=== PATIENT | male | born 1940 | race Caucasian/White ===

== ENCOUNTER → 2023-03-21 10:57 | Outpatient (POV) | payer MEDICARE, OTHER, SELFPAY ==
--- NOTE | 2023-03-21 11:11 | A.OFFVIS_ITS ---
HPI Data of Consult Patient: new to practice Consult date: 03/21/23 Requesting Physician: Sarah Connell APRN Primary Care Provider: Jaron Serrano MD Consult Narrative History of present illness: Mr. Trujillo is a 82 year old male who presents today as a new patient. He is a referral from Dr. Serrano's office. Today he rates his pain a 10 out of 10. Patient states he has pain in multiple locations all over his body and states a lot of it has to do with arthritis. Patient states he has chronic back, shoulder and knee pain. Patient does have a history of 5 previous back surgeries including fusion at [facility]. Patient does describe his pain as a constant aching, throbbing sensation. He does state that he has a history of falls and typically has to rely on someone else to help him whenever he gets up due to this. Patient does use a rolling walker however would like to be able to use a motorized power chair if possible. He states that he did previously have a scooter that he would use prior to his last fall however it is too big to go into the correction. Patient states that he has a significant history of h eart issues and was having trouble which caused additional falls and ended up having to have a valve replaced. Patient states that he also has continued weakness in his legs and his arm and has poor outdoor fitness trainer which does not help with preventing his falls. He states that the last fall he ended up with black eyes and was hospitalized. Patient is currently at [facility] for rehab however he states that he is not planning on leaving this facility. He states he has to be there for 100 days and then will be made a residents following. Patient states he is just unable to stay at home on his own anymore. [facility] [place] Patient does have significant comorbidities including diabetes, COPD, CAD. Patient is currently prescribed gabapentin 300 mg 3 times a day and [place] 5 mg 3 times a day from an outside provider. Patient states this medication does not cause any side effects but it really does not make significant improvement. Patient states he has tried multiple oral medication, heat and ice and topicals with no additional relief. He has had physical therapy in the past and is still currently having the therapy at the correction however is not noticing any additional improvement. Patient does state that he has had injections in his hip, knees and shoulders in the past however these did not do any additional improvement as well. His Herman has been reviewed and is appropriate. CC: Sarah Connell APRN [facility] Disclaimer: The information contained in this section may have been updated after the patient was seen, as this information can be updated by other users. Medical History CAD (coronary artery disease) Carotid artery disease COPD (chronic obstructive pulmonary disease) HHD (hypertensive heart disease) HLD (hyperlipidemia) Shortness of Breath Family History (Updated 03/21/23 @ 11:40 by Karina Edward RN) Other Unknown family medical history Social History (Updated 03/21/23 @ 11:40 by Karina Edward RN) Smoking Status: Former smoker second hand exposure: No alcohol intake: never substance use type: denies use current occupational status: retired Travel in the last 8 weeks: None housing: correction Review of Systems Review of Systems Review of systems:: pertinent systems reviewed and negative unless documented below Review of systems (narrative): Review of Systems: General: No recent weight changes, no fever, no sleep disturbances Respiratory: No cough, no shortness of air, no recurring pulmonary infections Cardiovascular/peripheral vascular: No chest pain, no palpitations, no edema, no shortness of breath Gastrointestinal: No new onset incontinence, normal bowel movements reported Genitourinary: No new onset incontinence Musculoskeletal: Low back pain, knee pain, shoulder pain Psychiatric: [Normal mood/affect] Neurological: [Denies weakness in extremities], [denies balance issues] Meds Home Medications and Allergies Home Medications Medication Instructions Recorded Confirmed Type aspirin 81 mg tablet,delayed 81 mg PO DAILY 05/12/17 03/21/23 History release (Aspir-Low) atorvastatin 20 mg tablet 20 mg PO DAILY 05/12/17 03/21/23 History azilsartan medoxomil 40 1 tab PO Q24H 05/12/17 03/21/23 History mg-chlorthalidone 25 mg tablet (Edarbyclor) bupropion HCl 150 mg 24 hr tablet, 150 mg PO QAM 05/12/17 03/21/23 History extended release (Wellbutrin XL) clopidogrel 75 mg tablet 75 mg PO DAILY 05/12/17 03/21/23 History doxazosin 4 mg tablet 4 mg PO QHS 05/12/17 03/21/23 History ergocalciferol (vitamin D2) 1,250 50,000 unit PO Q2W 05/12/17 03/21/23 History mcg (50,000 unit) capsule fluoxetine 40 mg capsule 40 mg PO DAILY 05/12/17 03/21/23 History furosemide 40 mg tablet (Lasix) 40 mg PO DAILY #30 tabs 05/12/17 03/21/23 Rx lisinopril 20 mg tablet 20 mg PO DAILY 05/12/17 03/21/23 History omeprazole magnesium 20 mg 20 mg PO BID 05/12/17 03/21/23 History tablet,delayed release (Prilosec OTC) gabapentin 300 mg capsule 300 mg PO TID #360 caps 02/27/23 03/21/23 Rx hydrocodone 5 mg-acetaminophen 325 1 tab PO Q8H #15 tabs 02/27/23 03/21/23 Rx mg tablet amlodipine 5 mg tablet 5 mg PO DAILY #30 tabs 03/13/23 03/21/23 Rx carvedilol 3.125 mg tablet (Coreg) 3.125 mg PO BID #60 tabs 03/13/23 03/21/23 Rx erythromycin 5 mg/gram (0.5 %) eye 0.5 inch ophthalmic (eye) TID 30 03/13/23 03/21/23 Rx ointment days #3.5 grams ferrous fumarate 325 mg (106 mg 325 mg PO DAILY #30 tabs 03/13/23 03/21/23 Rx iron) tablet insulin degludec 200 unit/mL (3 12 unit (0.06 mL) SQ DAILY 30 days 03/13/23 03/21/23 Rx mL) subcutaneous pen (Tresiba #1.8 mL FlexTouch U-200 insulin) insulin lispro 100 unit/mL 1 sliding scale dose SQ 03/13/23 03/21/23 Rx subcutaneous solution USEASDIRECTD 30 days #10 mL lidocaine 3.5 % topical patch 1 patch topical QHS #10 ea 03/13/23 03/21/23 Rx loratadine 10 mg tablet 10 mg PO DAILY #30 tabs 03/13/23 03/21/23 Rx losartan 100 mg tablet 100 mg PO DAILY #30 tabs 03/13/23 03/21/23 Rx methocarbamol 500 mg tablet 500 mg PO TID #90 tabs 03/13/23 03/21/23 Rx mirtazapine 15 mg tablet 15 mg PO HS #30 tabs 03/13/23 03/21/23 Rx omega-3 fatty acids 1,000 mg 1,000 mg PO DAILY #30 caps 03/13/23 03/21/23 Rx capsule polyethylene glycol 3350 17 17 g PO DAILY 30 days #510 grams 03/13/23 03/21/23 Rx gram/dose oral powder sennosides 8.6 mg capsule (senna) 8.6 mg PO BID #60 caps 03/13/23 03/21/23 Rx New Prescriptions to Start Prescriptions: Allergies Allergy/AdvReac Type Severity Reaction Status Date / Time influenza virus vaccine, Allergy Verified 02/28/23 15:36 specific shellfish derived Allergy Verified 02/28/23 15:36 Objective Narrative: Physical Exam: General: Alert and oriented x3, no acute distress, pleasant and cooperative Lungs: Respirations even and unlabored, symmetrical chest expansion Eyes: PERRL Musculoskeletal: Flexion and extension of lumbar [spine] somewhat guarded secondary to pain, [antalgic gait noted] Neurological: Speech clear, no gross sensory deficit Assessment and Plan *Assessment and plan (1) Chronic pain syndrome: Status: Acute Category: Medical Code(s): G89.4 - Chronic pain syndrome (2) Low back pain: Status: Acute Qualifiers: Chronicity: chronic Back pain laterality: bilateral Sciatica presence: unspecified whether sciatica present Qualified Code(s): M54.50 - Low back pain, unspecified; G89.29 - Other chronic pain Category: Medical Code(s): M54.50 - Low back pain, unspecified (3) History of lumbar fusion: Status: Acute Category: Surgical Code(s): Z98.1 - Arthrodesis status (4) Bilateral knee pain: Status: Acute Qualifiers: Chronicity: chronic Qualified Code(s): M25.561 - Pain in right knee; M25.562 - Pain in left knee; G89.29 - Other chronic pain Category: Medical Code(s): M25.561 - Pain in right knee; M25.562 - Pain in left knee (5) Bilateral shoulder pain: Status: Acute Qualifiers: Chronicity: chronic Qualified Code(s): M25.511 - Pain in right shoulder; M25.512 - Pain in left shoulder; G89.29 - Other chronic pain Category: Medical Code(s): M25.511 - Pain in right shoulder; M25.512 - Pain in left shoulder Plan Patient continues to experience significant pain throughout multiple joints and areas. Patient did have limited range of motion of his lumbar spine during today's visit. Patient states he was unsure why he was sent to our office however he would be very interested if we can help him get a power chair. I have discussed with the patient that I will fill out any additional paperwork he requires in order to help get this approved for his use at the [facility]. I have also counseled the patient due to his heart history and extensive history of falls I do not recommend is adding any additional pain medication onto his current medication regimen due to increased risk of additional falls. Patient will return to clinic in 1 month for reevaluation of symptoms and plan of care. We will reach out to the [facility] for possible paperwork for the motorized wheelchair. Patient has been instructed to contact the clinic with any concerns before the next appointment. Dr. Fu has reviewed this note and agrees with this plan of care. This note was dictated using voice recognition software and make contain errors or omissions.
[2023-03-21 11:39] VITALS: BP 118/49; PULSE 78; RESP 18; O2SAT 96; BMI 30.8
== END ==
PROVIDERS: PCP Family Medicine; Visit Provider Nurse Practitioner Family
DX: G89.4 Chronic pain syndrome (principal); M54.50 Low back pain, unspecified; Z98.1 Arthrodesis status; M25.561 Pain in right knee; M25.562 Pain in left knee; M25.511 Pain in right shoulder; M25.512 Pain in left shoulder; M43.26 Fusion of spine, lumbar region
CPT/HCPCS: 99202; G0463

== ENCOUNTER 2023-04-10 14:29 | Outpatient (CLI) | payer MEDICARE, OTHER, SELFPAY ==
--- NOTE | 2023-04-10 14:39 | XR_ITS ---
FINAL REPORT CLINICAL HISTORY: right knee pain FINDINGS: Right knee Three views were obtained. There is no acute fracture or dislocation. There are mild and moderate degenerative changes. There is moderate lateral compartment narrowing. Vascular calcification is identified. IMPRESSION: Degenerative changes as detailed above. Reviewed, Interpreted and Dictated by Marcellus Turner III, MD Transcribed by Anisa Guevara Authenticated and [facility]
--- NOTE | 2023-04-10 14:39 | XR_ITS ---
FINAL REPORT CLINICAL HISTORY: left knee pain FINDINGS: Left knee Three views were obtained. There is no acute fracture or dislocation. There are moderate degenerative changes. There is moderate to severe lateral compartment narrowing. Vascular calcification is identified. IMPRESSION: Degenerative changes as detailed above. Reviewed, Interpreted and Dictated by Marcellus Turner III, MD Transcribed by Anisa Guevara Authenticated and [facility]
--- NOTE | 2023-04-10 14:39 | XR_ITS ---
FINAL REPORT CLINICAL HISTORY: shoulder pain FINDINGS: Right shoulder Three views were obtained. There is no acute fracture or dislocation. There are mild degenerative changes of the AC and glenohumeral joints. No soft tissue abnormality is identified. IMPRESSION: Mild degenerative changes. Reviewed, Interpreted and Dictated by Marcellus Turner III, MD Transcribed by Anisa Guevara Authenticated and [facility]
--- NOTE | 2023-04-10 15:30 | XR_ITS ---
FINAL REPORT CLINICAL HISTORY: Left shoulder pain FINDINGS: Left shoulder Three views were obtained. There is no acute fracture or dislocation. There are mild degenerative changes of the AC and glenohumeral joints. No soft tissue abnormality is identified. IMPRESSION: Mild degenerative changes. Reviewed, Interpreted and Dictated by Marcellus Turner III, MD Transcribed by Anisa Guevara Authenticated and [facility]
== END 2023-04-10 23:59 ==
LOC: RAD 14:35
PROVIDERS: PCP Family Medicine; Visit Provider Orthopaedic Surgery
DX: M25.561 Pain in right knee; M25.562 Pain in left knee; M25.512 Pain in left shoulder; M25.511 Pain in right shoulder
CPT/HCPCS: 73030; 73562

== ENCOUNTER 2023-04-21 13:40 | Outpatient (POV) | payer MEDICARE, OTHER, SELFPAY ==
--- NOTE | 2023-04-21 14:04 | A.OFFVIS_ITS ---
[facility] Pain Management SOAP Note Subjective:: Patient is a pleasant 82-year-old male who presents today for follow-up. We are currently treating the patient for chronic pain syndrome, low back pain, history of lumbar fusion, bilateral knee pain. Today he rates his pain a 5 out of 10. Patient denies any new trauma or injury. He does state from our last visit he did end up getting a gel injection in his left knee by Dr. Yan Connell here at [facility]. He states that that has helped and is still currently working. Patient is still currently at the [facility] and states he continues to have his chronic pain throughout his body. At our last visit we did try and submit additional documentation in order to get him a motorized wheelchair however he states he has not heard any updates regarding this. Patient is currently managed with gabapentin 300 mg 3 times a day and [place] 5 mg 3 times a day from an outside provider. His Herman has been reviewed and is appropriate. Review of Systems: General: No recent weight changes, no fever, no sleep disturbances Respiratory: No cough, no shortness of air, no recurring pulmonary infections Cardiovascular/peripheral vascular: No chest pain, no palpitations, no edema, no shortness of breath Gastrointestinal: No new onset incontinence, normal bowel movements reported Genitourinary: No new onset incontinence Musculoskeletal: Knee pain, low back pain, hip pain Psychiatric: [Normal mood/affect] Neurological: [Denies weakness in extremities], [denies balance issues] Objective:: Physical Exam: General: Alert and oriented x3, no acute distress, pleasant and cooperative Lungs: Respirations even and unlabored, symmetrical chest expansion Eyes: PERRL Musculoskeletal: Flexion and extension of lumbar [spine] somewhat guarded secondary to pain, [antalgic gait noted] Neurological: Speech clear, no gross sensory deficit Assessment:: Chronic pain syndrome, low back pain, history of lumbar fusion, bilateral knee pain Plan:: Patient continues to experience significant pain in multiple areas however he has had multiple injections throughout the years and states that they were only temporary. Patient is not interested in any injection therapy at this time. I have counseled the patient that he can contact our office for his next follow- up. We will reach back out to [facility] and see if we had any updates regarding the motorized wheelchair. Patient has been instructed to contact the clinic with any concerns before the next appointment. Dr. Fu has reviewed this note and agrees with this plan of care. This note was dictated using voice recognition software and make contain errors or omissions. [facility] Disclaimer: The information contained in this section may have been updated after the patient was seen, as this information can be updated by other users. Medical History CAD (coronary artery disease) Carotid artery disease COPD (chronic obstructive pulmonary disease) HHD (hypertensive heart disease) HLD (hyperlipidemia) Shortness of Breath Family History Other Unknown family medical history Social History Smoking Status: Former smoker second hand exposure: No alcohol intake: never substance use type: denies use current occupational status: retired Travel in the last 8 weeks: None housing: [facility]
[2023-04-21 14:22] VITALS: BP 183/66; PULSE 60; RESP 18; O2SAT 96; BMI 30.4
== END 2023-04-21 23:59 ==
PROVIDERS: PCP Family Medicine; Visit Provider Nurse Practitioner Family
DX: G89.4 Chronic pain syndrome (principal); M54.50 Low back pain, unspecified; M43.26 Fusion of spine, lumbar region; M25.561 Pain in right knee; M25.562 Pain in left knee
CPT/HCPCS: 99212; G0463

== ENCOUNTER 2023-06-27 08:54 | Outpatient (CLI) | payer OTHER, SELFPAY ==
--- NOTE | 2023-06-27 09:10 | XR_ITS ---
FINAL REPORT CLINICAL HISTORY: ARTHRITIS FINDINGS: LEFT SHOULDER 3 views of the left shoulder were obtained. There is no acute fracture or dislocation. There are moderate degenerative changes of the acromioclavicular and glenohumeral joints. Visualized joint spaces are normally aligned. Soft tissues are unremarkable. IMPRESSION: Moderate degenerative change without acute bony abnormality. Reviewed, Interpreted and Dictated by Gilda Bauer MD Transcribed by Merry Jennings Authenticated and [facility]
--- NOTE | 2023-06-27 09:10 | XR_ITS ---
FINAL REPORT CLINICAL HISTORY: ARTHRITIS FINDINGS: RIGHT KNEE 3 views of the right knee were obtained. There is no acute fracture or dislocation. There are moderate degenerative changes. Visualized joint spaces are normally aligned. Soft tissues are unremarkable. IMPRESSION: No acute bony abnormality. Reviewed, Interpreted and Dictated by Gilda Bauer MD Transcribed by Merry Jennings Authenticated and [facility]
--- NOTE | 2023-06-27 09:10 | XR_ITS ---
FINAL REPORT CLINICAL HISTORY: ARTHRITIS FINDINGS: 2 views of the right elbow were obtained. There is no acute fracture or dislocation. There are mild degenerative changes. The joint spaces are intact. There is not soft tissue abnormality. IMPRESSION: No acute fracture Reviewed, Interpreted and Dictated by Gilda Bauer MD Transcribed by Merry Jennings Authenticated and [facility]
--- NOTE | 2023-06-27 09:10 | XR_ITS ---
FINAL REPORT CLINICAL HISTORY: . FINDINGS: LEFT KNEE 3 views of the left knee were obtained. There are moderate tricompartmental degenerative changes. There is no acute fracture or dislocation. Visualized joint spaces are normally aligned. Soft tissues are unremarkable. IMPRESSION: No acute bony abnormality. Reviewed, Interpreted and Dictated by Gilda Bauer MD Transcribed by Merry Jennings Authenticated and [facility]
--- NOTE | 2023-06-27 09:10 | XR_ITS ---
FINAL REPORT CLINICAL HISTORY: ARTHRITIS FINDINGS: RIGHT HAND 3 views were obtained. There is no acute fracture or dislocation. There is mild diffuse arthritic change. Deformity is seen of the second DIP joint which may be posttraumatic or related to advanced degenerative change. Visualized joint spaces are normally aligned. Soft tissues are unremarkable. IMPRESSION: No acute bony abnormality. Reviewed, Interpreted and Dictated by Gilda Bauer MD Transcribed by Merry Jennings Authenticated and [facility]
--- NOTE | 2023-06-27 09:10 | XR_ITS ---
FINAL REPORT CLINICAL HISTORY: ARTHRITIS FINDINGS: RIGHT SHOULDER Three views demonstrate no acute fracture or dislocation. There are moderate degenerative changes of the glenohumeral and acromioclavicular joints. The visualized joint spaces are normally aligned. The soft tissues are unremarkable. IMPRESSION: No acute process. Reviewed, Interpreted and Dictated by Gilda Bauer MD Transcribed by Merry Jennings Authenticated and [facility]
--- NOTE | 2023-06-27 09:10 | XR_ITS ---
FINAL REPORT CLINICAL HISTORY: ARTHRITIS FINDINGS: 2 views of the left elbow were obtained. There are minimal degenerative changes. There is no acute fracture or dislocation. The joint spaces are intact. There is not soft tissue abnormality. IMPRESSION: No acute fracture Reviewed, Interpreted and Dictated by Gilda Bauer MD Transcribed by Merry Jennings Authenticated and [facility]
--- NOTE | 2023-06-27 09:10 | XR_ITS ---
FINAL REPORT CLINICAL HISTORY: ARTHRITIS FINDINGS: LEFT HAND 3 views were obtained. There is no acute fracture or dislocation. There are moderate, diffuse degenerative changes. Visualized joint spaces are normally aligned. Soft tissues are unremarkable. IMPRESSION: No acute bony abnormality. Reviewed, Interpreted and Dictated by Gilda Bauer MD Transcribed by Merry Jennings Authenticated and [facility]
== END 2023-06-27 23:59 | disposition home or self-care (01) ==
LOC: RAD 09:03
PROVIDERS: PCP Family Medicine; Visit Provider Chiropractor
DX: M13.80 Other specified arthritis, unspecified site (principal)
CPT/HCPCS: 73030; 73070; 73120; 73562

== ENCOUNTER 2023-11-29 23:58 | Emergency (ER) | payer MEDICARE, OTHER, MEDICAID, SELFPAY ==
[2023-11-29 23:59] VITALS: BP 147/59; PULSE 74; RESP 17; TEMP 36.8; O2SAT 97; BMI 30.7
--- NOTE | 2023-11-30 00:01 | CT_ITS ---
PROCEDURE INFORMATION: Exam: CT Cervical Spine Without Contrast Exam date and time: 11/30/2023 12:13 AM Age: 83 years old Clinical indication: Injury or trauma; Fall; Blunt trauma; Additional info: Fall with head injury, lethargy TECHNIQUE: Imaging protocol: Computed tomography of the cervical spine without contrast. Radiation optimization: All CT scans at this facility use at least one of these dose optimization techniques: automated exposure control; mA and/or kV adjustment per patient size (includes targeted exams where dose is matched to clinical indication); or iterative reconstruction. COMPARISON: CT HEAD/BRAIN WO CON 11/30/2023 12:13 AM FINDINGS: Bones: No evident fracture. Degenerative changes of the C-spine most pronounced at C5-C6 and C6-C7. Otherwise unremarkable CT of the C-spine with no fracture evident. Alignment and vertebral body heights are intact. Lungs: Lung apices are normal. Soft tissues: Unremarkable. IMPRESSION: Degenerative changes. No acute abnormality.
--- NOTE | 2023-11-30 00:01 | CT_ITS ---
PROCEDURE INFORMATION: Exam: CT Head Without Contrast Exam date and time: 11/30/2023 12:13 AM Age: 83 years old Clinical indication: Injury or trauma; Fall; Blunt trauma (contusions or hematomas); Other: Lethargy; Additional info: Fall with head injury, lethargy TECHNIQUE: Imaging protocol: Computed tomography of the head without contrast. Radiation optimization: All CT scans at this facility use at least one of these dose optimization techniques: automated exposure control; mA and/or kV adjustment per patient size (includes targeted exams where dose is matched to clinical indication); or iterative reconstruction. COMPARISON: CT CERVICAL SPINE WO CON 11/30/2023 12:13 AM FINDINGS: Brain: No intracranial hemorrhage. Generalized atrophic changes of the ventricles and subarachnoid spaces. Chronic small-vessel ischemic changes noted. No mass, mass effect or midline shift. Intracranial atherosclerotic changes are noted. 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 Cerebral ventricles: See Brain finding. Paranasal sinuses: Visualized sinuses are unremarkable. No fluid levels. Mastoid air cells: Visualized mastoid air cells are well aerated. Bones: See Soft tissues finding. Soft tissues: Mild scalp soft tissue swelling anterior to the right frontal bone with no underlying skull fracture. IMPRESSION: 1. Mild scalp soft tissue swelling anterior to the right frontal bone with no underlying skull fracture. 2. No acute intracranial abnormality. Chronic changes as above.
--- NOTE | 2023-11-30 00:32 | ED_ITS ---
Discharge Plan Disposition Patient Disposition: Xfer SNF Condition: Good Prescriptions Prescriptions: No Action azelastine 137 mcg (0.1 %) spray,non-aerosol intranasal citalopram 20 mg tablet 20 mg PO HS losartan 25 mg tablet 25 mg PO DAILY omeprazole 40 mg capsule,delayed release(DR/EC) 40 mg PO DAILY levocetirizine 5 mg tablet 5 mg PO DAILY famotidine 40 mg tablet 40 mg PO HS Qty: 30 3RF aspirin [Aspir-Low] 81 mg tablet,delayed release (DR/EC) 81 mg PO DAILY atorvastatin 20 mg tablet 20 mg PO DAILY clopidogrel 75 mg tablet 75 mg PO DAILY bupropion HCl [Wellbutrin XL] 150 mg tablet extended release 24 hr 150 mg PO QAM furosemide [Lasix] 40 mg tablet 40 mg PO DAILY Qty: 30 5RF ferrous fumarate 325 mg (106 mg iron) tablet 325 mg PO DAILY Qty: 30 0RF methocarbamol 500 mg tablet 500 mg PO TID Qty: 90 0RF polyethylene glycol 3350 17 gram/dose powder 17 g PO DAILY 30 Days Qty: 510 0RF senna 8.6 mg capsule 8.6 mg PO BID Qty: 60 0RF doxazosin 8 mg tablet PO DAILY insulin degludec [Tresiba FlexTouch U-200] 200 unit/mL (3 mL) insulin pen 14 unit SQ DAILY insulin lispro 100 unit/mL solution 4 unit SQ USEASDIRECTD icosapent ethyl [Vascepa] 1 gram capsule PO (DME) BD AutoShield Duo Pen Needle 30 gauge x 3/16 needle See Rx Instructions .ROUTE .MEDSUPPLY Qty: 100 Rx Instructions: As directed lidocaine [Lidocaine Pain Relief] 4 % adhesive patch,medicated topical Deep Sea Nasal 0.65 % aerosol,spray intranasal ipratropium-albuterol 0.5 mg-3 mg(2.5 mg base)/3 mL solution for nebulization inhalation metformin 500 mg tablet 500 mg PO BID tramadol 50 mg tablet 50 mg PO TID gabapentin 400 mg capsule 400 mg PO TID 30 Days Qty: 90 2RF acetaminophen [Tylenol Arthritis Pain] 650 mg tablet extended release 650 mg PO Q12H PRN (Reason: pain) 30 Days Qty: 60 0RF Referrals Follow up/Referrals: Provider,Referral, MD [Primary Care Provider] - See instructions Activity Restrictions/Add. Instructions Additional Instructions/Restrictions: Donte was evaluated in the ER and is appropriate for discharge at this time. Keep the wound clean and dry, Steri-Strips can be removed in 7 days, they should fall off on their own. Drink plenty of water. Make an appointment with primary care physician for reevaluation in 2 to 3 days. Return to the ER for new, worsening, or otherwise concerning symptoms. Clinical Impressions Clinical Impression: Fall, Laceration of scalp Print Language Print Language: Cambodian Discharge ED Provider: Byron Rico General Adult HPI General Chief complaint: Fall Stated complaint: fall with lac to head Time Seen by Provider: 11/30/23 00:15 History of Present Illness HPI narrative: 83-year-old male presents from nursing facility for concerns of fall that happened approximately 7 hours prior to arrival. Patient reports he bent over to pick something up earlier this evening, lost his balance, falling and striking the back of his head. Denies loss of consciousness. Patient takes aspirin, clopidogrel. Initially the nursing facility applied Steri-Strips but were concerned that he seemed to be slightly more sleepy from his baseline so they called EMS and patient was transported here. He complains of his normal arthritis pain but has no other concerns at this time and states he feels otherwise well. He tells me that they fixed his wound on his scalp before he came to the ER. He has no complaints of chest pain, dizziness, numbness, tingling, weakness, nausea, vomiting, abdominal pain, difficulty breathing, or any other associated symptoms. Related Data Home Medications ?Medication ?Instructions ?Recorded ?Confirmed aspirin 81 mg tablet,delayed 81 mg PO DAILY 05/12/17 11/17/23 release (Aspir-Low) atorvastatin 20 mg tablet 20 mg PO DAILY 05/12/17 11/17/23 bupropion HCl 150 mg 24 hr tablet, 150 mg PO QAM 05/12/17 11/17/23 extended release (Wellbutrin XL) clopidogrel 75 mg tablet 75 mg PO DAILY 05/12/17 11/17/23 doxazosin 8 mg tablet mg PO DAILY 09/15/23 11/17/23 icosapent ethyl 1 gram capsule g PO 09/15/23 11/17/23 (Vascepa) insulin degludec 200 unit/mL (3 14 unit SQ DAILY 09/15/23 11/17/23 mL) subcutaneous pen (Tresiba FlexTouch U-200 insulin) insulin lispro 100 unit/mL 4 unit SQ USEASDIRECTD 09/15/23 11/17/23 subcutaneous solution ipratropium 0.5 mg-albuterol 3 mg ml inhalation 09/15/23 11/17/23 (2.5 mg base)/3 mL nebulization soln lidocaine 4 % topical patch patch topical 09/15/23 11/17/23 (Lidocaine Pain Relief) pen needle,diabetic dual safty 30 #100 ea 09/15/23 11/17/23 gauge x 3/16 (BD AutoShield Duo Pen Needle) sodium chloride 0.65 % nasal spray spray intranasal 09/15/23 11/17/23 aerosol (Deep Sea Nasal) tramadol 50 mg tablet 50 mg PO TID 10/20/23 11/17/23 azelastine 137 mcg (0.1 %) nasal intranasal 11/17/23 11/17/23 spray citalopram 20 mg tablet 20 mg PO HS 11/17/23 11/17/23 levocetirizine 5 mg tablet 5 mg PO DAILY 11/17/23 11/17/23 losartan 25 mg tablet 25 mg PO DAILY 11/17/23 11/17/23 metformin 500 mg tablet 500 mg PO BID 11/17/23 11/17/23 omeprazole 40 mg capsule,delayed 40 mg PO DAILY 11/17/23 11/17/23 release Previous Rx's ?Medication ?Instructions ?Recorded furosemide 40 mg tablet (Lasix) 40 mg PO DAILY #30 tabs 05/12/17 ferrous fumarate 325 mg (106 mg 325 mg PO DAILY #30 tabs 03/13/23 iron) tablet methocarbamol 500 mg tablet 500 mg PO TID #90 tabs 03/13/23 polyethylene glycol 3350 17 17 g PO DAILY 30 days #510 grams 03/13/23 gram/dose oral powder sennosides 8.6 mg capsule (senna) 8.6 mg PO BID #60 caps 03/13/23 acetaminophen 650 mg 650 mg PO Q12H PRN pain 30 days 10/20/23 tablet,extended release (Tylenol #60 tabs Arthritis Pain) gabapentin 400 mg capsule 400 mg PO TID 30 days #90 caps 10/20/23 famotidine 40 mg tablet 40 mg PO HS #30 tabs 11/17/23 Allergies Allergy/AdvReac Type Severity Reaction Status Date / Time iodine AdvReac Verified 11/17/23 14:15 [facility] Disclaimer: The information contained in this section may have been updated after the patient was seen, as this information can be updated by other users. Medical History (Updated 11/30/23 @ 02:35 by Byron Rico MD) GERD (gastroesophageal reflux disease) Allergic rhinitis Ear congestion CAD (coronary artery disease) HLD (hyperlipidemia) COPD (chronic obstructive pulmonary disease) HHD (hypertensive heart disease) Carotid artery disease Shortness of Breath Surgical History (Updated 11/17/23 @ 14:25 by MENDY Clark) History of open heart surgery Family History Other Unknown family medical history Social History Smoking Status: Never smoker second hand exposure: No alcohol intake: never substance use type: denies use current occupational status: retired Travel in the last 8 weeks: None housing: group home Other Medical History Have you received the Flu Vaccine for this season: No Have you received the Pneumonia Vaccine: Yes ROS Obtained: Yes All systems reviewed & no additional complaints except as documented Positive ROS per HPI Physical Exam General General appearance: alert and in no apparent distress Head Head exam: normocephalic and other (1.5 cm scalp laceration on the crown of the scalp, well-approximated, hemostatic at this time.) Eye Eye exam: Present PERRL (2 mm, briskly reactive) and EOMI ENT ENT exam: Present mucous membranes moist Neck Neck exam: Present normal inspection and full ROM Chest Chest inspection: Present symmetric chest wall rise Respiratory Respiratory exam: Absent respiratory distress or stridor Cardiovascular Cardiovascular exam: Present regular rate and normal rhythm Abdominal Exam Abdominal exam: Present soft; Absent distention or tenderness Extremities Exam Extremities exam: Present full ROM; Absent joint swelling or calf tenderness Neurological Exam Neurological exam: Present alert; Absent oriented X3 (Oriented to self and birthday, disoriented to time, oriented to location, oriented to events that caused him to come to the ER) or motor sensory deficit (5 out of 5 strength, normal sensation in all extremities. No cerebellar symptoms. No facial droop) Psychiatric Psychiatric exam: Present normal affect and normal mood Skin Skin exam: Present warm and dry Medical Decision Making Medical Records Medical records reviewed: Yes I reviewed the patient's medical records. Screening: Per USPSTF and CDC recommendations, given the prevalence of disease in our region, it is our hospital?s policy to screen for HIV and viral Hepatitis for all patients aged 18 and over and those with ongoing risk factors. 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 He also takes multiple sedating medications including gabapentin, tramadol. Herman Inquiry Pt receiving controlled substance: No Vital Signs: 11/29/23 23:59 11/30/23 01:30 Temperature 98.3 F Temperature Source Oral Pulse Rate 76 Pulse Rate [Right] 74 Respiratory Rate 17 Blood Pressure 113/56 L Blood Pressure [Right Arm] 147/59 H Blood Pressure Mean [Right Arm] 88 Blood Pressure Source [Right Arm] Automatic Cuff Blood Pressure Position [Right Arm] Supine 02 Sat by Pulse Oximetry 97 95 Oxygen Delivery Method Room Air Orders (Tests/Meds): ORDERS Category Date Time Status CT cervical spine wo con Stat Cat Scan 11/30/23 00:[address] head/brain wo con Stat Cat Scan 11/30/23 00:01 Completed Medical Decision Narrative: In summary, this 83-year-old male presents to the emergency department today with concerns of fall from group home. On initial evaluation patient is hemodynamically stable, afebrile, he was initially not oriented to time but had no focal neurologic deficits, behaving appropriately, knew what had happened to him, exam notable for small laceration on the crown of the scalp that is hemostatic and well-approximated, no other findings of injury on exam. Differential diagnosis includes but is not limited to fall, skull fracture, intracranial bleed, intracranial mass, midline shift, cervical spine injury. I considered the possibility of stroke however have extreme low suspicion for this since patient has no lateralizing deficits, no cerebellar symptoms, and after he was told that the month is November he has been able to readily reproduce this answer and is otherwise oriented. NIH 1 on arrival in the setting of known cognitive delay and previous CVA. Extremely low concern for stroke given the gradual onset of symptoms and only abnormality on neuro exam being very slight disorientation which is consistent with his known cognitive decline according to my discussion with his bedside nurse. Based on these concerns, I ordered CT imaging of head, C-spine. CT imaging personally interpreted does not demonstrate acute traumatic injury, see radiology read for final interpretation. Significant degenerative changes are present in the C-spine as well as old changes of the brain matter. I had an interactive discussion with patient's bedside RN who states they were concerned patient seemed more sleepy as the evening went on. She states his speech seemed slurred however patient has no findings of this on exam and is speaking clearly both at the time of arrival and on reassessment. She states he did receive his tramadol and gabapentin among other medications tonight prior to being sent to the ER. She reports patient is usually oriented but does wax and wane slightly. On reassessment patient is fully oriented, NIH 0, GCS 15, resting comfortably. Scalp laceration was repaired. See procedure note for details. Patient tolerated oral intake and ambulated well in the ER with assistance like he described using as group home. Patient is appropriate for discharge at this time. They do not believe further workup is indicated. Patient was given instructions on symptomatic management, follow up instructions, and return precautions for the emergency department. Patient indicated understanding and was discharged in stable condition. Procedures Laceration Laceration 1: Site: scalp Size (cm): 2 Description: linear Depth: simple, single layer Pre-repair: irrigated extensively (Irrigated with 30 mL sterile saline prior to closure) Skin layer closed with: Dermabond and other (Steri-Strips) Critical Care Critical Care Time Critical Care Time: No
[2023-11-30 01:30] VITALS: BP 113/56; PULSE 76; O2SAT 95
[2023-11-30 02:01] VITALS: BP 140/54; PULSE 76; O2SAT 92
--- NOTE | 2023-11-30 02:12 | PC.NURSE ---
Report called to Mansi DEL REAL at [facility]
--- NOTE | 2023-11-30 02:13 | PC.NURSE ---
EMS notified for transport
[2023-11-30 02:30] VITALS: BP 142/63; PULSE 75; O2SAT 95
--- NOTE | 2023-11-30 02:31 | PC.NURSE ---
Patient was ambulated to and from the restroom.
[2023-11-30 03:00] VITALS: BP 123/57; PULSE 74; O2SAT 95
--- NOTE | 2023-11-30 03:08 | PC.NURSE ---
spoke with [facility]. Patient discharge/transfer is going to take longer due to vehicle issue.
--- NOTE | 2023-11-30 04:22 | PC.NURSE ---
EMS notified ER at this time that they are en route for transfer back home
--- NOTE | 2023-11-30 04:28 | PC.NURSE ---
EMS here for transport
[2023-11-30 04:30] VITALS: BP 123/57; PULSE 73; RESP 18; TEMP 36.6; O2SAT 96
== END 2023-11-30 04:32 ==
PROVIDERS: Emergency Provider Emergency Medicine
DX: S01.01XA Laceration without foreign body of scalp, initial encounter (principal); W01.10XA Fall on same level from slipping, tripping and stumbling with subsequent striking against unspecified object, initial encounter; Y93.9 Activity, unspecified; Y92.129 Unspecified place in nursing home as the place of occurrence of the external cause
CPT/HCPCS: 70450; 72125; 99284

== ENCOUNTER 2023-12-02 21:08 | Emergency (ER) | payer MEDICARE, OTHER, MEDICAID, SELFPAY ==
[2023-12-02 21:08] VITALS: BP 177/74; PULSE 79; RESP 18; TEMP 36.7; O2SAT 95; BMI 30.4
[2023-12-02 21:21] VITALS: O2SAT 98
--- NOTE | 2023-12-02 21:27 | ED_ITS ---
Discharge Plan Disposition Patient Disposition: Xfer SNF Condition: Good Prescriptions Prescriptions: No Action azelastine 137 mcg (0.1 %) spray,non-aerosol intranasal citalopram 20 mg tablet 20 mg PO HS losartan 25 mg tablet 25 mg PO DAILY omeprazole 40 mg capsule,delayed release(DR/EC) 40 mg PO DAILY levocetirizine 5 mg tablet 5 mg PO DAILY famotidine 40 mg tablet 40 mg PO HS Qty: 30 3RF aspirin [Aspir-Low] 81 mg tablet,delayed release (DR/EC) 81 mg PO DAILY atorvastatin 20 mg tablet 20 mg PO DAILY clopidogrel 75 mg tablet 75 mg PO DAILY bupropion HCl [Wellbutrin XL] 150 mg tablet extended release 24 hr 150 mg PO QAM furosemide [Lasix] 40 mg tablet 40 mg PO DAILY Qty: 30 5RF ferrous fumarate 325 mg (106 mg iron) tablet 325 mg PO DAILY Qty: 30 0RF methocarbamol 500 mg tablet 500 mg PO TID Qty: 90 0RF polyethylene glycol 3350 17 gram/dose powder 17 g PO DAILY 30 Days Qty: 510 0RF senna 8.6 mg capsule 8.6 mg PO BID Qty: 60 0RF doxazosin 8 mg tablet PO DAILY insulin degludec [Tresiba FlexTouch U-200] 200 unit/mL (3 mL) insulin pen 14 unit SQ DAILY insulin lispro 100 unit/mL solution 4 unit SQ USEASDIRECTD icosapent ethyl [Vascepa] 1 gram capsule PO (DME) BD AutoShield Duo Pen Needle 30 gauge x 3/16 needle See Rx Instructions .ROUTE .MEDSUPPLY Qty: 100 Rx Instructions: As directed lidocaine [Lidocaine Pain Relief] 4 % adhesive patch,medicated topical Deep Sea Nasal 0.65 % aerosol,spray intranasal ipratropium-albuterol 0.5 mg-3 mg(2.5 mg base)/3 mL solution for nebulization inhalation metformin 500 mg tablet 500 mg PO BID tramadol 50 mg tablet 50 mg PO TID gabapentin 400 mg capsule 400 mg PO TID 30 Days Qty: 90 2RF acetaminophen [Tylenol Arthritis Pain] 650 mg tablet extended release 650 mg PO Q12H PRN (Reason: pain) 30 Days Qty: 60 0RF Referrals Follow up/Referrals: Jaron Serrano MD [Primary Care Provider] - See instructions Activity Restrictions/Add. Instructions Additional Instructions/Restrictions: You were evaluated in the emergency department today. At this time, urinalysis is not overtly concerning for urinary tract infection, however culture was sent and is pending. We will follow this up. Please continue monitoring as an outpatient. Return to the emergency department for new or worsening symptoms Clinical Impressions Clinical Impression: Encounter for medical assessment Print Language Print Language: Yoruba Discharge ED Provider: Sarah Garner General Adult HPI General Chief complaint: Recheck/Abnormal Lab/Rx Stated complaint: AMS, recent fall and hit head (11/28) Time Seen by Provider: 12/02/23 21:16 Mode of Arrival: EMS Source of Information: Patient and EMS Limitations: No Limitations Description of Symptoms (Recalled from ER Triage Doc. by RN): Pt presnts to the ED via EMS after the [facility] staff said he was confused this morning. The pt is A&O*4 at this time and is not showing signs of confusion. Pt has no complaints and does not have any pain. MD informed. History of Present Illness HPI narrative: This patient is an 83-year-old male with a history of hypertension, hyperlipidemia, CAD, GERD, hypertensive heart disease, carotid artery disease presenting to the emergency department for evaluation with concern for possible confusion. According to nursing facility, patient was confused today and thought that he needed to go to work, which is unusual for him. They noted that they initially had urinalysis requested as an outpatient order from Dr. Wahl for possible confusion, however he instructed to have the patient brought to the ED. patient is alert and oriented x 4 with GCS of 15 on my assessment. 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 He states that in the dream, the person did not pay him the money that he was owed so he said I guess I will have to go back to work then. . He states when he woke up from the deep sleep, he was still briefly talking about needing to go to work, but he states that once he was fully awake he knew that this was all just a dream. He notes he ate breakfast as usual and has had no concerns or complaints today. He recalls having 2 pieces of sausage and 2 pieces of toast for breakfast. He denies any concerns or complaints otherwise and states has been in his usual state of health. He states he is not sure why they sent him. Because he does not feel like he is been confused. EMS reports that the patient told them the same story, and the patient reported the same story to nursing staff upon arrival. Related Data Home Medications ?Medication ?Instructions ?Recorded ?Confirmed aspirin 81 mg tablet,delayed 81 mg PO DAILY 05/12/17 11/17/23 release (Aspir-Low) atorvastatin 20 mg tablet 20 mg PO DAILY 05/12/17 11/17/23 bupropion HCl 150 mg 24 hr tablet, 150 mg PO QAM 05/12/17 11/17/23 extended release (Wellbutrin XL) clopidogrel 75 mg tablet 75 mg PO DAILY 05/12/17 11/17/23 doxazosin 8 mg tablet mg PO DAILY 09/15/23 11/17/23 icosapent ethyl 1 gram capsule g PO 09/15/23 11/17/23 (Vascepa) insulin degludec 200 unit/mL (3 14 unit SQ DAILY 09/15/23 11/17/23 mL) subcutaneous pen (Tresiba FlexTouch U-200 insulin) insulin lispro 100 unit/mL 4 unit SQ USEASDIRECTD 09/15/23 11/17/23 subcutaneous solution ipratropium 0.5 mg-albuterol 3 mg ml inhalation 09/15/23 11/17/23 (2.5 mg base)/3 mL nebulization soln lidocaine 4 % topical patch patch topical 09/15/23 11/17/23 (Lidocaine Pain Relief) pen needle,diabetic dual safty 30 #100 ea 09/15/23 11/17/23 gauge x 3/16 (BD AutoShield Duo Pen Needle) sodium chloride 0.65 % nasal spray spray intranasal 09/15/23 11/17/23 aerosol (Deep Sea Nasal) tramadol 50 mg tablet 50 mg PO TID 10/20/23 11/17/23 azelastine 137 mcg (0.1 %) nasal intranasal 11/17/23 11/17/23 spray citalopram 20 mg tablet 20 mg PO HS 11/17/23 11/17/23 levocetirizine 5 mg tablet 5 mg PO DAILY 11/17/23 11/17/23 losartan 25 mg tablet 25 mg PO DAILY 11/17/23 11/17/23 metformin 500 mg tablet 500 mg PO BID 11/17/23 11/17/23 omeprazole 40 mg capsule,delayed 40 mg PO DAILY 11/17/23 11/17/23 release Previous Rx's ?Medication ?Instructions ?Recorded furosemide 40 mg tablet (Lasix) 40 mg PO DAILY #30 tabs 05/12/17 ferrous fumarate 325 mg (106 mg 325 mg PO DAILY #30 tabs 03/13/23 iron) tablet methocarbamol 500 mg tablet 500 mg PO TID #90 tabs 03/13/23 polyethylene glycol 3350 17 17 g PO DAILY 30 days #510 grams 03/13/23 gram/dose oral powder sennosides 8.6 mg capsule (senna) 8.6 mg PO BID #60 caps 03/13/23 acetaminophen 650 mg 650 mg PO Q12H PRN pain 30 days 10/20/23 tablet,extended release (Tylenol #60 tabs Arthritis Pain) gabapentin 400 mg capsule 400 mg PO TID 30 days #90 caps 10/20/23 famotidine 40 mg tablet 40 mg PO HS #30 tabs 11/17/23 Allergies Allergy/AdvReac Type Severity Reaction Status Date / Time iodine AdvReac Verified 11/17/23 14:15 [facility] Disclaimer: The information contained in this section may have been updated after the patient was seen, as this information can be updated by other users. Medical History GERD (gastroesophageal reflux disease) Allergic rhinitis Ear congestion CAD (coronary artery disease) HLD (hyperlipidemia) COPD (chronic obstructive pulmonary disease) HHD (hypertensive heart disease) Carotid artery disease Shortness of Breath Surgical History History of open heart surgery Family History Other Unknown family medical history Social History Smoking Status: Former smoker second hand exposure: No alcohol intake: never substance use type: denies use current occupational status: retired Travel in the last 8 weeks: None housing: [facility] Other Medical History Have you received the Flu Vaccine for this season: No Have you received the Pneumonia Vaccine: Yes ROS Obtained: Yes All systems reviewed & no additional complaints except as documented Physical Exam General General appearance: alert and in no apparent distress Head Head exam: atraumatic and normocephalic Eye Eye exam: Present normal appearance, PERRL and EOMI ENT ENT exam: Present normal exam, normal oropharynx, mucous membranes moist and normal external ear exam Neck Neck exam: Present normal inspection, full ROM and trachea midline; Absent tenderness Chest Chest inspection: Present normal inspection and symmetric chest wall rise; Absent tenderness Respiratory Respiratory exam: Present normal lung sounds bilaterally; Absent respiratory distress, wheezes, stridor or accessory muscle use Cardiovascular Cardiovascular exam: Present regular rate and normal rhythm Abdominal Exam Abdominal exam: Present soft; Absent distention, tenderness or guarding Extremities Exam Extremities exam: Present normal inspection, full ROM and normal capillary refill; Absent tenderness or edema Back Exam Back exam: Present normal inspection and full ROM; Absent tenderness Neurological Exam Neurological exam: Present alert, oriented X3, CN II-XII intact and normal gait; Absent motor sensory deficit Psychiatric Psychiatric exam: Present normal affect and normal mood Skin Skin exam: Present warm and dry Medical Decision Making Medical Records Medical records reviewed: Yes I reviewed the patient's medical records. Screening: Per USPSTF and CDC recommendations, given the prevalence of disease in our region, it is our hospital?s policy to screen for HIV and viral Hepatitis for all patients aged 18 and over and those with ongoing risk factors. Herman Inquiry Pt receiving controlled substance: No Vital Signs: 12/02/23 21:08 12/02/23 21:21 12/02/23 21:30 Temperature 98.0 F Temperature Source Oral Pulse Rate 78 Pulse Rate [Left] 79 Respiratory Rate 18 Blood Pressure 181/70 H Blood Pressure [Right Arm] 177/74 H Blood Pressure Mean [Right Arm] 108 02 Sat by Pulse Oximetry 95 98 96 Oxygen Delivery Method Room Air Room Air 12/02/23 22:01 Temperature Temperature Source Pulse Rate 75 Pulse Rate [Left] Respiratory Rate Blood Pressure 182/64 H Blood Pressure [Right Arm] Blood Pressure Mean [Right Arm] 02 Sat by Pulse Oximetry 97 Oxygen Delivery Method Lab Data Lab results reviewed: Yes I reviewed the patient's lab results. Lab Results 12/02/23 21:40: Urine Color Yellow, Urine Appearance Clear, Urine pH 5.5, Ur Specific [place] >= 1.030, Urine Protein 2+ A, Urine Glucose (UA) Negative, Urine Ketones Negative, Urine Blood Negative, Urine Nitrate Negative, Urine Bilirubin Negative, Urine Urobilinogen 0.2, Ur Leukocyte Esterase Trace, Urine RBC Occasional, Urine WBC Occasional, Ur Squamous Epith Cells Occasional, Urine Bacteria Trace Orders (Tests/Meds): ORDERS Category Date Time Status UA [Urinalysis and Microscopic] Stat Lab 12/02/23 21:40 Completed Urine Culture Stat Micro 12/02/23 22:22 Ordered Medical Decision Narrative: In summary, this patient is a 83-year-old male presenting to the Emergency Department for evaluation of possible confusion at the nursing facility. Differential diagnoses considered include but are not limited to UTI, head injury, electrolyte derangements. Ruling out the most morbid conditions drove assessment. It should be noted patient's history includes CAD, hypertension, hyperlipidemia, COPD which or may not be at goal therapy. This complicates all aspects of care by increasing patient's risk for morbidity. I reviewed patient's past medical records and noted previous evaluation here 11/29/2023 after a ground-level fall in which she did hit his head. Workup was reassuring at that time and patient was neurologically intact, so he was discharged home. On exam, the patient is lying in bed in no acute distress with reassuring vital signs on cardiac telemetry. He is alert and oriented x 4, tells consistent story to myself, EMS, and nurses, and he is GCS of 15 with no focal neurologic deficits. Will obtain urinalysis since nursing facility was hoping to rule out UTI. Ultimately given his reassuring workup and exam and lack of any sort of symptoms or complaints, I do not feel that other labs or imaging are indicated. Urinalysis was obtained which had some squamous cells in it and had trace leukocyte esterase, trace white blood cells, trace red blood cells, trace bacteria. Overall, not a slam dunk for urinary tract infection given mild contamination. Urine culture was sent and is pending at time of discharge back to detention facility. Deferring treatment at this time given that it is not immediately concerning for UTI. Strict return precautions were given and patient was transported back to nursing facility in stable condition. Critical Care Critical Care Time Critical Care Time: No
[2023-12-02 21:30] VITALS: BP 181/70; PULSE 78; O2SAT 96
[2023-12-02 21:47] LABS: Microscopic, Urine URINE MICROSCOPIC (MICROSCOPIC)
[2023-12-02 21:53] LABS: Appearance,Urine CLEAR (Clear); Bilirubin,Urine Negative (Negative); Blood, Urine Negative (Negative); Color,Urine YELLOW (Yellow); Glucose,Urine (UA) Negative (Negative); Ketones,Urine Negative (Negative); Leukocyte Esterase,Urine TRACE (Negative); Nitrate,Urine Negative (Negative); PH,Urine 5.5 (5.0-8.5); Protein,Urine 2+ (Negative); Specific Gravity, Urine >= 1.030 (1.005-1.030); Urobilinogen,Urine 0.2 EU/dl (0.2)
[2023-12-02 22:01] VITALS: BP 182/64; PULSE 75; O2SAT 97
[2023-12-02 22:14] LABS: Bacteria,Urine Trace /lpf; RBC,Urine Occasional #/hpf (0-3); Squamous Epithelial Cell,Urine Occasional #/hpf (0-5); WBC,Urine Occasional #/hpf (0-3)
--- NOTE | 2023-12-02 23:07 | PC.NURSE ---
Pt reports to be upset that no one is telling me what I'm waiting for . I educated pt that we collected a urine sample and submitted to the lab to check for infection as [facility] felt he was Altered. He states well I know that but I don't know why they made me come here to just sit in a bed . I apologized to pt for the wait time for the lab test. He is Alert & oriented x3 and again stated I just want to know why they made me come here . I let pt know that the ER did not make this decision but [facility] felt he needed to be seen by a provider mary for evaluation, which Dr. Garner has spoken to him about on several occasions. Pt states well that is an awful thing to say to someone . I asked, what he felt was awful that was said, and pt said you don't want me here . I let him know that is not what I said at all but as he was asking why they made him come here and I let him know that it was [facility] that made the decision to send him for evaluation not the ER. I educated him further that EMS has been called to transport him back to [facility] and should be here within 10 min and I called report to Shaneka at [facility].
[2023-12-02 23:28] VITALS: BP 172/70; PULSE 73; RESP 18; TEMP 36.6; O2SAT 95
== END 2023-12-02 23:25 ==
PROVIDERS: Emergency Provider Emergency Medicine; PCP Family Medicine
DX: Z00.8 Encounter for other general examination (principal); R41.82 Altered mental status, unspecified
CPT/HCPCS: 81001; 87086; 99282

== ENCOUNTER 2023-12-19 05:32 | Emergency (ER) | payer MEDICARE, OTHER, MEDICAID, SELFPAY ==
[2023-12-19 05:32] VITALS: BP 132/70; PULSE 74; RESP 16; TEMP 36.6; O2SAT 94; BMI 32.5
--- NOTE | 2023-12-19 05:35 | CT_ITS ---
PROCEDURE INFORMATION: Exam: CT Cervical Spine Without Contrast Exam date and time: 12/19/2023 6:16 AM Age: 83 years old Clinical indication: Injury or trauma; Fall TECHNIQUE: Imaging protocol: Computed tomography of the cervical spine without contrast. Radiation optimization: All CT scans at this facility use at least one of these dose optimization techniques: automated exposure control; mA and/or kV adjustment per patient size (includes targeted exams where dose is matched to clinical indication); or iterative reconstruction. COMPARISON: CT CERVICAL SPINE WO CON 11/30/2023 12:13 AM FINDINGS: Bones: Median sternotomy wires are present. Multilevel discogenic endplate changes with disc ridging, no severe spinal canal narrowing. Multilevel uncovertebral hypertrophy and facet hypertrophic changes bilaterally with associated foraminal narrowing. Degenerative changes of the atlanto dens articulation. No acute fracture. No malalignment. Lungs: Lung apices are normal. Vasculature: Atherosclerotic changes of the aorta and branch vessels. Soft tissues: Benign nuchal calcifications are present. IMPRESSION: No cervical spine fracture. Multilevel spondylosis.
--- NOTE | 2023-12-19 05:35 | CT_ITS ---
PROCEDURE INFORMATION: Exam: CT Head Without Contrast Exam date and time: 12/19/2023 6:13 AM Age: 83 years old Clinical indication: Injury or trauma; Fall; Additional info: Fall thinners scalp lac TECHNIQUE: Imaging protocol: Computed tomography of the head without contrast. Radiation optimization: All CT scans at this facility use at least one of these dose optimization techniques: automated exposure control; mA and/or kV adjustment per patient size (includes targeted exams where dose is matched to clinical indication); or iterative reconstruction. COMPARISON: CT HEAD/BRAIN WO CON 11/30/2023 12:13 AM FINDINGS: Brain: Similar small-vessel ischemic changes and generalized intracranial volume loss. Intracranial vascular calcifications are present. Chronic left cerebellar infarct. Encephalomalacia left parietal lobe. There is no evidence of acute intracranial hemorrhage. No mass effect or midline shift. Cerebral ventricles: Ex-vacuo changes of the ventricles. Paranasal sinuses: Mild mucoperiosteal thickening right maxillary antrum, left anterior ethmoid air cells are opacified and there is mucoperiosteal thickening within bilateral frontal sinuses. Mastoid air cells: Visualized mastoid air cells are well aerated. Orbital cavities: Bilateral lens replacements noted. Bones: Unremarkable. No acute fracture. Soft tissues: Soft tissue hematoma and soft tissue gas left anterior scalp and forehead. IMPRESSION: 1. Chronic intracranial findings as detailed above, no acute intracranial process evident. 2. Soft tissue hematoma and soft tissue gas left anterior scalp and forehead.
[2023-12-19] MEDS: LIDOCAINE 1% W/EPI 1:100,000 20ML VIAL 20 ML IJ (05:43)
--- NOTE | 2023-12-19 05:48 | PC.NURSE ---
Dr. Rico at bedside for laceration repair
--- NOTE | 2023-12-19 06:08 | ED_ITS ---
Discharge Plan Disposition Patient Disposition: Xfer SNF Condition: Good Prescriptions Prescriptions: No Action azelastine 137 mcg (0.1 %) spray,non-aerosol intranasal citalopram 20 mg tablet 20 mg PO HS losartan 25 mg tablet 25 mg PO DAILY omeprazole 40 mg capsule,delayed release(DR/EC) 40 mg PO DAILY levocetirizine 5 mg tablet 5 mg PO DAILY famotidine 40 mg tablet 40 mg PO HS Qty: 30 3RF aspirin [Aspir-Low] 81 mg tablet,delayed release (DR/EC) 81 mg PO DAILY atorvastatin 20 mg tablet 20 mg PO DAILY clopidogrel 75 mg tablet 75 mg PO DAILY bupropion HCl [Wellbutrin XL] 150 mg tablet extended release 24 hr 150 mg PO QAM furosemide [Lasix] 40 mg tablet 40 mg PO DAILY Qty: 30 5RF ferrous fumarate 325 mg (106 mg iron) tablet 325 mg PO DAILY Qty: 30 0RF methocarbamol 500 mg tablet 500 mg PO TID Qty: 90 0RF polyethylene glycol 3350 17 gram/dose powder 17 g PO DAILY 30 Days Qty: 510 0RF senna 8.6 mg capsule 8.6 mg PO BID Qty: 60 0RF doxazosin 8 mg tablet PO DAILY insulin degludec [Tresiba FlexTouch U-200] 200 unit/mL (3 mL) insulin pen 14 unit SQ DAILY insulin lispro 100 unit/mL solution 4 unit SQ USEASDIRECTD icosapent ethyl [Vascepa] 1 gram capsule PO (DME) BD AutoShield Duo Pen Needle 30 gauge x 3/16 needle See Rx Instructions .ROUTE .MEDSUPPLY Qty: 100 Rx Instructions: As directed lidocaine [Lidocaine Pain Relief] 4 % adhesive patch,medicated topical Deep Sea Nasal 0.65 % aerosol,spray intranasal ipratropium-albuterol 0.5 mg-3 mg(2.5 mg base)/3 mL solution for nebulization inhalation metformin 500 mg tablet 500 mg PO BID tramadol 50 mg tablet 50 mg PO TID gabapentin 400 mg capsule 400 mg PO TID 30 Days Qty: 90 2RF acetaminophen [Tylenol Arthritis Pain] 650 mg tablet extended release 650 mg PO Q12H PRN (Reason: pain) 30 Days Qty: 60 0RF Referrals Follow up/Referrals: Jaron Serrano MD [Primary Care Provider] - See instructions Activity Restrictions/Add. Instructions Additional Instructions/Restrictions: You were evaluated in the ER and are appropriate for discharge at this time. Keep the wound clean and dry. The stitches will fall out on their own, they do not have to be removed. You can shower/bathe like normal. Take Tylenol if needed for pain. Do not exceed the recommended dose on the [facility]. Drink plenty of water. Follow-up with primary care doctor in 2 to 3 days for reevaluation. Return to the ER with new, worsening, or otherwise concerning symptoms. Clinical Impressions Clinical Impression: Fall, Complex laceration of scalp Print Language Print Language: Romanian Discharge ED Provider: Byron Rico General Adult HPI General Chief complaint: Fall Stated complaint: Fall, head Laceration Time Seen by Provider: 12/19/23 05:34 Mode of Arrival: EMS Source of Information: EMS Limitations: No Limitations Description of Symptoms (Recalled from ER Triage Doc. by RN): pt to ED with c/o unwitnessed fall out of bed at [facility]. pt has a 3-4 inch laceration over his left eye. Pt is on plavix, unknown LOC. Abdomen tender upon palpation History of Present Illness HPI narrative: 83-year-old male presents to the ER from [facility] for concerns of fall with laceration on the head. Patient has a history of hypertension, COPD, hyperlipidemia, CAD, he is on aspirin, clopidogrel. Patient does not believe he lost consciousness. He denies neck pain. Facility and EMS report that patient had significant bleeding from the wound initially. He has saturated the dressing that they applied. Patient is alert and oriented. He is not complaining of pain elsewhere. He denies abdominal pain, nausea, vomiting, diarrhea, dizziness, fevers, chills, cough, sore throat, shortness of breath, chest pain, or any complaints of injury other than the scalp wound. Patient reports it was only a minute from the time of his fall to when staff responded to him calling out for help. Patient does not recall last Tdap. Related Data Home Medications ?Medication ?Instructions ?Recorded ?Confirmed aspirin 81 mg tablet,delayed 81 mg PO DAILY 05/12/17 12/08/23 release (Aspir-Low) atorvastatin 20 mg tablet 20 mg PO DAILY 05/12/17 12/08/23 bupropion HCl 150 mg 24 hr tablet, 150 mg PO QAM 05/12/17 12/08/23 extended release (Wellbutrin XL) clopidogrel 75 mg tablet 75 mg PO DAILY 05/12/17 12/08/23 doxazosin 8 mg tablet mg PO DAILY 09/15/23 12/08/23 icosapent ethyl 1 gram capsule g PO 09/15/23 12/08/23 (Vascepa) insulin degludec 200 unit/mL (3 14 unit SQ DAILY 09/15/23 12/08/23 mL) subcutaneous pen (Tresiba FlexTouch U-200 insulin) insulin lispro 100 unit/mL 4 unit SQ USEASDIRECTD 09/15/23 12/08/23 subcutaneous solution ipratropium 0.5 mg-albuterol 3 mg ml inhalation 09/15/23 12/08/23 (2.5 mg base)/3 mL nebulization soln lidocaine 4 % topical patch patch topical 09/15/23 12/08/23 (Lidocaine Pain Relief) pen needle,diabetic dual safty 30 #100 ea 09/15/23 12/08/23 gauge x 3/16 (BD AutoShield Duo Pen Needle) sodium chloride 0.65 % nasal spray spray intranasal 09/15/23 12/08/23 aerosol (Deep Sea Nasal) tramadol 50 mg tablet 50 mg PO TID 10/20/23 12/08/23 azelastine 137 mcg (0.1 %) nasal intranasal 11/17/23 12/08/23 spray citalopram 20 mg tablet 20 mg PO HS 11/17/23 12/08/23 levocetirizine 5 mg tablet 5 mg PO DAILY 11/17/23 12/08/23 losartan 25 mg tablet 25 mg PO DAILY 11/17/23 12/08/23 metformin 500 mg tablet 500 mg PO BID 11/17/23 12/08/23 omeprazole 40 mg capsule,delayed 40 mg PO DAILY 11/17/23 12/08/23 release Previous Rx's ?Medication ?Instructions ?Recorded furosemide 40 mg tablet (Lasix) 40 mg PO DAILY #30 tabs 05/12/17 ferrous fumarate 325 mg (106 mg 325 mg PO DAILY #30 tabs 03/13/23 iron) tablet methocarbamol 500 mg tablet 500 mg PO TID #90 tabs 01/18/24 polyethylene glycol 3350 17 17 g PO DAILY 30 days #510 grams 03/13/23 gram/dose oral powder sennosides 8.6 mg capsule (senna) 8.6 mg PO BID #60 caps 03/13/23 acetaminophen 650 mg 650 mg PO Q12H PRN pain 30 days 10/20/23 tablet,extended release (Tylenol #60 tabs Arthritis Pain) gabapentin 400 mg capsule 400 mg PO TID 30 days #90 caps 10/20/23 famotidine 40 mg tablet 40 mg PO HS #30 tabs 11/17/23 Allergies Allergy/AdvReac Type Severity Reaction Status Date / Time iodine AdvReac Verified 12/08/23 18:01 [facility] Disclaimer: The information contained in this section may have been updated after the patient was seen, as this information can be updated by other users. Medical History GERD (gastroesophageal reflux disease) Allergic rhinitis Ear congestion CAD (coronary artery disease) HLD (hyperlipidemia) COPD (chronic obstructive pulmonary disease) HHD (hypertensive heart disease) Carotid artery disease Shortness of Breath Surgical History History of open heart surgery Family History Other Unknown family medical history Social History Smoking Status: Unknown if ever smoked second hand exposure: No alcohol intake: never substance use type: denies use current occupational status: retired Travel in the last 8 weeks: None housing: prison Other Medical History Have you received the Flu Vaccine for this season: No Have you received the Pneumonia Vaccine: Yes ROS Obtained: Yes All systems reviewed & no additional complaints except as documented Positive ROS per HPI Physical Exam General General appearance: alert and in no apparent distress Head Head exam: other (Patient has jagged anterior superior scalp wound, it starts on the top of his head and travels linearly, inferiorly towards the forehead. Subcutaneous muscle exposed. Dressing is saturated, when dressing is removed, there is pulsatile bleeding from the superiormost aspect of the wound.) Eye Eye exam: Present PERRL and EOMI ENT ENT exam: Present mucous membranes moist Neck Neck exam: Present normal inspection and full ROM Chest Chest inspection: Present symmetric chest wall rise Respiratory Respiratory exam: Present normal lung sounds bilaterally; Absent respiratory distress, wheezes or stridor Cardiovascular Cardiovascular exam: Present regular rate and normal rhythm Abdominal Exam Abdominal exam: Present soft; Absent distention or tenderness Extremities Exam Extremities exam: Present full ROM Neurological Exam Neurological exam: Present alert, oriented X3 and CN II-XII intact; Absent motor sensory deficit Psychiatric Psychiatric exam: Present normal affect and normal mood Skin Skin exam: Present warm and dry Medical Decision Making Medical Records Medical records reviewed: Yes I reviewed the patient's medical records. Screening: Per USPSTF and CDC recommendations, given the prevalence of disease in our region, it is our hospital?s policy to screen for HIV and viral Hepatitis for all patients aged 18 and over and those with ongoing risk factors. MR Comment: Patient has history of CAD on dual antiplatelet therapy. Patient's monthly prison health visit was completed on 12/07. Reports patient is progressing well. Herman Inquiry Pt receiving controlled substance: No Vital Signs: 12/19/23 05:32 12/19/23 06:31 12/19/23 07:01 Temperature 97.9 F Temperature Source Oral Pulse Rate 73 81 Pulse Rate [Left Radial] 74 Respiratory Rate 16 Blood Pressure 134/54 L 123/58 L Blood Pressure [Right Arm] 132/70 Blood Pressure Mean [Right Arm] 90 Blood Pressure Source [Right Arm] Automatic Cuff Blood Pressure Position [Right Arm] Sitting 02 Sat by Pulse Oximetry 94 L 94 L 93 L Oxygen Delivery Method Room Air Orders (Tests/Meds): ED MEDICATIONS Discontinued Medications Generic Name Dose Route Start Last Admin Trade Name Freq PRN Reason Stop Dose Admin Lidocaine/Epinephrine 20 ml 12/19/23 05:41 12/19/23 05:43 Lidocaine 1% W/Epi 1:100,000 20ml Vial IJ 12/19/23 05:42 20 ml ONCE ONE Administration Tetanus/Reduced Diphtheria/Acell Pertussis 0.5 ml 12/19/23 06:43 Tet/Diphth/Pert-Adult 0.5ml Syringe IM 12/19/23 06:44 .ONCE ONE ORDERS Category Date Time Status CT cervical spine wo con Stat Cat Scan 12/19/23 05:[address] head/brain wo con Stat Cat Scan 12/19/23 05:35 Completed Medical Decision Narrative: In summary, this 83-year-old male presents to the emergency department today with scalp laceration after a fall. On initial evaluation patient is hemodynamically stable, afebrile, bleeding scalp wound present, GCS 15, neurologically intact throughout. Patient had reported abdominal tenderness to nursing, however on my exam exhibits none, there are no findings of injury. No swelling or MSK abnormalities. Differential diagnosis includes but is not limited to laceration, skull fracture, intracranial bleed, cervical spine injury, I considered the possibility of other traumatic injuries however I do not appreciate any evidence of these on exam. Because of the pulsatile bleeding from the superior aspect of the scalp wound, laceration was immediately repaired. See procedure note for details. Based on these concerns, I ordered CT imaging. Lidocaine with epinephrine was infiltrated around the wound for anesthesia and hemostasis. Wound was repaired. CT head personally interpreted demonstrate hematoma and gas where the laceration was repaired, no skull fracture, no intracranial bleed. I do not appreciate acute traumatic injury of the C-spine. See radiology reads for final interpretations. C-collar personally cleared by me. Patient received Tdap booster. Patient is appropriate for discharge at this time. Patient was given instructions on symptomatic management, wound care, follow up instructions, and return precautions for the emergency department. Instructions were also given to the nursing facility. Patient and facility indicated understanding and patient was discharged in stable condition. Procedures Risk/Benefits of Procedure(s) Were Explained: Yes Laceration Laceration 1: Site: scalp (vertically oriented jagged scalp wound on the anterior superior scalp with pulsatile bleeding at the superiormost aspect) Side (If applicable): left Size (cm): 4 Description: irregular Depth: involves subcutaneous layer Local Anesthetic: lidocaine 1% and with epi Amount of anesthesia used (mL): 6 Pre-repair: wound explored, irrigated extensively and deep structures in tact (Muscle exposed but does not appear damaged.) Skin layer closed with: other (Chromic Gut) Size (cm): 4-0 Number of sutures: 2 Technique: running and other ([id number] at the superiormost aspect over small pulsatile bleeding vessel. Hemostasis achieved.) Critical Care Critical Care Time Critical Care Time: No
[2023-12-19 06:31] VITALS: BP 134/54; PULSE 73; O2SAT 94
--- NOTE | 2023-12-19 06:48 | PC.NURSE ---
Report called to Antoinette @ [facility]
[2023-12-19 07:01] VITALS: BP 123/58; PULSE 81; O2SAT 93
[2023-12-19] MEDS: TET/DIPHTH/PERT-ADULT 0.5ML SYRINGE 0.5 ML IM (07:16)
--- NOTE | 2023-12-19 07:30 | PC.NURSE ---
pt assisted with using urinal; no other needs at this time
--- NOTE | 2023-12-19 07:41 | PC.NURSE ---
pt given ice water, okay'd by GERDA PEREZ
--- NOTE | 2023-12-19 08:15 | PC.NURSE ---
Called EMS to remind them about this pt going back to [facility]. They advised they would be her shortly
[2023-12-19 09:21] VITALS: BP 123/58; PULSE 81; RESP 16; TEMP 36.7; O2SAT 93
== END 2023-12-19 09:36 ==
PROVIDERS: Emergency Provider Emergency Medicine; PCP Family Medicine
DX: S01.01XA Laceration without foreign body of scalp, initial encounter (principal); R51.9 Headache, unspecified; Z23 Encounter for immunization; W06.XXXA Fall from bed, initial encounter; Y93.89 Activity, other specified; Y92.122 Bedroom in nursing home as the place of occurrence of the external cause
CPT/HCPCS: 70450; 72125; 90471; 90715; 99284

== ENCOUNTER 2023-12-22 19:36 | Emergency (ER) | payer MEDICARE, OTHER, MEDICAID, SELFPAY ==
[2023-12-22 19:36] VITALS: BP 163/73; PULSE 81; RESP 18; TEMP 36.8; O2SAT 95; BMI 28.8
[2023-12-22 20:01] VITALS: BP 171/75; PULSE 87; O2SAT 97
--- NOTE | 2023-12-22 20:02 | CT_ITS ---
PROCEDURE INFORMATION: Exam: CT Head Without Contrast Exam date and time: 12/22/2023 8:26 PM Age: 83 years old Clinical indication: Altered mental status/memory loss; Additional info: Altered mental status, recent fall TECHNIQUE: Imaging protocol: Computed tomography of the head without contrast. Radiation optimization: All CT scans at this facility use at least one of these dose optimization techniques: automated exposure control; mA and/or kV adjustment per patient size (includes targeted exams where dose is matched to clinical indication); or iterative reconstruction. COMPARISON: CT HEAD/BRAIN WO CON 12/19/2023 6:13 AM FINDINGS: Brain: Moderate generalized cerebral/cerebellar atrophy. Mild-moderate bilateral white matter hypodensities which are nonspecific but most commonly associated with chronic microvascular ischemia in this age group. The IACs are grossly normal. No extra-axial fluid collections. No evidence of acute intracranial hemorrhage. 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 Small chronic infarct in the left cerebellar hemisphere again noted. Subcentimeter chronic lacunar infarct versus prominent perivascular space in the left putamen unchanged with. No intracranial mass lesions. No midline shift or herniation. Cerebral ventricles: Mild compensatory ventriculomegaly secondary to central atrophy. Pituitary gland and sella: The sella is grossly normal. Paranasal sinuses: Mucosal thickening in the right maxillary and bilateral fronto-ethmoid distributions suggesting mild chronic sinusitis. No fluid levels. Mastoid air cells: Visualized mastoid air cells are clear. Orbital cavities: No acute intraorbital findings. Prior bilateral ocular cataract surgery. Bones: No acute osseous findings. Soft tissues: Left frontal scalp swelling slightly decreased from 12/19/2023. Vasculature: Moderate calcific atherosclerosis. No asymmetric vascular hyperdensities suggestive of thrombosis are identified. IMPRESSION: 1. No acute intracranial process. No intracranial hemorrhage or mass effect. No significant intracranial change from 12/19/2023. 2. Left frontal scalp swelling is mildly decreased from 12/19/2023. 3. Atrophy and microvascular changes consistent with age. 4. Moderate calcific atherosclerosis.
--- NOTE | 2023-12-22 20:09 | ED_ITS ---
<Statement entered by Isidro Faust MD - 12/22/23 22:40> I was consulted by the PRIYA, and we discussed the complexity of the problems being addressed. I approved the treatment and management plan for this patient's care in the emergency department, thus performing a substantive portion of the medical decision making. Isidro Faust MD, FREDA, FACEP Discharge Plan Disposition Patient Disposition: Home, Self-Care Condition: Fair Chief Complaint: PAIN Prescriptions Prescriptions: No Action azelastine 137 mcg (0.1 %) spray,non-aerosol intranasal citalopram 20 mg tablet 20 mg PO HS losartan 25 mg tablet 25 mg PO DAILY omeprazole 40 mg capsule,delayed release(DR/EC) 40 mg PO DAILY levocetirizine 5 mg tablet 5 mg PO DAILY famotidine 40 mg tablet 40 mg PO HS Qty: 30 3RF aspirin [Aspir-Low] 81 mg tablet,delayed release (DR/EC) 81 mg PO DAILY atorvastatin 20 mg tablet 20 mg PO DAILY clopidogrel 75 mg tablet 75 mg PO DAILY bupropion HCl [Wellbutrin XL] 150 mg tablet extended release 24 hr 150 mg PO QAM furosemide [Lasix] 40 mg tablet 40 mg PO DAILY Qty: 30 5RF ferrous fumarate 325 mg (106 mg iron) tablet 325 mg PO DAILY Qty: 30 0RF methocarbamol 500 mg tablet 500 mg PO TID Qty: 90 0RF polyethylene glycol 3350 17 gram/dose powder 17 g PO DAILY 30 Days Qty: 510 0RF senna 8.6 mg capsule 8.6 mg PO BID Qty: 60 0RF doxazosin 8 mg tablet PO DAILY insulin degludec [Tresiba FlexTouch U-200] 200 unit/mL (3 mL) insulin pen 14 unit SQ DAILY insulin lispro 100 unit/mL solution 4 unit SQ USEASDIRECTD icosapent ethyl [Vascepa] 1 gram capsule PO (DME) BD AutoShield Duo Pen Needle 30 gauge x 3/16 needle See Rx Instructions .ROUTE .MEDSUPPLY Qty: 100 Rx Instructions: As directed lidocaine [Lidocaine Pain Relief] 4 % adhesive patch,medicated topical Deep Sea Nasal 0.65 % aerosol,spray intranasal ipratropium-albuterol 0.5 mg-3 mg(2.5 mg base)/3 mL solution for nebulization inhalation metformin 500 mg tablet 500 mg PO BID tramadol 50 mg tablet 50 mg PO TID gabapentin 400 mg capsule 400 mg PO TID 30 Days Qty: 90 2RF acetaminophen [Tylenol Arthritis Pain] 650 mg tablet extended release 650 mg PO Q12H PRN (Reason: pain) 30 Days Qty: 60 0RF Referrals Follow up/Referrals: Provider,Referral, [Primary Care Provider] - See instructions Activity Restrictions/Add. Instructions Additional Instructions/Restrictions: Follow-up with your primary care provider/retirement provider as directed, return to the emergency department for any worsening signs or symptoms. Please continue take all medications as prescribed. Clinical Impressions Clinical Impression: Encounter for medical assessment, Acute kidney injury superimposed on chronic kidney disease Print Language Print Language: Frisian Discharge ED Provider: Isidro Faust General Adult HPI General Chief complaint: PAIN Stated complaint: Altered Time Seen by Provider: 12/22/23 19:49 Mode of Arrival: EMS Source of Information: Patient and EMS Limitations: No Limitations Description of Symptoms (Recalled from ER Triage Doc. by RN): pt to ED with c/o right sided neck pain and right shoulder pain. Pt had a fall on Friday, and was seen here in the ED. History of Present Illness HPI narrative: This is a 83-year-old male who presents to the emergency department via EMS from [facility], for an initial stated chief complaint of slurred speech, confusion/altered mental status, however, patient denies any these acute symptomatology, he complains of some pain in his neck, as well as right shoulder, and right lower extremity, he does state that these are chronic, he states that I have arthritis . She was recently seen in the emergency department on 12/19/2019 for for a fall, had negative CT head and negative CT cervical spine at this time, had a complex laceration over the appearing aspect of the left frontal scalp, wound was repaired with two 4-0 sutures.patient denies any fever chills chest pain shortness of breath, does admit to slight headache, denies any nausea vomiting, denies any diarrhea constipation, does admit to urinary symptomatology which somewhat chronic for him he states, urinary frequency, denies any real dysuria, hematuria. Patient has past medical history consistent with GERD, CAD, hyperlipidemia, COPD, carotid artery disease, history of frequent falls, he is on dual antiplatelet therapy of Plavix and aspirin, type 2 diabetes. Initial triage vitals grossly unremarkable. Of note, contacted retirement facility at 8:15 PM to clarify reason for emergency department visit today, they noticed some slurred speech, altered mental status, decreased family resource coordinator strength, and dropping of the patient's objects today. Patient does admit to dropping things at the bedside. Onset (ago): day(s) Related Data Home Medications ?Medication ?Instructions ?Recorded ?Confirmed aspirin 81 mg tablet,delayed 81 mg PO DAILY 05/12/17 12/08/23 release (Aspir-Low) atorvastatin 20 mg tablet 20 mg PO DAILY 05/12/17 12/08/23 bupropion HCl 150 mg 24 hr tablet, 150 mg PO QAM 05/12/17 12/08/23 extended release (Wellbutrin XL) clopidogrel 75 mg tablet 75 mg PO DAILY 05/12/17 12/08/23 doxazosin 8 mg tablet mg PO DAILY 09/15/23 12/08/23 icosapent ethyl 1 gram capsule g PO 09/15/23 12/08/23 (Vascepa) insulin degludec 200 unit/mL (3 14 unit SQ DAILY 09/15/23 12/08/23 mL) subcutaneous pen (Tresiba FlexTouch U-200 insulin) insulin lispro 100 unit/mL 4 unit SQ USEASDIRECTD 09/15/23 12/08/23 subcutaneous solution ipratropium 0.5 mg-albuterol 3 mg ml inhalation 09/15/23 12/08/23 (2.5 mg base)/3 mL nebulization soln lidocaine 4 % topical patch patch topical 09/15/23 12/08/23 (Lidocaine Pain Relief) pen needle,diabetic dual safty 30 #100 ea 09/15/23 12/08/23 gauge x 3/16 (BD AutoShield Duo Pen Needle) sodium chloride 0.65 % nasal spray spray intranasal 09/15/23 12/08/23 aerosol (Deep Sea Nasal) tramadol 50 mg tablet 50 mg PO TID 10/20/23 12/08/23 azelastine 137 mcg (0.1 %) nasal intranasal 11/17/23 12/08/23 spray citalopram 20 mg tablet 20 mg PO HS 11/17/23 12/08/23 levocetirizine 5 mg tablet 5 mg PO DAILY 11/17/23 12/08/23 losartan 25 mg tablet 25 mg PO DAILY 11/17/23 12/08/23 metformin 500 mg tablet 500 mg PO BID 11/17/23 12/08/23 omeprazole 40 mg capsule,delayed 40 mg PO DAILY 11/17/23 12/08/23 release Previous Rx's ?Medication ?Instructions ?Recorded furosemide 40 mg tablet (Lasix) 40 mg PO DAILY #30 tabs 05/12/17 ferrous fumarate 325 mg (106 mg 325 mg PO DAILY #30 tabs 03/13/23 iron) tablet methocarbamol 500 mg tablet 500 mg PO TID #90 tabs 03/13/23 polyethylene glycol 3350 17 17 g PO DAILY 30 days #510 grams 03/13/23 gram/dose oral powder sennosides 8.6 mg capsule (senna) 8.6 mg PO BID #60 caps 03/13/23 acetaminophen 650 mg 650 mg PO Q12H PRN pain 30 days 10/20/23 tablet,extended release (Tylenol #60 tabs Arthritis Pain) gabapentin 400 mg capsule 400 mg PO TID 30 days #90 caps 10/20/23 famotidine 40 mg tablet 40 mg PO HS #30 tabs 11/17/23 Allergies Allergy/AdvReac Type Severity Reaction Status Date / Time iodine AdvReac Verified 12/08/23 18:01 [facility] Disclaimer: The information contained in this section may have been updated after the patient was seen, as this information can be updated by other users. Medical History GERD (gastroesophageal reflux disease) Allergic rhinitis Ear congestion CAD (coronary artery disease) HLD (hyperlipidemia) COPD (chronic obstructive pulmonary disease) HHD (hypertensive heart disease) Carotid artery disease Shortness of Breath Surgical History History of open heart surgery Family History Other Unknown family medical history Social History Smoking Status: Unknown if ever smoked second hand exposure: No alcohol intake: never substance use type: denies use current occupational status: retired Travel in the last 8 weeks: None housing: retirement Other Medical History Have you received the Flu Vaccine for this season: No Have you received the Pneumonia Vaccine: Yes ROS Obtained: Yes All systems reviewed & no additional complaints except as documented Physical Exam General General appearance: alert and in no apparent distress Comment: Questions appropriately, alert Head Head exam: atraumatic, normocephalic and other (Sutures in place over the left frontal scalp as described in HPI no active bleeding, no evidence of wound dehiscence) Eye Eye exam: Present PERRL, EOMI, periorbital swelling and other (Some periorbital ecchymosis, not consistent with raccoon sign, there is no hemotympanums) ENT ENT exam: Present mucous membranes moist Neck Neck exam: Present normal inspection Chest Chest inspection: Present normal inspection and symmetric chest wall rise Respiratory Respiratory exam: Present normal lung sounds bilaterally; Absent respiratory distress Cardiovascular Cardiovascular exam: Present regular rate and normal rhythm Abdominal Exam Abdominal exam: Present soft; Absent tenderness, guarding, rebound or rigidity Extremities Exam Extremities exam: Present normal inspection Neurological Exam Neurological exam: Present alert and other (Patient has some 4-5 strength in the bilateral upper extremities, most notable with family resource coordinator strength, patient has 5 out of 5 strength in the bilateral lower extremities, moves extremities to command, no lower extremity limb drift, there is some slight pronator drift of the upper extremity on the right,) Expanded Neurological Exam Speech: Present fluid speech; Absent receptive aphasia, expressive aphasia or total aphasia Other motor function: Negative Davian sign bilaterally Coma scale motor response: Obeys commands Psychiatric Psychiatric exam: Present normal affect Skin Skin exam: Present warm and dry Medical Decision Making Medical Records Medical records reviewed: Yes I reviewed the patient's medical records. Screening: Per USPSTF and CDC recommendations, given the prevalence of disease in our region, it is our hospital?s policy to screen for HIV and viral Hepatitis for all patients aged 18 and over and those with ongoing risk factors. Herman Inquiry Pt receiving controlled substance: No Herman was queried for this patient: No Vital Signs: 12/22/23 19:36 12/22/23 20:01 12/22/23 20:43 Temperature 98.2 F Temperature Source Oral Pulse Rate 87 83 Pulse Rate [Left Radial] 81 Respiratory Rate 18 Blood Pressure 171/75 H 183/75 H Blood Pressure [Right Arm] 163/73 H Blood Pressure Mean Blood Pressure Mean [Right Arm] 103 Blood Pressure Source [Right Arm] Automatic Cuff Blood Pressure Position [Right Arm] Sitting 02 Sat by Pulse Oximetry 95 97 96 Oxygen Delivery Method Room Air 12/22/23 21:01 12/22/23 21:31 Temperature Temperature Source Pulse Rate 88 84 Pulse Rate [Left Radial] Respiratory Rate Blood Pressure 153/135 H 172/67 H Blood Pressure [Right Arm] Blood Pressure Mean 139 102 Blood Pressure Mean [Right Arm] Blood Pressure Source [Right Arm] Blood Pressure Position [Right Arm] 02 Sat by Pulse Oximetry 96 95 Oxygen Delivery Method Lab Data Lab Results 12/22/23 20:35: Urine Color Yellow, Urine Appearance Clear, Urine pH 6.0, Ur Specific Fifield 1.020, Urine Protein 2+ A, Urine Glucose (UA) Negative, Urine Ketones Negative, Urine Blood Negative, Urine Nitrate Negative, Urine Bilirubin Negative, Urine Urobilinogen 0.2, Ur Leukocyte Esterase Negative, Urine WBC 3-5, Ur Squamous Epith Cells 3-5, Urine Bacteria 1+ 12/22/23 20:40: WBC 8.6, RBC 2.81 L, Hgb 8.7 L, Hct 25.8 L, MCV 91.9, MCH 30.9, MCHC 33.6, RDW 14.6, Plt Count 223, MPV 7.8, Neut % (Auto) 61.7, Lymph % (Auto) 22.2, Jessamine % (Auto) 10.1 H, Eos % (Auto) 5.1, Baso % (Auto) 0.8, Neut # (Auto) 5.3, Lymph # (Auto) 1.9, Jessamine # (Auto) 0.9, Eos # (Auto) 0.4, Baso # (Auto) 0.1, Sodium 137, Potassium 4.3, Chloride 104, Carbon Dioxide 23, Anion Gap 14.3, BUN 37 H, Creatinine 2.20 H, Estimated Creat Clear 30, Estimated GFR 29 L, Est GFR ( Amer) 35 L, Glucose 123 H, Calcium 8.4, Total Bilirubin 0.4, AST 28, ALT 18, Alkaline Phosphatase 75, Total Protein 6.8, Albumin 3.8, Globulin 3.0, Albumin/Globulin Ratio 1.3 12/22/23 20:40 12/22/23 20:40 Orders (Tests/Meds): ORDERS Category Date Time Status CT head/brain wo con Stat Cat Scan 12/22/23 20:02 Completed XR chest portable Stat Exams 12/22/23 20:09 Completed Complete Blood Count Auto Diff Stat Lab 12/22/23 20:40 Completed Comprehensive Metabolic Panel Stat Lab 12/22/23 20:40 Completed HIV (1&2) Antibody Rapid Stat Lab 12/22/23 20:40 Received Hep C Ab with Reflex to RNA Stat Lab 12/22/23 20:40 Received Urinalysis and Microscopic Stat Lab 12/22/23 20:35 Completed Medical Decision Narrative: 83-year-old male presents to the emergency department via EMS at the request of his retirement facility for altered mental status/weakness, he has a chief complaint of pain, different diagnose include but not limited to, acute SDH, metabolic cephalopathy, uremic encephalopathy, encephalopathy, cervical spondylosis, closed head injury, concussion, skull fracture, electrolyte disturbance, pneumonia. I discussed patient case with attending physician Dr. Faust Will obtain CBC CMP, urinalysis, CXR, CT head without contrast. CBC is notable for decreased hemoglobin hematocrit at 8.7/25.8 unsure if this is chronic anemia Otherwise unremarkable CBC I reviewed the patient's CT head without contrast and with corresponding radiologic report there is no acute intracranial process, no intracranial hemorrhage or mass effect, no significant intracranial change from 12/19/2023, left frontal scalp swelling is mildly decreased from 1025, atrophy and microvascular changes consistent with age, moderate calcific atherosclerosis. Urinalysis notable for 2+ proteinuria, negative leuk esterase, negative nitrites unremarkable UA I reviewed the patient's chest x-ray, mild left basilar airspace disease atelectasis versus pneumonia, low lung volumes. CMP notable for acute kidney injury with creatinine elevation of 2.2, BUN is elevated 37, GFR 29, otherwise unremarkable CMP. I obtained the patient's prior laboratory studies from the retirement facility, patient has history of chronic kidney disease, BUN and creatinine appear to be within his baseline use here today in the emergency room, reassessment of the patient at 10 PM, patient is alert oriented at his neurological baseline, no active complaints, laboratory studies unremarkable, unless stated above, patient be discharged back home to nursing care facility, patient voiced understand agreement current treatment plan/discharge plan strict ED return precautions were discussed with patient at bedside. Patient voiced understanding Critical Care Critical Care Time Critical Care Time: No
--- NOTE | 2023-12-22 20:09 | XR_ITS ---
PROCEDURE INFORMATION: Exam: XR Chest Exam date and time: 12/22/2023 8:22 PM Age: 83 years old Clinical indication: Shortness of breath; Additional info: Shortness of air TECHNIQUE: Imaging protocol: Radiologic exam of the chest. Views: 1 view. COMPARISON: CT CERVICAL SPINE WO CON 12/19/2023 6:16 AM FINDINGS: Lungs: Low lung volumes. Pulmonary vasculature grossly normal. Mild airspace disease in the left lung base, atelectasis versus pneumonia. Pleural spaces: No pleural effusion. No pneumothorax. Heart/Mediastinum: Heart size normal. No tracheal/mediastinal shift. Bones/joints: Prior median sternotomy. No acute osseous abnormalities are identified. Osteopenia. IMPRESSION: 1. Mild left basilar airspace disease, atelectasis versus pneumonia. 2. Low lung volumes.
[2023-12-22 20:43] VITALS: BP 183/75; PULSE 83; O2SAT 96
[2023-12-22 20:45] LABS: Microscopic, Urine URINE MICROSCOPIC (MICROSCOPIC)
[2023-12-22 20:52] LABS: Basophils # 0.1 K/mm3 (0-0.2); Basophils % 0.8 % (0.1-2.0); Eosinophils # 0.4 K/mm3 (0.0-0.4); Eosinophils % 5.1 % (0.1-12.0); Hematocrit 25.8 % (42.0-52.0); Hemoglobin 8.7 g/dL (14.1-18.0); Lymphocytes # 1.9 K/mm3 (0.7-4.5); Lymphocytes % 22.2 % (10-50); Mean Corpuscular HGB Conc 33.6 g/dL (31.8-35.4); Mean Corpuscular Hemoglobin 30.9 pg (27.0-31.2); Mean Corpuscular Volume 91.9 fl (80-94); Mean Platelet Volume 7.8 fl (7.4-10.4); Monocytes # 0.9 K/mm3 (0.1-1.0); Monocytes % 10.1 % (1.7-9.3); Neutrophils # 5.3 K/mm3 (1.8-7.8); Neutrophils % 61.7 % (37.0-80.0); Platelet Count 223 K/mm3 (142-424); Red Blood Count 2.81 M/mm3 (4.60-6.20); Red Cell Distribution Width 14.6 % (11.5-17.5); White Blood Count 8.6 K/mm3 (4.8-10.8)
[2023-12-22 21:01] VITALS: BP 153/135; PULSE 88; O2SAT 96
[2023-12-22 21:08] LABS: Appearance,Urine CLEAR (Clear); Bilirubin,Urine Negative (Negative); Blood, Urine Negative (Negative); Color,Urine YELLOW (Yellow); Glucose,Urine (UA) Negative (Negative); Ketones,Urine Negative (Negative); Leukocyte Esterase,Urine Negative (Negative); Nitrate,Urine Negative (Negative); Protein,Urine 2+ (Negative); Urobilinogen,Urine 0.2 EU/dl (0.2)
[2023-12-22 21:13] LABS: Albumin Level 3.8 g/dl (3.5-5.0); Chloride 104 mmol/L (98-107)
[2023-12-22 21:14] LABS: Potassium 4.3 mmoL/L (3.5-5.1); Sodium 137 mmol/L (136-145)
[2023-12-22 21:16] LABS: Blood Urea Nitrogen 37 mg/dl (9-20); Creatinine Clearance Estimated 30 mL/min (50-200); Estimated Glomerular Filt Rate 29 ml/min (>60); GFR (African American) 35 ML/MIN (>60)
[2023-12-22 21:17] LABS: Alanine Aminotransferase 18 U/L (12-78); Albumin/Globulin Ratio 1.3 (1.1-1.8); Alkaline Phosphatase 75 U/L (38-126); Anion Gap 14.3 mEq/L (5-15); Aspartate Amino Transferase 28 U/L (17-59); Bilirubin,Total 0.4 mg/dl (0.2-1.3); Calcium 8.4 mg/dl (8.4-10.2); Carbon Dioxide 23 mmol/L (22.0-30.0); Glucose 123 mg/dl (74-100); Total Protein,Serum 6.8 g/dl (6.3-8.2)
[2023-12-22 21:30] LABS: Bacteria,Urine 1+ /lpf
[2023-12-22 21:31] VITALS: BP 172/67; PULSE 84; O2SAT 95
--- NOTE | 2023-12-22 22:15 | PC.NURSE ---
Spoke with [facility] who reports pts Creat and Bun are always high. States Creat was 2.3 in september and 2.12 11/26/23 called [facility] for transfer back to [facility].
[2023-12-22 22:23] LABS: HIV (1&2) Antibody Rapid NONREACTIVE (NONREACTIVE)
[2023-12-22 22:31] VITALS: BP 132/82; PULSE 82; RESP 18; TEMP 36.7; O2SAT 98
[2023-12-24 08:25] LABS: HCV Ab Non Reactive (Non Reactive)
== END 2023-12-22 22:33 | disposition home or self-care (01) ==
PROVIDERS: Physician Assistant; Emergency Provider Student in an Organized Health Care Education/Training Program
DX: N17.9 Acute kidney failure, unspecified (principal); R47.81 Slurred speech; R41.82 Altered mental status, unspecified; M54.2 Cervicalgia; M25.511 Pain in right shoulder; M79.661 Pain in right lower leg
CPT/HCPCS: 70450; 71045; 80053; 81001; 85025; 86803; 87389; 99284

== ENCOUNTER 2024-01-18 17:29 | Observation (INO) | payer MEDICARE, OTHER, MEDICAID, SELFPAY ==
[2024-01-18] VITALS (12 sets, daily range): BP systolic 144–174; BP diastolic 64–75; PULSE 87–96; RESP 16–20; TEMP 36.7–36.8; O2SAT 90–98; BMI 28.1; BMI 26.8
--- NOTE | 2024-01-18 18:30 | CT_ITS ---
PROCEDURE INFORMATION: Exam: CT Head Without Contrast Exam date and time: 01/18/2024 6:36 PM Age: 83 years old Clinical indication: Injury or trauma; Fall; Blunt trauma (contusions or hematomas); Altered mental status/memory loss; Additional info: AMS, fell, hit head TECHNIQUE: Imaging protocol: Computed tomography of the head without contrast. Radiation optimization: All CT scans at this facility use at least one of these dose optimization techniques: automated exposure control; mA and/or kV adjustment per patient size (includes targeted exams where dose is matched to clinical indication); or iterative reconstruction. COMPARISON: CT HEAD/BRAIN WO CON 12/22/2023 8:26 PM FINDINGS: Brain: No acute intracranial hemorrhage, midline shift or mass effect. Diffuse brain parenchymal volume loss. Stable regions of left frontoparietotemporal lobe and left cerebellar hemisphere encephalomalacia and gliosis. Similar pattern of hypodensities within the cerebral white matter. Cerebral ventricles: Ex vacuo dilatation of the ventricles. Paranasal sinuses: Right maxillary sinus and air-fluid level suggestive of acute sinusitis. Mastoid air cells: Visualized mastoid air cells are well aerated. Bones: Unremarkable. No acute fracture. Soft tissues: Unremarkable. IMPRESSION: No acute intracranial findings.
--- NOTE | 2024-01-18 18:30 | CT_ITS ---
PROCEDURE INFORMATION: Exam: CT Cervical Spine Without Contrast Exam date and time: 01/18/2024 6:39 PM Age: 83 years old Clinical indication: Injury or trauma; Fall; Blunt trauma; Additional info: AMS, fell, hit head TECHNIQUE: Imaging protocol: Computed tomography of the cervical spine without contrast. Radiation optimization: All CT scans at this facility use at least one of these dose optimization techniques: automated exposure control; mA and/or kV adjustment per patient size (includes targeted exams where dose is matched to clinical indication); or iterative reconstruction. COMPARISON: CT CERVICAL SPINE WO CON 12/19/2023 6:16 AM FINDINGS: Bones: Cervical vertebrae normal in height. No acute fracture. Mild dextroconvex curvature.Maintained craniocervical junction. Multilevel degenerative changes. Varying degrees of neural foraminal narrowing. No severe spinal canal stenosis. Lungs: Lung apices are normal. Vasculature: Bilateral carotid artery calcifications. Soft tissues: Unremarkable. IMPRESSION: No acute osseous findings.
--- NOTE | 2024-01-18 18:42 | ECG_ITS ---
APPROVED REPORT Exam: Resting ECG HR:88 bpm ECG Measurements Heart Rate 88 AXES ID 195 P 76 QRSd 124 QRS 58 QT 387 T 45 QTc 433 Conclusion Sinus rhythm Old septal CO Electronically signed by : ROCÍO HARRIS, 01/20/2024 11:32:26
--- NOTE | 2024-01-18 18:42 | XR_ITS ---
PROCEDURE INFORMATION: Exam: XR Chest Exam date and time: 01/18/2024 6:49 PM Age: 83 years old Clinical indication: Other: AMS TECHNIQUE: Imaging protocol: Radiologic exam of the chest. Views: 1 view. COMPARISON: CR XR CHEST PORTABLE 12/22/2023 8:22 PM FINDINGS: Lungs: Patchy linear opacification of left lower lung zone. Pleural spaces: Unremarkable. No pleural effusion. No pneumothorax. Heart/Mediastinum: Unremarkable. No cardiomegaly. Bones/joints: Unremarkable. IMPRESSION: Left lower lung zone infiltration/subsegmental atelectasis.
[2024-01-18 19:02] LABS: Basophils # 0.1 K/mm3 (0-0.2); Basophils % 1.1 % (0.1-2.0); Eosinophils # 0.2 K/mm3 (0.0-0.4); Eosinophils % 3.1 % (0.1-12.0); Hemoglobin 9.3 g/dL (14.1-18.0); Lymphocytes # 0.9 K/mm3 (0.7-4.5); Lymphocytes % 11.2 % (10-50); Mean Corpuscular HGB Conc 32.1 g/dL (31.8-35.4); Mean Corpuscular Hemoglobin 28.4 pg (27.0-31.2); Mean Corpuscular Volume 88.7 fl (80-94); Mean Platelet Volume 6.8 fl (7.4-10.4); Monocytes # 0.8 K/mm3 (0.1-1.0); Neutrophils # 5.7 K/mm3 (1.8-7.8); Neutrophils % 74.6 % (37.0-80.0); Platelet Count 298 K/mm3 (142-424); Red Blood Count 3.27 M/mm3 (4.60-6.20); White Blood Count 7.6 K/mm3 (4.8-10.8)
[2024-01-18 19:05] LABS: Albumin Level 4.2 g/dl (3.5-5.0); Sodium 138 mmol/L (136-145)
[2024-01-18 19:06] LABS: Chloride 102 mmol/L (98-107); Potassium 4.5 mmoL/L (3.5-5.1)
[2024-01-18 19:08] LABS: Alanine Aminotransferase 17 U/L (12-78); Anion Gap 13.5 mEq/L (5-15); Aspartate Amino Transferase 24 U/L (17-59); Carbon Dioxide 27 mmol/L (22.0-30.0)
--- NOTE | 2024-01-18 19:08 | HMH.EDGENADL ---
Discharge Plan Disposition Patient Disposition: Admitted Clinical Impressions Clinical Impression: Elevated troponin, Fall, GILBERT (acute kidney injury), Acute confusion, CHF exacerbation Discharge ED Provider: Jerry Maddox General Adult HPI General Chief complaint: Fall Stated complaint: fall Time Seen by Provider: 01/18/24 18:40 Mode of Arrival: EMS Source of Information: Patient, EMS and Medical Record Limitations: No Limitations Description of Symptoms (Recalled from ER Triage Doc. by RN): Pt. presents to the ED via EMS from [facility] after an unwitnessed fall at 1510. He states he fell and his head on the door frame, denies LOC. He is alert to self, place, and situation. History of Present Illness HPI narrative: Please note that above description of symptoms, in this electronic medical record under categorization of recalled from ER triage doctor by RN are reflective of an initial nursing assessment, however, is not reflective of my full history and physical exam that was personally taken and clarified. Consequentially, this preceding description of symptoms, which may include the patient's categorized chief complaint in the EMR, do not reflect my personal clinical impression, and the ultimate description of history of present illness and patient stated complaints should be deferred to this section of the note. Unless stated otherwise or congruent with this section of the note, additional signs, symptoms, or incongruence should be interpreted as inaccurate with my clinical impression. Related Data Home Medications ?Medication ?Instructions ?Recorded ?Confirmed aspirin 81 mg tablet,delayed 81 mg PO DAILY 05/12/17 01/01/24 release (Aspir-Low) atorvastatin 20 mg tablet 20 mg PO DAILY 05/12/17 01/01/24 bupropion HCl 150 mg 24 hr tablet, 150 mg PO QAM 05/12/17 01/01/24 extended release (Wellbutrin XL) clopidogrel 75 mg tablet 75 mg PO DAILY 05/12/17 01/01/24 doxazosin 8 mg tablet mg PO DAILY 09/15/23 01/01/24 icosapent ethyl 1 gram capsule g PO 09/15/23 01/01/24 (Vascepa) insulin degludec 200 unit/mL (3 14 unit SQ DAILY 09/15/23 01/01/24 mL) subcutaneous pen (Tresiba FlexTouch U-200 insulin) insulin lispro 100 unit/mL 4 unit SQ USEASDIRECTD 09/15/23 01/01/24 subcutaneous solution ipratropium 0.5 mg-albuterol 3 mg ml inhalation 09/15/23 01/01/24 (2.5 mg base)/3 mL nebulization soln lidocaine 4 % topical patch patch topical 09/15/23 01/01/24 (Lidocaine Pain Relief) pen needle,diabetic dual safty 30 #100 ea 09/15/23 01/01/24 gauge x 3/16 (BD AutoShield Duo Pen Needle) sodium chloride 0.65 % nasal spray spray intranasal 09/15/23 01/01/24 aerosol (Deep Sea Nasal) tramadol 50 mg tablet 50 mg PO TID 10/20/23 01/01/24 azelastine 137 mcg (0.1 %) nasal intranasal 11/17/23 01/01/24 spray citalopram 20 mg tablet 20 mg PO HS 11/17/23 01/01/24 levocetirizine 5 mg tablet 5 mg PO DAILY 11/17/23 01/01/24 losartan 25 mg tablet 25 mg PO DAILY 11/17/23 01/01/24 metformin 500 mg tablet 500 mg PO BID 11/17/23 01/01/24 omeprazole 40 mg capsule,delayed 40 mg PO DAILY 11/17/23 01/01/24 release amlodipine 5 mg tablet 5 mg PO DAILY 01/01/24 01/01/24 ferrous sulfate 325 mg (65 mg 325 mg PO DAILY 01/01/24 01/01/24 iron) tablet (FeroSul) Previous Rx's ?Medication ?Instructions ?Recorded furosemide 40 mg tablet (Lasix) 40 mg PO DAILY #30 tabs 05/12/17 methocarbamol 500 mg tablet 500 mg PO TID #90 tabs 03/13/23 polyethylene glycol 3350 17 17 g PO DAILY 30 days #510 grams 03/13/23 gram/dose oral powder sennosides 8.6 mg capsule (senna) 8.6 mg PO BID #60 caps 03/13/23 acetaminophen 650 mg 650 mg PO Q12H PRN pain 30 days 10/20/23 tablet,extended release (Tylenol #60 tabs Arthritis Pain) gabapentin 400 mg capsule 400 mg PO TID 30 days #90 caps 10/20/23 famotidine 40 mg tablet 40 mg PO HS #30 tabs 11/17/23 Allergies Allergy/AdvReac Type Severity Reaction Status Date / Time iodine AdvReac Verified 01/01/24 12:53 [facility] Disclaimer: The information contained in this section may have been updated after the patient was seen, as this information can be updated by other users. Medical History GERD (gastroesophageal reflux disease) Allergic rhinitis Ear congestion CAD (coronary artery disease) HLD (hyperlipidemia) COPD (chronic obstructive pulmonary disease) HHD (hypertensive heart disease) Carotid artery disease Shortness of Breath Surgical History History of open heart surgery Family History Other Unknown family medical history Social History Smoking Status: Former smoker second hand exposure: No alcohol intake: never substance use type: denies use current occupational status: retired housing: [employer] Other Medical History Have you received the Flu Vaccine for this season: No Have you received the Pneumonia Vaccine: Yes ROS Obtained: Yes All systems reviewed & no additional complaints except as documented Physical Exam General General appearance: alert Head Head exam: normocephalic and other (Hematoma left side of forehead. Dried blood at right nare.) Eye Eye exam: Present normal appearance, PERRL and EOMI Neck Neck exam: Present normal inspection, full ROM and trachea midline Respiratory Respiratory exam: Absent respiratory distress, wheezes, stridor, accessory muscle use or prolonged expiratory phase Cardiovascular Cardiovascular exam: Present other (Pulses equal symmetric in upper and lower extremities) Abdominal Exam Abdominal exam: Present soft; Absent distention, tenderness or pulsatile mass Extremities Exam Extremities exam: Absent edema Neurological Exam Neurological exam: Present alert and CN II-XII intact; Absent oriented X3 (Oriented to person, place, situation, not time) or motor sensory deficit Skin Skin exam: Present warm and dry; Absent diaphoresis or erythema Medical Decision Making Medical Records Medical records reviewed: Yes I reviewed the patient's medical records. Screening: Per USPSTF and CDC recommendations, given the prevalence of disease in our region, it is our hospital?s policy to screen for HIV and viral Hepatitis for all patients aged 18 and over and those with ongoing risk factors. Herman Inquiry Pt receiving controlled substance: No Herman was queried for this patient: No Vital Signs: 01/18/24 18:46 01/18/24 18:48 01/18/24 18:49 Temperature 98.1 F Temperature Source Oral Pulse Rate 92 H 91 H Pulse Rate [Right Brachial] 92 H Respiratory Rate 16 Blood Pressure 157/73 H 170/69 H Blood Pressure [Right Arm] 157/73 H Blood Pressure Mean Blood Pressure Mean [Right Arm] 101 Blood Pressure Source [Right Arm] Automatic Cuff Blood Pressure Position [Right Arm] Sitting 02 Sat by Pulse Oximetry 92 L 90 L 94 L Oxygen Delivery Method Room Air 01/18/24 19:31 01/18/24 19:37 01/18/24 21:12 Temperature Temperature Source Pulse Rate 90 92 H 96 H Pulse Rate [Right Brachial] Respiratory Rate Blood Pressure 174/73 H 158/75 H Blood Pressure [Right Arm] Blood Pressure Mean 106 Blood Pressure Mean [Right Arm] Blood Pressure Source [Right Arm] Blood Pressure Position [Right Arm] 02 Sat by Pulse Oximetry 92 L 93 L 91 L Oxygen Delivery Method 01/18/24 21:30 01/18/24 22:07 01/18/24 22:15 Temperature Temperature Source Pulse Rate 93 H 87 92 H Pulse Rate [Right Brachial] Respiratory Rate Blood Pressure 149/71 H Blood Pressure [Right Arm] Blood Pressure Mean Blood Pressure Mean [Right Arm] Blood Pressure Source [Right Arm] Blood Pressure Position [Right Arm] 02 Sat by Pulse Oximetry 92 L 94 L 98 Oxygen Delivery Method Lab Data Lab Results 01/18/24 18:53: WBC 7.6, RBC 3.27 L, Hgb 9.3 L, Hct 29.0 L, MCV 88.7, MCH 28.4, MCHC 32.1, RDW 15.0, Plt Count 298, MPV 6.8 L, Neut % (Auto) 74.6, Lymph % (Auto) 11.2, [place] % (Auto) 10.0 H, Eos % (Auto) 3.1, Baso % (Auto) 1.1, Neut # (Auto) 5.7, Lymph # (Auto) 0.9, [place] # (Auto) 0.8, Eos # (Auto) 0.2, Baso # (Auto) 0.1, Sodium 138, Potassium 4.5, Chloride 102, Carbon Dioxide 27, Anion Gap 13.5, BUN 32 H, Creatinine 2.30 H, Estimated Creat Clear 30, Estimated GFR 27 L, Est GFR ( Amer) 33 L, Glucose 112 H, Calcium 9.3, Total Bilirubin 0.4, AST 24, ALT 17, Alkaline Phosphatase 78, Troponin I 0.08 H, NT-Pro-B Natriuret Pep 3290 H, Total Protein 7.7, Albumin 4.2, Globulin 3.5 H, Albumin/Globulin Ratio 1.2 01/18/24 21:27: Troponin I 0.09 H 01/18/24 18:53 01/18/24 18:53 Orders (Tests/Meds): ORDERS Category Date Time Status CT bony pelvis Stat Cat Scan 01/18/24 21:[address] cervical spine wo con Stat Cat Scan 01/18/24 18:[address] cervical spine wo con Stat Cat Scan 01/18/24 21:[address] head/brain wo con Stat Cat Scan 01/18/24 18:[address] head/brain wo con Stat Cat Scan 01/18/24 21:28 Completed Femur XR right 2 views [XR femur RT 2V] Stat Exams 01/18/24 21:28 Completed Knee XR right 3 views [XR knee RT 3V] Stat Exams 01/18/24 21:28 Completed Pelvis XR 1-2 views [XR pelvis 1-2V] Stat Exams 01/18/24 21:28 Completed XR chest portable Stat Exams 01/18/24 18:42 Completed Complete Blood Count Auto Diff Stat Lab 01/18/24 18:53 Completed Comprehensive Metabolic Panel Stat Lab 01/18/24 18:53 Completed NT Pro Brain Natriuretic Pep. Stat Lab 01/18/24 18:53 Completed Troponin I Q3H Lab 01/18/24 21:27 Completed Troponin I Q3H Lab 01/19/24 00:45 Ordered Troponin I Stat Lab 01/18/24 18:53 Completed Medical Decision Narrative: 83-year-old male history of hypertension hyperlipidemia, diabetes, CAD status post CABG, on aspirin and Plavix, COPD, presenting with concern for altered mental status. Per [facility] staff, patient fell earlier today, 01/17, has been altered since that time. Also states that he has had difficulty grasping objects with one of his upper extremities, not specified. EMS was called. On arrival, patient without neurologic deficits or complaints. States that his knees have been hurting more than usual and they caused him to fall hitting his head. Denies loss of consciousness. Currently has no complaints. History obtained with patient, EMS, [facility] staff. On physical exam, patient has a hematoma versus previous injury to the left side of his forehead. Has blood in his right nostril, hemostatic. No tenderness about his neck, back. Neurologically intact including cranial nerves, motor, sensory, cerebellar. Tenderness about both knees, but no outward signs of injury or deformity. He states this pain is chronic. Neurovascular intact lower extremities. Patient placed on cardiac monitoring and continuous pulse ox with blood pressure 157/73, pulse 92 bpm, pulse ox 94% on room air. EKG independently interpreted, sinus rhythm no acute ischemic change. IA 195, QRS 124, QTc 433. CT head and C-spine were performed, on independent to rotation, these demonstrate no acute intracranial hemorrhage or cervical spine injury. See radiology read for further interpretation. Delta troponin was deemed necessary given elevation. Patient placed in observation around 6:30 PM in order to rule out delta troponins and need for admission versus home-going. Delta troponin increased by 0.01. Additionally, during observation period, patient jumped out of bed and landed on his right side. Unknown if he struck his head or not. Repeat scans were performed and were negative. Imaging of the right lower extremity also negative. Given concern for GILBERT, elevated delta troponin, elevated BNP and confusion, deemed appropriate for inpatient admission and further management. Interactive discussion had with hospital medicine, to be admitted for further definitive management. 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 Electronic metal milling machine operator of the spoken language may permit errors. Although I have reviewed the note, some errors may still exist. Critical Care Critical Care Time Critical Care Time: No
[2024-01-18 19:09] LABS: Alkaline Phosphatase 78 U/L (38-126); Bilirubin,Total 0.4 mg/dl (0.2-1.3); Calcium 9.3 mg/dl (8.4-10.2); Glucose 112 mg/dl (74-100)
[2024-01-18 19:10] LABS: Albumin/Globulin Ratio 1.2 (1.1-1.8); Blood Urea Nitrogen 32 mg/dl (9-20); Creatinine Clearance Estimated 30 mL/min (50-200); Estimated Glomerular Filt Rate 27 ml/min (>60); GFR (African American) 33 ML/MIN (>60); Globulin 3.5 g/dL (1.3-3.2); Total Protein,Serum 7.7 g/dl (6.3-8.2)
[2024-01-18 19:18] LABS: NT Pro Brain Natriuretic Pep. 3290 pg/mL (0-450)
[2024-01-18 19:21] LABS: Troponin I 0.08 ng/ml (0.00-0.034)
--- NOTE | 2024-01-18 19:42 | ECG_ITS ---
APPROVED REPORT Exam: Resting ECG HR:91 bpm ECG Measurements Heart Rate 91 AXES MN 213 P 82 QRSd 114 QRS 26 QT 383 T 56 QTc 431 Conclusion Sinus rhythm Old septal ND Electronically signed by : ROCÍO HARRIS, 01/20/2024 11:32:36
--- NOTE | 2024-01-18 21:28 | CT_ITS ---
PROCEDURE INFORMATION: Exam: CT Pelvis Without Contrast, Skeleton Exam date and time: 01/18/2024 9:52 PM Age: 83 years old Clinical indication: Injury or trauma; Fall; Blunt trauma (contusions or hematomas); Bilateral; Pelvic region; Additional info: Fall to right in ED TECHNIQUE: Imaging protocol: Computed tomography of the pelvis without contrast. Exam focused on the skeleton. Radiation optimization: All CT scans at this facility use at least one of these dose optimization techniques: automated exposure control; mA and/or kV adjustment per patient size (includes targeted exams where dose is matched to clinical indication); or iterative reconstruction. COMPARISON: CR XR PELVIS 1-2V 01/18/2024 9:50 PM FINDINGS: Bones/joints: Unremarkable. No acute fracture. No dislocation. Degenerative changes of both hips and sacroiliac joints. ORIF of L3 to S1 level. Soft tissues: Unremarkable. IMPRESSION: No acute findings.
--- NOTE | 2024-01-18 21:28 | CT_ITS ---
PROCEDURE INFORMATION: Exam: CT Head Without Contrast Exam date and time: 01/18/2024 9:34 PM Age: 83 years old Clinical indication: Injury or trauma; Fall; Blunt trauma (contusions or hematomas); Additional info: Fell, hit head in ED TECHNIQUE: Imaging protocol: Computed tomography of the head without contrast. Radiation optimization: All CT scans at this facility use at least one of these dose optimization techniques: automated exposure control; mA and/or kV adjustment per patient size (includes targeted exams where dose is matched to clinical indication); or iterative reconstruction. COMPARISON: CT HEAD/BRAIN WO CON 01/18/2024 9:34 PM FINDINGS: Brain: No acute intracranial hemorrhage, midline shift or mass effect. Similar pattern of hypodensities within the cerebral white matter. Redemonstrated areas of encephalomalacia and gliosis within the left cerebrum and cerebellum. 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 Cerebral ventricles: Ex vacuo dilatation of the ventricles. Paranasal sinuses: Right maxillary sinus and air-fluid level suggestive of acute sinusitis. Mastoid air cells: Visualized mastoid air cells are well aerated. Bones: Unremarkable. No acute fracture. Soft tissues: Unremarkable. IMPRESSION: No acute intracranial findings.
--- NOTE | 2024-01-18 21:28 | XR_ITS ---
PROCEDURE INFORMATION: Exam: XR Right Knee Exam date and time: 01/18/2024 9:50 PM Age: 83 years old Clinical indication: Injury or trauma; Fall; Blunt trauma; Knee; Right; Additional info: Fell R knee pain TECHNIQUE: Imaging protocol: Radiologic exam of the right knee. Views: 3 views. COMPARISON: CR XR KNEE RT 3V 01/18/2024 9:50 PM FINDINGS: Bones/joints: No fracture. No dislocation. Moderate degenerative changes of all 3 compartments. No effusion. Soft tissues: Normal. IMPRESSION: No acute findings.
--- NOTE | 2024-01-18 21:28 | XR_ITS ---
PROCEDURE INFORMATION: Exam: XR Right Femur Exam date and time: 01/18/2024 9:50 PM Age: 83 years old Clinical indication: Injury or trauma; Fall; Blunt trauma; Thigh or upper leg; Right; Additional info: Fell, hit R leg TECHNIQUE: Imaging protocol: Radiologic exam of the right femur. Views: 2 views. COMPARISON: CR XR FEMUR RT 2V 01/18/2024 9:50 PM FINDINGS: Bones/joints: Unremarkable. No acute fracture. Moderate degenerative changes of right hip and knee. Soft tissues: Unremarkable. IMPRESSION: No acute findings.
--- NOTE | 2024-01-18 21:28 | XR_ITS ---
PROCEDURE INFORMATION: Exam: XR Pelvis Exam date and time: 01/18/2024 9:50 PM Age: 83 years old Clinical indication: Injury or trauma; Fall; Blunt trauma (contusions or hematomas); Bilateral; Pelvic region; Additional info: Fall, hit right hip TECHNIQUE: Imaging protocol: Radiologic exam of the pelvis. Views: 1 or 2 view. COMPARISON: CR XR PELVIS 1-2V 01/18/2024 9:50 PM FINDINGS: Bones/joints: Unremarkable. No acute fracture. Degenerative changes of both hips and sacroiliac joints. ORIF of lumbosacral spine. Soft tissues: Unremarkable. IMPRESSION: No acute findings.
--- NOTE | 2024-01-18 21:28 | CT_ITS ---
PROCEDURE INFORMATION: Exam: CT Cervical Spine Without Contrast Exam date and time: 01/18/2024 9:49 PM Age: 83 years old Clinical indication: Injury or trauma; Fall; Blunt trauma; Additional info: Fell, hit head in ED TECHNIQUE: Imaging protocol: Computed tomography of the cervical spine without contrast. Radiation optimization: All CT scans at this facility use at least one of these dose optimization techniques: automated exposure control; mA and/or kV adjustment per patient size (includes targeted exams where dose is matched to clinical indication); or iterative reconstruction. COMPARISON: CT CERVICAL SPINE WO CON 01/18/2024 6:39 PM FINDINGS: Bones: Cervical vertebrae normal in height. No acute fracture. Dextroconvex curvature.Maintained craniocervical junction. Multilevel degenerative changes. Multilevel degenerative changes. No severe spinal canal stenosis. Lungs: Lung apices are normal. Soft tissues: Unremarkable. IMPRESSION: No acute osseous findings.
--- NOTE | 2024-01-18 21:42 | PC.NURSE ---
patient to radiology
[2024-01-18 21:59] LABS: Troponin I 0.09 ng/ml (0.00-0.034)
--- NOTE | 2024-01-18 23:07 | PC.NURSE ---
pt arrived to floor via stretcher @23:04
--- NOTE | 2024-01-18 23:18 | EXP.HP ---
History of Present Illness *Admission Date: 01/18/24 *Reason for visit:: Altered mental status *History of present illness: Donte Trujillo is an 83-year-old male past medical history is obtained for HTN, HLD, type 2 diabetes, CAD status post CABG on DAPT, COPD who presents emergency room tonight from the longterm with concerns for altered mental status. Patient apparently had an unwitnessed fall earlier today and nursing staff reported he has been altered since that time. Nursing staff also reported that he was having difficulty picking up objects and seemed to be weaker on one side than the other but were unable to specify which side they thought was weaker. Patient reports that he did fall earlier but states it is from his knee pain/arthritis and they have been hurting him more than usual. Denies any loss of consciousness but does state he did hit his head. Denies any neck or back pain. Denies any dizziness or lightheadedness, no syncopal episodes noted. Denies any fever, cough, chest pain, shortness of breath, abdominal pain. Workup in the ER showed an elevated BUN and creatinine of 32 and 2.3, BNP elevated at 3290. Initial troponin was 0.08, second troponin was 0.09. EKG did not show any ST elevation. Chest x-ray was nonactionable. CT of the head and C-spine were nonactionable. Patient unfortunately climbed out of bed and had another unwitnessed fall while in the emergency department. Repeat imaging was stable. Patient will be admitted to the hospitalist service for elevated troponin. [facility] Disclaimer: The information contained in this section may have been updated after the patient was seen, as this information can be updated by other users. Medical History GERD (gastroesophageal reflux disease) Allergic rhinitis Ear congestion CAD (coronary artery disease) HLD (hyperlipidemia) COPD (chronic obstructive pulmonary disease) HHD (hypertensive heart disease) Carotid artery disease Shortness of Breath Surgical History History of open heart surgery Family History Other Unknown family medical history Social History (Updated 01/18/24 @ 22:55 by Jerry Maddox MD) Smoking Status: Former smoker second hand exposure: No alcohol intake: never substance use type: denies use current occupational status: retired Travel in the last 8 weeks: None housing: longterm Other Medical History Have you received the Flu Vaccine for this season: No Have you received the Pneumonia Vaccine: Yes Review of Systems Review of Systems Review of systems:: pertinent systems reviewed and negative unless documented below Meds Home Medications and Allergies Home Medications ?Medication ?Instructions ?Recorded ?Confirmed ?Type atorvastatin 20 mg tablet 20 mg PO HS 05/12/17 01/19/24 History bupropion HCl 150 mg 24 hr tablet, 150 mg PO QAM 05/12/17 01/19/24 History extended release (Wellbutrin XL) clopidogrel 75 mg tablet 75 mg PO DAILY 05/12/17 01/19/24 History polyethylene glycol 3350 17 17 g PO DAILY 30 days #510 grams 03/13/23 01/18/24 Rx gram/dose oral powder sennosides 8.6 mg capsule (senna) 8.6 mg PO BID #60 caps 03/13/23 01/19/24 Rx doxazosin 8 mg tablet 8 mg PO HS 09/15/23 01/19/24 History icosapent ethyl 1 gram capsule 2 g PO BID 09/15/23 01/19/24 History (Vascepa) insulin degludec 200 unit/mL (3 14 unit SQ DAILY 09/15/23 01/18/24 History mL) subcutaneous pen (Tresiba FlexTouch U-200 insulin) insulin lispro 100 unit/mL 0 unit SQ DIRECTED 09/15/23 01/19/24 History subcutaneous solution gabapentin 400 mg capsule 400 mg PO TID 30 days #90 caps 10/20/23 01/19/24 Rx tramadol 50 mg tablet 50 mg PO TID 10/20/23 01/19/24 History citalopram 20 mg tablet 20 mg PO DAILY 11/17/23 01/19/24 History levocetirizine 5 mg tablet 5 mg PO HS 11/17/23 01/19/24 History losartan 25 mg tablet 25 mg PO DAILY 11/17/23 01/18/24 History ferrous sulfate 325 mg (65 mg 325 mg PO DAILY 01/01/24 01/19/24 History iron) tablet (FeroSul) dapagliflozin propanediol 5 mg 5 mg PO DAILY 01/18/24 01/19/24 History tablet (Farxiga) docusate sodium 100 mg tablet 100 mg PO DAILY 01/18/24 01/19/24 History omeprazole 40 mg capsule,delayed 40 mg PO DAILY 01/18/24 01/18/24 History release acetaminophen 650 mg 650 mg PO BIDP PRN PAIN (SCALE 1-6) 01/19/24 01/19/24 History tablet,extended release (Tylenol 8 Hour) aspirin 81 mg chewable tablet 81 mg PO DAILY 01/19/24 01/19/24 History azelastine 137 mcg (0.1 %) nasal 2 spray intranasal BID 01/19/24 01/19/24 History spray bumetanide 1 mg tablet See Rx Instructions .Route 01/19/24 Rx .COMPLEX #40 tabs diclofenac sodium 1 % topical gel 4 g topical DAILYP PRN Pain (Scale 01/19/24 01/19/24 History Score 1-6) docusate sodium 50 mg/5 mL oral 1 ml Ear-Left HS 01/19/24 01/19/24 History liquid famotidine 40 mg tablet 40 mg PO DAILY 01/19/24 01/19/24 History insulin syringe,safety needle 1 mL 01/19/24 01/19/24 History 31 gauge x 15/64 (BD SafetyGlide Insulin Syringe) menthol 0.44 %-zinc oxide 20.6 % 1 applic topical DAILYP PRN Skin 01/19/24 01/19/24 History topical ointment (Calmoseptine) Irritation methocarbamol 500 mg tablet 500 mg PO Q6HP PRN Muscle Spasm 01/19/24 01/19/24 History pen needle, diabetic, safety 29 01/19/24 01/19/24 History gauge x 5/16 pen needle,diabetic dual safty 30 01/19/24 01/19/24 History gauge x 3/16 (BD AutoShield Duo Pen Needle) New Prescriptions to Start Prescriptions: bumetanide Donte Smiley Allergies Allergy/AdvReac Type Severity Reaction Status Date / Time iodine AdvReac Verified 01/01/24 12:53 Exam Data for Last 24 hours Vital signs and Labs for Last 24 Hours: Temp Pulse Resp BP Pulse Ox O2 Del Method 98.2 F 94 H 20 144/64 H 98 Nasal Cannula 01/18/24 22:51 01/18/24 22:51 01/18/24 22:51 01/18/24 22:51 01/18/24 22:15 01/18/24 22:51 Laboratory Results - last 24 hr 01/18/24 18:53: WBC 7.6, RBC 3.27 L, Hgb 9.3 L, Hct 29.0 L, MCV 88.7, MCH 28.4, MCHC 32.1, RDW 15.0, Plt Count 298, MPV 6.8 L, Neut % (Auto) 74.6, Lymph % (Auto) 11.2, [place] % (Auto) 10.0 H, Eos % (Auto) 3.1, Baso % (Auto) 1.1, Neut # (Auto) 5.7, Lymph # (Auto) 0.9, [place] # (Auto) 0.8, Eos # (Auto) 0.2, Baso # (Auto) 0.1, Sodium 138, Potassium 4.5, Chloride 102, Carbon Dioxide 27, Anion Gap 13.5, BUN 32 H, Creatinine 2.30 H, Estimated Creat Clear 30, Estimated GFR 27 L, Est GFR ( Amer) 33 L, Glucose 112 H, Calcium 9.3, Total Bilirubin 0.4, AST 24, ALT 17, Alkaline Phosphatase 78, Troponin I 0.08 H, NT-Pro-B Natriuret Pep 3290 H, Total Protein 7.7, Albumin 4.2, Globulin 3.5 H, Albumin/Globulin Ratio 1.2 01/18/24 21:27: Troponin I 0.09 H I & O for Last 24 hours: Intake & Output 01/15/24 01/16/24 01/17/24 01/18/24 23:59 23:59 23:59 23:59 Weight 88.904 kg *Routine HEENT Exam Head: Present normocephalic and hematoma (Left forehead) Eye: Present EOMI and PERRL ENT: Present mucous membranes moist *Routine Neck Exam Neck: Present full ROM *Routine Respiratory Exam Respiratory: Present CTA bilaterally *Routine Cardiovascular Exam Cardiovascular: Present RRR, Normal S1 and Normal S2 *Routine Abdominal Exam Abdominal: Present soft and normoactive bowel sounds *Routine Rectal Exam Rectal:: deferred *Routine Genitalia Exam Genitalia:: deferred *Routine Extremities Exam Extremities: Present normal capillary refill Comments: CORNELIUS equally and symmetrically *Routine Skin Exam Skin: Present intact *Routine Neurological Exam Neurological: Present alert Comments: Pleasantly confused, alert to self and place Assessment and Plan *Assessment and plan (1) Fall: Status: Acute Category: Medical Code(s): W19.XXXA - Unspecified fall, initial encounter (2) Elevated troponin: Status: Acute Category: Medical Code(s): R79.89 - Other specified abnormal findings of blood chemistry (3) GILBERT (acute kidney injury): Status: Acute Category: Medical Code(s): N17.9 - Acute kidney failure, unspecified (4) CAD (coronary artery disease): Status: Chronic Qualifiers: Associated angina: with other forms of angina Coronary Disease-Associated Artery/Lesion type: [place] artery [place] vs. transplanted heart: [place] heart Qualified Code(s): I25.118 - Atherosclerotic heart disease of [place] coronary artery with other forms of angina pectoris Category: Medical Code(s): I25.10 - Atherosclerotic heart disease of [place] coronary artery without angina pectoris (5) HLD (hyperlipidemia): Status: Chronic Qualifiers: Hyperlipidemia type: other hyperlipidemia Qualified Code(s): E78.4 - Other hyperlipidemia Category: Medical Code(s): E78.5 - Hyperlipidemia, unspecified (6) Heart failure with preserved ejection fraction: Status: Acute Category: Medical Code(s): I50.30 - Unspecified diastolic (congestive) heart failure Plan Assessment: This is an 83-year-old male being admitted for elevated troponin, GILBERT versus CKD and heart failure. On my exam, patient is lying in bed in no acute distress. No complaints at this time. Discussed case with ER physician, request admission for observation. Medicine agreed to admit. Problems addressed as follows: Plan: Admit to observation-MedSurg Acute encephalopathy? -Resolved, patient is alert to self and place which is apparently his baseline -Avoid medications altered mentation -Frequent reorientation as needed Mechanical fall -Will consult PT -Patient has had multiple falls over the last several months according to the notes in his chart, does have significant pain from arthritic changes in his knees CKD versus GILBERT -Patient's creatinine at 2.3, at the end of November it was 2.2. I would assume this is a chronic issue, however, have no prior renal function labs to compare this to -Renal dose medications as appropriate -Avoid nephrotoxic medications -Monitor serum BUN and creatinine HFpEF CAD Elevated troponin -Patient had an LHC done [place] [address] Stoddard, left main normal, LAD with very prox eccentric 30% stenosis, circ with 10-20% luminal irregularities, RCA with 20%-30% , EF 60%, LVEDP pressure is 20 mmHg. -BNP elevated at 30-80, again have no prior lab values to compare this to -Will order a repeat echo -Elevated troponin likely from demand, patient has no complaints of chest pain or shortness of breath at this time but does have elevated creatinine and elevated BNP -Daily weights -Strict I's and O's -Serial troponins -EKG as needed -Continue Lasix, statin, DAPT HTN -Will hold losartan for now Type 2 diabetes -SSI for glycemic control -Carb consistent diet Depression Continue Celexa, Wellbutrin DVT prophylaxis: DAPT CODE STATUS: Full code Surrogate decision maker: Donte [phone] Skin: Moderate risk Estimate length of stay: Less than 2 midnights Rounded on patient after nurse practitioner. Personally examined and interviewed patient. Agree with exam findings and care plan as documented.
[2024-01-19] VITALS: PULSE 90
[2024-01-19 04:00] VITALS: BP 162/64; PULSE 86; PULSE 87; RESP 17; TEMP 36.8; O2SAT 94; BMI 27.3
--- NOTE | 2024-01-19 05:10 | PC.NURSE ---
Since arriving to the floor the patient has been able to rest. he is become more alert as the shift has gone on. He knows he uses a wheelchair at [facility] to get around and he knows his name. Patient did sleep some this shift. He has voided a couple times via the brief and urinal. patient has been 1on1 this shift to help with confusion and fall risk.
[2024-01-19 05:28] LABS: POC Glucose,Bedside 102 (70-110)
[2024-01-19 06:18] LABS: Basophils % 0.6 % (0.1-2.0); Eosinophils # 0.1 K/mm3 (0.0-0.4); Eosinophils % 1.1 % (0.1-12.0); Hematocrit 24.2 % (42.0-52.0); Lymphocytes % 18.1 % (10-50); Mean Corpuscular HGB Conc 32.9 g/dL (31.8-35.4); Mean Corpuscular Hemoglobin 28.7 pg (27.0-31.2); Mean Corpuscular Volume 87.2 fl (80-94); Mean Platelet Volume 8.7 fl (7.4-10.4); Monocytes # 0.7 K/mm3 (0.1-1.0); Monocytes % 13.2 % (1.7-9.3); Neutrophils # 3.8 K/mm3 (1.8-7.8); Platelet Count 237 K/mm3 (142-424); Red Blood Count 2.77 M/mm3 (4.60-6.20); Red Cell Distribution Width 15.3 % (11.5-17.5); White Blood Count 5.6 K/mm3 (4.8-10.8)
[2024-01-19 06:21] LABS: Chloride 107 mmol/L (98-107)
[2024-01-19 06:22] LABS: Potassium 3.9 mmoL/L (3.5-5.1); Sodium 138 mmol/L (136-145)
[2024-01-19 06:25] LABS: Anion Gap 10.9 mEq/L (5-15); Blood Urea Nitrogen 30 mg/dl (9-20); Calcium 8.8 mg/dl (8.4-10.2); Carbon Dioxide 24 mmol/L (22.0-30.0); Creatinine Clearance Estimated 29 mL/min (50-200); Estimated Glomerular Filt Rate 27 ml/min (>60); GFR (African American) 33 ML/MIN (>60); Glucose 94 mg/dl (74-100)
[2024-01-19 07:44] VITALS: BP 170/68; PULSE 85; RESP 19; TEMP 36.4; O2SAT 97
--- NOTE | 2024-01-19 07:54 | SW/DCPLANNER ---
Addendum entered by Kristan Aaron 01/19/24 11:19: I have updated Karen w/ [facility] that patient will return today. Addendum entered by Kristan Aaron 01/19/24 10:16: Correction: patient is [facility] level of care at [facility] per Karen. Original Note: Patient currently resides at [facility] level of care. Updated patient information has been faxed to Karen w/ [facility]. I will continue to follow up w/ Karen until patient is ready for discharge. Discharge date is unknown at this time.
--- NOTE | 2024-01-19 08:26 | HMH.PHAINT1 ---
Pharmacy Intervention Comments: HOME MEDICATIONS VERIFIED OUTSIDE FACILITY
[2024-01-19] MEDS: FUROSEMIDE 40 MG TABLET PO (08:30)
[2024-01-19] MEDS: FERROUS SULFATE 325MG TABLET 325 MG PO (08:30)
[2024-01-19] MEDS: DAPAGLIFLOZIN PROPANEDIOL 10 MG TABLET 5 MG PO (08:31)
[2024-01-19] MEDS: DOCUSATE SODIUM 100 MG CAPSULE PO (08:31)
[2024-01-19] MEDS: CLOPIDOGREL 75MG TAB 75 MG PO (08:31)
[2024-01-19] MEDS: LORATADINE 10MG TABLET 10 MG PO (08:31)
[2024-01-19] MEDS: GABAPENTIN 400MG CAPSULE 400 MG PO ×2 (08:31→12:38)
[2024-01-19] MEDS: SENNA 8.6MG TABLET 8.6 MG PO (08:31)
[2024-01-19] MEDS: METHOCARBAMOL 500MG TABLET 500 MG PO ×2 (08:31→12:38)
[2024-01-19] MEDS: buPROPion HCl SR 150MG TAB 150 MG PO (08:32)
[2024-01-19] MEDS: POLYETHYLENE GLYCOL 3350 238GM POWDER 17 GM PO (08:32)
[2024-01-19] MEDS: ASPIRIN EC 81MG TABLET 81 MG PO (08:32)
[2024-01-19] MEDS: BUMETANIDE 1MG/4ML VIAL 1 MG IV (08:32)
[2024-01-19] MEDS: INSULIN GLARGINE 100 UNITS/ML 10ML VIAL 14 UNIT SUBCUT (09:06)
[2024-01-19] MEDS: IRBESARTAN 75MG TABLET 75 MG PO (10:38)
--- NOTE | 2024-01-19 11:13 | EXP.DC.SUM ---
General Admission date:: 01/18/24 Discharge date: 01/19/24 HPI HPI HPI: Donte Trujillo is an 83-year-old male past medical history is obtained for HTN, HLD, type 2 diabetes, CAD status post CABG on DAPT, COPD who presents emergency room tonight from the senior care with concerns for altered mental status. Patient apparently had an unwitnessed fall earlier today and nursing staff reported he has been altered since that time. Nursing staff also reported that he was having difficulty picking up objects and seemed to be weaker on one side than the other but were unable to specify which side they thought was weaker. Patient reports that he did fall earlier but states it is from his knee pain/arthritis and they have been hurting him more than usual. Denies any loss of consciousness but does state he did hit his head. Denies any neck or back pain. Denies any dizziness or lightheadedness, no syncopal episodes noted. Denies any fever, cough, chest pain, shortness of breath, abdominal pain. Workup in the ER showed an elevated BUN and creatinine of 32 and 2.3, BNP elevated at 3290. Initial troponin was 0.08, second troponin was 0.09. EKG did not show any ST elevation. Chest x-ray was nonactionable. CT of the head and C-spine were nonactionable. Patient unfortunately climbed out of bed and had another unwitnessed fall while in the emergency department. Repeat imaging was stable. Patient will be admitted to the hospitalist service for elevated troponin. Hospital Course Hospital Course Hospital Course: Mr. Trujillo is an 83-year-old male with history of HFpEF, CKD, arthritis, diabetes, COPD, falls of late. Presented to the ER from his senior care due to falling. Evaluation in the ER with concern for mild exacerbation of CHF and falling. Admitted overnight. Did well during admission, requesting to go back to his nursing facility. Adjustments made to his diuretic regimen. Asymptomatic at this time. Does have slight oxygen requirement of 1 to 2 L as he desats to about 87% on room air. Anticipate improvement with diuresis. Problems addressed as follows: Acute encephalopathy, resolved -Resolved, patient is alert to self and place which is apparently his baseline. Avoid attending altering medic's. Recommend medication review at his nursing facility to see if meds can be de-escalated Mechanical fall -Would benefit from therapy when returning back to his nursing facility. Multiple falls over the past several months. Recommend formal PT OT landonlluvia. Suspect secondary to arthritis in his knees which she complained about during admission. -Continue fall precautions CKD versus GILBERT -Patient's creatinine at 2.3, at the end of November it was 2.2. Creatinine 2.3 with BUN of 30 on morning of discharge. This appears to be a stable baseline. Recommend renal dosing of medications. -Repeat CBC, CMP, magnesium in 1 week HFpEF CAD Elevated troponin -Patient had an LHC [place] [address] Stoddard, left main normal, LAD with very prox eccentric 30% stenosis, circ with 10-20% luminal irregularities, RCA with 20%-30% , EF 60%, LVEDP pressure is 20 mmHg. BNP elevated on admission at 3300. Transitioned to Bumex for improved diuresis compared to his home Lasix. Recommend continuing Bumex twice daily for the next 5 days. Transition to once daily thereafter. Suspect his enzyme disturbances related to mild CHF exacerbation. Continue goal-directed therapy for his heart failure. See med rec for full details. -Slight oxygen requirement likely due to CHF exacerbation. Wean as tolerated. Currently on 2 L due to room air sat of 87%. Anticipate improvement as he achieves euvolemia. HTN -Elevated during admission. Continued his ARB therapy Type 2 diabetes -Continue home regimen with long acting insulin and oral medications Depression Continue Celexa, Wellbutrin Stable to discharge back to nursing facility. Exam Data for Last 24 hours Vital signs and Labs for Last 24 Hours: Temp Pulse Resp BP Pulse Ox O2 Del Method O2 Flow Rate 97.6 F 85 19 170/68 H 97 Nasal Cannula 2 01/19/24 07:44 01/19/24 07:44 01/19/24 07:44 01/19/24 07:44 01/19/24 07:44 01/19/24 09:00 01/19/24 09:00 Laboratory Results - last 24 hr 01/18/24 18:53: WBC 7.6, RBC 3.27 L, Hgb 9.3 L, Hct 29.0 L, MCV 88.7, MCH 28.4, MCHC 32.1, RDW 15.0, Plt Count 298, MPV 6.8 L, Neut % (Auto) 74.6, Lymph % (Auto) 11.2, [place] % (Auto) 10.0 H, Eos % (Auto) 3.1, Baso % (Auto) 1.1, Neut # (Auto) 5.7, Lymph # (Auto) 0.9, [place] # (Auto) 0.8, Eos # (Auto) 0.2, Baso # (Auto) 0.1, Sodium 138, Potassium 4.5, Chloride 102, Carbon Dioxide 27, Anion Gap 13.5, BUN 32 H, Creatinine 2.30 H, Estimated Creat Clear 30, Estimated GFR 27 L, Est GFR ( Amer) 33 L, Glucose 112 H, Calcium 9.3, Total Bilirubin 0.4, AST 24, ALT 17, Alkaline Phosphatase 78, Troponin I 0.08 H, NT-Pro-B Natriuret Pep 3290 H, Total Protein 7.7, Albumin 4.2, Globulin 3.5 H, Albumin/Globulin Ratio 1.2 01/18/24 21:27: Troponin I 0.09 H 01/19/24 00:30: Troponin I 0.10 H 01/19/24 05:21: POC Glucose 102 01/19/24 05:57: WBC 5.6 D, RBC 2.77 L, Hgb 8.0 L D, Hct 24.2 L, MCV 87.2, MCH 28.7, MCHC 32.9, RDW 15.3, Plt Count 237, MPV 8.7, Neut % (Auto) 67.0, Lymph % (Auto) 18.1, [place] % (Auto) 13.2 H, Eos % (Auto) 1.1, Baso % (Auto) 0.6, Neut # (Auto) 3.8, Lymph # (Auto) 1.0, [place] # (Auto) 0.7, Eos # (Auto) 0.1, Baso # (Auto) 0.0, Sodium 138, Potassium 3.9, Chloride 107, Carbon Dioxide 24, Anion Gap 10.9, BUN 30 H, Creatinine 2.30 H, Estimated Creat Clear 29, Estimated GFR 27 L, Est GFR ( Amer) 33 L, Glucose 94, Calcium 8.8 I & O for Last 24 hours: Intake & Output 01/16/24 01/17/24 01/18/24 01/19/24 23:59 23:59 23:59 23:59 Intake Total 270 / 270 Output Total 950 / 950 Balance -680 / -680 Weight 84.912 kg 86.591 kg Constitutional Constitutional: no acute distress, average body habitus, chronically ill appearing and cooperative *Routine HEENT Exam Head: Present normocephalic Eye: Present EOMI and PERRL ENT: Present mucous membranes moist Comments: Scar on right forehead; abrasion on chin *Routine Neck Exam Neck: Present supple; Absent lymphadenopathy *Routine Respiratory Exam Respiratory: Present distant breath sounds; Absent respiratory distress, rhonchi, stridor, wheezes or crackles *Routine Cardiovascular Exam Cardiovascular: Present RRR *Routine Abdominal Exam Abdominal: Present soft and normoactive bowel sounds; Absent tenderness *Routine Rectal Exam Patient deferred: visual exam *Routine Exam Patient deferred: penile exam *Routine Extremities Exam Extremities: Present edema (Trace bilateral lower extremity); Absent cyanosis or clubbing *Routine Skin Exam Skin: Present warm; Absent rash Comments: Abrasion on chin *Routine Neurological Exam Neurological: Present alert and moving all extremities; Absent altered mental status Comments: Oriented to self and place Results Data Completed and Pending Labs on day of discharge: Labs from last 24 hours 01/19/24 01/19/24 01/19/24 05:57 05:21 00:30 WBC 5.6 D RBC 2.77 L Hgb 8.0 L D Hct 24.2 L MCV 87.2 MCH 28.7 MCHC 32.9 RDW 15.3 Plt Count 237 MPV 8.7 Neut % (Auto) 67.0 Lymph % (Auto) 18.1 [place] % (Auto) 13.2 H Eos % (Auto) 1.1 Baso % (Auto) 0.6 Neut # (Auto) 3.8 Lymph # (Auto) 1.0 [place] # (Auto) 0.7 Eos # (Auto) 0.1 Baso # (Auto) 0.0 Sodium 138 Potassium 3.9 Chloride 107 Carbon Dioxide 24 Anion Gap 10.9 BUN 30 H Creatinine 2.30 H Estimated Creat Clear 29 Estimated GFR 27 L Est GFR ( Amer) 33 L Glucose 94 POC Glucose 102 Calcium 8.8 Total Bilirubin AST ALT Alkaline Phosphatase Troponin I 0.10 H NT-Pro-B Natriuret Pep Total Protein Albumin Globulin Albumin/Globulin Ratio 01/18/24 01/18/24 21:27 18:53 WBC 7.6 RBC 3.27 L Hgb 9.3 L Hct 29.0 L MCV 88.7 MCH 28.4 MCHC 32.1 RDW 15.0 Plt Count 298 MPV 6.8 L Neut % (Auto) 74.6 Lymph % (Auto) 11.2 [place] % (Auto) 10.0 H Eos % (Auto) 3.1 Baso % (Auto) 1.1 Neut # (Auto) 5.7 Lymph # (Auto) 0.9 [place] # (Auto) 0.8 Eos # (Auto) 0.2 Baso # (Auto) 0.1 Sodium 138 Potassium 4.5 Chloride 102 Carbon Dioxide 27 Anion Gap 13.5 BUN 32 H Creatinine 2.30 H Estimated Creat Clear 30 Estimated GFR 27 L Est GFR ( Amer) 33 L Glucose 112 H POC Glucose Calcium 9.3 Total Bilirubin 0.4 AST 24 ALT 17 Alkaline Phosphatase 78 Troponin I 0.09 H 0.08 H NT-Pro-B Natriuret Pep 3290 H Total Protein 7.7 Albumin 4.2 Globulin 3.5 H Albumin/Globulin Ratio 1.2 DS: Diagnosis Discharge Diagnosis (1) Fall: Status: Acute Code(s): W19.XXXA - Unspecified fall, initial encounter (2) Elevated troponin: Status: Acute Code(s): R79.89 - Other specified abnormal findings of blood chemistry (3) GILBERT (acute kidney injury): Status: Acute Code(s): N17.9 - Acute kidney failure, unspecified (4) CAD (coronary artery disease): Status: Chronic Code(s): I25.10 - Atherosclerotic heart disease of [place] coronary artery without angina pectoris Qualifiers: Associated angina: with other forms of angina Coronary Disease-Associated Artery/Lesion type: [place] artery [place] vs. transplanted heart: [place] heart Qualified Code(s): I25.118 - Atherosclerotic heart disease of [place] coronary artery with other forms of angina pectoris (5) HLD (hyperlipidemia): Status: Chronic Code(s): E78.5 - Hyperlipidemia, unspecified Qualifiers: Hyperlipidemia type: other hyperlipidemia Qualified Code(s): E78.4 - Other hyperlipidemia (6) Heart failure with preserved ejection fraction: Status: Acute Code(s): I50.30 - Unspecified diastolic (congestive) heart failure Meds Home Medications and Allergies Home Medications ?Medication ?Instructions ?Recorded ?Confirmed ?Type atorvastatin 20 mg tablet 20 mg PO HS 05/12/17 01/19/24 History bupropion HCl 150 mg 24 hr tablet, 150 mg PO QAM 05/12/17 01/19/24 History extended release (Wellbutrin XL) clopidogrel 75 mg tablet 75 mg PO DAILY 05/12/17 01/19/24 History polyethylene glycol 3350 17 17 g PO DAILY 30 days #510 grams 03/13/23 01/18/24 Rx gram/dose oral powder sennosides 8.6 mg capsule (senna) 8.6 mg PO BID #60 caps 03/13/23 01/19/24 Rx doxazosin 8 mg tablet 8 mg PO HS 09/15/23 01/19/24 History icosapent ethyl 1 gram capsule 2 g PO BID 09/15/23 01/19/24 History (Vascepa) insulin degludec 200 unit/mL (3 14 unit SQ DAILY 09/15/23 01/18/24 History mL) subcutaneous pen (Tresiba FlexTouch U-200 insulin) insulin lispro 100 unit/mL 0 unit SQ DIRECTED 09/15/23 01/19/24 History subcutaneous solution gabapentin 400 mg capsule 400 mg PO TID 30 days #90 caps 10/20/23 01/19/24 Rx tramadol 50 mg tablet 50 mg PO TID 10/20/23 01/19/24 History citalopram 20 mg tablet 20 mg PO DAILY 11/17/23 01/19/24 History levocetirizine 5 mg tablet 5 mg PO HS 11/17/23 01/19/24 History losartan 25 mg tablet 25 mg PO DAILY 11/17/23 01/18/24 History ferrous sulfate 325 mg (65 mg 325 mg PO DAILY 01/01/24 01/19/24 History iron) tablet (FeroSul) dapagliflozin propanediol 5 mg 5 mg PO DAILY 01/18/24 01/19/24 History tablet (Farxiga) docusate sodium 100 mg tablet 100 mg PO DAILY 01/18/24 01/19/24 History omeprazole 40 mg capsule,delayed 40 mg PO DAILY 01/18/24 01/18/24 History release acetaminophen 650 mg 650 mg PO BIDP PRN PAIN (SCALE 1-6) 01/19/24 01/19/24 History tablet,extended release (Tylenol 8 Hour) aspirin 81 mg chewable tablet 81 mg PO DAILY 01/19/24 01/19/24 History azelastine 137 mcg (0.1 %) nasal 2 spray intranasal BID 01/19/24 01/19/24 History spray bumetanide 1 mg tablet See Rx Instructions .Route 01/19/24 Rx .COMPLEX #40 tabs diclofenac sodium 1 % topical gel 4 g topical DAILYP PRN Pain (Scale 01/19/24 01/19/24 History Score 1-6) docusate sodium 50 mg/5 mL oral 1 ml Ear-Left HS 01/19/24 01/19/24 History liquid famotidine 40 mg tablet 40 mg PO DAILY 01/19/24 01/19/24 History insulin syringe,safety needle 1 mL 01/19/24 01/19/24 History 31 gauge x 15/64 (BD SafetyGlide Insulin Syringe) menthol 0.44 %-zinc oxide 20.6 % 1 applic topical DAILYP PRN Skin 01/19/24 01/19/24 History topical ointment (Calmoseptine) Irritation methocarbamol 500 mg tablet 500 mg PO Q6HP PRN Muscle Spasm 01/19/24 01/19/24 History pen needle, diabetic, safety 29 01/19/24 01/19/24 History gauge x 5/16 pen needle,diabetic dual safty 30 01/19/24 01/19/24 History gauge x 3/16 (BD AutoShield Duo Pen Needle) New Prescriptions to Start Prescriptions: sarahmetDonte Francisco Allergies Allergy/AdvReac Type Severity Reaction Status Date / Time iodine AdvReac Verified 01/01/24 12:53 Discharge Plan Disposition Patient Disposition: [facility] Discharge Order Discharge Orders: Discharge Order (Routine); Ordered 01/19/24 Ordered By: Donte Smiley Follow up Plan Prescriptions/Medication Reconciliation: New bumetanide 1 mg tablet See Rx Instructions .ROUTE .COMPLEX Qty: 40 0RF Rx Instructions: 1 mg orally twice daily for 5 days, decrease to once daily thereafter. Continued citalopram 20 mg tablet 20 mg PO DAILY losartan 25 mg tablet 25 mg PO DAILY levocetirizine 5 mg tablet 5 mg PO HS ferrous sulfate [FeroSul] 325 mg (65 mg iron) tablet 325 mg PO DAILY atorvastatin 20 mg tablet 20 mg PO HS clopidogrel 75 mg tablet 75 mg PO DAILY bupropion HCl [Wellbutrin XL] 150 mg tablet extended release 24 hr 150 mg PO QAM polyethylene glycol 3350 17 gram/dose powder 17 g PO DAILY 30 Days Qty: 510 0RF senna 8.6 mg capsule 8.6 mg PO BID Qty: 60 0RF doxazosin 8 mg tablet 8 mg PO HS insulin degludec [Tresiba FlexTouch U-200] 200 unit/mL (3 mL) insulin pen 14 unit SQ DAILY insulin lispro 100 unit/mL solution 0 unit SQ DIRECTED Rx Instructions: INJECT PER SLIDING SCALE: IF 151-200= 2 UNITS; 201-250=4 UNITS; 251-300=6 UNITS; 301-350=8 UNITS; 351-400=10 UNITS; IF ABOVE 400, GIVE 12 UNITS AND CALL icosapent ethyl [Vascepa] 1 gram capsule 2 g PO BID tramadol 50 mg tablet 50 mg PO TID gabapentin 400 mg capsule 400 mg PO TID 30 Days Qty: 90 2RF omeprazole 40 mg capsule,delayed release(DR/EC) 40 mg PO DAILY docusate sodium 100 mg Tablet 100 mg PO DAILY dapagliflozin propanediol [Farxiga] 5 mg tablet 5 mg PO DAILY docusate sodium 50 mg/5 mL Liquid 1 ml Ear-Left HS Rx Instructions: INSTILL 1 ML INTO THE LEFT EAR, LEAVE FOR 20 MINUTES AND FLUSH THOROUGHLY WITH WARM WATER FOR FOUR DAYS famotidine 40 mg tablet 40 mg PO DAILY aspirin 81 mg Tablet,Chewable 81 mg PO DAILY diclofenac sodium 1 % Gel 4 g TOPICAL DAILYP PRN (Reason: Pain (Scale Score 1-6)) Rx Instructions: apply to single knee, ankle, foot; for foot includes sole/toes/top of foot methocarbamol 500 mg Tablet 500 mg PO Q6HP PRN (Reason: Muscle Spasm) acetaminophen [Tylenol 8 Hour] 650 mg Tablet Extended Release 650 mg PO BIDP PRN (Reason: PAIN (SCALE 1-6)) azelastine 137 mcg (0.1 %) spray,non-aerosol 2 spray INTRANASAL BID Rx Instructions: 2 SPRAYS IN BOTH NOSTRILS TWICE DAILY (DME) pen needle, diabetic, safety 29 gauge x 5/16 Needle MISCELLANEOUS menthol-zinc oxide [Calmoseptine] 0.44-20.6 % Ointment 1 applic TOPICAL DAILYP PRN (Reason: Skin Irritation) Rx Instructions: APPLY TO BUTTOCKS TOPICALLY NEEDED FOR REDNESS (DME) BD AutoShield Duo Pen Needle 30 gauge x 3/16 needle MISCELLANEOUS (DME) BD SafetyGlide Insulin Syringe 1 mL 31 gauge x 15/64 syringe MISCELLANEOUS Discontinued furosemide [Lasix] 40 mg tablet 40 mg PO DAILY Qty: 30 5RF Problem Reconciliation Problems Reviewed?: Yes Patient Discharge Instructions ACTIVITY: Continue current activity DIET: continue same diet Patient Instructions: DI for Heart Failure, DI for Urinary Tract Infection (UTI) Print Language: Vietnamese Providers Primary Care Provider: Provider,Referral Admit Provider: Donte Smiley Attending Provider: Donte Smiley
[2024-01-19 12:00] VITALS: BP 166/68; PULSE 80; PULSE 81; RESP 17; TEMP 36.6; O2SAT 96
--- NOTE | 2024-01-19 12:11 | PC.NURSE ---
numerous attempts made to contact [facility] nursing facility. will try again momentarily.
--- NOTE | 2024-01-19 12:28 | PC.NURSE ---
another attempt to contact [facility] was made. voicemail left with name,number and extension, and reason of call.
[2024-01-19 12:30] LABS: POC Glucose,Bedside 101 (70-110)
--- NOTE | 2024-01-19 12:35 | PC.NURSE ---
care management notified of trouble getting ahold of [employer].
--- NOTE | 2024-01-19 12:47 | PC.NURSE ---
report gave to katie @ [employer]. and answered all questions.
[2024-01-19 14:25] VITALS: PULSE 80
--- NOTE | 2024-01-19 23:10 | CA_ITS ---
APPROVED REPORT EXAM: Comprehensive 2D, Doppler, and color-flow Echocardiogram Dairy Worker: Isabella Barrera RVT Ht: 5 ft 10 in Wt: 196lbs BSA: 2.07 BP: 144/61 mmHg Indications: CHF,BIOPROSTHETIC AORTIC VALVE,CAD,CABG,COPD,HTN,HLD,ELEVATED TROP TDS-PT IS CONFUSED HAS FELL MULTIPLE TIMES,PT SCANNED FLAT ON BACK 2D Dimensions IVSd 2.32 cm M: 0.6-1.2 LVEF (Visual) 90.10 % PWd 1.68 cm M: 0.6 - 1.2 LVDd 2.50 cm M: 4.2 - 5.9 LVDs 1.02 cm M: 2.5 - 4.0 M-Mode Dimensions LA Diam 4.87 cm (1.9-4.0) LV Diastology E Decel Time 240 (160-240 msec) E/A Ratio 1.2 Aortic Valve GLADYS Index 0.84 cm2/m2 AoV Peak Jose J. 196.0 (50-130 cm/s) AO Peak GR. 15.40 mmHg AO Mean GR. 8.70 (<5 mmHg) AO VTI 39.1 (18-25 cm) GLADYS (VTI) 1.79 (2.5-4.5 cm2) Mitral Valve MV E Max Jose J. 190.0 (40-130 cm/s) MV A Velocity 154.0 (40-130 cm/s) E/A Ratio 1.23 MV Mean Gr. 7.80 (<2mmHg) MV PHT 70.0 ms Pulmonary Valve PV Peak Velocity 112.0 (50-150 cm/s) Tricuspid Valve TR P. Velocity 343.00 cm/s RAP Estimate 10.00 mmHg RVSP 56.90 mmHg Left Ventricle The left ventricle is normal size. The left ventricular systolic function is normal. The left ventricular ejection fraction is within the normal range. There is marked increase in LV wall thickness. IVSD is 1.4 cm. There is normal LV segmental wall motion. Diastolic function is indeterminate. LVEF is 60%. Right Ventricle The right ventricle is mildly dilated. The right ventricular systolic function is normal. Atria Left atrium is severely dilated. Right atrium is mildly dilated. There is no Doppler evidence of interatrial shunt. Aortic Valve s/p bioprosthetic AVR. The prosthesis is well-seated. Peak velocity 1.7 m/s. Mean AV gradient 7 mmHg. Max AV gradient 12 mmHg. Acceleration time 50 ms. Trace central aortic regurgitation. Mitral Valve Severe mitral annular calcification is present. The mitral valve leaflets are mildly thickened. Mild mitral stenosis. Mean MV gradient 7 mmHg (HR 80 bpm). Mild mitral regurgitation. Tricuspid Valve The tricuspid valve leaflets are thin and pliable. Mild tricuspid regurgitation. RVSP is 40-45 mmHg. Pulmonic Valve The pulmonary valve is normal in structure. Trace pulmonic regurgitation. Great Vessels The aortic root is normal in size. The ascending aorta is not well-visualized. IVC is normal in size and collapses >50% with inspiration. Pericardium There is no pericardial effusion. Other Information Study Quality: Technically Difficult Conclusion Technically difficult study due to poor acoustic windows. Normal biventricular systolic function. Marked increase in LV wall thickness (1.4 cm). Mild RV dilation. Biatrial dilation. s/p AVR with acceptable transaortic gradients (peak velocity 1.7 m/s. Mean AV gradient 7 mmHg. Max AV gradient 12 mmHg. Acceleration time 50 ms). Severe MAC. Mild MR. Mild MS (mean MV gradient 7 mmHg). Mild TR. Elevated RVSP 40-45 mmHg. In the setting of markedly increased LV wall thickness, further outpatient evaluation for infiltrative cardiomyopathy is suggested with cardiac MRI (amyloidosis protocol), PYP nuclear scan, and amyloidosis lab testing. Electronically signed by : Becky Juares MD 01/19/2024 11:19:07
== END 2024-01-19 15:25 ==
LOC: ER 22:39 → 2ND 23:03
PROVIDERS: Nurse Practitioner Acute Care; Admitting Provider Internal Medicine Adolescent Medicine; Emergency Provider Emergency Medicine; Visit Provider Internal Medicine Adolescent Medicine
DX: I13.0 Hypertensive heart and chronic kidney disease with heart failure and stage 1 through stage 4 chronic kidney disease, or unspecified chronic kidney disease (principal); I25.118 Atherosclerotic heart disease of native coronary artery with other forms of angina pectoris; I50.30 Unspecified diastolic (congestive) heart failure; R79.89 Other specified abnormal findings of blood chemistry; N17.9 Acute kidney failure, unspecified; R29.6 Repeated falls; E11.22 Type 2 diabetes mellitus with diabetic chronic kidney disease; E78.5 Hyperlipidemia, unspecified; Z95.1 Presence of aortocoronary bypass graft; N18.9 Chronic kidney disease, unspecified; G93.40 Encephalopathy, unspecified; W06.XXXA Fall from bed, initial encounter; Z91.81 History of falling; Y92.122 Bedroom in nursing home as the place of occurrence of the external cause
CPT/HCPCS: 36415; 70450; 71045; 72125; 72170; 72192; 73552; 73562; 80048; 80053; 82962; 83880; 84484; 85025; 93005; 93306; 99285; G0378; J1939

== ENCOUNTER 2024-03-17 15:08 | Inpatient (IN) | payer MEDICARE, OTHER, MEDICAID, SELFPAY ==
--- NOTE | 2024-03-17 14:53 | HMH.EDGENADL ---
Discharge Plan Disposition Patient Disposition: Admitted Condition: Fair Clinical Impressions Clinical Impression: Sepsis without septic shock, Acute hypoxemic respiratory failure, HCAP (healthcare-associated pneumonia) CHF exacerbation Qualifiers: Heart failure type: diastolic Qualified Code(s): I50.33 - Acute on chronic diastolic (congestive) heart failure Discharge ED Provider: Jerry Maddox General Adult HPI <JOAQUIN Oleary - Last Filed: 03/17/24 18:08> General Chief complaint: Fall Stated complaint: Fall Time Seen by Provider: 03/17/24 15:10 History of Present Illness HPI narrative: Patient presents from [facility] for evaluation of reported fall. Patient himself states that he did fall mainly because he tripped over his feet yesterday. He suffered no injury. I am not sure of the delay in sending the patient for evaluation but in any event patient denies any chest pain shortness of breath fever chills hemoptysis hematochezia melena nausea vomiting diarrhea. However patient arrives hypoxic down to 88 and does not wear oxygen at baseline. Related Data Home Medications ?Medication ?Instructions ?Recorded ?Confirmed clopidogrel 75 mg tablet 75 mg PO DAILY 05/12/17 03/17/24 doxazosin 8 mg tablet 8 mg PO HS 09/15/23 03/17/24 insulin degludec 200 unit/mL (3 14 unit SQ DAILY 09/15/23 03/17/24 mL) subcutaneous pen (Tresiba FlexTouch U-200 insulin) insulin lispro 100 unit/mL 0 unit SQ DIRECTED 09/15/23 03/17/24 subcutaneous solution tramadol 50 mg tablet 50 mg PO TID 10/20/23 03/17/24 citalopram 20 mg tablet 20 mg PO DAILY 11/17/23 03/17/24 ferrous sulfate 325 mg (65 mg 325 mg PO DAILY 01/01/24 03/17/24 iron) tablet (FeroSul) dapagliflozin propanediol 5 mg 5 mg PO DAILY 01/18/24 03/17/24 tablet (Farxiga) acetaminophen 650 mg 650 mg PO BIDP PRN PAIN (SCALE 1-6) 01/19/24 03/17/24 tablet,extended release (Tylenol 8 Hour) aspirin 81 mg chewable tablet 81 mg PO DAILY 01/19/24 03/17/24 azelastine 137 mcg (0.1 %) nasal 2 spray intranasal BID 01/19/24 03/17/24 spray diclofenac sodium 1 % topical gel 4 g topical DAILYP PRN Pain (Scale 01/19/24 03/17/24 Score 1-6) famotidine 40 mg tablet 40 mg PO DAILY 01/19/24 03/17/24 insulin syringe,safety needle 1 mL 01/19/24 03/17/24 31 gauge x 15/64 (BD SafetyGlide Insulin Syringe) pen needle, diabetic, safety 29 01/19/24 03/17/24 gauge x 5/16 pen needle,diabetic dual safty 30 01/19/24 03/17/24 gauge x 3/16 (BD AutoShield Duo Pen Needle) ammonium lactate 12 % lotion 1 applic topical HS 03/17/24 03/17/24 cholecalciferol (vitamin D3) 1,250 1.25 unit PO DAILY 03/17/24 03/17/24 mcg (50,000 unit) capsule dextromethorphan-guaifenesin 5 10 ml PO Q4HP PRN Cough 03/17/24 03/17/24 mg-100 mg/5 mL oral liquid (Tussin DM Max) gabapentin 400 mg capsule 200 mg PO TID 03/17/24 03/17/24 loratadine 10 mg tablet 10 mg PO DAILY 03/17/24 03/17/24 losartan 50 mg tablet 50 mg PO DAILY 03/17/24 03/17/24 ondansetron HCl 4 mg tablet 4 mg PO Q6HP PRN nausea 03/17/24 03/17/24 pantoprazole 40 mg tablet,delayed 40 mg PO DAILY 03/17/24 03/17/24 release Previous Rx's ?Medication ?Instructions ?Recorded polyethylene glycol 3350 17 17 g PO DAILY 30 days #510 grams 03/13/23 gram/dose oral powder sennosides 8.6 mg capsule (senna) 8.6 mg PO BID #60 caps 03/13/23 bumetanide 1 mg tablet See Rx Instructions .Route 01/19/24 .COMPLEX #40 tabs Allergies Allergy/AdvReac Type Severity Reaction Status Date / Time iodine AdvReac Verified 03/15/24 10:15 PFS <JOAQUIN Oleary - Last Filed: 03/17/24 18:08> PFS Disclaimer: The information contained in this section may have been updated after the patient was seen, as this information can be updated by other users. Medical History Impacted cerumen of both ears Tinnitus Nasal congestion Acute pain of both ears Fullness in both ears Complex laceration of scalp GERD (gastroesophageal reflux disease) Allergic rhinitis Ear congestion CAD (coronary artery disease) HLD (hyperlipidemia) COPD (chronic obstructive pulmonary disease) HHD (hypertensive heart disease) Carotid artery disease Shortness of Breath Surgical History History of lumbar fusion History of open heart surgery Family History Other Unknown family medical history Social History Smoking Status: Former smoker second hand exposure: No alcohol intake: never substance use type: denies use current occupational status: retired Travel in the last 8 weeks: None housing: jail Have you lived/traveled outside US in past 30 days?: No Contact w/someone who lives/traveled outside US past 30 days?: No Exposure to someone with infectious disease in past 14 days?: No Do you have a fever (greater than 100.4 F or 38 C)?: No Have you tested positive for COVID-19: No Exposed to someone with COVID-19 in past 14 days?: No Do you have a sore throat?: No Do you have a cough?: No Do you have any weakness?: No Do you have any diarrhea?: No Are you experiencing any unusual bleeding?: No Do you have any muscle aches/pain?: No Do you have any abdominal pain?: No Are you experiencing loss of taste or smell?: No Other Medical History Have you received the Flu Vaccine for this season: No Have you received the Pneumonia Vaccine: Yes <JOAQUIN Oleary - Last Filed: 03/17/24 18:08> ROS Obtained: Yes Systems reviewed as appropriate & no additional complaints except as documented Physical Exam <JOAQUIN Oleary - Last Filed: 03/17/24 18:08> General General appearance: alert and in no apparent distress Respiratory Respiratory exam: Absent normal lung sounds bilaterally (Patient has coarse rhonchi in all 4 [place] and audible rhonchi at the bedside), respiratory distress or accessory muscle use Cardiovascular Cardiovascular exam: Present regular rate Neurological Exam Neurological exam: Present alert and oriented X3 Medical Decision Making <JOAQUIN Oleary - Last Filed: 03/17/24 18:08> Medical Records Medical records reviewed: Yes I reviewed the patient's medical records. Screening: Per USPSTF and CDC recommendations, given the prevalence of disease in our region, it is our hospital?s policy to screen for HIV and viral Hepatitis for all patients aged 18 and over and those with ongoing risk factors. Herman Inquiry Pt receiving controlled substance: No Vital Signs: 03/17/24 15:08 03/17/24 15:30 Temperature 99.6 F Temperature Source Oral Pulse Rate [Left Radial] 77 Respiratory Rate 14 18 Blood Pressure 107/50 L Blood Pressure [Right Arm] 108/47 L Blood Pressure Mean [Right Arm] 67 02 Sat by Pulse Oximetry 96 95 Oxygen Delivery Method Nasal Cannula Nasal Cannula Oxygen Flow Rate (LPM) 2 2 Lab Data Lab results reviewed: Yes I reviewed the patient's lab results. Lab Results 03/17/24 15:00: WBC 13.2 H, RBC 3.22 L, Hgb 8.8 L, Hct 28.0 L, MCV 87.0, MCH 27.3, MCHC 31.4 L, RDW 15.8, Plt Count 208, MPV 9.8, Neut % (Auto) 80.0, Lymph % (Auto) 7.0 L, Cameron % (Auto) 11.1 H, Eos % (Auto) 0.8, Baso % (Auto) 0.3, Neut # (Auto) 10.6 H, Lymph # (Auto) 0.9, Cameron # (Auto) 1.5 H, Eos # (Auto) 0.1, Baso # (Auto) 0.0, PT 11.1, INR 1.01, Sodium 135 L, Potassium 4.9, Chloride 100, Carbon Dioxide 22, Anion Gap 17.9 H, BUN 53 H, Creatinine 3.00 H, Estimated Creat Clear 22, Estimated GFR 20 L, Est GFR ( Amer) 24 L, Glucose 115 H, Hemoglobin A1c 6.6 H, Calcium 8.5, Magnesium 1.9, Total Bilirubin 0.4, AST 41, ALT 19, Alkaline Phosphatase 68, Troponin I 0.20 H, NT-Pro-B Natriuret Pep 7360 H, Total Protein 6.8, Albumin 3.9, Globulin 2.9, Albumin/Globulin Ratio 1.3, Procalcitonin 1.46, HCV Ab MAKSIM w/Rflx PCR Qn Negative, HIV Ag/Ab Combo Qual Negative 03/17/24 15:29: VBG pH 7.34, VBG pCO2 40.2, VBG pO2 64.6 H, VBG HCO3 21.3 L, VBG Total CO2 22.6 L, VBG O2 Saturation 89.8 H, VBG Base Excess -4.4 L, VBG Lactic Acid 1.5 03/17/24 15:35: Chlamy pneumoniae PCR Not detected, Adenovirus (PCR) Not detected, B. pertussis DNA (PCR) Not detected, Coronavirus OC43 (PCR) Not detected, Coronavirus HKU1 (PCR) Not detected, Coronavirus 229E (PCR) Not detected, SARS-CoV-2 (PCR) Not detected, Coronavirus NL63 (PCR) Not detected, Human Metapneumovir PCR Detected A, Influenza A (H1) PCR Not detected, Influ A (H1N1/09) PCR Not detected, Influenza A (H3) PCR Not detected, Influenza Type A (PCR) Not detected, Influenza Type B (PCR) Not detected, M. pneumoniae (PCR) Not detected, Parainfluenza 1 (PCR) Not detected, Parainfluenza 2 (PCR) Not detected, Parainfluenza 3 (PCR) Not detected, Parainfluenza 4 (PCR) Not detected, RSV (PCR) Not detected, Entero/Rhino (PCR) Not detected 03/17/24 15:00 03/17/24 15:00 Orders (Tests/Meds): ED MEDICATIONS Generic Name Dose Route Start Last Admin Trade Name Freq PRN Reason Stop Dose Admin Acetaminophen 650 mg 03/17/24 16:27 Acetaminophen 325mg Tab PO 04/16/24 16:26 Q4HP PRN Fever or Mild Pain (1-3) Albuterol/Ipratropium 3 ml 03/17/24 18:47 Ipratropium/Albuterol 3 Ml [facility] 04/16/24 18:46 Q6HP PRN Shortness Of Breath Aspirin 81 mg 03/18/24 09:00 Aspirin 81mg Chewable Tablet PO 04/17/24 08:59 DAILY PENDING SALE TO [facility] Bumetanide 1 mg 03/18/24 09:00 Bumetanide 1 Mg Tablet PO 04/17/24 08:59 BIDL PENDING SALE TO [facility] Citalopram Hydrobromide 20 mg 03/18/24 09:00 Citalopram 20mg Tablet PO 04/17/24 08:59 DAILY PENDING SALE TO [facility] Clopidogrel Bisulfate 75 mg 03/18/24 09:00 Clopidogrel 75mg Tab PO 04/17/24 08:59 DAILY PENDING SALE TO [facility] Gabapentin 200 mg 03/17/24 21:00 Gabapentin 400mg Capsule PO 04/16/24 20:59 TID PENDING SALE TO [facility] Azithromycin 500 mg/ Sodium 250 mls @ 250 mls/hr 03/17/24 16:15 03/17/24 18:01 Chloride IV 03/27/24 16:14 250 mls/hr Q24H NORA Administration Azithromycin 500 mg/ Sodium 250 mls @ 250 mls/hr 03/18/24 14:00 Chloride IV 03/28/24 13:59 Q24H PENDING SALE TO [facility] Ceftriaxone Sodium 1 gm/ 50 mls @ 100 mls/hr 03/18/24 15:00 Sodium Chloride IV 03/28/24 14:59 Q24H PENDING SALE TO [facility] Insulin Glargine 10 unit 03/18/24 09:00 Insulin Glargine 100 Units/Ml 3ml Flexpen SUBCUT 04/17/24 08:59 DAILY PENDING SALE TO [facility] Insulin Human Lispro 0 unit 03/17/24 16:30 03/17/24 17:39 Humalog 100 Units/Ml 10ml Vial (Ssi) SUBCUT 04/16/24 16:29 Not Given ACHS PENDING SALE TO [facility] Protocol Non-Formulary Medication 40 mg 03/18/24 09:00 Famotidine PO 04/17/24 08:59 DAILY PENDING SALE TO [facility] Non-Formulary Medication 8 mg 03/17/24 21:00 Doxazosin PO 04/16/24 20:59 HS PENDING SALE TO [facility] Non-Formulary Medication 5 mg 03/18/24 09:00 Dapagliflozin Propanediol [Farxiga] PO 04/17/24 08:59 DAILY PENDING SALE TO [facility] Discontinued Medications Generic Name Dose Route Start Last Admin Trade Name Freq PRN Reason Stop Dose Admin Acetaminophen 1,000 mg 03/17/24 15:19 03/17/24 15:32 Acetaminophen 500mg Tab PO 03/17/24 15:20 1,000 mg ONCE ONE Administration Furosemide 80 mg 03/17/24 15:57 03/17/24 16:03 Furosemide 40mg/4ml Vial IV 03/17/24 15:58 80 mg ONCE ONE Administration Ceftriaxone Sodium 2 gm/ 100 mls @ 200 mls/hr 03/17/24 16:13 03/17/24 16:29 Sodium Chloride IV 03/17/24 16:42 200 mls/hr ONCE ONE Administration Ketorolac Tromethamine 15 mg 03/17/24 15:19 03/17/24 15:33 Ketorolac 30mg/Ml Vial IV 03/17/24 15:20 15 mg ONCE ONE Administration ORDERS Category Date Time Status Chest XR -- portable [XR chest portable] Stat Exams 03/17/24 15:22 Completed BNP [NT Pro Brain Natriuretic Pep.] Stat Lab 03/17/24 15:00 Completed CBC w/Auto Diff [Complete Blood Count Auto Diff] Stat Lab 03/17/24 15:00 Completed CMP [Comprehensive Metabolic Panel] Stat Lab 03/17/24 15:00 Completed Complete Blood Count Auto Diff AMLAB Lab 03/18/24 06:00 Ordered Comprehensive Metabolic Panel AMLAB Lab 03/18/24 06:00 Ordered Full Resp Panel w/COVID ([facility]) Routine Lab 03/17/24 15:35 Completed HIV Combo Stat Lab 03/17/24 15:00 Completed Hemoglobin A1C Stat Lab 03/17/24 15:00 Completed Hepatitis C Ab Qual. W/ RFX Stat Lab 03/17/24 15:00 Completed INR [Prothrombin Time INR] Stat Lab 03/17/24 15:00 Completed Magnesium AMLAB Lab 03/18/24 06:00 Ordered Magnesium Stat Lab 03/17/24 15:00 Completed Procalcitonin Stat Lab 03/17/24 15:00 Completed UA [Urinalysis and Microscopic] Stat Lab 03/17/24 15:21 Ordered Blood Culture Stat Micro 03/17/24 16:20 Received VBG [Venous Blood Gas] Stat RT 03/17/24 15:29 Completed HEART Score History (anamnesis): Slightly suspicious ECG: Non-specific disturbance Age: >65 years Risk factors: Atherosclerosis history Medical Decision Narrative: In summary patient is a 83-year-old male who presents to the emergency department for evaluation of a fall yesterday. Patient is initially with a blood pressure of 108/47 pulse 77 breathing 14 times a minute satting at 96% on 2 L by nasal cannula upon arrival, with a temperature of 99.6. Physical exam is remarkable for auditory rhonchi at the bedside and auscultated rhonchi in all 4 [place]. Patient has 3+ dependent pitting edema. Patient does not however have any evidence of ecchymosis abrasions contusions deformities. He has no C-spine tenderness she has no nuchal rigidity. Patient is awake alert and oriented person place and circumstance. Glascow coma score 15.. Differential diagnosis includes CHF exacerbation versus healthcare associated pneumonia versus heart failure versus other occult infection. Initial workup will be conducted with hematologic labs plain film chest x-ray VBG twelve-lead EKG. Initial interventions include continuous cardiac monitoring supplemental O2 continuous pulse oximetry and given apparent volume overload on physical exam 80 of Lasix initially. Initial workup reviewed by me shows his white count is 13.2 hemoglobin hematocrit 8.8 and 28.0 respectively with an absolute neutrophil count of 10.6, INR is 1.01, VBG shows preserved pH of 7.34 and pCO2 of 40.2 with a venous blood gas of 1.5, CMP significant for sodium of 135 gap of 17.9 BUN of 53 creatinine of 3 with a GFR of 20 NT proBNP is 7360 and procalcitonin is 1.46 respiratory panel is positive for human metapneumovirus and my informal interpretation of his plain film chest x-ray shows left greater than right infiltrates suggestive of either pulmonary edema or pneumonia. Upon repeat evaluation patient is unable to be weaned from oxygen and still requiring 2 L by nasal cannula to maintain a sat above 90%. Given the possibility of healthcare associated pneumonia patient was started on prophylactic antibiotics for possible superimposed bacterial infection on top of his viral pneumonia. I then had interactive discussion with Dr. Smiley of [facility] medicine about patient VELAZQUEZ findings and patient management and he will be admitted for further evaluation and care. <Jerry Maddox MD - Last Filed: 03/17/24 18:56> Vital Signs: 03/17/24 15:08 03/17/24 15:30 Temperature 99.6 F Temperature Source Oral Pulse Rate [Left Radial] 77 Respiratory Rate 14 18 Blood Pressure 107/50 L Blood Pressure [Right Arm] 108/47 L Blood Pressure Mean [Right Arm] 67 02 Sat by Pulse Oximetry 96 95 Oxygen Delivery Method Nasal Cannula Nasal Cannula Oxygen Flow Rate (LPM) 2 2 Lab Data Lab Results 03/17/24 15:00: WBC 13.2 H, RBC 3.22 L, Hgb 8.8 L, Hct 28.0 L, MCV 87.0, MCH 27.3, MCHC 31.4 L, RDW 15.8, Plt Count 208, MPV 9.8, Neut % (Auto) 80.0, Lymph % (Auto) 7.0 L, Cameron % (Auto) 11.1 H, Eos % (Auto) 0.8, Baso % (Auto) 0.3, Neut # (Auto) 10.6 H, Lymph # (Auto) 0.9, Cameron # (Auto) 1.5 H, Eos # (Auto) 0.1, Baso # (Auto) 0.0, PT 11.1, INR 1.01, Sodium 135 L, Potassium 4.9, Chloride 100, Carbon Dioxide 22, Anion Gap 17.9 H, BUN 53 H, Creatinine 3.00 H, Estimated Creat Clear 22, Estimated GFR 20 L, Est GFR ( Amer) 24 L, Glucose 115 H, Hemoglobin A1c 6.6 H, Calcium 8.5, Magnesium 1.9, Total Bilirubin 0.4, AST 41, ALT 19, Alkaline Phosphatase 68, Troponin I 0.20 H, NT-Pro-B Natriuret Pep 7360 H, Total Protein 6.8, Albumin 3.9, Globulin 2.9, Albumin/Globulin Ratio 1.3, Procalcitonin 1.46, HCV Ab MAKSIM w/Rflx PCR Qn Negative, HIV Ag/Ab Combo Qual Negative 03/17/24 15:29: VBG pH 7.34, VBG pCO2 40.2, VBG pO2 64.6 H, VBG HCO3 21.3 L, VBG Total CO2 22.6 L, VBG O2 Saturation 89.8 H, VBG Base Excess -4.4 L, VBG Lactic Acid 1.5 03/17/24 15:35: Chlamy pneumoniae PCR Not detected, Adenovirus (PCR) Not detected, B. pertussis DNA (PCR) Not detected, Coronavirus OC43 (PCR) Not detected, Coronavirus HKU1 (PCR) Not detected, Coronavirus 229E (PCR) Not detected, SARS-CoV-2 (PCR) Not detected, Coronavirus NL63 (PCR) Not detected, Human Metapneumovir PCR Detected A, Influenza A (H1) PCR Not detected, Influ A (H1N1/09) PCR Not detected, Influenza A (H3) PCR Not detected, Influenza Type A (PCR) Not detected, Influenza Type B (PCR) Not detected, M. pneumoniae (PCR) Not detected, Parainfluenza 1 (PCR) Not detected, Parainfluenza 2 (PCR) Not detected, Parainfluenza 3 (PCR) Not detected, Parainfluenza 4 (PCR) Not detected, RSV (PCR) Not detected, Entero/Rhino (PCR) Not detected Orders (Tests/Meds): ED MEDICATIONS Generic Name Dose Route Start Last Admin Trade Name Freq PRN Reason Stop Dose Admin Acetaminophen 650 mg 03/17/24 16:27 Acetaminophen 325mg Tab PO 04/16/24 16:26 Q4HP PRN Fever or Mild Pain (1-3) Albuterol/Ipratropium 3 ml 03/17/24 18:47 Ipratropium/Albuterol 3 Ml Neb 04/16/24 18:46 Q6HP PRN Shortness Of Breath Aspirin 81 mg 03/18/24 09:00 Aspirin 81mg Chewable Tablet PO 04/17/24 08:59 DAILY NORA Bumetanide 1 mg 03/18/24 09:00 Bumetanide 1 Mg Tablet PO 04/17/24 08:59 BIDL NORA Citalopram Hydrobromide 20 mg 03/18/24 09:00 Citalopram 20mg Tablet PO 04/17/24 08:59 DAILY NORA Clopidogrel Bisulfate 75 mg 03/18/24 09:00 Clopidogrel 75mg Tab PO 04/17/24 08:59 DAILY NORA Gabapentin 200 mg 03/17/24 21:00 Gabapentin 400mg Capsule PO 04/16/24 20:59 TID NORA Azithromycin 500 mg/ Sodium 250 mls @ 250 mls/hr 03/17/24 16:15 03/17/24 18:01 Chloride IV 03/27/24 16:14 250 mls/hr Q24H NORA Administration Azithromycin 500 mg/ Sodium 250 mls @ 250 mls/hr 03/18/24 14:00 Chloride IV 03/28/24 13:59 Q24H PENDING SALE TO [facility] Ceftriaxone Sodium 1 gm/ 50 mls @ 100 mls/hr 03/18/24 15:00 Sodium Chloride IV 03/28/24 14:59 Q24H PENDING SALE TO [facility] Insulin Glargine 10 unit 03/18/24 09:00 Insulin Glargine 100 Units/Ml 3ml Flexpen SUBCUT 04/17/24 08:59 DAILY PENDING SALE TO [facility] Insulin Human Lispro 0 unit 03/17/24 16:30 03/17/24 17:39 Humalog 100 Units/Ml 10ml Vial (Ssi) SUBCUT 04/16/24 16:29 Not Given ACHS PENDING SALE TO [facility] Protocol Non-Formulary Medication 40 mg 03/18/24 09:00 Famotidine PO 04/17/24 08:59 DAILY PENDING SALE TO [facility] Non-Formulary Medication 8 mg 03/17/24 21:00 Doxazosin PO 04/16/24 20:59 HS PENDING SALE TO [facility] Non-Formulary Medication 5 mg 03/18/24 09:00 Dapagliflozin Propanediol [Farxiga] PO 04/17/24 08:59 DAILY PENDING SALE TO [facility] Discontinued Medications Generic Name Dose Route Start Last Admin Trade Name Freq PRN Reason Stop Dose Admin Acetaminophen 1,000 mg 03/17/24 15:19 03/17/24 15:32 Acetaminophen 500mg Tab PO 03/17/24 15:20 1,000 mg ONCE ONE Administration Furosemide 80 mg 03/17/24 15:57 03/17/24 16:03 Furosemide 40mg/4ml Vial IV 03/17/24 15:58 80 mg ONCE ONE Administration Ceftriaxone Sodium 2 gm/ 100 mls @ 200 mls/hr 03/17/24 16:13 03/17/24 16:29 Sodium Chloride IV 03/17/24 16:42 200 mls/hr ONCE ONE Administration Ketorolac Tromethamine 15 mg 03/17/24 15:19 03/17/24 15:33 Ketorolac 30mg/Ml Vial IV 03/17/24 15:20 15 mg ONCE ONE Administration ORDERS Category Date Time Status Chest XR -- portable [XR chest portable] Stat Exams 03/17/24 15:22 Completed BNP [NT Pro Brain Natriuretic Pep.] Stat Lab 03/17/24 15:00 Completed CBC w/Auto Diff [Complete Blood Count Auto Diff] Stat Lab 03/17/24 15:00 Completed CMP [Comprehensive Metabolic Panel] Stat Lab 03/17/24 15:00 Completed Complete Blood Count Auto Diff AMLAB Lab 03/18/24 06:00 Ordered Comprehensive Metabolic Panel AMLAB Lab 03/18/24 06:00 Ordered Full Resp Panel w/COVID ([facility]) Routine Lab 03/17/24 15:35 Completed HIV Combo Stat Lab 03/17/24 15:00 Completed Hemoglobin A1C Stat Lab 03/17/24 15:00 Completed Hepatitis C Ab Qual. W/ RFX Stat Lab 03/17/24 15:00 Completed INR [Prothrombin Time INR] Stat Lab 03/17/24 15:00 Completed Magnesium AMLAB Lab 03/18/24 06:00 Ordered Magnesium Stat Lab 03/17/24 15:00 Completed Procalcitonin Stat Lab 03/17/24 15:00 Completed UA [Urinalysis and Microscopic] Stat Lab 03/17/24 15:21 Ordered Blood Culture Stat Micro 03/17/24 16:20 Received VBG [Venous Blood Gas] Stat RT 03/17/24 15:29 Completed ECG Data Tracing #1: I reviewed this ECG and interpreted as documented below: (Sinus rhythm [address] or T wave changes concerning for acute ischemia, patient does have Q waves in anteroseptal leads consistent with old infarct. No reciprocal changes. CO 197, QRS 101, QTc 449. Normal axis) Medical Decision Narrative: In summary patient is a 83-year-old male who presents to the emergency department for evaluation of a fall yesterday. Patient is initially with a blood pressure of 108/47 pulse 77 breathing 14 times a minute satting at 96% on 2 L by nasal cannula upon arrival, with a temperature of 99.6. Physical exam is remarkable for auditory rhonchi at the bedside and auscultated rhonchi in all 4 [place]. Patient has 3+ dependent pitting edema. Patient does not however have any evidence of ecchymosis abrasions contusions deformities. He has no C-spine tenderness she has no nuchal rigidity. Patient is awake alert and oriented person place and circumstance. Glascow coma score 15.. Differential diagnosis includes CHF exacerbation versus healthcare associated pneumonia versus heart failure versus other occult infection. Initial workup will be conducted with hematologic labs plain film chest x-ray VBG twelve-lead EKG. Initial interventions include continuous cardiac monitoring supplemental O2 continuous pulse oximetry and given apparent volume overload on physical exam 80 of Lasix initially. Initial workup reviewed by me shows his white count is 13.2 hemoglobin hematocrit 8.8 and 28.0 respectively with an absolute neutrophil count of 10.6, INR is 1.01, VBG shows preserved pH of 7.34 and pCO2 of 40.2 with a venous blood gas of 1.5, CMP significant for sodium of 135 gap of 17.9 BUN of 53 creatinine of 3 with a GFR of 20 NT proBNP is 7360 and procalcitonin is 1.46 respiratory panel is positive for human metapneumovirus and my informal interpretation of his plain film chest x-ray shows left greater than right infiltrates suggestive of either pulmonary edema or pneumonia. Upon repeat evaluation patient is unable to be weaned from oxygen and still requiring 2 L by nasal cannula to maintain a sat above 90%. Given the possibility of healthcare associated pneumonia patient was started on prophylactic antibiotics for possible superimposed bacterial infection on top of his viral pneumonia. I then had interactive discussion with Dr. Smiley of [facility] medicine about patient VELAZQUEZ findings and patient management and he will be admitted for further evaluation and care. I independently interviewed and examined patient. Has no acute complaints on my exam. Incredibly clinically well-appearing. I was consulted by the PRIYA, and we discussed the complexity of the problems being addressed. I approved the treatment and management plan for this patient's care in the Emergency Department, thus performing a substantive portion of the medical decision making. Because patient at baseline without signs or symptoms of clinical decompensation, deemed appropriate for discharge. Results were relayed to patient who voiced understanding and were agreeable to outpatient management and follow up. I discussed my clinical impression with patient and answered all questions. At this time, the evidence for any other entities in the differential is insufficient to warrant any further testing or ED observation. This was explained as well. Advisory was given that persistent or worsening symptoms require further evaluation. I confirmed the understanding of this discussion. Jerry Maddox MD Critical Care <JOAQUIN Oleary - Last Filed: 03/17/24 18:08> Critical Care Time Critical Care Time: Yes Attestation: On 03/17/24, the high probability of a clinically significant, sudden or life threatening deterioration of the following system(s) required my full and direct attention, intervention and personal management. The time I documented below is in addition to time spent performing reported procedures but includes the following listed in this critical care notation. Total Time Total Critical Care Time: 35
--- NOTE | 2024-03-17 14:58 | ECG_ITS ---
APPROVED REPORT Exam: Resting ECG HR:78 bpm ECG Measurements Heart Rate 78 AXES UT 197 P 56 QRSd 101 QRS 9 QT 416 T 58 QTc 449 Conclusion Sinus rhythm Old anteroseptal myocardial infarction Electronically signed by : ROCÍO HARRIS, 03/17/2024 23:08:27
[2024-03-17 15:08] VITALS: BP 108/47; PULSE 77; RESP 14; TEMP 37.6; O2SAT 96; BMI 30.8
--- NOTE | 2024-03-17 15:22 | XR_ITS ---
FINAL REPORT CLINICAL HISTORY: Dyspnea, hypoxia COMPARISON: 01/18/2024 FINDINGS: SINGLE VIEW CHEST There is mild cardiomegaly. Patient is status post median sternotomy. There are patchy bilateral airspace infiltrates in the lower lobes, left greater than right which have increased since previous, probably due to acute pneumonia. There is no pneumothorax. IMPRESSION: Probable acute pneumonia bilaterally. Reviewed, Interpreted and Dictated by Laureano Vergara MD Transcribed by Anisa Guevara Authenticated and [facility]
[2024-03-17 15:29] LABS: Basophils % 0.3 % (0.1-2.0); Eosinophils # 0.1 K/mm3 (0.0-0.4); Eosinophils % 0.8 % (0.1-12.0); Hemoglobin 8.8 g/dL (14.1-18.0); Lymphocytes # 0.9 K/mm3 (0.7-4.5); Mean Corpuscular HGB Conc 31.4 g/dL (31.8-35.4); Mean Corpuscular Hemoglobin 27.3 pg (27.0-31.2); Mean Platelet Volume 9.8 fl (7.4-10.4); Monocytes # 1.5 K/mm3 (0.1-1.0); Monocytes % 11.1 % (1.7-9.3); Neutrophils # 10.6 K/mm3 (1.8-7.8); Platelet Count 208 K/mm3 (142-424); Red Blood Count 3.22 M/mm3 (4.60-6.20); Red Cell Distribution Width 15.8 % (11.5-17.5); White Blood Count 13.2 K/mm3 (4.8-10.8)
[2024-03-17 15:30] VITALS: BP 107/50; RESP 18; O2SAT 95
[2024-03-17 15:31] LABS: Lactate Venous 1.5 mmol/L (0.4-2.0); VBG Base Excess -4.4 mmol/L (-2.4-2.3); VBG HCO3 21.3 mmol/L (23-30); VBG Oxygen Saturation 89.8 % (50-70); VBG PCO2 40.2 mmol/L (35-51); VBG PH 7.34 mmol/L (7.31-7.41); VBG PO2 64.6 mmol/L (28-40); VBG Total CO2 22.6 mmol/L (23-27)
[2024-03-17] MEDS: ACETAMINOPHEN 500MG TAB 1000 MG PO (15:32)
[2024-03-17] MEDS: KETOROLAC 30MG/ML VIAL 15 MG IV (15:33)
[2024-03-17 15:35] LABS: Alanine Aminotransferase 19 U/L (12-78); Albumin Level 3.9 g/dl (3.5-5.0); Albumin/Globulin Ratio 1.3 (1.1-1.8); Alkaline Phosphatase 68 U/L (38-126); Anion Gap 17.9 mEq/L (5-15); Aspartate Amino Transferase 41 U/L (17-59); Bilirubin,Total 0.4 mg/dl (0.2-1.3); Blood Urea Nitrogen 53 mg/dl (9-20); Calcium 8.5 mg/dl (8.4-10.2); Carbon Dioxide 22 mmol/L (22.0-30.0); Chloride 100 mmol/L (98-107); Creatinine Clearance Estimated 22 mL/min (50-200); Estimated Glomerular Filt Rate 20 ml/min (>60); GFR (African American) 24 ML/MIN (>60); Globulin 2.9 g/dL (1.3-3.2); Glucose 115 mg/dl (74-100); Magnesium 1.9 mg/dl (1.6-2.3); Potassium 4.9 mmoL/L (3.5-5.1); Sodium 135 mmol/L (136-145); Total Protein,Serum 6.8 g/dl (6.3-8.2)
--- NOTE | 2024-03-17 15:37 | PC.NURSE ---
pt provided urinal.
[2024-03-17 15:39] LABS: Adenovirus,PCR Not Detected (NotDetected); Bordetella Pertussis Not Detected (NotDetected); Chlamydophila Pneumoniae, PCR Not Detected (NotDetected); Coronavirus 19, PCR Not Detected (NotDetected); Coronavirus 229E Not Detected (NotDetected); Coronavirus NL63 Not Detected (NotDetected); Coronavirus OC43 Not Detected (NotDetected); Coronovirus HKU1,PCR Not Detected (NotDetected); Influenza A, PCR Not Detected (NotDetected); Influenza AH1, 2009 Not Detected (NotDetected); Influenza AH1, PCR Not Detected (NotDetected); Influenza AH3,PCR Not Detected (NotDetected); Influenza B, PCR Not Detected (NotDetected); Mycoplasma Pneumoniae, PCR Not Detected (NotDetected); Parainfluenza 1, PCR Not Detected (NotDetected); Parainfluenza 2, PCR Not Detected (NotDetected); Parainfluenza 3, PCR Not Detected (NotDetected); Parainfluenza 4, PCR Not Detected (NotDetected); Respiratory Syncytial Virus Not Detected (NotDetected); Rhinovirus/Enterovirus Not Detected (NotDetected)
[2024-03-17 15:43] LABS: INR 1.01 (0.9-1.1); Prothrombin Time 11.1 seconds (9.2-12.1)
[2024-03-17 15:44] LABS: NT Pro Brain Natriuretic Pep. 7360 pg/mL (0-450)
[2024-03-17 15:52] LABS: Procalcitonin 1.46 ng/mL (0.0-2.0)
[2024-03-17] MEDS: FUROSEMIDE 40MG/4ML VIAL 80 MG IV (16:03)
[2024-03-17] MEDS: CEFTRIAXONE SODIUM 2 GM in 0.9 % SODIUM CHLORIDE 100 ML IV (16:29)
--- NOTE | 2024-03-17 16:30 | PC.NURSE ---
call made to housekeeping room inspector for bed placement.
--- NOTE | 2024-03-17 16:41 | EXP.HP ---
History of Present Illness *Admission Date: 03/17/24 *Reason for visit:: Shortness of breath, falling *History of present illness: Mr. Trujillo is an 83-year-old male with history of hypertension, diastolic heart failure, bioprosthetic aortic valve, type edema GERD, CAD. He resides at [facility]. He presented to the ER because of complaint of falls. States that he has been feeling more weak and fell mainly because he tripped over his feet yesterday. Suffered no injury. On arrival to the ER, patient is mildly hypoxic however on room air with sats in the high 80s. Workup concerning for pneumonia with chest imaging showed bilateral airspace disease consistent with pneumonia. White count elevated at 13. BNP elevated at 7300. Kidney function more or less at baseline with BUN 53, creatinine 3.0. Patient was started on broad-spectrum antibiotics, comprehensive panel obtained in the ER, and received a dose of Lasix 80 mg IV once. Med was consulted for admission and further management of CHF exacerbation and pneumonia with new oxygen requirement. On evaluation after arriving to the floor, patient denies any chest pain. States he feels somewhat short of breath. Has been feeling more weak lately. Denies any porter fever. Saw his behavioral analyst within the past week for evaluation and medication cements. Denies any nausea or vomiting. Alert and oriented at baseline mentation. Sats in the 90s on 2 L oxygen. [facility] Disclaimer: The information contained in this section may have been updated after the patient was seen, as this information can be updated by other users. Medical History Impacted cerumen of both ears Tinnitus Nasal congestion Acute pain of both ears Fullness in both ears Complex laceration of scalp GERD (gastroesophageal reflux disease) Allergic rhinitis Ear congestion CAD (coronary artery disease) HLD (hyperlipidemia) COPD (chronic obstructive pulmonary disease) HHD (hypertensive heart disease) Carotid artery disease Shortness of Breath Surgical History History of lumbar fusion History of open heart surgery Family History Other Unknown family medical history Social History Smoking Status: Former smoker second hand exposure: No alcohol intake: never substance use type: denies use current occupational status: retired Travel in the last 8 weeks: None housing: skilled nursing Have you lived/traveled outside US in past 30 days?: No Contact w/someone who lives/traveled outside US past 30 days?: No Exposure to someone with infectious disease in past 14 days?: No Do you have a fever (greater than 100.4 F or 38 C)?: No Have you tested positive for COVID-19: No Exposed to someone with COVID-19 in past 14 days?: No Do you have a sore throat?: No Do you have a cough?: No Do you have any weakness?: No Do you have any diarrhea?: No Are you experiencing any unusual bleeding?: No Do you have any muscle aches/pain?: No Do you have any abdominal pain?: No Are you experiencing loss of taste or smell?: No Other Medical History Have you received the Flu Vaccine for this season: No Have you received the Pneumonia Vaccine: Yes Review of Systems Review of Systems Review of systems (narrative): 14 point review of systems performed, pertinent positives and negatives as per HPI Meds Home Medications and Allergies Home Medications ?Medication ?Instructions ?Recorded ?Confirmed ?Type clopidogrel 75 mg tablet 75 mg PO DAILY 05/12/17 03/17/24 History polyethylene glycol 3350 17 17 g PO DAILY 30 days #510 grams 03/13/23 03/17/24 Rx gram/dose oral powder sennosides 8.6 mg capsule (senna) 8.6 mg PO BID #60 caps 03/13/23 03/17/24 Rx doxazosin 8 mg tablet 8 mg PO HS 09/15/23 03/17/24 History insulin degludec 200 unit/mL (3 14 unit SQ DAILY 09/15/23 03/17/24 History mL) subcutaneous pen (Tresiba FlexTouch U-200 insulin) insulin lispro 100 unit/mL 0 unit SQ DIRECTED 09/15/23 03/17/24 History subcutaneous solution tramadol 50 mg tablet 50 mg PO TID 10/20/23 03/17/24 History citalopram 20 mg tablet 20 mg PO DAILY 11/17/23 03/17/24 History ferrous sulfate 325 mg (65 mg 325 mg PO DAILY 01/01/24 03/17/24 History iron) tablet (FeroSul) dapagliflozin propanediol 5 mg 5 mg PO DAILY 01/18/24 03/17/24 History tablet (Farxiga) acetaminophen 650 mg 650 mg PO BIDP PRN PAIN (SCALE 1-6) 01/19/24 03/17/24 History tablet,extended release (Tylenol 8 Hour) aspirin 81 mg chewable tablet 81 mg PO DAILY 01/19/24 03/17/24 History azelastine 137 mcg (0.1 %) nasal 2 spray intranasal BID 01/19/24 03/17/24 History spray bumetanide 1 mg tablet See Rx Instructions .Route 01/19/24 03/17/24 Rx .COMPLEX #40 tabs diclofenac sodium 1 % topical gel 4 g topical DAILYP PRN Pain (Scale 01/19/24 03/17/24 History Score 1-6) famotidine 40 mg tablet 40 mg PO DAILY 01/19/24 03/17/24 History insulin syringe,safety needle 1 mL 01/19/24 03/17/24 History 31 gauge x 15/64 (BD SafetyGlide Insulin Syringe) pen needle, diabetic, safety 29 01/19/24 03/17/24 History gauge x 5/16 pen needle,diabetic dual safty 30 01/19/24 03/17/24 History gauge x 3/16 (BD AutoShield Duo Pen Needle) ammonium lactate 12 % lotion 1 applic topical HS 03/17/24 03/17/24 History cholecalciferol (vitamin D3) 1,250 1.25 unit PO DAILY 03/17/24 03/17/24 History mcg (50,000 unit) capsule dextromethorphan-guaifenesin 5 10 ml PO Q4HP PRN Cough 03/17/24 03/17/24 History mg-100 mg/5 mL oral liquid (Tussin DM Max) gabapentin 400 mg capsule 200 mg PO TID 03/17/24 03/17/24 History loratadine 10 mg tablet 10 mg PO DAILY 03/17/24 03/17/24 History losartan 50 mg tablet 50 mg PO DAILY 03/17/24 03/17/24 History ondansetron HCl 4 mg tablet 4 mg PO Q6HP PRN nausea 03/17/24 03/17/24 History pantoprazole 40 mg tablet,delayed 40 mg PO DAILY 03/17/24 03/17/24 History release New Prescriptions to Start Prescriptions: Allergies Allergy/AdvReac Type Severity Reaction Status Date / Time iodine AdvReac Verified 03/15/24 10:15 Exam Data for Last 24 hours Vital signs and Labs for Last 24 Hours: Temp Pulse Resp BP Pulse Ox O2 Del Method O2 Flow Rate 99.6 F 77 18 107/50 L 95 Nasal Cannula 2 03/17/24 15:08 03/17/24 15:08 03/17/24 15:30 03/17/24 15:30 03/17/24 15:30 03/17/24 15:30 03/17/24 15:30 Laboratory Results - last 24 hr 03/17/24 15:00: WBC 13.2 H, RBC 3.22 L, Hgb 8.8 L, Hct 28.0 L, MCV 87.0, MCH 27.3, MCHC 31.4 L, RDW 15.8, Plt Count 208, MPV 9.8, Neut % (Auto) 80.0, Lymph % (Auto) 7.0 L, [place] % (Auto) 11.1 H, Eos % (Auto) 0.8, Baso % (Auto) 0.3, Neut # (Auto) 10.6 H, Lymph # (Auto) 0.9, [place] # (Auto) 1.5 H, Eos # (Auto) 0.1, Baso # (Auto) 0.0, PT 11.1, INR 1.01, Sodium 135 L, Potassium 4.9, Chloride 100, Carbon Dioxide 22, Anion Gap 17.9 H, BUN 53 H, Creatinine 3.00 H, Estimated Creat Clear 22, Estimated GFR 20 L, Est GFR ( Amer) 24 L, Glucose 115 H, Calcium 8.5, Magnesium 1.9, Total Bilirubin 0.4, AST 41, ALT 19, Alkaline Phosphatase 68, NT-Pro-B Natriuret Pep 7360 H, Total Protein 6.8, Albumin 3.9, Globulin 2.9, Albumin/Globulin Ratio 1.3, Procalcitonin 1.46 03/17/24 15:29: VBG pH 7.34, VBG pCO2 40.2, VBG pO2 64.6 H, VBG HCO3 21.3 L, VBG Total CO2 22.6 L, VBG O2 Saturation 89.8 H, VBG Base Excess -4.4 L, VBG Lactic Acid 1.5 I & O for Last 24 hours: Intake & Output 03/14/24 03/15/24 03/16/24 03/17/24 23:59 23:59 23:59 23:59 Weight 86.636 kg Constitutional Constitutional: no acute distress, obese, chronically ill appearing and cooperative *Routine HEENT Exam Head: Present normocephalic and atraumatic Eye: Present EOMI and PERRL ENT: Present mucous membranes moist *Routine Neck Exam Neck: Present full ROM Routine Chest/Breast/Axilla Exam Chest wall: Absent tenderness *Routine Respiratory Exam Respiratory: Present prolonged expiratory phase, rhonchi and wheezes; Absent crackles *Routine Cardiovascular Exam Cardiovascular: Present RRR, Normal S1 and Normal S2 *Routine Abdominal Exam Abdominal: Present soft and normoactive bowel sounds *Routine Rectal Exam Rectal:: deferred *Routine Genitalia Exam Genitalia:: deferred *Routine Extremities Exam Extremities: Present normal capillary refill; Absent cyanosis *Routine Skin Exam Skin: Present intact; Absent cyanosis or erythema *Routine Neurological Exam Neurological: Present alert, oriented X3 and moving all extremities; Absent altered mental status Comments: Pleasantly confused, alert to self and place Assessment and Plan *Assessment and plan (1) Sepsis without septic shock: Status: Acute Category: Medical Code(s): A41.9 - Sepsis, unspecified organism (2) HCAP (healthcare-associated pneumonia): Status: Acute Category: Medical Code(s): J18.9 - Pneumonia, unspecified organism (3) Acute hypoxemic respiratory failure: Status: Acute Category: Medical Code(s): J96.01 - Acute respiratory failure with hypoxia (4) CHF exacerbation: Status: Acute Qualifiers: Heart failure type: diastolic Qualified Code(s): I50.33 - Acute on chronic diastolic (congestive) heart failure Category: Medical Code(s): I50.9 - Heart failure, unspecified (5) Infection due to human metapneumovirus (hMPV): Status: Acute Category: Medical Code(s): B34.8 - Other viral infections of unspecified site (6) CAD (coronary artery disease): Status: Chronic Qualifiers: Coronary Disease-Associated Artery/Lesion type: [place] artery [place] vs. 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 Found to be hypoxic on arrival. Workup in the ER concerning for pneumonia. Discussed case with ER provider, request admission for new oxygen requirement, continue management of heart failure, and continued management of pneumonia. I agreed to admit for further care. Problems addressed as follows: Sepsis Acute hypoxemic respiratory failure Bilateral pneumonia Human metapneumovirus -Respiratory panel returned positive for human metapneumovirus. White count elevated at 13, respiratory rate 22, meeting sepsis criteria. New oxygen requirement. Continue goal sats greater 90%, currently on 2 L -Initially received ceftriaxone and azithromycin in the ER. Will continue antibiotics daily. -Aggressive pulmonary toilet. DuoNebs every 6 hours as needed -Per my review of chest imaging, has bilateral airspace disease. -Sputum and blood cultures pending Heart failure with preserved ejection fraction CAD Hyperlipidemia Bioprosthetic aortic valve - Continue aspirin 81 mg daily, Plavix 75 mg daily. Blood pressure soft so we will hold ARB therapy. -BNP elevated at 7300 on admission. Responding well to diuretics. Continue Bumex 1 mg twice daily -Continue Farxiga 5 mg daily -Review of echo from December shows diastolic dysfunction with elevated RVSP of 40, preserved EF. CKD 4: Creatinine and BUN more or less at baseline with BUN 53, creatinine 3.0. Repeat labs ordered for the morning with CBC, CMP, magnesium; caution with nephrotoxins BPH: Continue doxazosin 8 mg nightly Neuropathy: Continue gabapentin 200 mg times a day Mood disorder: Continue citalopram 20 mg daily Diabetes: Continue long-acting insulin 14 units daily with insulin glargine as formulary conversion. Sliding scale insulin with fingersticks ACHS. A1c pending Full code Cardiac/diabetic diet
--- NOTE | 2024-03-17 16:46 | PC.NURSE ---
report called to regino on second floor
[2024-03-17 16:48] LABS: HIV Combo NEGATIVE (Negative)
[2024-03-17 16:56] LABS: Hepatitis C Ab Qual. W/ RFX NEGATIVE (Negative)
[2024-03-17 17:10] LABS: Human Metapneumovirus Detected (NotDetected)
[2024-03-17 17:30] VITALS: BP 106/50; PULSE 60; RESP 18; TEMP 37.2; O2SAT 95
--- NOTE | 2024-03-17 17:36 | PC.NURSE ---
arrived by w/c from ED
[2024-03-17] MEDS: AZITHROMYCIN 500 MG in 0.9 % SODIUM CHLORIDE 250 ML 250 MG IV (18:01)
[2024-03-17 18:06] VITALS: BP 97/50; PULSE 68; RESP 22; TEMP 37.1; O2SAT 94; BMI 30.7
[2024-03-17 18:11] LABS: Hemoglobin A1C 6.6 % (4.0-6.0)
[2024-03-17 20:00] VITALS: BP 119/64; PULSE 74; RESP 20; TEMP 36.6; O2SAT 95
[2024-03-17] MEDS: GABAPENTIN 400MG CAPSULE 200 MG PO (20:37)
[2024-03-17] MEDS: humaLOG 100 UNITS/ML 10ML VIAL (SSI) SUBCUT (20:37)
[2024-03-17 20:52] LABS: POC Glucose,Bedside 258 (70-110)
[2024-03-17 23:48] VITALS: BP 124/73; PULSE 65; RESP 16; TEMP 36.4; O2SAT 98
[2024-03-18 04:00] VITALS: BP 128/53; PULSE 68; RESP 17; TEMP 36.3; O2SAT 98; BMI 29.5
[2024-03-18 05:12] LABS: Microscopic, Urine URINE MICROSCOPIC (MICROSCOPIC)
[2024-03-18 05:20] LABS: Appearance,Urine CLEAR (Clear); Bilirubin,Urine Negative (Negative); Blood, Urine Negative (Negative); Color,Urine YELLOW (Yellow); Glucose,Urine (UA) 1+ (Negative); Ketones,Urine Negative (Negative); Leukocyte Esterase,Urine Negative (Negative); Nitrate,Urine Negative (Negative); PH,Urine 5.5 (5.0-8.5); Protein,Urine 2+ (Negative); Specific Gravity, Urine >= 1.030 (1.005-1.030); Urobilinogen,Urine 0.2 EU/dl (0.2)
[2024-03-18 05:52] LABS: Amorphous Sediment,Urine 2+ /lpf; Bacteria,Urine 2+ /lpf; Fine Granular Casts,Urine Occasional #/lpf (0); Mucus,Urine 1+ /lpf; RBC,Urine Occasional #/hpf (0-3)
[2024-03-18 06:36] LABS: POC Glucose,Bedside 93 (70-110)
--- NOTE | 2024-03-18 06:53 | PC.NURSE ---
Pt A&OX3 and has tolerated 2L nasal cannula. Lung sounds diminished with crackles heard. He has required x1 assist when getting up to chair. He Has used a urinal to urinate. Currently up to chair with call light within reach.
[2024-03-18 06:56] LABS: Basophils # 0.1 K/mm3 (0-0.2); Basophils % 0.5 % (0.1-2.0); Eosinophils # 0.2 K/mm3 (0.0-0.4); Eosinophils % 1.6 % (0.1-12.0); Hematocrit 27.7 % (42.0-52.0); Hemoglobin 8.4 g/dL (14.1-18.0); Lymphocytes % 10.3 % (10-50); Mean Corpuscular HGB Conc 30.3 g/dL (31.8-35.4); Mean Corpuscular Hemoglobin 26.7 pg (27.0-31.2); Mean Corpuscular Volume 87.9 fl (80-94); Mean Platelet Volume 9.7 fl (7.4-10.4); Monocytes # 1.3 K/mm3 (0.1-1.0); Monocytes % 13.5 % (1.7-9.3); Neutrophils # 7.2 K/mm3 (1.8-7.8); Neutrophils % 73.7 % (37.0-80.0); Platelet Count 204 K/mm3 (142-424); Red Blood Count 3.15 M/mm3 (4.60-6.20); Red Cell Distribution Width 15.9 % (11.5-17.5); White Blood Count 9.8 K/mm3 (4.8-10.8)
[2024-03-18 07:12] LABS: Alanine Aminotransferase 19 U/L (12-78); Albumin Level 3.6 g/dl (3.5-5.0); Albumin/Globulin Ratio 1.2 (1.1-1.8); Alkaline Phosphatase 76 U/L (38-126); Anion Gap 14.7 mEq/L (5-15); Aspartate Amino Transferase 39 U/L (17-59); Blood Urea Nitrogen 61 mg/dl (9-20); Calcium 8.3 mg/dl (8.4-10.2); Carbon Dioxide 25 mmol/L (22.0-30.0); Chloride 102 mmol/L (98-107); Creatinine Clearance Estimated 17 mL/min (50-200); Estimated Glomerular Filt Rate 15 ml/min (>60); GFR (African American) 18 ML/MIN (>60); Globulin 3.1 g/dL (1.3-3.2); Glucose 88 mg/dl (74-100); Magnesium 2.1 mg/dl (1.6-2.3); Potassium 4.7 mmoL/L (3.5-5.1); Sodium 137 mmol/L (136-145); Total Protein,Serum 6.7 g/dl (6.3-8.2)
[2024-03-18 07:16] LABS: Bilirubin,Total 0.1 mg/dl (0.2-1.3)
[2024-03-18 08:00] VITALS: BP 148/60; PULSE 79; RESP 19; TEMP 36.7; O2SAT 98
--- NOTE | 2024-03-18 08:04 | HMH.PHAINT1 ---
Pharmacy Intervention Comments: home medication list verified using list from outpatient pharmacy and correction MAR
[2024-03-18] MEDS: CITALOPRAM 20MG TABLET 20 MG PO (09:24)
[2024-03-18] MEDS: BUMETANIDE 1 MG TABLET PO ×2 (09:24→17:17)
[2024-03-18] MEDS: ASPIRIN 81MG CHEWABLE TABLET 81 MG PO (09:24)
[2024-03-18] MEDS: GABAPENTIN 100MG CAPSULE 200 MG PO ×3 (09:24→20:42)
[2024-03-18] MEDS: CLOPIDOGREL 75MG TAB 75 MG PO (09:24)
[2024-03-18] MEDS: DAPAGLIFLOZIN PROPANEDIOL 10 MG TABLET 5 MG PO (09:25)
[2024-03-18] MEDS: INSULIN GLARGINE 100 UNITS/ML 3ML FLEXPEN 10 UNIT SUBCUT (09:25)
--- NOTE | 2024-03-18 09:41 | EXP.ACUTE.PN ---
Subjective *Date: 03/18/24 *Time: 17:54 Interval history: Patient states he is feeling better today. Still on 2 L oxygen. Kidney function low but worse on morning labs. Denies any chest pain. No respiratory distress. No nausea or vomiting. Afebrile overnight Medical Exam Vital signs and Labs for Last 24 Hours: Vital Signs Temp Pulse Pulse Resp BP BP Pulse Ox 03/18/24 08:00 98.1 F 79 19 148/60 H 98 03/18/24 06:52 03/18/24 05:00 03/18/24 04:00 97.4 F L 68 17 128/53 L 98 03/18/24 03:00 03/18/24 01:00 03/17/24 23:48 97.5 F L 65 16 124/73 98 03/17/24 23:00 03/17/24 21:00 03/17/24 20:00 03/17/24 20:00 97.8 F 74 20 119/64 95 03/17/24 18:43 03/17/24 18:06 98.7 F 68 22 97/50 L 94 L 03/17/24 17:30 98.9 F 60 18 106/50 L 03/17/24 15:30 18 107/50 L 95 03/17/24 15:08 99.6 F 77 14 108/47 L 96 O2 Del Method O2 Flow Rate 03/18/24 08:00 Nasal Cannula 3 03/18/24 06:52 Nasal Cannula 2 03/18/24 05:00 Nasal Cannula 2 03/18/24 04:00 Nasal Cannula 3 03/18/24 03:00 Nasal Cannula 2 03/18/24 01:00 Nasal Cannula 2 03/17/24 23:48 Nasal Cannula 2 03/17/24 23:00 Nasal Cannula 2 03/17/24 21:00 Nasal Cannula 2 03/17/24 20:00 Nasal Cannula 3 03/17/24 20:00 Nasal Cannula 2 03/17/24 18:43 Nasal Cannula 3 03/17/24 18:06 Nasal Cannula 2 03/17/24 17:30 Room Air 2 03/17/24 15:30 Nasal Cannula 2 03/17/24 15:08 Nasal Cannula 2 Intake and Output 03/17/24 03/18/24 03/18/24 23:59 07:59 15:59 Intake Total 240 / 240 0 / 420 420 / 420 Output Total 125 / 125 0 / 300 300 / 300 Balance 115 / 115 0 / 120 120 / 120 Intake: Intake, Oral Amount 240 / 240 0 / 420 420 / 420 Output: Output, Urine Amount 125 / 125 0 / 300 300 / 300 Other: Number of Voids 0 Number of Unmeasured Voids 1 Weight 86.64 kg 83.506 kg Patient Weight 03/18/24 23:59 Weight 83.506 kg Laboratory Results - last 24 hr 03/17/24 15:00: WBC 13.2 H, RBC 3.22 L, Hgb 8.8 L, Hct 28.0 L, MCV 87.0, MCH 27.3, MCHC 31.4 L, RDW 15.8, Plt Count 208, MPV 9.8, Neut % (Auto) 80.0, Lymph % (Auto) 7.0 L, [place] % (Auto) 11.1 H, Eos % (Auto) 0.8, Baso % (Auto) 0.3, Neut # (Auto) 10.6 H, Lymph # (Auto) 0.9, [place] # (Auto) 1.5 H, Eos # (Auto) 0.1, Baso # (Auto) 0.0, PT 11.1, INR 1.01, Sodium 135 L, Potassium 4.9, Chloride 100, Carbon Dioxide 22, Anion Gap 17.9 H, BUN 53 H, Creatinine 3.00 H, Estimated Creat Clear 22, Estimated GFR 20 L, Est GFR ( Amer) 24 L, Glucose 115 H, Hemoglobin A1c 6.6 H, Calcium 8.5, Magnesium 1.9, Total Bilirubin 0.4, AST 41, ALT 19, Alkaline Phosphatase 68, Troponin I 0.20 H, NT-Pro-B Natriuret Pep 7360 H, Total Protein 6.8, Albumin 3.9, Globulin 2.9, Albumin/Globulin Ratio 1.3, Procalcitonin 1.46, HCV Ab MAKSIM w/Rflx PCR Qn Negative, HIV Ag/Ab Combo Qual Negative 03/17/24 15:29: VBG pH 7.34, VBG pCO2 40.2, VBG pO2 64.6 H, VBG HCO3 21.3 L, VBG Total CO2 22.6 L, VBG O2 Saturation 89.8 H, VBG Base Excess -4.4 L, VBG Lactic Acid 1.5 03/17/24 15:35: Chlamy pneumoniae PCR Not detected, Adenovirus (PCR) Not detected, B. pertussis DNA (PCR) Not detected, Coronavirus OC43 (PCR) Not detected, Coronavirus HKU1 (PCR) Not detected, Coronavirus 229E (PCR) Not detected, SARS-CoV-2 (PCR) Not detected, Coronavirus NL63 (PCR) Not detected, Human Metapneumovir PCR Detected A, Influenza A (H1) PCR Not detected, Influ A (H1N1/09) PCR Not detected, Influenza A (H3) PCR Not detected, Influenza Type A (PCR) Not detected, Influenza Type B (PCR) Not detected, M. pneumoniae (PCR) Not detected, Parainfluenza 1 (PCR) Not detected, Parainfluenza 2 (PCR) Not detected, Parainfluenza 3 (PCR) Not detected, Parainfluenza 4 (PCR) Not detected, RSV (PCR) Not detected, Entero/Rhino (PCR) Not detected 03/17/24 20:36: POC Glucose 258 H 03/18/24 05:03: Urine Color Yellow, Urine Appearance Clear, Urine pH 5.5, Ur Specific Britt >= 1.030, Urine Protein 2+ A, Urine Glucose (UA) 1+, Urine Ketones Negative, Urine Blood Negative, Urine Nitrate Negative, Urine Bilirubin Negative, Urine Urobilinogen 0.2, Ur Leukocyte Esterase Negative, Urine RBC Occasional, Urine WBC 3-5, Ur Squamous Epith Cells 3-5, Amorphous Sediment 2+, Urine Bacteria 2+, Hyaline Casts 3-5, Fine Granular Casts Occasional, Urine Mucus 1+ 03/18/24 06:22: WBC 9.8 D, RBC 3.15 L, Hgb 8.4 L, Hct 27.7 L, MCV 87.9, MCH 26.7 L, MCHC 30.3 L, RDW 15.9, Plt Count 204, MPV 9.7, Neut % (Auto) 73.7, Lymph % (Auto) 10.3, [place] % (Auto) 13.5 H, Eos % (Auto) 1.6, Baso % (Auto) 0.5, Neut # (Auto) 7.2, Lymph # (Auto) 1.0, [place] # (Auto) 1.3 H, Eos # (Auto) 0.2, Baso # (Auto) 0.1, Sodium 137, Potassium 4.7, Chloride 102, Carbon Dioxide 25, Anion Gap 14.7, BUN 61 H, Creatinine 3.90 H D, Estimated Creat Clear 17, Estimated GFR 15 L*, Est GFR ( Amer) 18 L* D, Glucose 88 D, POC Glucose 93, Calcium 8.3 L, Magnesium 2.1 D, Total Bilirubin 0.1 L, AST 39, ALT 19, Alkaline Phosphatase 76, Total Protein 6.7, Albumin 3.6, Globulin 3.1, Albumin/Globulin Ratio 1.2 I & O for Labs for Last 24 Hours: Intake & Output 03/15/24 03/16/24 03/17/24 03/18/24 23:59 23:59 23:59 23:59 Intake Total 240 / 240 420 / 420 Output Total 125 / 125 300 / 300 Balance 115 / 115 120 / 120 Weight 86.64 kg 83.506 kg Constitutional: Present no acute distress, chronically ill appearing and cooperative Head: Present atraumatic and normocephalic Respiratory: Present prolonged expiratory phase, rhonchi, crackles and normal respiratory effort; Absent respiratory distress or wheezes Cardiac: Present Reg Rate and Rhythm GI: Present normal bowel sounds; Absent tenderness Extremities: Present normal inspection and full ROM Skin: Present intact; Absent erythema Neuro: Present Grossly Intact, alert, awake and moves all extremities Comment:: Oriented to self and place Assessment and Plan *Assessment and plan (1) Sepsis without septic shock: Status: Acute Category: Medical Code(s): A41.9 - Sepsis, unspecified organism (2) HCAP (healthcare-associated pneumonia): Status: Acute Category: Medical Code(s): J18.9 - Pneumonia, unspecified organism (3) Acute hypoxemic respiratory failure: Status: Acute Category: Medical Code(s): J96.01 - Acute respiratory failure with hypoxia (4) CHF exacerbation: Status: Acute Qualifiers: Heart failure type: diastolic Qualified Code(s): I50.33 - Acute on chronic diastolic (congestive) heart failure Category: Medical Code(s): I50.9 - Heart failure, unspecified (5) Infection due to human metapneumovirus (hMPV): Status: Acute Category: Medical Code(s): B34.8 - Other viral infections of unspecified site (6) CAD (coronary artery disease): Status: Chronic Qualifiers: Associated angina: with other forms of angina Coronary Disease-Associated Artery/Lesion type: [place] artery [place] vs. 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 Found to be hypoxic on arrival. Workup in the ER concerning for pneumonia. Discussed case with ER provider, request admission for new oxygen requirement, continue management of heart failure, and continued management of pneumonia. I agreed to admit for further care. Clinically appears little better today but kidney function somewhat worse. Stable on 2 L. Problems addressed as follows: Sepsis Acute hypoxemic respiratory failure Bilateral pneumonia Human metapneumovirus -Respiratory panel returned positive for human metapneumovirus. White count improved to 9.8. Hemoglobin 8.4. Repeat CBC, CMP, magnesium ordered for the morning. -Continue supplemental oxygen as needed for goal sats greater 90%. Currently on 2 L. -Continue ceftriaxone 1 g and azithromycin 500 mg daily -CT chest without contrast ordered for today to evaluate effusion versus pneumonia.. -Aggressive pulmonary toilet. DuoNebs every 6 hours as needed -Sputum and blood cultures pending Heart failure with preserved ejection fraction CAD Hyperlipidemia Bioprosthetic aortic valve - Continue aspirin 81 mg daily, Plavix 75 mg daily. Blood pressure soft so we will hold ARB therapy. -BNP elevated at 7300 on admission. Responding well to diuretics. Continue Bumex 1 mg twice daily -Slight bump in kidney function. See below -Continue Farxiga 5 mg daily -Review of echo from December shows diastolic dysfunction with elevated RVSP of 40, preserved EF. CKD 4: Creatinine bumped to 3.9, BUN 61. Repeat BMP ordered for the afternoon. Potassium stable at 4.7, magnesium 2.1 Repeat labs ordered for the morning with CBC, CMP, magnesium; caution with nephrotoxins BPH: Continue doxazosin 8 mg nightly Neuropathy: Continue gabapentin 200 mg times a day Mood disorder: Continue citalopram 20 mg daily Diabetes: Continue long-acting insulin 14 units daily with insulin glargine as formulary conversion. Sliding scale insulin with fingersticks ACHS. A1c pending Full code Cardiac/diabetic diet
[2024-03-18 10:58] LABS: POC Glucose,Bedside 171 (70-110)
[2024-03-18] MEDS: humaLOG 100 UNITS/ML 10ML VIAL (SSI) SUBCUT ×3 (11:35→20:43)
[2024-03-18 12:00] VITALS: BP 150/70; PULSE 68; RESP 20; TEMP 36.8; O2SAT 98
[2024-03-18] MEDS: AZITHROMYCIN 500 MG in 0.9 % SODIUM CHLORIDE 250 ML 250 MG IV (14:34)
--- NOTE | 2024-03-18 15:02 | SW/DCPLANNER ---
Addendum entered by Kristan Aaron 03/19/24 10:04: I have updated Chata w/ [facility] that patient will return today ICF level of care. Original Note: Patient currently resides at [facility] I[facility] level of care. I will continue to follow up w/ Karen at [facility] until patient is medically stable for discharge. Discharge date is unknown at this time. Updated patient information has been faxed.
[2024-03-18 15:58] LABS: Chloride 102 mmol/L (98-107); Potassium 4.6 mmoL/L (3.5-5.1); Sodium 134 mmol/L (136-145)
[2024-03-18 16:00] VITALS: BP 188/72; PULSE 82; RESP 18; TEMP 36.5; O2SAT 95
[2024-03-18 16:01] LABS: Anion Gap 13.6 mEq/L (5-15); Blood Urea Nitrogen 60 mg/dl (9-20); Calcium 8.1 mg/dl (8.4-10.2); Carbon Dioxide 23 mmol/L (22.0-30.0); Creatinine Clearance Estimated 17 mL/min (50-200); Estimated Glomerular Filt Rate 15 ml/min (>60); GFR (African American) 18 ML/MIN (>60); Glucose 198 mg/dl (74-100)
[2024-03-18] MEDS: CEFTRIAXONE SODIUM 1 GM in 0.9 % SODIUM CHLORIDE 50 ML IV (16:36)
[2024-03-18 17:32] LABS: POC Glucose,Bedside 173 (70-110)
--- NOTE | 2024-03-18 17:53 | CT_ITS ---
PROCEDURE INFORMATION: Exam: CT Chest Without Contrast; Diagnostic Exam date and time: 03/18/2024 6:35 PM Age: 83 years old Clinical indication: Cough; Additional info: Cough, increased SOA, volume overload? TECHNIQUE: Imaging protocol: Diagnostic computed tomography of the chest without contrast. Radiation optimization: All CT scans at this facility use at least one of these dose optimization techniques: automated exposure control; mA and/or kV adjustment per patient size (includes targeted exams where dose is matched to clinical indication); or iterative reconstruction. COMPARISON: 1. CR XR CHEST PORTABLE 03/17/2024 3:27 PM 2. CR XR CHEST PORTABLE 01/18/2024 6:49 PM FINDINGS: Lungs: Multifocal patchy opacities noted bilaterally including the posterolateral right upper lobe and scattered throughout the right lower lobe and the inferior left upper lobe and posteromedial left lower lobe. A 9 mm nodular appearing density noted in the posteromedial left lower lobe on axial image 61 of series 3 favored to represent a pseudonodule from the pneumonia. Lung [place] otherwise clear. Pleural spaces: Unremarkable. No pneumothorax. No pleural effusion. Heart: TAVR aortic valve. Post open heart changes. Coronary arteries: Moderate coronary artery calcifications suggesting coronary artery disease. Lymph nodes: Enlarged mediastinal lymph nodes are identified including the right paratracheal region largest measuring 10 mm and subcarinal region measuring up to 2.2 cm. Subcentimeter AP window nodes also identified. Assessment of hilar adenopathy limited without IV contrast. Vasculature: Atherosclerotic changes of the thoracic aorta. Aorta normal caliber. No evidence of aneurysm. Bones/joints: Unremarkable. No acute fracture. Soft tissues: Unremarkable. IMPRESSION: 1. Multifocal bilateral opacity suggesting multifocal pneumonia. A 9 mm nodular appearing density in the posteromedial left lower lobe favored to represent a pseudo nodule related to the infiltrates. True nodule not absolutely excluded. Advise follow-up CT chest in 2-3 months to ensure resolution of the above findings. 2. Incidental mediastinal lymphadenopathy that may be reactive related to the airspace disease and can be reassessed at time of follow-up CT.
[2024-03-18 18:50] VITALS: O2SAT 95
[2024-03-18 20:00] VITALS: BP 135/83; PULSE 82; RESP 18; TEMP 37.1; O2SAT 91
[2024-03-18] MEDS: FAMOTIDINE 20MG TABLET 10 MG PO (20:43)
[2024-03-18] MEDS: DOXAZOSIN 4MG TAB 8 MG PO (20:43)
[2024-03-18 22:05] LABS: POC Glucose,Bedside 181 (70-110)
[2024-03-19] VITALS: BP 141/68; PULSE 74; RESP 20; TEMP 36.6; O2SAT 96
[2024-03-19 03:35] VITALS: BP 151/55; PULSE 75; RESP 19; TEMP 36.6; O2SAT 98; BMI 29.5
[2024-03-19 06:28] LABS: POC Glucose,Bedside 104 (70-110)
[2024-03-19 07:19] LABS: Basophils % 0.3 % (0.1-2.0); Eosinophils # 0.3 K/mm3 (0.0-0.4); Eosinophils % 4.4 % (0.1-12.0); Hematocrit 25.8 % (42.0-52.0); Hemoglobin 8.1 g/dL (14.1-18.0); Lymphocytes % 16.6 % (10-50); Mean Corpuscular HGB Conc 31.4 g/dL (31.8-35.4); Mean Corpuscular Hemoglobin 27.5 pg (27.0-31.2); Mean Corpuscular Volume 87.5 fl (80-94); Mean Platelet Volume 9.8 fl (7.4-10.4); Monocytes # 0.8 K/mm3 (0.1-1.0); Monocytes % 12.4 % (1.7-9.3); Neutrophils # 4.1 K/mm3 (1.8-7.8); Neutrophils % 65.8 % (37.0-80.0); Platelet Count 223 K/mm3 (142-424); Red Blood Count 2.95 M/mm3 (4.60-6.20); Red Cell Distribution Width 15.6 % (11.5-17.5); White Blood Count 6.2 K/mm3 (4.8-10.8)
[2024-03-19 07:31] LABS: Creatine Kinase 244 U/L (55-170)
[2024-03-19 08:00] VITALS: BP 125/66; PULSE 83; RESP 20; TEMP 36.6; O2SAT 99
[2024-03-19] MEDS: DAPAGLIFLOZIN PROPANEDIOL 10 MG TABLET 5 MG PO (09:17)
[2024-03-19] MEDS: CLOPIDOGREL 75MG TAB 75 MG PO (09:17)
[2024-03-19] MEDS: GABAPENTIN 100MG CAPSULE 200 MG PO ×2 (09:17→11:54)
[2024-03-19] MEDS: CITALOPRAM 20MG TABLET 20 MG PO (09:18)
[2024-03-19] MEDS: ASPIRIN 81MG CHEWABLE TABLET 81 MG PO (09:18)
[2024-03-19] MEDS: INSULIN GLARGINE 100 UNITS/ML 3ML FLEXPEN 10 UNIT SUBCUT (09:18)
[2024-03-19 09:32] LABS: Albumin Level 3.4 g/dl (3.5-5.0); Chloride 104 mmol/L (98-107); Potassium 4.5 mmoL/L (3.5-5.1); Sodium 138 mmol/L (136-145)
[2024-03-19 09:35] LABS: Alanine Aminotransferase 19 U/L (12-78); Albumin/Globulin Ratio 1.1 (1.1-1.8); Alkaline Phosphatase 80 U/L (38-126); Anion Gap 14.5 mEq/L (5-15); Aspartate Amino Transferase 38 U/L (17-59); Blood Urea Nitrogen 63 mg/dl (9-20); Carbon Dioxide 24 mmol/L (22.0-30.0); Creatinine Clearance Estimated 20 mL/min (50-200); Estimated Glomerular Filt Rate 18 ml/min (>60); GFR (African American) 22 ML/MIN (>60); Globulin 3.1 g/dL (1.3-3.2); Total Protein,Serum 6.5 g/dl (6.3-8.2)
[2024-03-19 09:36] LABS: Bilirubin,Total 0.1 mg/dl (0.2-1.3); Calcium 8.2 mg/dl (8.4-10.2); Glucose 86 mg/dl (74-100)
--- NOTE | 2024-03-19 09:40 | EXP.DC.SUM ---
General Admission date:: 03/17/24 Discharge date: 03/19/24 HPI HPI HPI: Mr. Trujillo is an 83-year-old male with history of hypertension, diastolic heart failure, bioprosthetic aortic valve, type edema GERD, CAD. He resides at [facility]. He presented to the ER because of complaint of falls. States that he has been feeling more weak and fell mainly because he tripped over his feet yesterday. Suffered no injury. On arrival to the ER, patient is mildly hypoxic however on room air with sats in the high 80s. Workup concerning for pneumonia with chest imaging showed bilateral airspace disease consistent with pneumonia. White count elevated at 13. BNP elevated at 7300. Kidney function more or less at baseline with BUN 53, creatinine 3.0. Patient was started on broad-spectrum antibiotics, comprehensive panel obtained in the ER, and received a dose of Lasix 80 mg IV once. Med was consulted for admission and further management of CHF exacerbation and pneumonia with new oxygen requirement. On evaluation after arriving to the floor, patient denies any chest pain. States he feels somewhat short of breath. Has been feeling more weak lately. Denies any oprter fever. Saw his manager [employer] within the past week for evaluation and medication cements. Denies any nausea or vomiting. Alert and oriented at baseline mentation. Sats in the 90s on 2 L oxygen. Hospital Course Hospital Course Hospital Course: 83-year-old male who presents with fall and weakness. Found to be hypoxic on arrival. Workup in the ER concerning for pneumonia. Discussed case with ER provider, request admission for new oxygen requirement, continue management of heart failure, and continued management of pneumonia. I agreed to admit for further care. Patient showed gradual improvement with treatment of his viral pneumonia. Stable on 2 L oxygen. Continues to require oxygen at discharge. Kidney function showing slight improvement but still slightly above baseline for patient. Would benefit from repeat labs in 3 to 5 days to monitor for improvement in kidney function. Discharge back to group home. Problems addressed as follows: Sepsis Acute hypoxemic respiratory failure Bilateral pneumonia Human metapneumovirus -Presented with respiratory distress and new oxygen requirement. Respiratory panel returned positive for human metapneumovirus. White count improved, 6.2 on day of discharge. Hemoglobin stable above 8. Continue supplemental oxygen for goal sats greater 90%. Currently on 2 L. Will transition antibiotics to cefdinir and azithromycin to complete 5-day course for empiric coverage for possible secondary bacterial infection in the setting of viral infection as previously stated. Sputum and blood cultures remain negative at discharge. Heart failure with preserved ejection fraction CAD Hyperlipidemia Bioprosthetic aortic valve - Continue aspirin 81 mg daily, Plavix 75 mg daily. Due to dysfunction and soft blood pressures, ARB held. BNP was elevated at 7300 on admission. Responded well to diuretics. Will continue rammed Ehly per home regimen. Continue Farxiga 5 mg daily. Review of echo from December shows diastolic dysfunction with elevated RVSP of 40, preserved EF. 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 Baseline 2-1/2-3. Bumped to 3.9, improved to 3.3. Needs repeat labs in 3 to 5 days to monitor for improvement/stability of kidney function. BPH: Continue doxazosin 8 mg nightly Neuropathy: Continue gabapentin 200 mg times a day Mood disorder: Continue citalopram 20 mg daily Diabetes: Continue long-acting insulin 14 units daily with insulin glargine as formulary conversion. Sliding scale insulin with fingersticks ACHS. A1c pending Total time spent on discharge 32 minutes in counseling, documentation, chart review, and direct care with patient. Exam Data for Last 24 hours Vital signs and Labs for Last 24 Hours: Temp Pulse Resp BP Pulse Ox O2 Del Method O2 Flow Rate 97.9 F 83 20 125/66 99 Nasal Cannula 2 03/19/24 08:00 03/19/24 08:00 03/19/24 08:00 03/19/24 08:00 03/19/24 08:00 03/19/24 08:00 03/19/24 08:00 Laboratory Results - last 24 hr 03/18/24 10:50: POC Glucose 171 H 03/18/24 15:44: Sodium 134 L, Potassium 4.6, Chloride 102, Carbon Dioxide 23, Anion Gap 13.6, BUN 60 H, Creatinine 3.80 H, Estimated Creat Clear 17, Estimated GFR 15 L*, Est GFR ( Amer) 18 L*, Glucose 198 H D, Calcium 8.1 L 03/18/24 17:03: POC Glucose 173 H 03/18/24 20:42: POC Glucose 181 H 03/19/24 06:21: POC Glucose 104 03/19/24 06:26: WBC 6.2 D, RBC 2.95 L, Hgb 8.1 L, Hct 25.8 L, MCV 87.5, MCH 27.5, MCHC 31.4 L, RDW 15.6, Plt Count 223, MPV 9.8, Neut % (Auto) 65.8, Lymph % (Auto) 16.6, [place] % (Auto) 12.4 H, Eos % (Auto) 4.4, Baso % (Auto) 0.3, Neut # (Auto) 4.1, Lymph # (Auto) 1.0, [place] # (Auto) 0.8, Eos # (Auto) 0.3, Baso # (Auto) 0.0, Sodium 138, Potassium 4.5, Chloride 104, Carbon Dioxide 24, Anion Gap 14.5, BUN 63 H, Creatinine 3.30 H, Estimated Creat Clear 20, Estimated GFR 18 L*, Est GFR ( Amer) 22 L D, Glucose 86 D, Calcium 8.2 L, Magnesium 2.0, Total Bilirubin 0.1 L, AST 38, ALT 19, Alkaline Phosphatase 80, Total Creatine Kinase 244 H, Total Protein 6.5, Albumin 3.4 L, Globulin 3.1, Albumin/Globulin Ratio 1.1 I & O for Last 24 hours: Intake & Output 03/16/24 03/17/24 03/18/24 03/19/24 23:59 23:59 23:59 23:59 Intake Total 240 / 240 1260 / 1560 780 / 780 Output Total 125 / 125 875 / 875 225 / 225 Balance 115 / 115 385 / 685 555 / 555 Weight 86.64 kg 83.506 kg 83.143 kg Microbiology Reports for the Last 24 Hours: Microbiology 03/18/24 14:50 Sputum - Expectorated Sputum Gram Stain - Final 03/17/24 16:20 Blood Blood Culture - Preliminary NO GROWTH AFTER 24 HOURS 03/17/24 15:00 Blood Blood Culture - Preliminary NO GROWTH AFTER 24 HOURS Constitutional Constitutional: no acute distress, average body habitus, chronically ill appearing and cooperative *Routine HEENT Exam Head: Present normocephalic Eye: Present EOMI and PERRL ENT: Present mucous membranes moist *Routine Neck Exam Neck: Present supple; Absent lymphadenopathy *Routine Respiratory Exam Respiratory: Present rhonchi and crackles; Absent respiratory distress or wheezes *Routine Cardiovascular Exam Cardiovascular: Present RRR *Routine Abdominal Exam Abdominal: Present soft and normoactive bowel sounds; Absent tenderness *Routine Rectal Exam Patient deferred: visual exam *Routine Exam Patient deferred: penile exam *Routine Extremities Exam Extremities: Absent cyanosis, clubbing or edema *Routine Skin Exam Skin: Present intact and warm; Absent rash *Routine Neurological Exam Neurological: Present alert and moving all extremities; Absent altered mental status Comments: oriented to self and place Results Data Completed and Pending Labs on day of discharge: Labs from last 24 hours 03/19/24 03/19/24 03/18/24 06:26 06:21 20:42 WBC 6.2 D RBC 2.95 L Hgb 8.1 L Hct 25.8 L MCV 87.5 MCH 27.5 MCHC 31.4 L RDW 15.6 Plt Count 223 MPV 9.8 Neut % (Auto) 65.8 Lymph % (Auto) 16.6 [place] % (Auto) 12.4 H Eos % (Auto) 4.4 Baso % (Auto) 0.3 Neut # (Auto) 4.1 Lymph # (Auto) 1.0 [place] # (Auto) 0.8 Eos # (Auto) 0.3 Baso # (Auto) 0.0 Sodium 138 Potassium 4.5 Chloride 104 Carbon Dioxide 24 Anion Gap 14.5 BUN 63 H Creatinine 3.30 H Estimated Creat Clear 20 Estimated GFR 18 L* Est GFR ( Amer) 22 L D Glucose 86 D POC Glucose 104 181 H Calcium 8.2 L Magnesium 2.0 Total Bilirubin 0.1 L AST 38 ALT 19 Alkaline Phosphatase 80 Total Creatine Kinase 244 H Total Protein 6.5 Albumin 3.4 L Globulin 3.1 Albumin/Globulin Ratio 1.1 03/18/24 03/18/24 03/18/24 17:03 15:44 10:50 WBC RBC Hgb Hct MCV MCH MCHC RDW Plt Count MPV Neut % (Auto) Lymph % (Auto) [place] % (Auto) Eos % (Auto) Baso % (Auto) Neut # (Auto) Lymph # (Auto) [place] # (Auto) Eos # (Auto) Baso # (Auto) Sodium 134 L Potassium 4.6 Chloride 102 Carbon Dioxide 23 Anion Gap 13.6 BUN 60 H Creatinine 3.80 H Estimated Creat Clear 17 Estimated GFR 15 L* Est GFR ( Amer) 18 L* Glucose 198 H D POC Glucose 173 H 171 H Calcium 8.1 L Magnesium Total Bilirubin AST ALT Alkaline Phosphatase Total Creatine Kinase Total Protein Albumin Globulin Albumin/Globulin Ratio Preliminary micro results at discharge 03/17/24 16:20 Blood Culture - Preliminary Blood NO GROWTH AFTER 24 HOURS 03/17/24 15:00 Blood Culture - Preliminary Blood NO GROWTH AFTER 24 HOURS DS: Diagnosis Discharge Diagnosis (1) Sepsis without septic shock: Status: Acute Code(s): A41.9 - Sepsis, unspecified organism (2) HCAP (healthcare-associated pneumonia): Status: Acute Code(s): J18.9 - Pneumonia, unspecified organism (3) Acute hypoxemic respiratory failure: Status: Acute Code(s): J96.01 - Acute respiratory failure with hypoxia (4) CHF exacerbation: Status: Acute Code(s): I50.9 - Heart failure, unspecified Qualifiers: Heart failure type: diastolic Qualified Code(s): I50.33 - Acute on chronic diastolic (congestive) heart failure (5) Infection due to human metapneumovirus (hMPV): Status: Acute Code(s): B34.8 - Other viral infections of unspecified site (6) CAD (coronary artery disease): Status: Chronic Code(s): I25.10 - Atherosclerotic heart disease of [place] coronary artery without angina pectoris Qualifiers: Associated angina: with other forms of angina Coronary Disease-Associated Artery/Lesion type: [place] artery [place] vs. transplanted heart: [place] heart Qualified Code(s): I25.118 - Atherosclerotic heart disease of [place] coronary artery with other forms of angina pectoris (7) HLD (hyperlipidemia): Status: Chronic Code(s): E78.5 - Hyperlipidemia, unspecified Qualifiers: Hyperlipidemia type: other hyperlipidemia Qualified Code(s): E78.4 - Other hyperlipidemia (8) COPD (chronic obstructive pulmonary disease): Status: Chronic Code(s): J44.9 - Chronic obstructive pulmonary disease, unspecified Qualifiers: COPD type: emphysema Emphysema type: other Qualified Code(s): J43.8 - Other emphysema (9) CKD (chronic kidney disease) stage 4, GFR 15-29 ml/min: Status: Acute Code(s): N18.4 - Chronic kidney disease, stage 4 (severe) Meds Home Medications and Allergies Home Medications ?Medication ?Instructions ?Recorded ?Confirmed ?Type clopidogrel 75 mg tablet 75 mg PO DAILY 05/12/17 03/17/24 History polyethylene glycol 3350 17 17 g PO DAILY 30 days #510 grams 03/13/23 03/17/24 Rx gram/dose oral powder sennosides 8.6 mg capsule (senna) 8.6 mg PO BID #60 caps 03/13/23 03/17/24 Rx doxazosin 8 mg tablet 8 mg PO HS 09/15/23 03/17/24 History insulin degludec 200 unit/mL (3 17 unit SQ DAILY 09/15/23 03/18/24 History mL) subcutaneous pen (Tresiba FlexTouch U-200 insulin) insulin lispro 100 unit/mL 0 unit SQ DIRECTED 09/15/23 03/17/24 History subcutaneous solution tramadol 50 mg tablet 50 mg PO TID 10/20/23 03/17/24 History ferrous sulfate 325 mg (65 mg 325 mg PO DAILY 01/01/24 03/17/24 History iron) tablet (FeroSul) acetaminophen 650 mg 650 mg PO Q8HP PRN arthritis pain 01/19/24 03/18/24 History tablet,extended release (Tylenol 8 Hour) aspirin 81 mg chewable tablet 81 mg PO DAILY 01/19/24 03/17/24 History azelastine 137 mcg (0.1 %) nasal 2 spray intranasal BID 01/19/24 03/17/24 History spray diclofenac sodium 1 % topical gel 4 g topical BIDP PRN Pain (Scale 01/19/24 03/18/24 History Score 1-6) famotidine 40 mg tablet 40 mg PO HS 01/19/24 03/18/24 History insulin syringe,safety needle 1 mL 01/19/24 03/17/24 History 31 gauge x 15/64 (BD SafetyGlide Insulin Syringe) pen needle, diabetic, safety 29 01/19/24 03/17/24 History gauge x 5/16 pen needle,diabetic dual safty 30 01/19/24 03/17/24 History gauge x 3/16 (BD AutoShield Duo Pen Needle) ammonium lactate 12 % lotion 1 applic topical HS 03/17/24 03/17/24 History cholecalciferol (vitamin D3) 1,250 1.25 mcg PO WEEKLY 03/17/24 03/18/24 History mcg (50,000 unit) capsule dextromethorphan-guaifenesin 5 10 ml PO Q4HP PRN Cough 03/17/24 03/17/24 History mg-100 mg/5 mL oral liquid (Tussin DM Max) loratadine 10 mg tablet 10 mg PO DAILY 03/17/24 03/17/24 History ondansetron HCl 4 mg tablet 4 mg PO Q6HP PRN nausea 03/17/24 03/17/24 History pantoprazole 40 mg tablet,delayed 40 mg PO DAILY 03/17/24 03/17/24 History release bumetanide 1 mg tablet 1 mg PO DAILY 03/18/24 03/18/24 History dapagliflozin propanediol 10 mg 10 mg PO DAILY 03/18/24 03/18/24 History tablet (Farxiga) escitalopram oxalate 20 mg tablet 20 mg PO DAILY 03/18/24 03/18/24 History gabapentin 100 mg capsule 200 mg PO TID 03/18/24 03/18/24 History insulin lispro 100 unit/mL 4 unit SQ DAILY 03/18/24 03/18/24 History subcutaneous solution ipratropium 0.5 mg-albuterol 3 mg 3 ml inhalation QID 03/18/24 03/18/24 History (2.5 mg base)/3 mL nebulization soln azithromycin 500 mg tablet 500 mg PO DAILY 2 days #2 tabs 03/19/24 Rx cefdinir 300 mg capsule 300 mg PO BID 2 days #4 caps 03/19/24 Rx New Prescriptions to Start Prescriptions: Donte Brown James Allergies Allergy/AdvReac Type Severity Reaction Status Date / Time iodine AdvReac Verified 03/15/24 10:15 Discharge Plan Disposition Patient Disposition: Xfer Intermediate Care Fac Condition: Fair Discharge Order Discharge Orders: Discharge Order (Routine); Ordered 03/19/24 Ordered By: Donte Smiley Follow up Plan Prescriptions/Medication Reconciliation: New cefdinir 300 mg capsule 300 mg PO BID 2 Days Qty: 4 0RF Rx Instructions: first dose morning of 03/20/24 azithromycin 500 mg tablet 500 mg PO DAILY 2 Days Qty: 2 0RF Rx Instructions: first dose morning of 03/20/24 Continued ferrous sulfate [FeroSul] 325 mg (65 mg iron) tablet 325 mg PO DAILY clopidogrel 75 mg tablet 75 mg PO DAILY polyethylene glycol 3350 17 gram/dose powder 17 g PO DAILY 30 Days Qty: 510 0RF senna 8.6 mg capsule 8.6 mg PO BID Qty: 60 0RF doxazosin 8 mg tablet 8 mg PO HS insulin degludec [Tresiba FlexTouch U-200] 200 unit/mL (3 mL) insulin pen 17 unit SQ DAILY insulin lispro 100 unit/mL solution 0 unit SQ DIRECTED Rx Instructions: INJECT PER SLIDING SCALE: IF 151-200= 2 UNITS; 201-250=4 UNITS; 251-300=6 UNITS; 301-350=8 UNITS; 351-400=10 UNITS; IF ABOVE 400, GIVE 12 UNITS AND CALL MD tramadol 50 mg tablet 50 mg PO TID famotidine 40 mg tablet 40 mg PO HS aspirin 81 mg Tablet,Chewable 81 mg PO DAILY diclofenac sodium 1 % Gel 4 g TOPICAL BIDP PRN (Reason: Pain (Scale Score 1-6)) Rx Instructions: apply to single knee, ankle, foot; for foot includes sole/toes/top of foot acetaminophen [Tylenol 8 Hour] 650 mg Tablet Extended Release 650 mg PO Q8HP PRN (Reason: arthritis pain) azelastine 137 mcg (0.1 %) spray,non-aerosol 2 spray INTRANASAL BID Rx Instructions: 2 SPRAYS IN BOTH NOSTRILS TWICE DAILY (DME) pen needle, diabetic, safety 29 gauge x 5/16 Needle MISCELLANEOUS (DME) BD AutoShield Duo Pen Needle 30 gauge x 3/16 needle MISCELLANEOUS (DME) BD SafetyGlide Insulin Syringe 1 mL 31 gauge x 15/64 syringe MISCELLANEOUS ondansetron HCl 4 mg tablet 4 mg PO Q6HP PRN (Reason: nausea) dextromethorphan-guaifenesin [Tussin DM Max] 5-100 mg/5 mL liquid 10 ml PO Q4HP PRN (Reason: Cough) Rx Instructions: LAST DOSE 03/26/24 cholecalciferol (vitamin D3) 1,250 mcg (50,000 unit) capsule 1.25 mcg PO WEEKLY ammonium lactate 12 % lotion 1 applic TOPICAL HS pantoprazole 40 mg tablet,delayed release (DR/EC) 40 mg PO DAILY loratadine 10 mg tablet 10 mg PO DAILY bumetanide 1 mg tablet 1 mg PO DAILY gabapentin 100 mg capsule 200 mg PO TID insulin lispro 100 unit/mL solution 4 unit SQ DAILY escitalopram oxalate 20 mg tablet 20 mg PO DAILY dapagliflozin propanediol [Farxiga] 10 mg tablet 10 mg PO DAILY ipratropium-albuterol 0.5 mg-3 mg(2.5 mg base)/3 mL solution for nebulization 3 ml INHALATION QID Discontinued losartan 50 mg tablet 50 mg PO DAILY Problem Reconciliation Problems Reviewed?: Yes Patient Discharge Instructions ACTIVITY: Continue current activity DIET: continue same diet Patient Instructions: Pneumonia--Adult, DI for Heart Failure, How to [place] With Heart Failure Print Language: Liber[place] Providers Primary Care Provider: Provider,Referral Admit Provider: Donte Smiley Attending Provider: Donte Smiley
[2024-03-19] MEDS: CEFTRIAXONE SODIUM 1 GM in 0.9 % SODIUM CHLORIDE 50 ML IV (10:51)
[2024-03-19 11:05] LABS: POC Glucose,Bedside 207 (70-110)
[2024-03-19] MEDS: AZITHROMYCIN 500 MG in 0.9 % SODIUM CHLORIDE 250 ML 250 MG IV (11:43)
[2024-03-19] MEDS: humaLOG 100 UNITS/ML 10ML VIAL (SSI) SUBCUT (11:53)
--- NOTE | 2024-03-24 11:15 | P.EN_ITS ---
Patient was discharged on 03/19/2024 with suspected viral pneumonia with superimposed bacterial pneumonia. Had been discharged with cefdinir and azithromycin. Sputum culture resulted in MRSA sensitive to doxycycline. Prescribed doxycycline for 7 days, sent to [facility] pharmacy as patient is in [facility]. Will coordinate with case management to let facility know.
--- NOTE | 2024-03-24 11:36 | CARE MANAGER ---
Called and left Karen MITCHELL regarding new order for Doxycycline sent to pharmacy r/t sputum culture.
== END 2024-03-19 12:18 | DRG 189 ==
LOC: ER 16:29 → 2ND 16:42
PROVIDERS: Physician Assistant; Admitting Provider Internal Medicine Adolescent Medicine; Emergency Provider Emergency Medicine; Visit Provider Internal Medicine Adolescent Medicine
DX: J96.01 Acute respiratory failure with hypoxia (principal); J12.3 Human metapneumovirus pneumonia; I50.33 Acute on chronic diastolic (congestive) heart failure; I13.0 Hypertensive heart and chronic kidney disease with heart failure and stage 1 through stage 4 chronic kidney disease, or unspecified chronic kidney disease; N18.4 Chronic kidney disease, stage 4 (severe); E11.22 Type 2 diabetes mellitus with diabetic chronic kidney disease; E78.5 Hyperlipidemia, unspecified; I25.10 Atherosclerotic heart disease of native coronary artery without angina pectoris; K21.9 Gastro-esophageal reflux disease without esophagitis; E66.9 Obesity, unspecified; N40.0 Benign prostatic hyperplasia without lower urinary tract symptoms; Z79.84 Long term (current) use of oral hypoglycemic drugs; Z79.4 Long term (current) use of insulin; Z79.82 Long term (current) use of aspirin; Z87.891 Personal history of nicotine dependence; Z79.899 Other long term (current) drug therapy; Z95.2 Presence of prosthetic heart valve; Z91.81 History of falling; Z68.29 Body mass index [BMI] 29.0-29.9, adult
CPT/HCPCS: 36415; 71045; 71250; 80048; 80053; 81001; 82550; 82803; 82962; 83036; 83735; 83880; 84145; 84484; 85025; 85610; 86803; 87040; 87070; 87077; 87086; 87186; 87205; 87389; 87633; 93005; 94761; 99291; J0456; J0696; J1885; J1940; J7050

== ENCOUNTER 2024-04-01 12:44 | Outpatient (CLI) | payer MEDICARE, OTHER, MEDICAID, SELFPAY ==
--- NOTE | 2024-04-01 12:46 | CT_ITS ---
FINAL REPORT TECHNIQUE: Axial CT images of the head were performed through the paranasal sinuses. Sagittal and coronal reconstructions were performed. This study was performed with techniques to keep radiation doses as low as reasonably achievable (ALARA). Individualized dose reduction techniques using automated exposure control or adjustment of mA and/or kV according to the patient's size were employed. CLINICAL HISTORY: chronic sinusitis COMPARISON: None FINDINGS: CT SINUSES: Mild mucoperiosteal thickening is present in the maxillary sinuses bilaterally. The ethmoid, sphenoid, and frontal sinuses are unremarkable. The mastoid air cells are well aerated. The ostiomeatal units are patent. IMPRESSION: Mild mucoperiosteal thickening in the maxillary sinuses, consistent with mild chronic sinusitis. Reviewed, Interpreted and Dictated by Laureano Vergara MD Transcribed by Sarina Hackett Authenticated and [facility]
== END 2024-04-01 23:59 | disposition home or self-care (01) ==
LOC: RAD 12:46
PROVIDERS: PCP Pediatrics; Visit Provider Nurse Practitioner
DX: H61.23 Impacted cerumen, bilateral (principal)
CPT/HCPCS: 70486

== ENCOUNTER 2024-05-24 10:56 | Outpatient (CLI) | payer MEDICARE, OTHER, MEDICAID, SELFPAY ==
[2024-05-24 16:14] LABS: Microscopic, Urine URINE MICROSCOPIC (MICROSCOPIC)
[2024-05-24 17:54] LABS: Appearance,Urine CLEAR (Clear); Bilirubin,Urine Negative (Negative); Blood, Urine TRACE-I (Negative); Color,Urine YELLOW (Yellow); Glucose,Urine (UA) 3+ (Negative); Ketones,Urine Negative (Negative); Leukocyte Esterase,Urine 2+ (Negative); Nitrate,Urine Negative (Negative); Protein,Urine 1+ (Negative); Urobilinogen,Urine 0.2 EU/dl (0.2)
[2024-05-24 19:01] LABS: Bacteria,Urine 1+ /lpf; RBC,Urine Occasional #/hpf (0-3); WBC,Urine 50-100 #/hpf (0-3); Yeast,Urine 1+ /lpf
== END 2024-05-24 23:59 | disposition home or self-care (01) ==
LOC: LAB.DROPOF 05-26 10:58
PROVIDERS: PCP Pediatrics; Visit Provider Urology
DX: R32 Unspecified urinary incontinence (principal); N39.0 Urinary tract infection, site not specified
CPT/HCPCS: 81001; 87086

== ENCOUNTER 2024-06-07 12:41 | Outpatient (CLI) | payer MEDICARE, OTHER, MEDICAID, SELFPAY ==
--- NOTE | 2024-06-07 13:00 | US_ITS ---
FINAL REPORT CLINICAL HISTORY: Renal failure / pt has a hard time emptying bladder FINDINGS: ULTRASOUND URINARY BLADDER Limited sonographic images of the urinary bladder was performed. Post void images were obtained. The bladder is incompletely distended. There are hypoechoic, lobular areas in the inferior bladder which could be related to mural debris or a bladder wall mass. Prevoid bladder volume is 125.52 mL. Postvoid bladder volume is 35.13 mL. IMPRESSION: Hypoechoic lobular areas in the inferior bladder could be mural debris or a bladder wall mass. Cystoscopy is recommended for further evaluation. Postvoid residual is 35.13 mL Reviewed, Interpreted and Dictated by Laureano Vergara MD Transcribed by Yue Weaver Authenticated and [facility]
--- NOTE | 2024-06-07 13:30 | US_ITS ---
FINAL REPORT TECHNIQUE: Ultrasound images of the kidneys and bladder were obtained. CLINICAL HISTORY: kidney failure FINDINGS: The right kidney measures 11 cm in length. There is a 6.4 cm benign-appearing right renal cyst. It is normal in echogenicity. There is mild increased cortical echogenicity. The left kidney measures 11 cm in length. It is normal in echogenicity. There is mild increased cortical echogenicity. The urinary bladder is unremarkable. IMPRESSION: Mildly increased cortical echogenicity likely related to medical renal disease. Reviewed, Interpreted and Dictated by Laureano Vergara MD Transcribed by Merry Jennings Authenticated and [facility]
== END 2024-06-07 23:59 | disposition home or self-care (01) ==
LOC: RAD 12:42
PROVIDERS: PCP Pediatrics; Visit Provider Urology
DX: N40.1 Benign prostatic hyperplasia with lower urinary tract symptoms (principal); N19 Unspecified kidney failure; R39.12 Poor urinary stream; R39.15 Urgency of urination; R39.14 Feeling of incomplete bladder emptying
CPT/HCPCS: 76770; 76857

== ENCOUNTER 2024-07-05 08:34 | Outpatient (CLI) | payer MEDICARE, OTHER, MEDICAID, SELFPAY ==
[2024-07-05 09:26] LABS: Blood Urea Nitrogen 60 mg/dl (9-20); Estimated Glomerular Filt Rate 29 ml/min (>60); GFR (African American) 35 ML/MIN (>60)
--- NOTE | 2024-07-05 09:52 | CT_ITS ---
FINAL REPORT TECHNIQUE: Axial images through the abdomen and pelvis were performed without contrast.This study was performed with techniques to keep radiation doses as low as reasonably achievable, (ALARA). Individualized dose reduction techniques using automated exposure control or adjustment of mA and/or kV according to the patient's size were employed. CLINICAL HISTORY: blood in urine COMPARISON: 12/2023 FINDINGS: ABDOMEN: The lung bases demonstrate mild bibasilar atelectasis. The heart size is normal. Limited images of the liver are unremarkable. Gallbladder is present. There is a small sliding-type hiatal hernia. The spleen is normal. No adrenal mass is identified. The aorta is normal in caliber. There is no significant free fluid or adenopathy. There is no nephrolithiasis. There is no hydronephrosis. There is a benign-appearing right renal cyst measuring 6.5 cm. Dense vascular calcification is seen of the abdominal aorta and iliac vessels. There is streak artifact arising from posterior fusion hardware in the mid and lower lumbar spine as well as from a spinal stimulator device. PELVIS: The appendix is not identified. There is mild wall thickening of the urinary bladder which is likely related to incomplete distention. There is no significant free fluid or adenopathy. IMPRESSION: Mild wall thickening of the urinary bladder which is likely related to incomplete distention. 6.5 cm benign-appearing renal cyst. Reviewed, Interpreted and Dictated by Laureano Vergara MD Transcribed by Merry Jennings Authenticated and [facility]
== END 2024-07-05 23:59 | disposition home or self-care (01) ==
LOC: RAD 08:36
PROVIDERS: PCP Pediatrics; Visit Provider Urology
DX: N19 Unspecified kidney failure (principal); N40.1 Benign prostatic hyperplasia with lower urinary tract symptoms; N28.1 Cyst of kidney, acquired
CPT/HCPCS: 36415; 74176; 82565; 84520

== ENCOUNTER 2024-07-12 10:00 | Outpatient (CLI) | payer MEDICARE, OTHER, MEDICAID, SELFPAY ==
[2024-07-12 14:42] LABS: Microscopic, Urine URINE MICROSCOPIC (MICROSCOPIC)
[2024-07-12 19:42] LABS: Bilirubin,Urine Negative (Negative); Blood, Urine 1+ (Negative); Color,Urine YELLOW (Yellow); Glucose,Urine (UA) 3+ (Negative); Ketones,Urine Negative (Negative); Leukocyte Esterase,Urine 2+ (Negative); Nitrate,Urine Negative (Negative); Protein,Urine 1+ (Negative); Specific Gravity, Urine 1.015 (1.005-1.030); Urobilinogen,Urine 0.2 EU/dl (0.2)
[2024-07-12 19:56] LABS: Appearance,Urine Cloudy (Clear)
[2024-07-12 20:34] LABS: Bacteria,Urine 1+ /lpf; Squamous Epithelial Cell,Urine Occasional #/hpf (0-5); WBC,Urine TNTC #/hpf (0-3)
== END 2024-07-12 23:59 | disposition home or self-care (01) ==
LOC: LAB.DROPOF 22:12
PROVIDERS: PCP Urology; Visit Provider Urology
DX: N39.0 Urinary tract infection, site not specified (principal); R32 Unspecified urinary incontinence
CPT/HCPCS: 81001; 87086

== ENCOUNTER 2024-08-13 09:38 | Day surgery (SDC) | payer MEDICARE, OTHER, MEDICAID, SELFPAY ==
[2024-08-11 09:54] VITALS: BMI 32.8
--- NOTE | 2024-08-13 09:52 | HMH.PROCNOTE ---
[facility] Procedure Note Date: 08/13/24 Time: 09:52 Procedure Note:: Chart review: The patient is here to evaluate hematuria. He has 10 red cells per high-power field on 07/18. His CT scan without infusion shows a 6.5 cm left renal cyst on 07/18. The patient has significant voiding complaints of urinary hesitation, weak stream, and feeling of incomplete emptying of the bladder. He may be in need of prostate surgery consideration for bladder outlet obstruction. The patient currently is on Flomax. The patient had a documented urinary tract infection on 07/18. The patient has send serum creatinine at 2.2 on 07/18 and is not diabetic. The patient has symptoms of BPH of frequency and a feeling of incomplete emptying of the urinary bladder. Preop diagnosis: Hematuria/bladder outlet obstruction Postop diagnosis: Hematuria/bladder outlet obstruction Operative note: The patient presented to the cystoscopy suite. He is prepped and draped in the usual fashion. He underwent flexible cystoscopy. The anterior urethra was unremarkable. 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 His posterior urethra is 2 cm in length. The patient's bladder contains significant amount of debris. This suggests that he perhaps has not been emptying his bladder to completion. The best I can see there is no evidence of bladder stone tumor hemorrhage or infection. Again the visualization is obscured due to the debris. The patient very well may be a candidate for prostate surgery. He could be a candidate for UroLift or laser prostate surgery. Becasue of the debris full endoscopy was not complet today. He does have 5 -10 RBC/HPF. By current 202 guidelines he is low or intermediate risk depending on his smoking history. He is < 25 RBC/HPF. Hematuria [facility] Best Practice Guidelines 2024 Low Risk? Intermediate Risk? High Risk 3-10 RBC/HPF? 11-25 RBC/HPF? >25 RBC/HPF Female < 60; Male <40? Female > 60; Male 40-59? Female > 60; Male > 60? Smoke < 10 PPY? Smoke 10-30 PPY? Smoke: >30 PPY ? Gross Hemauria No Risk Factor? Any added Risk Factor? Any added Risk Factor ? Repeat UA? Cysto + Renal US? Cysto + Nephrographic CT ? Cytology/ CxBladder Triage Repeat UA < 6 months? Repeat UA < 6 months
[2024-08-13 10:05] VITALS: BP 172/52; PULSE 69; RESP 18; TEMP 36.5; O2SAT 99
[2024-08-13] MEDS: 0.9 % SODIUM CHLORIDE 500 ML 25 ML IV (10:27)
[2024-08-13] MEDS: LIDOCAINE 2% UROJET 10ML 10 ML (10:27)
[2024-08-13 10:41] VITALS: BP 165/74; PULSE 69; RESP 17; TEMP 36.8; O2SAT 98
== END 2024-08-13 10:50 | disposition home or self-care (01) ==
PROVIDERS: PCP Pediatrics; Visit Provider Urology
PROC: 0TJB8ZZ Inspection of Bladder, Via Natural or Artificial Opening Endoscopic (ICD-10-PCS; CPT 52000; principal; 2024-08-13 10:30)
DX: N40.1 Benign prostatic hyperplasia with lower urinary tract symptoms (principal); R31.9 Hematuria, unspecified; I25.10 Atherosclerotic heart disease of native coronary artery without angina pectoris; J30.9 Allergic rhinitis, unspecified; N28.1 Cyst of kidney, acquired; R39.11 Hesitancy of micturition; R39.12 Poor urinary stream; R35.0 Frequency of micturition; R33.8 Other retention of urine; N13.8 Other obstructive and reflux uropathy; J44.9 Chronic obstructive pulmonary disease, unspecified; K21.9 Gastro-esophageal reflux disease without esophagitis; E78.5 Hyperlipidemia, unspecified; Z87.440 Personal history of urinary (tract) infections; I11.9 Hypertensive heart disease without heart failure; Z95.2 Presence of prosthetic heart valve; Z87.891 Personal history of nicotine dependence; Z88.8 Allergy status to other drugs, medicaments and biological substances; Z91.013 Allergy to seafood; Z79.899 Other long term (current) drug therapy; Z79.891 Long term (current) use of opiate analgesic; Z79.4 Long term (current) use of insulin; Z79.84 Long term (current) use of oral hypoglycemic drugs; Z79.02 Long term (current) use of antithrombotics/antiplatelets; Z79.2 Long term (current) use of antibiotics
CPT/HCPCS: 52000; J7040

== ENCOUNTER 2024-09-23 10:44 | Emergency (ER) | payer MEDICARE, OTHER, MEDICAID, SELFPAY ==
--- OUTSIDE RECORDS SUMMARY | 2024-09-12 15:59 | XMS_ITS | Continuity of Care Document ---
Author Organization [address] [place] [address] Address [address] [facility] [address] [place] [address] Phone Care Team Providers Care Manager Community Relations Name Role Phone Addy MENDEZ, Lars Unavailable Unavailable Allergies, Adverse Reactions, Alerts Substance Reaction Status Criticality iodine Active No Information Medications Medication Instructions Dosage Effective Dates (start - stop) Status Comments famotidine 40 mg tablet - Ac tive Ferretts 325 mg (106 mg iron) tablet - Active methocarbamol 500 mg tablet - Active BD AutoShield Duo Pen Needle 30 gauge x 05/09 - Active insulin degludec (U-200) 200 unit/mL (3 mL) subcutaneous pen - Active atorvastatin 20 mg tablet - Active levocetirizine 5 mg tablet - Active Vascepa 1 gram capsule - Act lee albuterol sulfate 2.5 mg/3 mL (0.083 %) solution for nebulization - Active bupropion HCl XL 150 mg 24 hr tablet, extended release - Active mirtazapine 15 mg tablet - Active furosemide 40 mg tablet - Ac tive clopidogrel 75 mg tablet - Active omeprazole 40 mg capsule,delayed release - Active citalopram 20 mg tablet - Ac tive losartan 50 mg tablet - Acti ve metformin 500 mg tablet - Ac tive Triple Antibiotic 3.5 mg-400 unit-5,000 unit/gram topical ointment - Active acetaminophen 500 mg tablet - Active gabapentin 300 mg capsule - Active aspirin 81 mg chewable tablet - Active tramadol 50 mg tablet - Acti ve FeroSul 325 mg (65 mg iron) tablet - Active amlodipine 5 mg tablet - Act lee doxazosin 8 mg tablet - Acti ve senna 8.6 mg tablet - Active azelastine 137 mcg (0.1 %) nasal spray - Active polyethylene glycol 3350 17 gram/dose oral powder - Active gentamicin 0.3 % eye drops - Active Lidocaine Pain Relief 4 % topical patch - Active loratadine 10 mg tablet - Ac tive prednisone 10 mg tablet - Ac tive insulin lispro (U-100) 100 unit/mL subcutaneous solution - Active nystatin 100,000 unit/gram topical cream - Active Deep Sea Nasal 0.65 % spray aerosol - Active carvedilol 3.125 mg tablet - Active fluoxetine 60 mg tablet - Ac tive ipratropium 0.5 mg-albuterol 3 mg (2.5 mg base)/3 mL nebulization soln - Active ferrous sulfate 325 mg (65 mg iron) tablet - Active levofloxacin 500 mg tablet - Active insulin lispro (U-100) 100 unit/mL subcutaneous pen - Active prednisone 5 mg tablet - Act lee fluticasone propionate 50 mcg/actuation nasal spray,suspension - Active fluoxetine 40 mg capsule - Active icosapent ethyl 1 gram capsule - Active omega-3 acid ethyl esters 1 gram capsule - Active prednisone 20 mg tablet - Ac tive carvedilol 12.5 mg tablet - Active hydrocodone 5 mg-acetaminophen 325 mg tablet - Active aspirin 81 mg tablet,delayed release TAKE 1 TABLET BY MOUTH EVERY DAY - Active BD Ultra-Fine Tricia Pen Needle 32 gauge x 5/32 DIRECTED WITH INSULIN EVERY DAY *100 DAY SUPPLY* - Active doxazosin 4 mg tablet - Acti ve losartan 100 mg tablet TAKE ONE (1) TABL ET BY MOUTH EVERY DAY - Active metoprolol succinate ER 25 mg tablet,extended release 24 hr TAKE ONE (1) TABLET BY MOUTH EVERY DAY - Active diclofenac 1 % topical gel USE TWO (2) GRAMS TO PAINFUL JOINTS FOUR (4) TIMES DAILY NEEDED - Active Tresiba FlexTouch U-200 insulin 200 unit/mL (3 mL) subcutaneous pen - Active docusate sodium 100 mg capsule TAKE 1 CAPSULE BY MOUTH EVERY DAY - Active Procedures Procedure Date COMPRE OPH EXAM EST PT 1/> Trim Dystrophic nail(s) FULL FIELD ERG W/I&R SBSQ NF CARE MODERATE MDM 30 FUNDUS PHOTOGRAPHY COMPRE OPH EXAM NEW PT /> Complete Series Of Radiographic Images S Compsve Oral Eval- New/Est Pat 24 DEBRIDE NAIL 6 OR MORE Low extemity neur exam docum Advance Directives Directive Yes / No Effective Date File Name Resuscitation Attempt Resuscitation/CPR N/A N /A Other Directive No N/A N/A WARNING:The information contained in this section is historical and is provided for information only and does not constitute a legal document or any assurance that the information is still accurate. Please verify the information with the uribe of the legal document before using it for clinical purposes. Encounters Encounter Description Practice Location Reason(s) For Visit Diagnoses Date Provider Providers Copied on Encounter [facility], [address] [place] [address] [address], [place], [place], [id number], [place] tel:[phone] [facility] No Information 5 [place], [place]. [address] [place] [address], [address] [place] [address], [place], [place], [id number], [place] tel:[phone] [facility] Diabetic eye exam (chief complaint) Type 2 diabetes mellitus without complicationsP resence of intraocular lens 5 [place], [place]. Referring Provider: Jaron Serrano. [address] [place] [address], [address] [place] [address], [place], [place], [id number], [place] tel:[phone] [facility] Other specified peripheral vascular diseasesNail dystrophyOnych ogryphosisLong term (current) use of oral hypoglycemic drugsType 2 diabetes mellitus with diabetic peripheral angiopathy without gangrene 5 [place]. SBSQ NF CARE MODERATE MDM 30 [facility], [address] [place] [address], [place], [place], [id number], [place] tel:[phone] 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 Referring Provider: Jaron Serrano. [address] [place] [address], [address] [place] [address], [place], [place], [id number], [place] tel:[phone] 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 Referring Provider: Jaron Serrano. [address] [place] [address], [address] [place] [address], [place], [place], [id number], [place] tel:[phone] [facility] Encounter for dental examination and cleaning without abnormal findings 4 Yefri Moreira. . Referring Provider: Jaron Serrano. [facility], [address], [place], [place], [id number], [place] tel:[phone] [facility] No Information 4 Duane Mehta. [address], [place], [address], [place]. [facility], [address], [place], [place], [id number], [place] tel:[phone] [facility] Tinea unguiumType 2 diabetes mellitus with diabetic peripheral angiopathy without gangrene 4 Duaen Mehta. [address], [place], [address], [place]. Family History Family Member Type Diagnosis Age At Onset No Information Payers Payer name Insurance type Covered alliance party ID Authoriza tion(s) Medicare [facility] [id number] [facility] Supplement [id number] Medicaid [facility] [id number] Social History Type Description Quantity Date Captured Comments Sex Male Smoking Status No Information Chief Complaint And Reason For Visit No Information Reason For Referral Reason For Referral No Information Plan Of Treatment Date Type Action Status Appointment Donte Trujillo BOOKED History Of Present Illness Encounter Date Complaint History Of Prese nt Illness Diabetic eye exam The 83 year ol d patient presents for evaluation of Diabetic eye exam in the right eye and left eye. In w/c [employer]. On insulin. Denies eye pain or burning Medical eye problem The 83 year old patient presents for evaluation of Medical eye problem in the right eye and left eye. It occurs always. The onset was gradual. The symptom is constant. ERG due to diabetic retinopathy. Diabetic eye exam The 83 year ol d patient presents for evaluation of Diabetic eye exam in the right eye and left eye. It occurs always. The onset was gradual. The symptom is constant. [facility]. Functional Status Date Functional Assessmen t No Information Instructions Date Instruction Additional Infor daniel Impression/Plan - No retinopathy noted. On Insulin and metformin. Seeing great in current specs. Recheck 6 mos Related to Type 2 diabetes mellitus without complications Impression/Plan - Im plants are clear and stable in both eyes. We will monitor at regular intervals Related to Presence of intraocular lens No change to care, W ill continue to monitor. 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 Alcohol applied to the digits afterwards. Related to Onychogryphosis All documented dystr ophic nails were reduced in length as needed to prevent pain and other symptoms. Related to Nail dystrophy Discussed using comp ression stockings to assist in localize swelling and venous return, and the fdc benefits of using compression stockings. Reinforced the importance of proper adherence to using the kanchan hose, and compression stockings. Will continue to monitor. Related to Other specified peripheral vascular diseases Return in 6-[address] Related to Type 2 diabetes mellitus with mild nonproliferative diabetic retinopathy without macular edema, bilateral Follow up - Return i n 6-[address] Related to Type 2 diabetes mellitus with mild nonproliferative diabetic retinopathy without macular edema, bilateral Impression/Plan - ER G results are abnormal OD; OS was not tested. Monitor for changes. Related to Type 2 diabetes mellitus with mild nonproliferative diabetic retinopathy without macular edema, bilateral Return in 3-6 months for ERG. Return in 6-9 months for retina eval. Related to Type 2 diabetes mellitus with mild nonproliferative diabetic retinopathy without macular edema, bilateral Follow up - Return i n 3-6 months for ERG. Return in 6-9 months for retina eval. Related to Type 2 diabetes mellitus with mild nonproliferative diabetic retinopathy without macular edema, bilateral Impression/Plan - Mi ld non-proliferative diabetic retinopathy. No treatment indicated as this time. Adequate diabetic control recommended. We will monitor at regular intervals. Photodocument. Related to Type 2 diabetes mellitus with mild nonproliferative diabetic retinopathy without macular edema, bilateral Toenails 1-5 b/l wer e debrided in length and thickness without incident. Follow up in 2-3 months. Related to Tinea unguium Assessments Type Assessment Date No Information Patient Care Teams Name Effective Dates (start - stop) Status Members No Information
[2024-09-23] VITALS (7 sets, daily range): BP systolic 167–189; BP diastolic 62–74; PULSE 55–63; RESP 17–19; TEMP 37.1–37.2; O2SAT 94–98; BMI 29.6
--- NOTE | 2024-09-23 11:01 | XR_ITS ---
FINAL REPORT CLINICAL HISTORY: Fall, left hand pain FINDINGS: LEFT HAND Two views were obtained. There is no fracture or dislocation. There is multijoint degenerative disease. No soft tissue abnormality is identified. IMPRESSION: No acute process. Reviewed, Interpreted and Dictated by Polina Lara MD Transcribed by Anisa Guevara Authenticated and [facility][1]
--- NOTE | 2024-09-23 11:01 | CT_ITS ---
FINAL REPORT TECHNIQUE: Thin section axial images were obtained through the cervical spine without contrast. Multiplanar reconstruction images were obtained from the axial data. Exam was performed using dose reduction techniques. CLINICAL HISTORY: Fall, neck pain COMPARISON: 11/30/2023 FINDINGS: There is no acute fracture or acute malalignment of the cervical spine. There is no evidence of unilateral or bilateral facet lock. Multilevel degenerative disc disease is most pronounced at C5-6 and C6-7 but unchanged from the prior exam.. No acute paraspinal abnormality is identified. IMPRESSION: No acute osseous abnormality of the cervical spine. Stable degenerative changes. Reviewed, Interpreted and Dictated by Polina Lara MD Transcribed by Amy Triana Authenticated and [facility]
--- NOTE | 2024-09-23 11:01 | XR_ITS ---
FINAL REPORT CLINICAL HISTORY: Fall, left knee pain FINDINGS: LEFT KNEE Two views were obtained. There is no fracture or dislocation. There is advanced degenerative joint disease. Moderate to large effusion is identified. No soft tissue abnormality is identified. IMPRESSION: Moderate to large joint effusion. Reviewed, Interpreted and Dictated by Polina Lara MD Transcribed by Anisa Guevara Authenticated and [facility]
--- NOTE | 2024-09-23 11:01 | CT_ITS ---
FINAL REPORT TECHNIQUE: Thin section axial images were obtained from skull base to vertex without contrast. Coronal reconstruction images were obtained from the axial data. Exam was performed using dose reduction techniques such as automated exposure control, adjustment of the mA and kV according to patient size, and use of iterative reconstruction technique. CLINICAL HISTORY: Fall, left sided head trauma COMPARISON: 11/30/2023 FINDINGS: There is atrophy. No mass effect or midline shift. No intracranial hemorrhage. No hydrocephalus. Periventricular low density is likely related to changes of chronic small vessel ischemia. Encephalomalacia in the left parietal lobe is unchanged. The posterior fossa is without acute abnormality. Mild soft tissue edema in the left frontal scalp. No acute osseous abnormality is identified. IMPRESSION: No acute intracranial abnormality. Left frontal scalp edema. Reviewed, Interpreted and Dictated by Polina Lara MD Transcribed by Amy Triana Authenticated and [facility]
--- NOTE | 2024-09-23 11:01 | XR_ITS ---
FINAL REPORT CLINICAL HISTORY: Fall, left hip pain FINDINGS: LEFT HIP/PELVIS Three views were obtained. There is no fracture or dislocation. There is degenerative joint disease bilaterally. No soft tissue abnormality is identified. IMPRESSION: No acute process. Reviewed, Interpreted and Dictated by Polina Lara MD Transcribed by Anisa Guevara Authenticated and [facility]
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
--- OUTSIDE RECORDS SUMMARY | 2024-09-23 11:08 | XMS_ITS | Clinical Summary ---
Author Organization [facility] Address [address] [place] [address] Phone Care Team Providers Care Power Transformer Inspector Name Role Phone Manan PEREZ, [facility] Conditions or Problems Problem Name Problem Code Onset Date Status Entry Date Provider Comment Standard Description Annotate SPINAL STENOSIS, LUMBAR M48.06 (ICD-10-CM ) Active Mansi Amanda MA Spinal stenosis, lumbar region Medications Medication Instructions Start Date Stop Date Generic Name NDC Provider BABY ASPIRIN 81 MG CHEW 1 daily Non-[place] 0 ASPIRIN [id number] Mansioseas Amanda MA DIOVAN HCT 160-12.5 MG TABS 1 daily Non-[place] 0 VALSARTAN-HYDROC HLOROTHIAZIDE [id number] Mansioseas Amanda HI GABAPENTIN 300 MG CAPS 1 daily Non-[place] 0 GABAPENTIN [id number] Mansioseas Amanda MA LOTREL 10-20 MG CAPS 1 daily Non-[place] 0 AMLODIPINE BESY-BENAZEPRIL HCL [id number] Mansioseas Amanda HI DICLOFENAC SODIUM 75 MG TBEC 1 daily Non-[place] 0 DICLOFENAC SODIUM [id number] Mansioseas Amanda HI AVANDIA 8 MG ORAL TABLET 1 daily Non-[place] 0 ROSIGLITAZONE MALEATE [id number] Mansioseas Amanda MA FLUOXETINE HCL 40 MG CAPS 1 daily Non-[place] 0 FLUOXETINE HCL [id number] Mansi Amanda HI PLAVIX 75 MG TABS 1 daily Non-[place] 0 CLOPIDOGREL BISULFATE [id number] Mansioseas Aamnda HI LIPITOR 20 MG TABS 1 daily Non-[place] 0 ATORVASTATIN CALCIUM [id number] [facility] Medications Administered No information available. Allergies, Adverse Reactions, Alerts Allergy Name Reaction Description Start Date Severity Statu s Provider FLU VACCINATION Critical Rand my [place] Results No information available. Plan of Care No information available. Procedures No information available. Vital Signs Date Name Value Unit Description BP Diastolic 69 mm[Hg] blood pressu re, diastolic BP Systolic 123 mm[Hg] blood pressur e, systolic Heart Rate 92 /min pulse rate Height 68 [in_us] height E&M Weight Measured 197 [lb_av] weight E& M Weight Measured 197 [lb_av] weight E& M Immunizations No information available. Advance Directives No information available.
--- OUTSIDE RECORDS SUMMARY | 2024-09-23 11:09 | XMS_ITS | Encounter Summary ---
Author Organization [facility] Address [address] [place] [address] Care Team Providers Care Brim Curler Name Role Phone Sylvester Bynum MD Primary Care Provider + [phone] Encounter Details Date Type Department Care Team (Late Contact Info) Description 09/03/2024 Telephone [facility] [address] [place] [address] Teena Soto I, RN [facility] Social History Tobacco Use Types Packs/Day Years Used Date Smoking Tobacco: Never Assessed Sex and Gender Information Value Date Recorded Sex Assigned at Not on file Legal Sex Male 2:13 PM EDT Gender Identity Not on file Sexual Orientation Not on file documented as of this encounter Miscellaneous Notes * Telephone Encounter - Teena Soto I, RN - 09/03/2024 7:29 AM EDT Called [facility] to schedule urology appointment; no answer, left vm with name/number. documented in this encounter Plan of Treatment Upcoming Encounters Date Type Department Care Team (Late Contact Info) Description 10/06/2024 3:00 PM EDT Office Visit [facility] Nephrology, Bone & Mineral Metabolism [address], [address] [place] [address] Moshe Jack MD [address] [place] [id number] 10/27/2024 1:00 PM EDT Consult Medical Office Building Urology [address], [address] [place] [address] Aaron Marie MD [address] [place] [address] documented as of this encounter Visit Diagnoses Not on filedocumented in this encounter Care Teams Brim Curler Relationship Specialty Start Date End Date Sylvester Bynum MD [address] [place] [id number] PCP - General 09/01/24 documented as of this encounter
--- OUTSIDE RECORDS SUMMARY | 2024-09-23 11:09 | XMS_ITS | Encounter Summary ---
Author Organization [facility] Address [address] [place] [address] Care Team Providers Care Senior Clinical Data Manager Name Role Phone Sylvester Bynum MD Primary Care Provider [phone] Encounter Details Date Type Department Care Team (Late Contact Info) Description 09/06/2024 Orders Only [facility] [address] [place] [address] [place] CKD (chronic kidney disease) stage 4, GFR 15-29 ml/min (CMS/HCC) (Primary Dx); Vitamin D insufficiency Social History Tobacco Use Types Packs/Day Years Used Date Smoking Tobacco: Never Assessed Sex and Gender Information Value Date Recorded Sex Assigned at Not on file Legal Sex Male 2:13 PM EDT Gender Identity Not on file Sexual Orientation Not on file documented as of this encounter Plan of Treatment Upcoming Encounters Date Type Department Care Team (Late Contact Info) Description 10/06/2024 3:00 PM EDT Office Visit [facility] Nephrology, Bone & Mineral Metabolism [address], [address] [place] [address] Moshe Jack MD [address] [place] [address] 10/27/2024 1:00 PM EDT Consult Medical Office Building Urology [address], [address] [place] [address] Aarno Marie MD [address] [place] [address] Scheduled Orders Name Type Priority Associated Diagnoses Orde r Schedule Renal Function Panel, Plasma Lab Routine CKD (chronic kidney disease) stage 4, GFR 15-29 ml/min ([facility]) Expected: 09/06/2024 (Approximate), Expires: 03/09/2026 CBC and Differential Lab Routine CKD (chronic kidney disease) stage 4, GFR 15-29 ml/min ([facility]) Expected: 09/06/2024 (Approximate), Expires: 03/09/2026 Creatinine, Random, Urine Lab Routine CKD (chronic kidney disease) stage 4, GFR 15-29 ml/min ([facility]) Expected: 09/06/2024 (Approximate), Expires: 03/09/2026 Protein, Random, Urine with Creatinine Lab Routine CKD (chronic kidney disease) stage 4, GFR 15-29 ml/min ([facility]) Expected: 09/06/2024 (Approximate), Expires: 03/09/2026 Urinalysis with reflex microscopic (Culture NOT Included) Lab Routine CKD (chronic kidney disease) stage 4, GFR 15-29 ml/min ([facility]) Expected: 09/06/2024 (Approximate), Expires: 03/09/2026 PTH Intact Total Lab Routine CKD (chronic kidney disease) stage 4, GFR 15-29 ml/min ([facility]) Vitamin D insufficiency Expected: 09/06/2024 (Approximate), Expires: 03/09/2026 Vitamin D 25 Hydroxy Lab Routine CKD (chronic kidney disease) stage 4, GFR 15-29 ml/min ([facility]) Vitamin D insufficiency Expected: 09/06/2024 (Approximate), Expires: 03/09/2026 documented as of this encounter Visit Diagnoses Diagnosis CKD (chronic kidney disease) stage 4, GFR 15-29 ml/min ([facility])- Primary Chronic kidney disease, Stage IV (severe) Vitamin D insufficiency documented in this encounter Care Teams Senior Clinical Data Manager Relationship Specialty Start Date End Date Sylvester Bynum MD [facility] [place] [address] PCP - General 09/01/24 documented as of this encounter
--- OUTSIDE RECORDS SUMMARY | 2024-09-23 11:09 | XMS_ITS | Encounter Summary ---
Author Organization Healthcare Address [address] [place] [address] Care Team Providers Care Catering Chef Name Role Phone Sylvester Bynum MD Primary Care Provider [phone] Encounter Details Date Type Department Care Team (Late Contact Info) Description 09/03/2024 Telephone [facility] [address], [address] [place] [address] Teena Soto I, [facility] Social History Tobacco Use Types Packs/Day Years Used Date Smoking Tobacco: Never Assessed Sex and Gender Information Value Date Recorded Sex Assigned at Not on file Legal Sex Male 2:13 PM EDT Gender Identity Not on file Sexual Orientation Not on file documented as of this encounter Miscellaneous Notes * Telephone Encounter - Teena Soto I, RN - 09/03/2024 11:39 AM EDT Returned call to [facility] for urology scheduling; no answer, left vm with name/number. documented in this encounter Plan of Treatment Upcoming Encounters Date Type Department Care Team (Late Contact Info) Description 10/06/2024 3:00 PM EDT Office Visit Professional [facility] [address], [address] [place] [address] Moshe Jack MD [address] [place] [address] 10/27/2024 1:00 PM EDT Consult Medical Office Building Urology [address], [address] [place] [address] Aaron Marie MD [address] [place] [address] documented as of this encounter Visit Diagnoses Not on filedocumented in this encounter Care Teams Catering Chef Relationship Specialty Start Date End Date Sylvester Bynum MD [address] [place] [address] PCP - General 09/01/24 documented as of this encounter
--- OUTSIDE RECORDS SUMMARY | 2024-09-23 11:09 | XMS_ITS | Clinical Summary ---
Author Organization Healthcare Address [address] [place] [address] Care Team Providers Care Erp Analyst Name Role Phone Sylvester Bynum MD Primary Care Provider [phone] Encounters Date Type Department Care Team Description 09/06/2024 Orders Only [facility] [address] [place] [address] [place] CKD (chronic kidney disease) stage 4, GFR 15-29 ml/min (CMS/HCC) (Primary Dx); Vitamin D insufficiency 09/03/2024 Telephone [facility] [address] [place] [address] Teena Soto I, RN 09/03/2024 Telephone [facility] [address], [address] [place] [address] Teena Soto I, RN from Last 3 Months Social History Tobacco Use Types Packs/Day Years Used Date Smoking Tobacco: Never Assessed Sex and Gender Information Value Date Recorded Sex Assigned at Not on file Legal Sex Male 2:13 PM EDT Gender Identity Not on file Sexual Orientation Not on file Plan of Treatment Upcoming Encounters Date Type Department Care Team (Late st Contact Info) Description 10/06/2024 3:00 PM EDT Office Visit Professional [facility]rology[facility] Bone [facility] Mineral Metabolism [address], [address] [place] [address] Moshe Jack MD [address] [place] [address] 10/27/2024 1:00 PM EDT Consult Medical Office Building Urology [address] [facility], [address] [place] [address] Aaron Marie MD [address] [place] [address] Health Maintenance Due Date Last Done Comments [facility]-Depression Screening 1940 [facility]-Medicare Annual Wellness (AWV) 1940 [facility]-Infant/Child/Adol SDOH Screenings 1940 [facility]- SDOH Screenings 11/01/1957 [facility]-Adult SDOH Screenings 11/01/1957 [facility]-Zoster Vaccines (1 of 2) 11/01/1989 [facility]-RSV Vaccine: 60+ Years or (1 - 1-dose 75+ series) 11/01/2014 [facility]-GTLPR-03 Vaccine ( season) 2023 12/17/2022, 11/28/2021, 07/18/2021, Additional history exists [facility]-Influenza Vaccine (#1) 2024 [facility]-DTaP,Tdap,and Td Vaccines (3 - Td or Tdap) 12/18/2033 12/19/2023, 08/01/2020 [facility]-Pneumococcal Vaccine: 50+ Years Completed 04/07/2024, 12/16/2019 HPV Vaccines Aged Out No longer eligi ble based on patient's age to complete this topic [facility]-HIB Vaccines Aged Out No longer e ligible based on patient's age to complete this topic [facility]-Hepatitis A Vaccines Aged Out No longer eligible based on patient's age to complete this topic [facility]-IPV Vaccines Aged Out No longer e ligible based on patient's age to complete this topic [facility]-Rotavirus Vaccines Aged Out No lo nger eligible based on patient's age to complete this topic Insurance MEDICARE Member Subscriber Plan / Payer (Ef fective 2004-Present) Name:Donte Trujillo Member ID:[id number] Relation to Subscriber:Self Name:Donte Trujillo Subscriber ID:[id number] Payer ID:MEDICARE Group ID:Not on file Type:Medicare Address: [place] [phone] Care Teams Erp Analyst Relationship Specialty Start Date End Date Sylvester Bynum MD [facility] [place] [address] PCP - General 09/01/24
[2024-09-23] MEDS: TET/DIPHTH/PERT-ADULT 0.5ML SYRINGE 0.5 ML IM (11:15)
--- NOTE | 2024-09-23 11:59 | PC.NURSE ---
Repositioned Patients C-collar
[2024-09-23] MEDS: BACITRACIN ZINC OINT 30GM TUBE TP (13:09)
--- NOTE | 2024-09-23 13:18 | PC.NURSE ---
Nissa called for transport of patient. 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
--- NOTE | 2024-09-23 13:18 | PC.NURSE ---
Abrasions cleaned and dressed per order. Patient tolerated well. Denies complaints.
--- NOTE | 2024-09-23 13:19 | PC.NURSE ---
report called to Kayleigh @ [facility]
== END 2024-09-23 13:23 | disposition home or self-care (01) ==
PROVIDERS: Emergency Provider Student in an Organized Health Care Education/Training Program; PCP Pediatrics
DX: S00.83XA Contusion of other part of head, initial encounter (principal); S60.512A Abrasion of left hand, initial encounter; S80.212A Abrasion, left knee, initial encounter; E78.5 Hyperlipidemia, unspecified; V00.841A Fall from standing electric scooter, initial encounter
CPT/HCPCS: 70450; 72125; 73120; 73502; 73560; 90471; 90715; 99285

== ENCOUNTER 2024-09-27 14:32 | Emergency (ER) | payer MEDICARE, OTHER, MEDICAID, SELFPAY ==
[2024-09-27 14:39] VITALS: BP 199/83; PULSE 68; O2SAT 97
--- NOTE | 2024-09-27 14:42 | CT_ITS ---
FINAL REPORT TECHNIQUE: Pre-and postcontrast images of the abdomen through the pelvis were performed by computed tomography. Delayed images were obtained. Extensive 3-D reconstruction images were performed. A CTA was performed. This study was performed with techniques to keep radiation doses as low as reasonably achievable (ALARA). Individualized dose reduction techniques using automated exposure control or adjustment of mA and/or kV according to the patient's size were employed. CLINICAL HISTORY: Black diarrhea, on Plavix COMPARISON: CT abdomen and pelvis 07/05/2024 FINDINGS: Pre infusion images demonstrate moderate vascular calcifications in the abdominal aorta and iliac vessels. There is streak artifact from fusion hardware bridging of the lumbar spine. Post infusion images demonstrate chronic changes in the lung bases. The gallbladder is present. There is a small sliding-type hiatal hernia. The spleen, pancreas, and adrenal glands are unremarkable. There is a benign-appearing cyst in the right kidney measuring 6.5 cm in diameter. The urinary bladder is normal in size and configuration. On delayed images, there is no evidence of active GI bleeding. Dense vascular calcifications are noted at the origin of the celiac axis and SMA with stenosis difficult to quantify due to calcification. Dense calcifications are noted in the proximal right renal artery with stenosis measuring greater than 50%. Left renal artery is adequately patent. IMPRESSION: No evidence of active GI bleed. Dense calcification at the origin of the celiac axis and SMA. Right renal cyst measuring 6.5 cm. Reviewed, Interpreted and Dictated by Laureano Vergara MD Transcribed by Amy Triana Authenticated and [facility]
--- NOTE | 2024-09-27 14:44 | [facility].EDGENADL ---
Discharge Plan Disposition Patient Disposition: Home, Self-Care Prescriptions Prescriptions: New cefdinir 300 mg capsule 300 mg PO BID 10 Days Qty: 20 0RF No Action ferrous sulfate [FeroSul] 325 mg (65 mg iron) tablet 325 mg PO DAILY amlodipine 5 mg tablet 5 mg PO DAILY Cetaphil Moisturizing Cream 1 applic topical DAILY metoprolol succinate 25 mg tablet extended release 24 hr 25 mg PO HS finasteride [Proscar] 5 mg tablet 5 mg PO DAILY 90 Days Qty: 90 1RF tamsulosin [Flomax] 0.4 mg capsule 0.4 mg PO DAILY 90 Days Qty: 90 1RF Rx Instructions: Take 1/2-hour after same meal each day clopidogrel 75 mg tablet 75 mg PO DAILY polyethylene glycol 3350 17 gram/dose powder 17 g PO DAILY 30 Days Qty: 510 0RF senna 8.6 mg capsule 8.6 mg PO BID Qty: 60 0RF insulin degludec [Tresiba FlexTouch U-200] 200 unit/mL (3 mL) insulin pen 17 unit SQ DAILY insulin lispro 100 unit/mL solution 0 unit SQ DIRECTED Rx Instructions: INJECT PER SLIDING SCALE: IF 151-200= 2 UNITS; 201-250=4 UNITS; 251-300=6 UNITS; 301-350=8 UNITS; 351-400=10 UNITS; IF ABOVE 400, GIVE 12 UNITS AND CALL tramadol 50 mg tablet 50 mg PO TID levofloxacin 500 mg tablet 500 mg PO DAILY 7 Days Qty: 7 0RF diclofenac sodium 1 % Gel 4 g TOPICAL BIDP PRN (Reason: Pain (Scale Score 1-6)) Rx Instructions: apply to single knee, ankle, foot; for foot includes sole/toes/top of foot acetaminophen [Tylenol 8 Hour] 650 mg Tablet Extended Release 650 mg PO Q8HP PRN (Reason: arthritis pain) (DME) pen needle, diabetic, safety 29 gauge x 5/16 Needle MISCELLANEOUS (DME) BD AutoShield Duo Pen Needle 30 gauge x 3/16 needle MISCELLANEOUS (DME) BD SafetyGlide Insulin Syringe 1 mL 31 gauge x 15/64 syringe MISCELLANEOUS ondansetron HCl 4 mg tablet 4 mg PO Q6HP PRN (Reason: nausea) dextromethorphan-guaifenesin [Tussin DM Max] 5-100 mg/5 mL liquid 10 ml PO Q4HP PRN (Reason: Cough) Rx Instructions: LAST DOSE 03/26/24 ammonium lactate 12 % lotion 1 applic TOPICAL HS pantoprazole 40 mg tablet,delayed release (DR/EC) 40 mg PO DAILY loratadine 10 mg tablet 10 mg PO DAILY bumetanide 1 mg tablet 1 mg PO DAILY gabapentin 100 mg capsule 200 mg PO TID insulin lispro 100 unit/mL solution 4 unit SQ DAILY escitalopram oxalate 20 mg tablet 20 mg PO DAILY dapagliflozin propanediol [Farxiga] 10 mg tablet 10 mg PO DAILY ipratropium-albuterol 0.5 mg-3 mg(2.5 mg base)/3 mL solution for nebulization 3 ml INHALATION QID Referrals Follow up/Referrals: Provider,Referral, MD [Primary Care Provider, Medical] - See instructions Activity Restrictions/Add. Instructions Additional Instructions/Restrictions: No evidence of a significant emergent medical condition today. Specifically no evidence of bleeding stool was negative for Hemoccult blood no significant loss in his hemoglobin also other blood counts were not consistent with an upper or lower gastrointestinal bleed. Therefore hospitalization was not indicated. Patient does have ongoing significant evidence of any urinary tract infection and is currently being followed by urology needs to continue to follow-up with urology and take his antibiotics that we prescribed today. Clinical Impressions Clinical Impression: UTI (urinary tract infection) Instructions Patient Instructions: DI for Diarrhea and Traveler's Diarrhea -- Adult, DI for Diarrhea and Traveler's Diarrhea -- Child, DI for Nausea -- Adult, DI for Nausea -- Child Print Language Print Language: Slovenian Discharge ED Provider: Michael Doherty General Adult HPI <Michael Doherty MD - Last Filed: 09/27/24 15:43> General Chief complaint: Nausea/Vomiting/Diarrhea Stated complaint: Diarrhea Time Seen by Provider: 09/27/24 14:36 Mode of Arrival: EMS Source of Information: Patient Limitations: No Limitations History of Present Illness HPI narrative: Donte Trujillo is an 83y male with a history of heart valve replacement on Plavix, lumbar fusion, coronary artery disease, COPD, GERD who [facility] concern for GI bleeding. Patient states that for the last week, he has had multiple episodes of dark, black diarrhea daily. He states that he has had at least 3 episodes of diarrhea daily. He denies any bright red blood. He notes that he is currently on iron supplementation, MiraLAX and feels like that is the cause of his dark stools. He reports some lower abdominal pain but states that that is always present. He notes that he was seen by Dr. Boykin earlier today and was told that he will need prostate surgery but will have to have clearance before hand. The [facility] setting here due to concern for GI bleeding. Related Data Home Medications ?Medication ?Instructions ?Recorded ?Confirmed clopidogrel 75 mg tablet 75 mg PO DAILY 05/12/17 09/27/24 insulin degludec 200 unit/mL (3 17 unit SQ DAILY 09/15/23 09/27/24 mL) subcutaneous pen (Tresiba FlexTouch U-200 insulin) insulin lispro 100 unit/mL 0 unit SQ DIRECTED 09/15/23 09/27/24 subcutaneous solution tramadol 50 mg tablet 50 mg PO TID 10/20/23 09/27/24 ferrous sulfate 325 mg (65 mg 325 mg PO DAILY 01/01/24 09/27/24 iron) tablet (FeroSul) acetaminophen 650 mg 650 mg PO Q8HP PRN arthritis pain 01/19/24 09/27/24 tablet,extended release (Tylenol 8 Hour) diclofenac sodium 1 % topical gel 4 g topical BIDP PRN Pain (Scale 01/19/24 09/27/24 Score 1-6) insulin syringe,safety needle 1 mL 01/19/24 09/27/24 31 gauge x 15/64 (BD SafetyGlide Insulin Syringe) pen needle, diabetic, safety 29 01/19/24 09/27/24 gauge x 5/16 pen needle,diabetic dual safty 30 01/19/24 09/27/24 gauge x 3/16 (BD AutoShield Duo Pen Needle) ammonium lactate 12 % lotion 1 applic topical HS 03/17/24 09/27/24 dextromethorphan-guaifenesin 5 10 ml PO Q4HP PRN Cough 03/17/24 09/27/24 mg-100 mg/5 mL oral liquid (Tussin DM Max) loratadine 10 mg tablet 10 mg PO DAILY 03/17/24 09/27/24 ondansetron HCl 4 mg tablet 4 mg PO Q6HP PRN nausea 03/17/24 09/27/24 pantoprazole 40 mg tablet,delayed 40 mg PO DAILY 03/17/24 09/27/24 release bumetanide 1 mg tablet 1 mg PO DAILY 03/18/24 09/27/24 dapagliflozin propanediol 10 mg 10 mg PO DAILY 03/18/24 09/27/24 tablet (Farxiga) escitalopram oxalate 20 mg tablet 20 mg PO DAILY 03/18/24 09/27/24 gabapentin 100 mg capsule 200 mg PO TID 03/18/24 09/27/24 insulin lispro 100 unit/mL 4 unit SQ DAILY 03/18/24 09/27/24 subcutaneous solution ipratropium 0.5 mg-albuterol 3 mg 3 ml inhalation QID 03/18/24 09/27/24 (2.5 mg base)/3 mL nebulization soln amlodipine 5 mg tablet 5 mg PO DAILY 04/29/24 09/27/24 [id number]-[id number] 1 applic topical DAILY 05/19/24 09/27/24 petrolatum topical cream (Cetaphil Moisturizing topical cream) metoprolol succinate 25 mg 25 mg PO HS 05/19/24 09/27/24 tablet,extended release 24 hr Previous Rx's ?Medication ?Instructions ?Recorded polyethylene glycol 3350 17 17 g PO DAILY 30 days #510 grams 03/13/23 gram/dose oral powder sennosides 8.6 mg capsule (senna) 8.6 mg PO BID #60 caps 03/13/23 levofloxacin 500 mg tablet 500 mg PO DAILY 7 days #7 tabs 07/12/24 cefdinir 300 mg capsule 300 mg PO BID 10 days #20 caps 09/27/24 finasteride 5 mg tablet (Proscar) 5 mg PO DAILY 90 days #90 tabs 09/27/24 tamsulosin 0.4 mg capsule (Flomax) 0.4 mg PO DAILY 90 days #90 caps 09/27/24 Allergies Allergy/AdvReac Type Severity Reaction Status Date / Time shrimp Allergy Unknown Verified 08/30/24 09:26 allergy reaction iodine AdvReac Unknown Verified 08/30/24 09:26 allergy reaction PFSH <Michael Doherty MD - Last Filed: 09/27/24 15:43> [facility] Disclaimer: The information contained in this section may have been updated after the patient was seen, as this information can be updated by other users. Medical History Right ear pain Difficulty swallowing Urinary incontinence Allergies Chronic sinusitis Chronic pain of both ears Impacted cerumen of both ears Tinnitus Nasal congestion Acute pain of both ears Fullness in both ears Complex laceration of scalp Encounter for medical assessment GERD (gastroesophageal reflux disease) Allergic rhinitis Ear congestion CAD (coronary artery disease) HLD (hyperlipidemia) COPD (chronic obstructive pulmonary disease) HHD (hypertensive heart disease) Carotid artery disease Shortness of Breath Surgical History H/O knee surgery Heart valve replaced History of open heart surgery History of lumbar fusion Family History Other Heart attack Heart disease Social History Smoking Status: Former smoker second hand exposure: No alcohol intake: never substance use type: denies use current occupational status: retired Travel in the last 8 weeks?: None housing: [facility] caffeine: No Have you lived/traveled outside [place] in past 30 days?: No Contact w/someone who lives/traveled outside US past 30 days?: No Exposure to someone with infectious disease in past 14 days?: No Do you have a fever (greater than 100.4 F or 38 C)?: No Have you tested positive for COVID-19?: No Exposed to someone with COVID-19 in past 14 days?: No Do you have a sore throat?: No Do you have a cough?: No Do you have any weakness?: No Do you have any diarrhea?: Yes Are you experiencing any unusual bleeding?: No Do you have any muscle aches/pain?: No Do you have any abdominal pain?: No Are you experiencing loss of taste or smell?: No Other Medical History Have you received the Flu Vaccine for this season: No Have you received the Pneumonia Vaccine: Yes <Michael Doherty MD - Last Filed: 09/27/24 15:43> ROS Obtained: Yes Systems reviewed as appropriate & no additional complaints except as documented Physical Exam <Michael Doherty MD - Last Filed: 09/27/24 15:43> General General appearance: alert and in no apparent distress Head Head exam: atraumatic Eye Eye exam: Present normal appearance ENT ENT exam: Present normal external ear exam Neck Neck exam: Present full ROM Chest Chest inspection: Present symmetric chest wall rise Respiratory Respiratory exam: Present normal lung sounds bilaterally; Absent respiratory distress Cardiovascular Cardiovascular exam: Present regular rate and normal rhythm Abdominal Exam Abdominal exam: Present soft and tenderness (Right lower quadrant and suprapubic); Absent distention or guarding exam: Present deferred Extremities Exam Extremities exam: Present normal inspection Back Exam Back exam: Present normal inspection Neurological Exam Neurological exam: Present alert and oriented X3 Psychiatric Psychiatric exam: Present normal affect Skin Skin exam: Present warm and dry Medical Decision Making <Michael Doherty MD - Last Filed: 09/27/24 15:43> Medical Records Screening: Per USPSTF and CDC recommendations, given the prevalence of disease in our region, it is our hospital?s policy to screen for HIV and viral Hepatitis for all patients aged 18 and over and those with ongoing risk factors. Herman Inquiry Pt receiving controlled substance: No Vital Signs: 09/27/24 14:39 09/27/24 14:54 09/27/24 14:54 Temperature 99 F Temperature Source Oral Pulse Rate 68 67 Pulse Rate [Right Brachial] 69 Respiratory Rate 17 Blood Pressure 199/83 H 193/79 H Blood Pressure [Right Arm] 199/83 H Blood Pressure Mean [Right Arm] 121 Blood Pressure Source [Right Arm] Automatic Cuff Blood Pressure Position [Right Arm] Supine 02 Sat by Pulse Oximetry 97 97 98 Oxygen Delivery Method Room Air 09/27/24 15:00 09/27/24 16:07 Temperature Temperature Source Pulse Rate 65 70 Pulse Rate [Right Brachial] Respiratory Rate Blood Pressure 193/75 H 185/80 H Blood Pressure [Right Arm] Blood Pressure Mean [Right Arm] Blood Pressure Source [Right Arm] Blood Pressure Position [Right Arm] 02 Sat by Pulse Oximetry 97 97 Oxygen Delivery Method Lab Data Lab Results 09/27/24 14:45: WBC 9.4, RBC 3.70 L, Hgb 11.0 L, Hct 33.2 L, MCV 89.7, MCH 29.7, MCHC 33.1, RDW 13.7, Plt Count 228, MPV 9.1, Neut % (Auto) 66.4, Lymph % (Auto) 17.7, [place] % (Auto) 12.7 H, Eos % (Auto) 2.4, Baso % (Auto) 0.5, Neut # (Auto) 6.2, Lymph # (Auto) 1.7, [place] # (Auto) 1.2 H, Eos # (Auto) 0.2, Baso # (Auto) 0.1, PT 11.1, INR 1.00, APTT 26.7, Sodium 137, Potassium 3.8, Chloride 107, Carbon Dioxide 22, Anion Gap 11.8, BUN 43 H, Creatinine 2.50 H, Estimated Creat Clear 26, Estimated GFR 25 L, Est GFR ( Amer) 30 L, Glucose 170 H, Calcium 9.5, Total Bilirubin 0.2, AST 23, ALT 17, Alkaline Phosphatase 76, Total Protein 7.3, Albumin 4.1, Globulin 3.2, Albumin/Globulin Ratio 1.3, Lipase 60 09/27/24 14:54: Stool Occult Blood Negative 09/27/24 15:10: Lactate 1.0 09/27/24 15:59: Urine Color Yellow, Urine Appearance Cloudy, Urine pH 6.0, Ur Specific [place] 1.020, Urine Protein 2+ A, Urine Glucose (UA) 3+, Urine Ketones Negative, Urine Blood 2+ A, Urine Nitrate Negative, Urine Bilirubin Negative, Urine Urobilinogen 0.2, Ur Leukocyte Esterase 3+ A, Urine RBC 10-20, Urine WBC Tntc, Ur Squamous Epith Cells 5-10, Urine Bacteria 3+, Urine Yeast 3+ 09/27/24 14:45 09/27/24 14:45 Orders (Tests/Meds): ED MEDICATIONS Generic Name Dose Route Start Last Admin Trade Name Freq PRN Reason Stop Dose Admin Lactated Ringer's 500 mls @ 250 mls/hr 09/27/24 15:40 09/27/24 16:07 Lactated Ringer's 500ml IV 09/27/24 17:39 250 mls/hr .Q2H ONE Administration Sodium Chloride 10 ml 09/27/24 15:43 09/27/24 15:45 Sodium Chloride 0.9% 10ml Syr (Rad Only) IV 10/27/24 15:42 10 ml NEEDED PRN Administration Maintain IV Site Discontinued Medications Generic Name Dose Route Start Last Admin Trade Name Freq PRN Reason Stop Dose Admin Iopamidol 80 ml 09/27/24 15:43 09/27/24 15:45 Iopamidol-370 (76%);100ml Bottle IV 09/27/24 15:44 80 ml ONCE ONE Administration Sodium Chloride 50 ml 09/27/24 15:43 09/27/24 15:45 0.9 % Sodium Chloride 50 Ml Vial IV 09/27/24 15:44 50 ml ONCE ONE Administration ORDERS Category Date Time Status CT angio abd/pel - GI Bleed Stat Cat Scan 09/27/24 14:42 Completed CBC w/Auto Diff [Complete Blood Count Auto Diff] Stat Lab 09/27/24 14:45 Completed CMP [Comprehensive Metabolic Panel] Stat Lab 09/27/24 14:45 Completed Lactic Acid Stat Lab 09/27/24 15:10 Completed Lipase Stat Lab 09/27/24 14:45 Completed Occult Blood,Stool Stat Lab 09/27/24 14:54 Completed PT INR [Prothrombin Time INR] Stat Lab 09/27/24 14:45 Completed PTT [Activated Partial Thrombo Time] Stat Lab 09/27/24 14:45 Completed UA [Urinalysis and Microscopic] Stat Lab 09/27/24 15:59 Completed Urine Culture Stat Micro 09/27/24 15:59 Received Medical Decision Narrative: Donte Trujillo is an 83y male with a history of heart valve replacement on Plavix, lumbar fusion, coronary artery disease, COPD, GERD who [facility] for concern for GI bleeding. Patient states that for the last week, he has had multiple episodes of dark, black diarrhea daily. He states that he has had at least 3 episodes of diarrhea daily. He denies any bright red blood. He notes that he is currently on iron supplementation, MiraLAX and feels like that is the cause of his dark stools. He reports some lower abdominal pain but states that that is always present. He notes that he was seen by Dr. Boykin earlier today and was told that he will need prostate surgery but will have to have clearance before hand. The [facility] setting here due to concern for GI bleeding. On arrival, patient is hypertensive with blood pressure 193/75, heart rate within normal limits, breathing comfortably on room air with oxygen saturation 97% SpO2. Afebrile. Physical exam, as stated above, reveals an overall well-appearing male in no distress. Cardiopulmonary exam is unremarkable. Abdomen is mildly tender in the right lower and suprapubic area. No guarding or rebound. No rigidity. Patient appears well-hydrated and well-perfused. Patient has some bruising on the left side of her forehead, and patient was evaluated the emergency department several days ago and sustained a fall where he developed a hematoma and abrasion to the left side of the forehead. It does look improved from his exam at that time. Differential diagnosis includes, but is not limited to: Upper lower GI bleed, GI bleed, polypharmacy, dark stool secondary to iron supplementation, anemia, diverticulitis, among others. The most morbid conditions were considered and workup was based on these. Workup in the emergency department included: CBC with differential, CMP, PT/INR, APTT, fecal Hemoccult testing, lactic acid, urinalysis, CTA abdomen pelvis GI bleed protocol. Workup thus far shows negative Hemoccult testing, hemoglobin of 11 and hematocrit of 33.2 (baseline hemoglobin appears to be between 8 and 9), platelets within normal limits at 228, normal coagulation studies, elevated creatinine of 2.5 (at baseline), BUN of 43 (baseline in the 50-60 range), creatinine clearance is 25. Glucose of 170. Lactate normal at 1.0. Urinalysis pending at this time Patient has an iodine contrast allergy listed in his chart, however when I asked the patient about the allergy, he is not aware of any interaction that he has had with contrast dye. Will administer 500 cc fluid bolus and proceed with contrasted study to rule out GI bleed. At this time, patient's care was transferred to the oncoming physician pending completion of patient's CT imaging and urine studies. <Isidro Faust MD - Last Filed: 09/27/24 17:08> Vital Signs: 09/27/24 14:39 09/27/24 14:54 09/27/24 14:54 Temperature 99 F Temperature Source Oral Pulse Rate 68 67 Pulse Rate [Right Brachial] 69 Respiratory Rate 17 Blood Pressure 199/83 H 193/79 H Blood Pressure [Right Arm] 199/83 H Blood Pressure Mean [Right Arm] 121 Blood Pressure Source [Right Arm] Automatic Cuff Blood Pressure Position [Right Arm] Supine 02 Sat by Pulse Oximetry 97 97 98 Oxygen Delivery Method Room Air 09/27/24 15:00 09/27/24 16:07 Temperature Temperature Source Pulse Rate 65 70 Pulse Rate [Right Brachial] Respiratory Rate Blood Pressure 193/75 H 185/80 H Blood Pressure [Right Arm] Blood Pressure Mean [Right Arm] Blood Pressure Source [Right Arm] Blood Pressure Position [Right Arm] 02 Sat by Pulse Oximetry 97 97 Oxygen Delivery Method Lab Data Lab results reviewed: Yes I reviewed the patient's lab results. Lab Results 09/27/24 14:45: WBC 9.4, RBC 3.70 L, Hgb 11.0 L, Hct 33.2 L, MCV 89.7, MCH 29.7, MCHC 33.1, RDW 13.7, Plt Count 228, MPV 9.1, Neut % (Auto) 66.4, Lymph % (Auto) 17.7, [place] % (Auto) 12.7 H, Eos % (Auto) 2.4, Baso % (Auto) 0.5, Neut # (Auto) 6.2, Lymph # (Auto) 1.7, [place] # (Auto) 1.2 H, Eos # (Auto) 0.2, Baso # (Auto) 0.1, PT 11.1, INR 1.00, APTT 26.7, Sodium 137, Potassium 3.8, Chloride 107, Carbon Dioxide 22, Anion Gap 11.8, BUN 43 H, Creatinine 2.50 H, Estimated Creat Clear 26, Estimated GFR 25 L, Est GFR ( Amer) 30 L, Glucose 170 H, Calcium 9.5, Total Bilirubin 0.2, AST 23, ALT 17, Alkaline Phosphatase 76, Total Protein 7.3, Albumin 4.1, Globulin 3.2, Albumin/Globulin Ratio 1.3, Lipase 60 09/27/24 14:54: Stool Occult Blood Negative 09/27/24 15:10: Lactate 1.0 09/27/24 15:59: Urine Color Yellow, Urine Appearance Cloudy, Urine pH 6.0, Ur Specific [place] 1.020, Urine Protein 2+ A, Urine Glucose (UA) 3+, Urine Ketones Negative, Urine Blood 2+ A, Urine Nitrate Negative, Urine Bilirubin Negative, Urine Urobilinogen 0.2, Ur Leukocyte Esterase 3+ A, Urine RBC 10-20, Urine WBC Tntc, Ur Squamous Epith Cells 5-10, Urine Bacteria 3+, Urine Yeast 3+ Orders (Tests/Meds): ED MEDICATIONS Generic Name Dose Route Start Last Admin Trade Name Freq PRN Reason Stop Dose Admin Lactated Ringer's 500 mls @ 250 mls/hr 09/27/24 15:40 09/27/24 16:07 Lactated Ringer's 500ml IV 09/27/24 17:39 250 mls/hr .Q2H ONE Administration Sodium Chloride 10 ml 09/27/24 15:43 09/27/24 15:45 Sodium Chloride 0.9% 10ml Syr (Rad Only) IV 10/27/24 15:42 10 ml NEEDED PRN Administration Maintain IV Site Discontinued Medications Generic Name Dose Route Start Last Admin Trade Name [place] PRN Reason Stop Dose Admin Iopamidol 80 ml 09/27/24 15:43 09/27/24 15:45 Iopamidol-370 (76%);100ml Bottle IV 09/27/24 15:44 80 ml ONCE ONE Administration Sodium Chloride 50 ml 09/27/24 15:43 09/27/24 15:45 0.9 % Sodium Chloride 50 Ml Vial IV 09/27/24 15:44 50 ml ONCE ONE Administration ORDERS Category Date Time Status CT angio abd/pel - GI Bleed Stat Cat Scan 09/27/24 14:42 Completed CBC w/Auto Diff [Complete Blood Count Auto Diff] Stat Lab 09/27/24 14:45 Completed CMP [Comprehensive Metabolic Panel] Stat Lab 09/27/24 14:45 Completed Lactic Acid Stat Lab 09/27/24 15:10 Completed Lipase Stat Lab 09/27/24 14:45 Completed Occult Blood,Stool Stat Lab 09/27/24 14:54 Completed PT INR [Prothrombin Time INR] Stat Lab 09/27/24 14:45 Completed PTT [Activated Partial Thrombo Time] Stat Lab 09/27/24 14:45 Completed UA [Urinalysis and Microscopic] Stat Lab 09/27/24 15:59 Completed Urine Culture Stat Micro 09/27/24 15:59 Received Medical Decision Narrative: Donte Trujillo is an 83y male with a history of heart valve replacement on Plavix, lumbar fusion, coronary artery disease, COPD, GERD who [facility]. Patient states that for the last week, he has had multiple episodes of dark, black diarrhea daily. He states that he has had at least 3 episodes of diarrhea daily. He denies any bright red blood. He notes that he is currently on iron supplementation, MiraLAX and feels like that is the cause of his dark stools. He reports some lower abdominal pain but states that that is always present. He notes that he was seen by Dr. Boykin earlier today and was told that he will need prostate surgery but will have to have clearance before hand. The [facility] setting here due to concern for GI bleeding. On arrival, patient is hypertensive with blood pressure 193/75, heart rate within normal limits, breathing comfortably on room air with oxygen saturation 97% SpO2. Afebrile. Physical exam, as stated above, reveals an overall well-appearing male in no distress. Cardiopulmonary exam is unremarkable. Abdomen is mildly tender in the right lower and suprapubic area. No guarding or rebound. No rigidity. Patient appears well-hydrated and well-perfused. Patient has some bruising on the left side of her forehead, and patient was evaluated the emergency department several days ago and sustained a fall where he developed a hematoma and abrasion to the left side of the forehead. It does look improved from his exam at that time. Differential diagnosis includes, but is not limited to: Upper lower GI bleed, GI bleed, polypharmacy, dark stool secondary to iron supplementation, anemia, diverticulitis, among others. The most morbid conditions were considered and workup was based on these. Workup in the emergency department included: CBC with differential, CMP, PT/INR, APTT, fecal Hemoccult testing, lactic acid, urinalysis, CTA abdomen pelvis GI bleed protocol. Workup thus far shows negative Hemoccult testing, hemoglobin of 11 and hematocrit of 33.2 (baseline hemoglobin appears to be between 8 and 9), platelets within normal limits at 228, normal coagulation studies, elevated creatinine of 2.5 (at baseline), BUN of 43 (baseline in the 50-60 range), creatinine clearance is 25. Glucose of 170. Lactate normal at 1.0. Urinalysis pending at this time Patient has an iodine contrast allergy listed in his chart, however when I asked the patient about the allergy, he is not aware of any interaction that he has had with contrast dye. Will administer 500 cc fluid bolus and proceed with contrasted study to rule out GI bleed. At this time, patient's care was transferred to the oncoming physician pending completion of patient's CT imaging and urine studies. This is Dr. Faust I took over from Dr. Barker around 3 PM. Awaiting scan and labs. Hemoccult was negative. H&H is actually better than it has been in the past BUN/creatinine ratio is no significantly different than it was in the past. This is not consistent with a significant upper or lower gastrointestinal bleed. Scan was performed I personally interpreted which shows no evidence of any emergent medical condition. Specifically no evidence of any active GI bleed. There is dense calcification of the origin of the celiac arteries and SMA but his symptoms not consistent with mesenteric ischemia. Serial clinical exams he has benign abdominal exam. He is followed by urology actually seen by urology earlier today recently completed doxycycline for urinary tract infection he has evidence of ongoing infection will prescribe cefdinir has been made aware of this and will follow-up with urology. Patient was discharged in a stable condition. Critical Care <Michael Doherty MD - Last Filed: 09/27/24 15:43> Critical Care Time Critical Care Time: No
--- OUTSIDE RECORDS SUMMARY | 2024-09-27 14:44 | XMS_ITS | Clinical Summary ---
Author Organization [facility] Address [address] [place] [address] Phone Care Team Providers Care Morning Show Host Name Role Phone Manan PEREZ, [facility] Conditions or Problems Problem Name Problem Code Onset Date Status Entry Date Provider Comment Standard Description Annotate SPINAL STENOSIS, LUMBAR M48.06 (ICD-10-CM ) Active Mansi Amanda MA Spinal stenosis, lumbar region Medications Medication Instructions Start Date Stop Date Generic Name NDC Provider BABY ASPIRIN 81 MG CHEW 1 daily Non-[place] 0 ASPIRIN [id number] Mansioseas Amanda MA DIOVAN HCT 160-12.5 MG TABS 1 daily [place] 0 VALSARTAN-HYDROC HLOROTHIAZIDE [id number] Mansioseas Amanda OR GABAPENTIN 300 MG CAPS 1 daily [place] 0 GABAPENTIN [id number] Mansioseas Amanda MA LOTREL 10-20 MG CAPS 1 daily [place] 0 AMLODIPINE BESY-BENAZEPRIL HCL [id number] Mansioseas Amanda MA DICLOFENAC SODIUM 75 MG TBEC 1 daily [place] 0 DICLOFENAC SODIUM [id number] Mansioseas Amanda OR AVANDIA 8 MG ORAL TABLET 1 daily [place] 0 ROSIGLITAZONE MALEATE [id number] Mansioseas Amanda MA FLUOXETINE HCL 40 MG CAPS 1 daily [place] 0 FLUOXETINE HCL [id number] Mansi Amanda OR PLAVIX 75 MG TABS 1 daily Non-[place] 0 CLOPIDOGREL BISULFATE [id number] Mansioseas Amanda OR LIPITOR 20 MG TABS 1 daily [place] 0 ATORVASTATIN CALCIUM [id number] [facility] Medications Administered No information available. Allergies, Adverse [...]
--- OUTSIDE RECORDS SUMMARY | 2024-09-27 14:45 | XMS_ITS | Encounter Summary ---
Author Organization Healthcare Address [address] [place] [address] Care Team Providers Care Software Team Leader Name Role Phone Sylvester Bynum MD Primary Care Provider + [phone] Encounter Details Date Type Department Care Team (Late Contact Info) Description 09/03/2024 Telephone [facility] [address], [address] [place] [address] Teena Soto I, [facility] Social History Tobacco Use [...] 09/03/2024 11:39 AM EDT Returned call to [facility] [place] [facility] for urology scheduling; no answer, left vm with name/number. documented in this encounter Plan of Treatment Upcoming Encounters Date Type Department Care Team (Late Contact Info) Description 10/06/2024 3:00 PM EDT Office Visit [facility] Nephrology, Bone & Mineral Metabolism [address] [facility], [address] [place] [address] Moshe Jack MD [address] [place] [address] 10/27/2024 1:00 PM EDT Consult Medical Office Building Urology [address] [facility], [address] [place] [address] Aaron Marie MD [address] [place] [address] documented as of this encounter Visit Diagnoses Not on filedocumented in this encounter Care Teams Software Team Leader Relationship Specialty Start Date End Date Sylvester Bynum MD [address] [place] [address] PCP - General 09/01/24 documented as of this encounter
--- OUTSIDE RECORDS SUMMARY | 2024-09-27 14:45 | XMS_ITS | Encounter Summary ---
Author Organization [facility] Address [address] [place] [address] Care Team Providers Care Re Etcher Name Role Phone Sylvester Bynum MD Primary Care Provider [phone] Encounter Details Date Type Department Care Team (Late Contact Info) Description 09/06/2024 Orders Only [facility] [address] [place] [address] [place] CKD (chronic kidney [...] 10/06/2024 3:00 PM EDT Office Visit Professional [facility] Nephrology, Bone & Mineral Metabolism [address] [facility], [address] [place] [address] Moshe Jack MD [address] [place] [address] 10/27/2024 1:00 PM EDT Consult Medical Office Building Urology [address] [facility], [address] [place] [address] Aaron Marie MD [address] [place] [address] Scheduled Orders Name Type Priority Associated Diagnoses Orde r Schedule Renal Function Panel, Plasma Lab Routine CKD (chronic kidney disease) stage 4, GFR 15-29 ml/min ([facility]) Expected: 09/06/2024 (Approximate), Expires: 03/09/2026 CBC and Differential Lab Routine CKD (chronic kidney disease) stage 4, GFR 15-29 ml/min ([facility]) Expected: 09/06/2024 (Approximate), Expires: 03/09/2026 Creatinine, Random, Urine Lab Routine CKD (chronic kidney disease) stage 4, GFR 15-29 ml/min ([facility]) Expected: 09/06/2024 (Approximate), Expires: 03/09/2026 Protein, Random, Urine with Creatinine Lab Routine CKD (chronic kidney disease) stage 4, GFR 15-29 ml/min ([facility]) Expected: 09/06/2024 (Approximate), Expires: 03/09/2026 Urinalysis with reflex microscopic (Culture NOT Included) Lab Routine CKD (chronic kidney disease) stage 4, GFR 15-29 ml/min ([facility]) Expected: 09/06/2024 (Approximate), Expires: 03/09/2026 PTH Intact Total Lab Routine CKD (chronic kidney disease) stage 4, GFR 15-29 ml/min ([facility]) Vitamin D insufficiency Expected: 09/06/2024 (Approximate), Expires: 03/09/2026 Vitamin D 25 Hydroxy Lab Routine CKD (chronic kidney disease) stage 4, GFR 15-29 ml/min ([facility]) Vitamin D insufficiency Expected: 09/06/2024 (Approximate), Expires: 03/09/2026 documented as of this encounter Visit Diagnoses Diagnosis CKD (chronic kidney disease) stage 4, GFR 15-29 ml/min ([facility])- Primary Chronic kidney disease, Stage IV (severe) Vitamin D insufficiency documented in this encounter Care Teams Re Etcher Relationship Specialty Start Date End Date Sylvester Bynum MD [facility] [place] [address] PCP - General 09/01/24 documented as of this encounter
--- OUTSIDE RECORDS SUMMARY | 2024-09-27 14:45 | XMS_ITS | Encounter Summary ---
Author Organization [facility] Address [address] [place] [address] Care Team Providers Care Extractor Operator Name Role Phone Sylvester Bynum MD Primary Care Provider + [phone] Encounter Details Date Type Department Care Team (Late Contact Info) Description 09/03/2024 Telephone [facility] [address], [address] [place] [address] Teena Soto I, RN [facility] UR[facility]INIC Social History Tobacco [...] RN - 09/03/2024 7:29 AM EDT Called [facility] to schedule urology appointment; no answer, left vm with name/number. documented in this encounter Plan of Treatment Upcoming Encounters Date Type Department Care Team (Late Contact Info) Description 10/06/2024 3:00 PM EDT Office Visit [facility] Nephrology, Bone & Mineral Metabolism [address] [facility], [address] [place] [address] Moshe Jack MD [address] [place] [address] 10/27/2024 1:00 PM EDT Consult Medical Office Building Urology [address] [facility], [address] [place] [address] Aaron Marie MD [address] [place] [address] documented as of this encounter Visit Diagnoses Not on filedocumented in this encounter Care Teams Extractor Operator Relationship Specialty Start Date End Date Sylvester Bynum MD [address] [place] [address] PCP - General 09/01/24 documented as of this encounter
--- OUTSIDE RECORDS SUMMARY | 2024-09-27 14:45 | XMS_ITS | Clinical Summary ---
Author Organization Healthcare Address [address] [place] [address] Care Team Providers Care Boat Engines Installer Name Role Phone Sylvester Bynum MD Primary Care Provider [phone] Encounters Date Type Department Care Team Description 09/06/2024 Orders Only [facility] [address] [place] [address] [place] CKD (chronic kidney disease) stage 4, GFR 15-29 ml/min (CMS/HCC) (Primary Dx); Vitamin D insufficiency 09/03/2024 Telephone [facility] Urology [address] [place] [address] Teena Soto I, RN 09/03/2024 Telephone [facility] Urology [address], [address] [place] [address] Teena Soto I, RN from [...] Nephrology, Bone & Mineral Metabolism [address] [facility], [address] [place] [address] Moshe Jack MD [address] [place] [address] 10/27/2024 1:00 PM EDT Consult Medical Office Building Urology [address] [facility], [address] [place] [address] Aaron Marie MD [address] [place] [address] Health Maintenance Due Date Last Done Comments [facility]-Depression Screening 1940 [facility]-Medicare Annual Wellness (AWV) 1940 [facility]-Infant/Child/Adol SDOH Screenings 1940 [facility]- SDOH Screenings 11/01/1957 [facility]-Adult SDOH Screenings 11/01/1957 [facility]-Zoster Vaccines (1 of 2) 11/01/1989 [facility]-RSV Vaccine: 60+ Years or (1 - 1-dose 75+ series) 11/01/2014 [id number] Vaccine ( season) 2023 12/17/2022, 11/28/2021, 07/18/2021, [...] Payer (Ef fective 2004-Present) Name:Donte Trujillo Member ID:[id number] Relation to Subscriber:Self Name:Donte Trujillo Subscriber ID:[id number] Payer ID:MEDICARE Group ID:Not on file Type:Medicare Address: [place] [phone] Care Teams Boat Engines Installer Relationship Specialty Start Date End Date Sylvester Bynum MD [facility] [place] [address] PCP - General 09/01/24
[2024-09-27 14:54] VITALS: BP 193/79; BP 199/83; PULSE 67; PULSE 69; RESP 17; TEMP 37.2; O2SAT 97; O2SAT 98; BMI 29.2
[2024-09-27 14:56] LABS: Hematocrit 33.2 % (42.0-52.0); Hemoglobin 11.0 g/dL (14.1-18.0); Immature Granulocytes % 0.3 %; Mean Corpuscular HGB Conc 33.1 g/dL (31.8-35.4); Mean Corpuscular Hemoglobin 29.7 pg (27.0-31.2); Mean Corpuscular Volume 89.7 fl (80-94); Nucleated Red Blood Cells % 0 %; Platelet Count 228 K/mm3 (142-424); Red Blood Count 3.70 M/mm3 (4.60-6.20); Red Cell Distribution Width-SD 45.0 fL; White Blood Count 9.4 K/mm3 (4.8-10.8)
[2024-09-27 15:00] VITALS: BP 193/75; PULSE 65; O2SAT 97
[2024-09-27 15:00] LABS: Occult Blood,Stool Negative (Negative)
[2024-09-27 15:08] LABS: Alanine Aminotransferase 17 U/L (12-78); Albumin Level 4.1 g/dl (3.5-5.0); Albumin/Globulin Ratio 1.3 (1.1-1.8); Alkaline Phosphatase 76 U/L (38-126); Anion Gap 11.8 mEq/L (5-15); Aspartate Amino Transferase 23 U/L (17-59); Bilirubin,Total 0.2 mg/dl (0.2-1.3); Blood Urea Nitrogen 43 mg/dl (9-20); Calcium 9.5 mg/dl (8.4-10.2); Carbon Dioxide 22 mmol/L (22.0-30.0); Chloride 107 mmol/L (98-107); Creatinine Clearance Estimated 26 mL/min (50-200); Creatinine,Serum 2.50 mg/dl (0.66-1.25); Estimated Glomerular Filt Rate 25 ml/min (>60); GFR (African American) 30 ML/MIN (>60); Globulin 3.2 g/dL (1.3-3.2); Glucose 170 mg/dl (74-100); Lipase 60 U/L (23-300); Potassium 3.8 mmoL/L (3.5-5.1); Sodium 137 mmol/L (136-145); Total Protein,Serum 7.3 g/dl (6.3-8.2)
[2024-09-27 15:23] LABS: Activated Partial Thrombo Time 26.7 seconds (22.8-30.6); INR 1.00 (0.9-1.1); Prothrombin Time 11.1 seconds (10.1-12.5)
[2024-09-27] MEDS: 0.9 % SODIUM CHLORIDE 50 ML VIAL IV (15:45)
[2024-09-27] MEDS: SODIUM CHLORIDE 0.9% 10ML SYR (RAD ONLY) 10 ML IV (15:45)
[2024-09-27] MEDS: IOPAMIDOL-370 (76%);100ML BOTTLE 80 ML IV (15:45)
[2024-09-27 16:05] LABS: Bilirubin,Urine Negative (Negative); Color,Urine YELLOW (Yellow); Glucose,Urine (UA) 3+ (Negative); Ketones,Urine Negative (Negative); Leukocyte Esterase,Urine 3+ (Negative); Microscopic, Urine URINE MICROSCOPIC (MICROSCOPIC); PH,Urine 6.0 (5.0-8.5); Protein,Urine 2+ (Negative); Specific Gravity, Urine 1.020 (1.005-1.030); Urobilinogen,Urine 0.2 EU/dl (0.2)
[2024-09-27 16:07] VITALS: BP 185/80; PULSE 70; O2SAT 97
[2024-09-27] MEDS: RINGERS SOLUTION,LACTATED 500 ML 250 ML IV (16:07)
[2024-09-27 16:27] LABS: WBC,Urine TNTC #/hpf (0-3)
[2024-09-27 16:31] LABS: Bacteria,Urine 3+ /lpf
--- NOTE | 2024-09-27 17:33 | PC.NURSE ---
called [facility] ems for transport back to [facility]
[2024-09-27 17:34] VITALS: BP 198/80; PULSE 70; RESP 18; TEMP 37.2; O2SAT 98
--- NOTE | 2024-09-27 17:40 | PC.NURSE ---
Report given back to Chantelle at [facility]
== END 2024-09-27 18:27 | disposition home or self-care (01) ==
PROVIDERS: Emergency Provider Student in an Organized Health Care Education/Training Program
DX: R10.30 Lower abdominal pain, unspecified (principal); N39.0 Urinary tract infection, site not specified; R11.2 Nausea with vomiting, unspecified; R19.7 Diarrhea, unspecified; K21.9 Gastro-esophageal reflux disease without esophagitis; E78.5 Hyperlipidemia, unspecified
CPT/HCPCS: 74174; 80053; 81001; 82272; 83605; 83690; 85025; 85610; 85730; 87086; 96360; 96361; 99285; G0328; J7120; Q9967

== ENCOUNTER 2024-11-12 09:34 | Outpatient (CLI) | payer MEDICARE, OTHER, MEDICAID, SELFPAY ==
--- OUTSIDE RECORDS SUMMARY | 2024-10-06 15:00 | XMS_ITS | Encounter Summary ---
Author Organization [facility] Address [address] [place] [address] Care Team Providers Care Hris Coordinator Name Role Phone Sylvester Bynum MD Primary Care Provider + [phone] Reason for Referral * Consultation (Routine) - Authorized Specialty Diagnoses / Procedures Referred By Contac t Referred To Contact Diagnoses GILBERT (acute kidney injury) (CMS/HCC) Chronic kidney disease-mineral and bone disorder (CKD-MBD) Moshe Jack MD [address] [place] [address] Phone: tel: fax: Referral ID Status Reason Start Date Expiration Date V isits Requested Visits Authorized [id number] Authorized 10/06/2024 04/07/2026 1 1 Reason for Visit * Reason Comments Consult Encounter Details Date Type Department Care Team ([facility] st Contact Info) Description 10/06/2024 3:00 PM EDT Office Visit Professional 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; Benign prostatic hyperplasia, unspecified whether lower urinary tract symptoms present Social History Tobacco Use Types Packs/Day Years Used Date Smoking Tobacco: Former Cigarettes Smokeless Tobacco: Never Tobacco Cessation:Counseling Given: Not Answered Alcohol Use Standard Drinks/Week Comments Never 0 (1 standard drink = 0.6 oz pur e alcohol) Sex and Gender Information Value Date Recorded Sex Assigned at Not on file Legal Sex Male 2:13 PM EDT Gender Identity Not on file Sexual Orientation Not on file documented as of this encounter Last Filed Vital Signs Vital Sign Reading Time Taken Comments Blood Pressure 179/75 10/06/2024 3:52 PM EDT pt states needs to void Pulse 59 10/06/2024 2:50 PM EDT Temperature - - Respiratory Rate - - Oxygen Saturation 97% 10/06/2024 2:3 4 PM EDT Inhaled Oxygen Concentration - - Weight 85.5 kg (188 lb 9.6 oz) 10/06/2024 2:34 PM EDT Height 170.2 cm (5' 7 ) 10/06/2024 2:34 PM EDT Body Mass Index 29.54 10/06/2024 2:34 PM EDT documented in this encounter Miscellaneous Notes * Progress Notes - John Sanchez MD - 10/06/2024 3:00 PM EDT Nephrology Outpatient Clinic New Consult Note Chronic Patient: Donte Trujillo Primary Care Provider: Sylvester Bynum MD Referring Provider: Sylvester Bynum MD Reason for consult: From urology, CKD 4 management HPI/Subjective Donte Trujillo is a 83 y.o. male with a PMH of T2DM, open heart surgery with valve replacement, BPH, OA, and CKD stage 4 Patient notes he is a and is living in a long-term currently. Does not have a primary care doctor he sees regularly but someone who visits the long-term to assess them, Dr. Bynum. They do not take his BP regularly and is often high when they do. It appears his baseline Cr is around2.2 and GFR of upper 20s. He is not able to provide much insight on his kidney disease history. He was referred from urology in [place] for management of CKD 4. 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 He is going to be evaluated by urology for surgical intervention but has not had the appointment yet. His PVRon 09/17/24 was 134cc per outside records. Patient notes urinary symptoms are better compared to the past regarding stream latency but he notes he has to urinate frequently throughout the day but only a few times overnight. He states he has started taking something for it (unable to specify) that has helped a little, but he continues to have frequent urination especially in daytime. Denies any blood in urine recently. Never required cathet erization in outpatient setting. It is of note patient does not have great recall into all of his medical history or medication use. CKD Risk Factors: Medical comorbidities: DM2, HTN Medications: Pantoprazole Anatomy: Last kidney imaging unknown Family history: No known history of kidney disease Social history: Started smoking at 14 couple packs a day, quit at 64; approx 70- 80 pack year history ROS Review of Systems Constitutional: Negative for activity change and appetite change. Respiratory: Negative for shortness of breath. Cardiovascular: Negative for leg swelling. Notes occasionally but not significant Gastrointestinal: Negative for abdominal pain. Genitourinary: Positive for frequency. Negative for difficulty urinating. Musculoskeletal: Positive for arthralgias. Neurological: Negative for dizziness. Hematological: Bruises/bleeds easily. History: Past Medical History[1] Problem List[2] Surgical History[3] Family History[4] Social History Socioeconomic History Marital status: Spouse name: Not on file Number of children: Not on file Years of education: Not on file Highest education level: Not on file Occupational History Not on file Tobacco Use Smoking status: Former Types: Cigarettes Smokeless tobacco: Never Substance and Sexual Activity Alcohol use: Never Drug use: Never Sexual activity: Not on file Other Topics Concern Not on file Social History Narrative Not on file Social Drivers of Health Financial Resource Strain: Not on file Food Insecurity: Not on file Transportation Needs: Not on file Physical Activity: Not on file Stress: Not on file Social Connections: Not on file Intimate Partner Violence: Not on file Housing Stability: Not on file Allergies[5] Medications: Current Medications: Current Outpatient Medications Medication Instructions Acetaminophen Extra Strength 500 MG tablet ascorbic acid (VITAMIN C) 500 mg, Daily bumetanide (Bumex) 1 MG tablet buPROPion XL (Wellbutrin XL) 150 MG 24 hr tablet cefdinir (Omnicef) 300 MG capsule ciprofloxacin-dexamethasone (CiproDEX) otic suspension 4 drops, 2 times daily clopidogrel (Plavix) 75 MG tablet escitalopram (Lexapro) 20 MG tablet Farxiga 10 MG tablet FeroSul 325 (65 Fe) MG tablet finasteride (Proscar) 5 MG tablet gabapentin (Neurontin) 100 MG capsule loperamide (IMODIUM) 2 mg, 4 times daily PRN losartan (Cozaar) 50 MG tablet methylcellulose oral powder Daily metoprolol succinate XL (Toprol-XL) 25 MG 24 hr tablet polyethylene glycol (MIRALAX) 17 g, Daily saccharomyces boulardii (FLORASTOR) 250 mg, 2 times daily senna (Senokot) 8.6 MG tablet 1 tablet, Nightly tamsulosin (Flomax) 0.4 MG 24 hr capsule tiZANidine (ZANAFLEX) 2 mg, 3 times daily Objective Visit Vitals BP (!) 179/49 Pulse 59 Ht 1.702 m (5' 7 ) Wt 85.5 kg (188 lb 9.6 oz) SpO2 97% BMI 29.54 kg/m?? Smoking Status Former BSA 2.01 m?? Heart Rate: [59] 59 BP: (179-184)/(49-70) 179/49 Physical Exam: Physical Exam Constitutional: General: He is not in acute distress. Comments: In power chair HENT: Head: Normocephalic and atraumatic. Right Ear: External ear normal. Left Ear: External ear normal. Mouth/Throat: Mouth: Mucous membranes are moist. Eyes: Extraocular Movements: Extraocular movements intact. Conjunctiva/sclera: Conjunctivae normal. Cardiovascular: Rate and Rhythm: Normal rate and regular rhythm. Heart sounds: No murmur heard. Pulmonary: Effort: Pulmonary effort is normal. No respiratory distress. Breath sounds: No wheezing. Abdominal: General: Abdomen is flat. Palpations: Abdomen is soft. Tenderness: There is no abdominal tenderness. Musculoskeletal: Right lower leg: No edema. Left lower leg: No edema. Skin: General: Skin is warm. Comments: Noted to have some abrasions on lower extremities Neurological: General: No focal deficit present. Mental Status: He is alert. Mental status is at baseline. Psychiatric: Mood and Affect: Mood normal. Behavior: Behavior normal. Laboratory: I have personally reviewed these lab results and discuss their significance below. LAB RESULTS Renal Panel: No results found for: NA , K , CL , CO2 , BUN , BUNPRE , BUNPOST , CREATININE , EGFR , CA , GLU , PHOS , ALBUMIN CBC: No results found for: WBC , RBC , HGB , HCT , PLT , MCV , MCH , MCHC , RDW , NRBC Iron studies: No results found for: FERRITIN , IRON , IRONSAT , TIBC Urine studies: No results found for: CAR , CAUR , CALCIUMUR , PHOSUR , [id number] , [id number] , CREATUR MBD: No results found for: PTH , CA , CALCIUM , ICAS , PHOS , MG VITAMIN D 25 No results found for: VITD25 VITAMIN D 1,25 No results found for: VITD32 Paraproteinemia Labs: No results found for: SPEP , KAPPALAMBDA Nutritional: No results found for: PREALBUMIN , VITD25 Endocrine profile: No results found for: TESTOSTERONE , TESTOST , FSH , LH , PROLACTIN , TSH , [id number] , FREET4 , CORTISOL Imaging: Renal US: noted to have 6.4cm cyst on right kidney, some increased cortical echogenicity Impression & Plan: #CKD Stage 4 Etiology: Multifactorial with T2DM, HTN, and obstructing BPH history Baseline serum creatinine: unclear, most recently has been around 2.2-2.3 Most recent Scr: 2.3 eGFR Electrolytes, acid base, volume status wnl Urine: 5-10 RBC, glu 3+, protein 100+ Anatomy: noted to have 6.4cm cyst on right kidney, some increased cortical echogenicity Risk factor reduction to slow progression of kidney disease: -BP Control goal BP <130/80 -DM control goal A1c <7.0%, not at goal, last noted to be 8.5 however goal may be slightly higher due to age -Lifestyle management: ---Maintain healthy weight: BMI 29.54 ---Diet recommendations: Heart healthy and Low sodium <2g/day ---Daily exercise as tolerated, dose use power chair for mobility so exercise limited -Avoid NSAIDs -LISBETH blockade: losartan 50 mg daily -SGLT2 inhibitor: On farxiga - Also noted to be taking bumex 1mg daily #HTN in CKD - Patient likely has long standing history of HTN. Currently takes amlodipine 5mg per outside records - BP elevated in clinic today at 179/75, patient initially had DBP of 49 - Given lower diastolic will not pursue aggressive changes this visit since greater understanding of patient's baseline would be ideal. Patient asymptomatic in clinic #Anemia in CKD -Hgb noted to be 10.6 in July, assuming patients baseline - Ferritin at lower range of normal - Monitor for now #CKD Bone and Mineral Disease - Electrolytes in range - Obtaining labs for PTH and vit D evaluation #Hyperlipidemia in CKD - Patient not taking statin per records - LDL at 87, no need given age Recommendations and plan: - Scr 2.3 - Will plan for no aggressive BP medication changes today in setting of lower DBP reading and unknown baseline outside of clinic, will address at follow up - Please attend upcoming urology appt for surgical evaluation of prostate, this would help with anyobstructive symptoms - Ordering additional urine protein studies, PTH, Vit D, CBC, RFP RTC in 3-4 months in [facility] specialty clinic in [place] with Dr. Jack It is a privilege to be involved in this patient's care. John Sanchez MD Internal Medicine, PGY-1 Secure chat preferred Moshe Jack MD Division of Nephrology [facility] Counseling Documentation: The patient was counseled regarding COUNSELING TOPICS: diagnostic results, prognosis, risks and benefit of treatment options, risk factor reductions, instructions for management, patient and family education, medication changes, diagnostic impressions, Heart healthy diet, regular physical activity and weight control, Avoidance of NSAIDs and other nephrotoxins, and terminal gauger nature of condition. Education provided was verbal counseling.Additional time was spent in care coordination including medical record review. ENCOUNTER TIMING: I personally spent a total of 45 minutes on this encounter. This time includes face to face with patient, counseling and discussion, lab/result interpretation, coordination of follow-up care, document review. The total time of encounter was .... minutes. . MDM: - was based on the following: Past imaging reviewed Old chart reviewed Comorbidities complicating the care of the patient HTN, T2DM, cardiovascular disease A consult was requested and obtained from this/these [employer] consultant(s) Urology ORDERS PLACED THIS ENCOUNTER Orders Placed This Encounter Procedures CBC W/O Differential Standing Status: Future Expected Date: 01/04/2025 Expiration Date: 04/09/2026 [facility]mediate Urinalysis with reflex microscopic (Culture NOT Included) Standing Status: Future Expected Date: 01/04/2025 Expiration Date: 04/09/2026 Release to patient in [facility]: Immediate Vitamin D 25 Hydroxy Standing Status: Future Expected Date: 01/04/2025 Expiration Date: 04/09/2026 Release to patient in [facility]: Immediate PTH Intact Total Standing Status: Future Expected Date: 01/04/2025 Expiration Date: 04/09/2026 Release to patient in [facility]: Immediate Albumin-creatinine ratio, urine, random Standing Status: Future Expected Date: 01/04/2025 Expiration Date: 04/09/2026 Release to patient in [facility]: Immediate Protein, Random, Urine with Creatinine Standing Status: Future Expected Date: 01/04/2025 Expiration Date: 04/09/2026 Release to patient in [facility]: Immediate Renal Function Panel, Plasma Standing Status: Future Expected Date: 01/04/2025 Expiration Date: 04/09/2026 Release to patient in [facility]: Immediate Follow Up Nephrology [facility] Standing Status: Future Expected Date: 01/06/2025 Expiration Date: 11/06/2025 Referral Priority: Routine Referral Type: Consultation Number of Visits Requested: 1 Problem List Items Addressed This Visit GILBERT (acute kidney injury) (CMS/[facility]) - Primary Relevant Medications bumetanide (Bumex) 1 MG tablet losartan (Cozaar) 50 MG tablet Other Relevant Orders CBC W/O Differential Urinalysis with reflex microscopic (Culture NOT Included) Vitamin D 25 Hydroxy PTH Intact Total Albumin-creatinine ratio, urine, random Protein, Random, Urine with Creatinine Renal Function Panel, Plasma Follow Up Nephrology Chronic kidney disease-mineral and bone disorder (CKD-MBD) Relevant Medications bumetanide (Bumex) 1 MG tablet Farxiga 10 MG tablet FeroSul 325 (65 Fe) MG tablet tamsulosin (Flomax) 0.4 MG 24 hr capsule losartan (Cozaar) 50 MG tablet metoprolol succinate XL (Toprol-XL) 25 MG 24 hr tablet Other Relevant Orders Vitamin D 25 Hydroxy Follow Up Nephrology Other hyperlipidemia Persistent proteinuria Relevant Medications bumetanide (Bumex) 1 MG tablet Farxiga 10 MG tablet losartan (Cozaar) 50 MG tablet 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 [1] Past Medical History: Diagnosis Date Arthritis HLD (hyperlipidemia) HTN (hypertension) Iron deficiency Presence of xenogenic heart valve [2] There is no problem list on file for this patient. [3] History reviewed. No pertinent surgical history. [4] History reviewed. No pertinent family history. [5] Allergies Allergen Reactions Iodine Other - please document in the comment field Cosigned by Moshe Jack MD at 10/07/2024 10:02 AM EDT Associated attestation - Moshe Jack MD - 10/07/2024 10:02 AM EDT I saw and evaluated the patient with the resident/fellow. I discussed the case with the resident/fellow and agree with the findings and plan as documented. documented in this encounter Plan of Treatment Upcoming Encounters Date Type Department Care Team (Late st Contact Info) Description 12/22/2024 12:45 PM EDT Appointment [facility] Ultrasound [address] [place] [address] 12/22/2024 2:30 PM EDT Office Visit Medical Office Building Urology [address], [address] [place] [address] Aaron Marie MD [address] [place] [address] 01/14/2025 9:40 AM EST Office Visit [facility] [address] [place] [address] [place] [address] Moshe Jack MD [address] [place] [address] Scheduled Orders Name Type Priority Associated Diagnoses Orde r Schedule CBC W/O Differential Lab Routine [place]) [place] Expected: 01/04/2025 (Approximate), Expires: 04/09/2026 Urinalysis with reflex microscopic (Culture NOT Included) Lab Routine [place] ([place] kidney injury) [place] Expected: 01/04/2025 (Approximate), Expires: 04/09/2026 Vitamin D 25 Hydroxy Lab Routine [place] (acute kidney injury) [place] Chronic kidney disease-mineral and bone disorder (CKD-MBD) Expected: 01/04/2025 (Approximate), Expires: 04/09/2026 PTH Intact Total Lab Routine G[facility]BERT (acute kidney injury) ([facility] Expected: 01/04/2025 (Approximate), Expires: 04/09/2026 Albumin-creatinine ratio, urine, random Lab Routine [place]BERT (acute kidney injury) [place] Expected: 01/04/2025 (Approximate), Expires: 04/09/2026 Protein, Random, Urine with Creatinine Lab Routine G[place]BERT (acute kidney injury) [place] Expected: 01/04/2025 (Approximate), Expires: 04/09/2026 Renal Function Panel, Plasma Lab Routine G[place]BERT (acute kidney injury) [place] Expected: 01/04/2025 (Approximate), Expires: 04/09/2026 Scheduled Referrals Name Type Priority Associated Diagnoses Order Schedule Follow Up Nephrology Outpatient Referral Routine GILBERT (acute kidney injury) [place] Chronic kidney disease-mineral and bone disorder (CKD-MBD) Expected: 01/06/2025 (Approximate), Expires: 11/06/2025 documented as of this encounter Visit Diagnoses Diagnosis GILBERT (acute kidney injury) ([facility] Primary Chronic kidney disease-mineral and bone disorder (CKD-MBD) Other hyperlipidemia Persistent proteinuria 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
--- OUTSIDE RECORDS SUMMARY | 2024-10-27 13:00 | XMS_ITS | Encounter Summary ---
Author Organization [facility] Address [address] [id number] Care Team Providers Care Superintendent Maintenance Name Role Phone Sylvester Bynum MD Primary Care Provider [phone] Reason for Referral * (Routine) - Incomplete Specialty Diagnoses / Procedures Referred By Contac t Referred To Contact Urology Diagnoses Benign prostatic hyperplasia, unspecified whether lower urinary tract symptoms present Procedures TRUS Volume Aaron Marie MD [address] [address] Phone: tel: fax: [facility]rology [address] [place] [address] Phone: tel: fax: Referral ID Status Reason Start Date Expiration Date V isits Requested Visits Authorized [id number] Incomplete 10/27/2024 04/28/2026 1 1 * (Routine) - Incomplete Specialty Diagnoses / Procedures Referred By Contac t Referred To Contact Diagnoses Benign prostatic hyperplasia, unspecified whether lower urinary tract symptoms present Procedures Cysto- Urology Aaron Marie MD [address] [address] Phone: tel: fax: Referral ID Status Reason Start Date Expiration Date V isits Requested Visits Authorized [id number] Incomplete 10/27/2024 04/28/2026 1 1 * Imaging (Routine) - Pending Review Specialty Diagnoses / Procedures Referred By Violeta thompson Referred To Contact Radiology Diagnoses Renal cyst Procedures US Renal Complete Aaron Marie MD [address] [address] Phone: tel: fax: Referral ID Status Reason Start Date Expiration Date V isits Requested Visits Authorized [id number] Pending Review 10/27/2024 04/28/2026 1 1 Reason for Visit * Reason Comments Advice Only The patient was note d to have an elevated blood pressure reading of (181/76). This was rechecked after 5 minutes and still found to be elevated with a reading of (169/76). The provider was notified and the patient was advised to follow-up with their primary care provider for further advice. * Consultation (Routine) - Closed Specialty Diagnoses / Procedures Referred By Violeta thompson Referred To Contact Urology Diagnoses Hematuria BPH (benign prostatic hyperplasia) Prostate hyperplasia with urinary obstruction Sylvester Bynum MD [address] [place] [address] Phone: tel: fax: Referral ID Status Reason Start Date Expiration Date V isits Requested Visits Authorized [id number] Closed Specialty Services Required 09/02/2024 03/04/2026 1 1 Encounter Details Date Type Department Care Team ([facility] st Contact Info) Description 10/27/2024 1:00 PM EDT Consult Medical Office Building Urology [address] [facility] [address], [address] [place] [id number] Aaron Marie MD [address] [address] Urine retention (Primary Dx); Benign prostatic hyperplasia, unspecified whether lower urinary tract symptoms present; Renal cyst Social History Tobacco Use Types Packs/Day Years Used Date Smoking Tobacco: Former Cigarettes Smokeless Tobacco: Never Alcohol Use Standard Drinks/Week Comments Never 0 (1 standard drink = 0.6 oz pur e alcohol) PHQ-2 Answer Date Recorded Patient Health Questionnaire-2 Score 1 10/27/2024 PHQ-9 Answer Date Recorded Patient Health Questionnaire-9 Score 7 10/27/2024 AUDIT-C Answer Date Recorded Q1: How often do you have a drink containing alcohol? Never 10/27/2024 Q2: How many drinks containi ng alcohol do you have on a typical day when you are drinking? Patient does not drink Q3: How often do you have si x or more drinks on one occasion? Never 10/27/2024 Sex and Gender Information Value Date Recorded Sex Assigned at Not on file Legal Sex Male 2:13 PM EDT Gender Identity Not on file Sexual Orientation Not on file documented as of this encounter Last Filed Vital Signs Vital Sign Reading Time Taken Comments Blood Pressure 169/76 10/27/2024 1:04 PM EDT Pulse 58 10/27/2024 12:19 PM EDT Temperature - - Respiratory Rate - - Oxygen Saturation 98% 10/27/2024 12:19 PM EDT Inhaled Oxygen Concentration - - Weight 86.4 kg (190 lb 7.6 oz) 10/27/2024 1:04 P M EDT Height 170.2 cm (5' 7 ) 10/27/2024 12:19 PM EDT Body Mass Index 29.83 10/27/2024 12:19 PM EDT documented in this encounter Functional Status * AUDIT-C Score Answer Date of Assessment Author 0 10/27/2024 12:20 PM EDT Melvi Whaley * Question Answer Date of Assessment Author Q1: How often do you have a drink containing alcohol? Never 10/27/2024 12:20 PM EDT Melvi Whaley Q2: How many drinks containing alcohol do you have on a typical day when you are drinking? Patient does not drink 10/27/2024 12:20 PM EDT Melvi Whaley Q3: How often do you have six or more drinks on one occasion? Never 10/27/2024 12:20 PM EDT Melvi Whaley * Over the past 2 weeks, how often have you been bothered by any of the following problems? Question Answer Date of Assessment Author Little interest or pleasure in doing things Not at all 10/27/2024 12:24 PM Melvi Zelaya Feeling down, depressed, or hopeless Several days 10/27/2024 12:24 PM EDMelvi Salvador Patient Health Questionnaire-2 Score 1 10/27/2024 12:24 PM EDT Karina Whaley * Question Answer Date of Assessment Author Trouble falling or staying asleep, or sleeping too much Not at all 10/27/2024 12:24 PM EDT Melvi Whaley Feeling tired or having little energy Several days 10/27/2024 12:24 PM EDT Melvi Whaley Poor appetite or overeating Several days 10/27/2024 12:24 PM EDT Melvi Whaley Feeling bad about yourself - or that you are a failure or have let yourself or your family down Several days 10/27/2024 12:24 PM EDT Melvi Whaley Trouble concentrating on things, such as reading the newspaper or watching television Nearly every day 10/27/2024 12:24 PM PRAFULT Melvi Whaley Moving or speaking so slowly that other people could have noticed? Or the opposite - being so fidgety or restless that you have been moving around a lot more than usual. Not at all 10/27/2024 12:24 PM PRAFULT Melvi Whaley Thoughts that you would be better off or hurting yourself in some way Not at all 10/27/2024 12:24 PM EDLaila Salvador Patient Health Questionnaire-9 Score 7 10/27/2024 12:24 PM EDT Karina Whaley * How difficult have these problems made it for you to do your work, take care of things at home, or get along with other people? Answer Date of Assessment Author Somewhat difficult 10/27/2024 12:24 PM EDMelvi Reese * How difficult have these problems made it for you to do your work, take care of things at home, or get along with other people? Answer Date of Assessment Author Somewhat difficult 10/27/2024 12:24 PM EDT Melvi Weber documented as of this encounter Miscellaneous Notes * Progress Notes - Rehana Diaz MD - 10/27/2024 1:00 PM EDT Chief complaint: 83M who presents with bothersome urinary symptoms, left renal cyst, and microscopic hematuria Urologic history: 08/30/24 - Evaluated by Dr. Boykin for LUTS and microscopic hematuria. Cystoscopy with grade 3 obstruction. No obvious tumors, but hard to see because of debris in his bladder. CT w/o contrast (no contrast due to kidney function & images not available for review) showed a 6.5cm left renal cyst.PVR 135 ml. History History of present illness: Donte Trujillo is a 83 y.o. who presents for evaluation for a possible LOPEZ. He is a who livesin a shelter. He has previously been evaluated by Dr. Boykin. He 1st saw him for both lower urinary tract symptoms and microscopic hematuria. On his evaluation, he had a noncontrasted CT done which showed a 6.5 cm left renal cyst, but these images are not available for review. He did not have contrast in his scan because of his poor kidney function. He also had a cystoscopy which showed ???grade 3 prostatic obstruction. ?? His bladder was not thoroughly evaluated because of the amount of debris in it, but Dr. Boykin noted that he did not see any obvious masses or stones. He started him on Flomax and was supposed to start finasteride, but it does not appear like he is actually taking that medicine according to his medication list from his facility. He notes some improvement in his symptoms since starting Flomax. He is primarily bothered by the frequency that he goes to the restroom. He feels like he is voiding every 15 minutes. He voids small volumes when he does go. He feels like when he pees he is able to empty his bladder, but he will then get the urge to pee afterwards. He also notes some dysuria when he voids. He denies seeing any blood in his urine. He feels like he hasa relatively good stream once he is able to get 1 started. He feels like it takes him a long time to void though. He does note that he has some urgency with going to the restroom and will have leakage occasionally if he does not get there fast enough. He denies any episodes of retention requiring catheterization. From an overall health perspective, he is primarily wheelchair bound. He does get up and walk some using a walker, but this is fairly minimal. He is constipated at baseline and takes senna and miralax. He does not drink much water and primarily drinks green tea. He does take Plavix given his history of a valve replacement. He has never held this for any procedure. He does have a 70-80 pack year smoking history. He quit when he was 64. Medical History: - T2DM - CKD 4. Follows with nephrology. - COPD - CHF - Prior TIA - HTN - CAD Surgical History: - Open heart surgery with valve replacement (2022) on plavix Review of systems: Constitutional: Negative for chills, fatigue and fever. HENT: Negative for congestion, ear discharge, sore throat, trouble swallowing and voice change. Eyes: Negative for pain and redness. Respiratory: Negative for apnea, choking, chest tightness and shortness of breath. Cardiovascular: Negative for leg swelling and chest pain. Gastrointestinal: Negative for abdominal distention, abdominal pain, anal bleeding, nausea and vomiting. Endocrine: Negative for cold intolerance. Musculoskeletal: Negative for arthralgias and neck pain. Skin: Negative for rash. Neurological: Negative for dizziness, seizures, syncope, weakness and numbness. Psychiatric/Behavioral: Negative for confusion and hallucinations. Hematological: Negative for adenopathy. : See HPI above Medical History: PMH: has a past medical history of Arthritis, HLD (hyperlipidemia), HTN (hypertension), Iron deficiency, and Presence of xenogenic heart valve. PSH: has a past surgical history that includes Knee surgery; Cardiac surgery; and Cardiac valuve replacement. FH: family history is not on file. SH: reports that he has quit smoking. His smoking use included cigarettes. He has never used smokeless tobacco. He reports that he does not drink alcohol and does not use drugs. Current Medications[1] Physical Exam Physical Exam Constitutional: General: Not in acute distress. Sitting comfortably in motorized wheelchair Appearance: Normal appearance. Not ill-appearing or toxic-appearing. HENT: Head: Normocephalic. Eyes: Sclera-non icteric Cardiovascular: Rate and Rhythm: Normal rate. Pulmonary: Effort: Pulmonary effort is normal. No respiratory distress. Abdominal: General: Abdomen is soft and nondistended Tenderness: There is no abdominal tenderness. There is no right CVA tenderness or left CVA tenderness. Genitourinary: Penis: Normal uncircumcised penis without masses or lesions. Urethra patent without discharge. Testes: Smooth and symmetric bilaterally and without masses. Epididymis: Palpable. Vasa: Palpable. Prostate: Difficult to palpate due to stool burden, but grossly enlarged on exam. Nontender. No palpable nodules. Musculoskeletal: General: Normal range of motion. Cervical back: Normal range of motion. Skin: General: Skin is warm and dry. Neurological: General: No focal deficit present. Mental Status: Alert and oriented to person, place, and time. Psychiatric: Mood and Affect: Mood normal. Behavior: Behavior normal. Judgment: Judgment normal. Lab & Imaging Laboratory results review: Cr baseline 2.2-2.3 Radiograph review: No imaging available for review Post void residual volume(s) Lab Results Component Value Date URVOL 144 10/27/2024 Assessment and Plan Assessment: Donte Trujillo is a 83 y.o. male with bothersome LUTS likely due to an enlarged prostate, microscopichematuria, and a left renal cyst. For his urinary symptoms, he is most bothered by how often he goes to the restroom. He is currently taking Flomax, but it is unclear if he has taking finasteride as well or not. We discussed with him that he should begin taking both of these medications to see if they help with his voiding symptoms. At this point in time, he is interested in additional steps to improve his voiding. We did discuss with him that his overall health condition could complicate things if he eventually wanted a LOPEZ, but more investigation needs to be done prior to this. He also has had an incomplete microscopic hematuria evaluation which we would like to complete with a HONEY and cystoscopy. While he is getting his cystoscopy, we will also do a TRUS volume to assess the size of his prostate. Plan: RTC in 1 months for cystoscopy, TRUS volume, and HONEY Continue Flomax and Finasteride Increase fluid intake with a focus on water Work on constipation with Senna and Miralax use Time Spent: Minutes spent both inside and outside of [facility] includes the following activities: 60 Minutes charting, reviewing external record, communicating with other P or healthcare team, independent interpretation of tests and coordinating the Care of patient Rehana Diaz MD MSc Department of Urology, PGY-2 Pager: [phone] [1] Current Outpatient Medications Medication Sig Dispense Refill Acetaminophen Extra Strength 500 MG tablet ascorbic acid (Vitamin C) 500 MG tablet Take 1 tablet by mouth daily. bumetanide (Bumex) 1 MG tablet buPROPion XL (Wellbutrin XL) 150 MG 24 hr tablet cefdinir (Omnicef) 300 MG capsule ciprofloxacin-dexamethasone (CiproDEX) otic suspension 4 drops 2 times a day. clopidogrel (Plavix) 75 MG tablet escitalopram (Lexapro) 20 MG tablet Farxiga 10 MG tablet FeroSul 325 (65 Fe) MG tablet finasteride (Proscar) 5 MG tablet gabapentin (Neurontin) 100 MG capsule loperamide (Imodium) 2 MG capsule Take 1 capsule by mouth 4 times a day as needed for diarrhea. losartan (Cozaar) 50 MG tablet methylcellulose oral powder Take by mouth daily. metoprolol succinate XL (Toprol-XL) 25 MG 24 hr tablet polyethylene glycol (Miralax) 17 g packet Take 17 g by mouth daily. saccharomyces boulardii (Florastor) 250 MG capsule Take 1 capsule by mouth 2 times a day. senna (Senokot) 8.6 MG tablet Take 1 tablet by mouth nightly. tamsulosin (Flomax) 0.4 MG 24 hr capsule tiZANidine (Zanaflex) 2 MG capsule Take 1 capsule by mouth 3 times a day. No current facility-administered medications for this visit. Cosigned by Aaron Marie MD at 10/28/2024 4:33 PM EDT Associated attestation - Aaron Marie MD - 10/28/2024 4:33 PM EDT I saw and evaluated the patient with the resident/fellow. I discussed the case with the resident/fellow and agree with the findings and plan as documented. documented in this encounter Plan of Treatment Upcoming Encounters Date Type Department Care Team (Late st Contact Info) Description 12/22/2024 12:45 PM EDT Appointment [facility] Ultrasound [address] [place] [address] 12/22/2024 2:30 PM EDT Office Visit Medical Office Building Urology [address] [facility] [address] [facility], [address] [place] [address] Aaron Marie MD [address] [place] [address] 01/14/2025 9:40 AM EST Office Visit [facility] [address] [place] [address] Moshe Jack MD [address] [place] [address] Scheduled Orders Name Type Priority Associated Diagnoses Orde r Schedule US Renal Complete Imaging Routine Renal cyst Expected: 10/27/2024 (Approximate), Expires: 04/30/2026 Cysto- Urology Procedure Routine Benign prostatic hyperplasia, unspecified whether lower urinary tract symptoms present Expected: 10/27/2024 (Approximate), Expires: 04/30/2026 TRUS Volume Procedure Routine Benign prostatic hyperplasia, unspecified whether lower urinary tract symptoms present 1 Occurrences starting 10/27/2024 until 04/30/2026 documented as of this encounter Procedures Procedure Name Priority Date/Time Associated Diagnosis Comments POC US BLADDER SCAN FOR VOLUME Routine 10/27/2024 12:55 PM EDT Urine retention POCT URINALYSIS DIPSTICK Routine 10/27/2024 12:18 PM EDT documented in this encounter Results * POC US Bladder Volume (10/27/2024 12:55 PM EDT) Urine, Volume 144 mL IMAGING Anatomical Region Laterality Modality Other us Aaron Marie MD IMG POINT OF CARE ULTRASOUND Fi nal Result * (ABNORMAL) POCT URINALYSIS DIPSTICK (10/27/2024 12:18 PM EDT) POCT Urine Color Yellow 10/27/2024 12:19 PM EDT [facility] POCT Urine Clarity Clear 10/27/2024 12:19 PM EDT [facility] POCT Urine Glucose >=1000(A) Negative mg/dL 10/27/2024 12:19 PM EDT [facility] POCT Urine Bilirubin Negative Negative mg/dL 10/27/2024 12:19 PM EDT [facility] POCT Urine Ketones Negative Negative mg/dL 10/27/2024 12:19 PM EDT [facility] POCT Urine Specific Margie 1.015 1.005 - 1.030 10/27/2024 12:[address] [facility] POCT Urine Blood Small(A) Negative 10/27/2024 12:[address] [facility] POCT pH, Urine 5.5 5.0 - 8.0 10/27/2024 12:19 PM EDT [facility] POCT Protein, Urine >=300(A) Negative mg/dL 10/27/2024 12:[address] [facility] POCT Urobilinogen, Urine 0.2 0.2, 1.0 EU/dL 10/27/2024 12:[address] [facility] POCT Nitrite, Urine Negative Negative 10/27/2024 12:[address] [facility] POCT Urine Leukocyte Esterase Large(A) Negative 10/27/2024 12:[address] [facility] Urine 10/27/2024 12:1 8 PM EDT 10/27/2024 12:20 PM EDT us Aaron Marie MD LAB POINT OF CARE TE ST DOCKED DEVICE UNSOLICITED RESULTS Final Result [facility] [address] [place], [place] documented in this encounter Visit Diagnoses Diagnosis Urine retention- Primary Unspecified retention of urine Benign prostatic hyperplasia, unspecified whether lower urinary tract symptoms present Renal cyst Unspecified congenital cystic kidney disease documented in this encounter Additional Health Concerns Assessment Noted Time PHQ-9 Depression Total Score: 7 10/28/19 12:24 PM EDT A fall risk assessment has been complete d for the patient 10/27/2024 12:24 PM EDT A Body Mass Index follow-up plan has been documented for the patient 10/28/2024 4:33 PM EDT documented as of this encounter Care Teams Superintendent Maintenance Relationship Specialty Start Date End Date Sylvester Bynum MD [address] [place] [address] PCP - General 09/01/24 documented as of this encounter
--- OUTSIDE RECORDS SUMMARY | 2024-11-12 09:36 | XMS_ITS | Encounter Summary ---
Author Organization [facility] Address [address] [place] [address] Care Team Providers Care Business Continuity Coordinator Name Role Phone Sylvester Bynum MD Primary Care Provider + [phone] Encounter Details Date Type Department Care Team (Late Contact Info) Description 10/01/2024 Telephone [facility] Nephrology, Bone & Mineral Metabolism [address], [address] [place] [address] Elliott Perkins [facility] [address] [place] [address] Social History Tobacco Use Types Packs/Day Years Used Date Smoking Tobacco: Never Assessed Sex and Gender Information Value Date Recorded Sex Assigned at Not on file Legal Sex Male 2:13 PM EDT Gender Identity Not on file Sexual Orientation Not on file documented as of this encounter Miscellaneous Notes * Telephone Encounter - Elliott Perkins - 10/01/2024 12:10 PM EDT Confirmed appointment [facility] documented in this encounter Plan of Treatment Upcoming Encounters Date Type Department Care Team (Late Contact Info) Description 12/22/2024 12:45 PM EDT Appointment [facility] Ultrasound [address] [place] [address] 12/22/2024 2:30 PM EDT Office Visit Medical Office Building Urology [address] [place] [address] Aaron Marie MD [address] [place] [address] 01/14/2025 9:40 AM EST Office Visit [facility] [address] [place] [address] Moshe Jack MD [address] [place] [address] documented as of this encounter Visit Diagnoses Not on filedocumented in this encounter Care Teams Business Continuity Coordinator Relationship Specialty Start Date End Date Sylvester Bynum MD [address] [place] [address] PCP - General 09/01/24 documented as of this encounter
--- OUTSIDE RECORDS SUMMARY | 2024-11-12 09:36 | XMS_ITS | Clinical Summary ---
Author Organization [facility] Address [address] [place] [address] Care Team Providers Care Supervisor Tellers Name Role Phone Sylvester Bynum MD Primary Care Provider + [phone] Allergies Active Allergy Reactions Criticality Noted Date Comments Iodine Other - please docum ent in the comment field Low 10/06/2024 Medications bumetanide (Bumex) 1 MG tablet 09/16/2024 Active buPROPion XL (Wellbutrin XL) 150 MG 24 hr tablet 10/03/2024 Active clopidogrel (Plavix) 75 MG tablet 09/14/2024 Active Farxiga 10 MG tablet 10/01/2024 Active escitalopram (Lexapro) 20 MG tablet 09/27/2024 Active FeroSul 325 (65 Fe) MG tablet 09/14/2024 Activ e finasteride (Proscar) 5 MG tablet 09/25/2024 Active tamsulosin (Flomax) 0.4 MG 24 hr capsule 09/20/2024 Activ e losartan (Cozaar) 50 MG tablet 09/24/2024 Active metoprolol succinate XL (Toprol-XL) 25 MG 24 hr tablet 09/08/2024 Act lee cefdinir (Omnicef) 300 MG capsule 09/27/2024 Active gabapentin (Neurontin) 100 MG capsule 10/03/2024 Active Acetaminophen Extra Strength 500 MG tablet 10/05/2024 Activ e methylcellulose oral powder Take by mouth daily. Active saccharomyces boulardii (Florastor) 250 MG capsule Take 1 capsule by mouth 2 times a day. Active polyethylene glycol (Miralax) 17 g packet Take 17 g by mouth daily. Active ascorbic acid (Vitamin C) 500 MG tablet Take 1 tablet by mouth daily. Active ciprofloxacin-d examethasone (CiproDEX) otic suspension 4 drops 2 times a day. Active loperamide (Imodium) 2 MG capsule Take 1 capsule by mouth 4 times a day as needed for diarrhea. Active senna (Senokot) 8.6 MG tablet Take 1 tablet by mouth nightly. Active tiZANidine (Zanaflex) 2 MG capsule Take 1 capsule by mouth 3 times a day. 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 Nephrology, Bone & Mineral Metabolism [address], [address] [place] [address] Moshe Jack MD GILBERT (acute kidney injury) ([facility]) (Primary Dx); Chronic kidney disease-mineral and bone disorder (CKD-MBD); Other hyperlipidemia; Persistent proteinuria; Recurrent and persistent hematuria with other morphologic changes; Benign prostatic hyperplasia, unspecified whether lower urinary tract symptoms present 10/06/2024 Travel 10/01/[address] [facility] Nephrology, Bone & Mineral Metabolism [address], [address] [place] [address] Elliott Perkins 09/06/2024 Orders Only [facility] [address] [place] [address] Xavier Lilo R CKD (chronic kidney disease) stage 4, GFR 15-29 ml/min ([facility]) (Primary Dx); Vitamin D insufficiency 09/03/2024 Telephone [facility] Urology [address] [place] [address] Teena Soto I, RN 09/03/2024 Telephone [facility] Urology [address] [place] [address] Teena Soto I, RN from Last 3 Months Immunizations Immunization Administration Dates Next Due Pneumococcal 20-christian Conj Vaccine 04/07/2024 Pneumococcal Conjugate PCV 13 12/16/2019 Pneumococcal Polysaccharide PPV23 02/25/2020 Tdap 09/23/2024, 4,02/20/2023, 3,08/01/2020 Social History Tobacco Use Types Packs/Day Years [...] on file Sexual Orientation Not on file Last Filed Vital Signs Vital Sign Reading [...] Mass Index 29.83 10/27/2024 12:19 PM EDT Plan of Treatment Upcoming Encounters Date Type Department Care Team (Late st Contact Info) Description 12/22/2024 12:45 PM EDT Appointment [facility] Ultrasound [address] [place] [address] 12/22/2024 2:30 PM EDT Office Visit Medical Office Building Urology [address], [address] [place] [address] Aaron Marie MD [address] [place] [address] 01/14/2025 9:40 AM EST Office Visit [facility] [address] [place] [address] Moshe Jack MD [address] [place] [address] Health Maintenance Due Date Last Done Comments [facility]-Diabetes: Hemoglobin A1C 1940 [facility]-Medicare Annual Wellness (AWV) 1940 [facility]-Infant/Child/Adol SDOH Screenings 1940 Diabetes: Dental Exam 11/01/1949 [facility]- SDOH Screenings 11/01/1957 [facility]-Adult SDOH Screenings 11/01/1957 [facility]-Zoster Vaccines (1 of 2) 11/01/1989 [id number]-95 Vaccine ( season) 2024 12/17/2022, 11/28/2021, 07/18/2021, Additional history exists [facility]-Influenza Vaccine (#1) 2024 [facility]-Depression Screening 10/27/2025 10/27/2024, 04/2024 [facility]-DTaP,Tdap,and Td Vaccines (6 - Td or Tdap) 09/23/2034 09/23/2024, 12/19/2023, 02/20/2023, Additional history exists [facility]-Pneumococcal Vaccine: 50+ Years Completed 04/07/2024, 02/25/2020, 12/16/2019 [facility]-RSV Vaccine: 60+ Years or Completed 10/20/2024 [facility]-Obesity Intervention Completed 10/27/2024, 09/24 HPV Vaccines Aged Out No longer eligi [...] on patient's age to complete this topic Procedures Procedure Name Priority Date/Time Associated Diagnosis Comments POC US BLADDER SCAN FOR VOLUME Routine 10/27/2024 12:55 PM EDT Urine retention POCT URINALYSIS DIPSTICK Routine 10/27/2024 12:18 PM EDT from Last 3 Months Results * POC US Bladder Volume (10/27/2024 12:55 PM EDT) Pathologist [facility] Urine, Volume 144 mL IMAGING Anatomical Region [...] EDT [facility] POCT Urine Specific Humphrey 1.015 1.005 - 1.030 10/27/2024 12:19 PM EDT [facility] POCT Urine Blood Small(A) Negative 10/27/2024 12:19 PM EDT [facility] POCT pH, Urine 5.5 5.0 - 8.0 10/27/2024 12:19 PM EDT [facility] POCT Protein, Urine >=300(A) Negative mg/dL 10/27/2024 12:19 PM EDT [facility] POCT Urobilinogen, Urine 0.2 0.2, 1.0 EU/dL 10/27/2024 12:19 PM EDT [facility] POCT Nitrite, Urine Negative Negative 10/27/2024 12:19 PM EDT [facility] POCT Urine Leukocyte Esterase Large(A) Negative 10/27/2024 12:19 PM EDT [facility] Urine 10/27/2024 12:1 8 PM EDT 10/27/2024 12:20 PM EDT us Aaron Marie MD LAB POINT OF CARE TE ST DOCKED DEVICE UNSOLICITED RESULTS Final Result Performing Organization Address City/State/[facility] de Phone Number [facility] [address] [place], [place] from Last 3 [place] [address] Care Teams Supervisor Tellers Relationship Specialty Start Date End Date Sylvester Bynum MD [address] [place] [address] PCP - General 09/01/24
--- OUTSIDE RECORDS SUMMARY | 2024-11-12 09:36 | XMS_ITS | Encounter Summary ---
Author Organization [facility] Address [address] [place] [address] Care Team Providers Care Turning Lathe Tender Name Role Phone Sylvester Bynum MD Primary Care Provider [phone] Encounter Details Date Type Department Care Team (Latest Contact Info) Description 10/06/2024 Travel Social History Tobacco Use Types Packs/Day Years [...] Info) Description 12/22/2024 12:45 PM EDT Appointment [facility] Ultrasound [address] [place] [address] 12/22/2024 2:30 PM EDT Office Visit Medical Office Building Urology [address], [address] [place] [address] Aaron Marie MD [address] [place] [address] 01/14/2025 9:40 AM EST Office Visit [facility] [address] [place], [place] [address] Moshe Jack MD [address] [place] [address] documented as of this encounter Visit Diagnoses Not on filedocumented in this encounter Additional Health Concerns Assessment Noted Time A fall risk assessment has been complete d for the patient 10/06/2024 2:47 PM EDT A Body Mass Index follow-up plan has been documented for the patient 10/07/2024 10:02 AM EDT documented as of this encounter Care Teams Turning Lathe Tender Relationship Specialty Start Date End Date Sylvester Bynum MD [address] [place] [address] PCP - General 09/01/24 documented as of this encounter
--- OUTSIDE RECORDS SUMMARY | 2024-11-12 09:36 | XMS_ITS | Encounter Summary ---
Author Organization [facility] Address [address] [place] [address] Care Team Providers Care Coarse Wire Drawer Name Role Phone Sylvester Bynum MD Primary Care Provider + [phone] Encounter Details Date Type Department Care Team (Latest Contact Info) Description 10/27/2024 Travel Social History Tobacco Use Types Packs/Day [...] on file documented as of this encounter Functional Status * AUDIT-C Score [...] Patient does not drink 10/27/2024 12:20 PM EDMelvi Salvador Q3: How often do you have six or more drinks on one occasion? Never 10/27/2024 12:20 PM Melvi Zelaya * Over the past 2 weeks, how often have you been bothered by any of the following problems? Question Answer Date of Assessment Author Little interest or pleasure in doing things Not at all 10/27/2024 12:24 PM Melvi Zelaya Feeling down, depressed, or hopeless Several days 10/27/2024 12:24 PM EDT Melvi Whaley Patient Health Questionnaire-2 Score 1 10/27/2024 12:24 PM EDT Karina Whaley * Question Answer Date of Assessment Author Trouble falling or staying asleep, or sleeping too much Not at all 10/27/2024 12:24 PM Melvi Zelaya Feeling tired or having little energy Several days 10/27/2024 12:24 PM Melvi Zelaya Poor appetite or overeating Several days 10/27/2024 12:24 PM Melvi Zelaya Feeling bad about yourself - or that you are a failure or have let yourself or your family down Several days 10/27/2024 12:24 PM Melvi Zelaya Trouble concentrating on things, such as reading the newspaper or watching television Nearly every day 10/27/2024 12:24 PM Melvi Zelaya Moving or speaking so slowly that other people could have noticed? Or the opposite - being so fidgety or restless that you have been moving around a lot more than usual. Not at all 10/27/2024 12:24 PM Melvi Zelaya Thoughts that you would be better off or hurting yourself in some way Not at all 10/27/2024 12:24 PM Laila Zelaya Patient Health Questionnaire-9 Score 7 10/27/2024 12:24 PM EDT Karina Whaley * How difficult have these problems made it for you to do your work, take care of things at home, or get along with other people? Answer Date of Assessment Author Somewhat difficult 10/27/2024 12:24 PM EDT Melvi Weber * How difficult have these problems made it for you to do your work, take care of things at home, or get along with other people? Answer Date of Assessment Author Somewhat difficult 10/27/2024 12:24 PM EDT Melvi Weber documented as of this encounter Plan of Treatment Upcoming Encounters Date Type Department Care Team (Late st Contact Info) Description 12/22/2024 12:45 PM EDT Appointment [facility] Ultrasound [address] [place] [address] 12/22/2024 2:30 PM EDT Office Visit Medical Office Building Urology [address], [address] [place] [address] Aaron Marie MD [address] [place] [address] 01/14/2025 9:40 AM EST Office Visit [facility] [address] [place] [address] Moshe Jack MD [address] [place] [address] documented as of this encounter [...] documented as of this encounter Care Teams Coarse Wire Drawer Relationship Specialty Start Date End Date Sylvester Bynum MD [facility] [place] [address] PCP - General 09/01/24 documented as of this encounter
--- NOTE | 2024-11-12 10:00 | FL_ITS ---
FINAL REPORT CLINICAL HISTORY: pt reports difficulty swallowing 98.77MgY DAP:1505.30 2:20 MIN FLUORO FINDINGS: ESOPHAGRAM HISTORY: Dysphagia Reference air kerma dose 98.77 mGy TECHNIQUE: Double contrast exam FINDINGS: The esophagus demonstrates a small hiatal hernia. Prominent cricopharyngeus causes narrowing of the lower cervical esophagus. A small Zenker's diverticulum is noted. There is no gastroesophageal reflux. No mucosal defects are seen. Moderate dysmotility is seen with numerous tertiary contractions. No changes of esophagitis are evident. A barium tablet readily passed into the stomach. IMPRESSION: 1. Small hiatal hernia without demonstrable reflux 2. Moderate dysmotility 3. Small Zenker's diverticulum 4. No stricture Authenticated and ERN
[2024-11-12] MEDS: BARIUM SULFATE (E-Z-HD 340GM);135ML BOTTLE 135 ML PO (10:16)
[2024-11-12] MEDS: E-Z-GASII EFFERVESCENT GRANULES;1PK 1 EACH PO (10:16)
[2024-11-12] MEDS: BARIUM SULFATE(LIQUID E-Z-PAQUE);355ML BOTTLE 355 ML PO (10:16)
== END 2024-11-12 23:59 | disposition home or self-care (01) ==
LOC: RAD 09:35
PROVIDERS: PCP Pediatrics; Visit Provider Nurse Practitioner
DX: K44.9 Diaphragmatic hernia without obstruction or gangrene (principal); K22.4 Dyskinesia of esophagus; K22.5 Diverticulum of esophagus, acquired
CPT/HCPCS: 74220

== ENCOUNTER 2025-01-21 22:01 | Emergency (ER) | payer MEDICARE, OTHER, MEDICAID, SELFPAY ==
--- OUTSIDE RECORDS SUMMARY | 2024-12-22 10:40 | XMS_ITS | Encounter Summary ---
Author Organization [facility] Address [address] [place] [address] Care Team Providers Care Bistro Attendant Name Role Phone Sylvester Bynum MD Primary Care Provider [phone] Reason for Referral * Imaging (Routine) - Closed Specialty Diagnoses / Procedures Referred By Violeta thompson Referred To Contact Radiology Diagnoses Renal cyst Procedures US Renal Complete Aaron Marie MD [address] [address] Phone: tel: fax: Referral ID Status Reason Start Date Expiration Date Visits Re quested Visits Authorized [id number] Closed 10/27/2024 04/28/2026 1 1 Reason for Visit * Imaging (Routine) - Closed Specialty Diagnoses / Procedures Referred By Violeta thompson Referred To Contact Radiology Diagnoses Renal cyst Procedures US Renal Complete Aaron Marie MD [address] [address] Phone: tel: fax: Referral ID Status Reason Start Date Expiration Date Visits Re quested Visits Authorized [id number] Closed 10/27/2024 04/28/2026 1 1 Encounter Details Date Type Department Care Team (Latest Contact Info) Description 12/22/2024 11:40 AM EDT - 12/22/2024 11:59 PM EDT Hospital Encounter [facility] Ultrasound [address] [place] [address] Renal cyst Discharge Disposition: Home or Self [...] lot more than usual. Not at all 12/22/2024 1:41 PM EDT [...] times a day. Vitamin D3 1.25 MG (29853 UT) capsule 12/08/2024 documented as of this encounter Plan of Treatment Upcoming Encounters Date Type Department Care Team (Late st Contact Info) Description 03/22/2025 3:30 PM EST Office Visit Medical Office Building Urology [address] [facility], [address] [place] [address] Aaron Marie MD [address] [facility] [address] [place] [address] 05/27/2025 1:20 PM EDT Office Visit [facility] [address] [place] [address] Moshe Jack MD [address] [place] [address] documented as of this encounter [...] signing this report, I, the attending physician, attestthat I have personally reviewed the images/data for the aboveexamination(s) and agree with the final edited report. Drafted by Darren Olmstead MD on 12/22/2024 1:31 PM Final report signed by Vignesh Patel MD on 12/22/2024 2:28 PM Aaron Marie MD IM US PROCEDURES Final [...] documented as of this encounter Care Teams Bistro Attendant Relationship Specialty Start Date End Date Sylvester Bynum MD [facility] [employer] [place] [phone] PCP - General 09/01/24 documented as of this encounter
--- OUTSIDE RECORDS SUMMARY | 2024-12-22 13:30 | XMS_ITS | Encounter Summary ---
Author Organization [facility] Address [address] [place] [address] Care Team Providers Care Eligibility Technician Name Role Phone Sylvester Bynum MD Primary Care Provider [phone] Reason for Visit * Reason Comments Follow-up TRUS Cystoscope * Other Medical (Routine) - Closed Specialty Diagnoses / Procedures Referred By Contac t Referred To Contact Urology Diagnoses Benign prostatic hyperplasia, unspecified whether lower urinary tract symptoms present Procedures Cysto- Urology Aaron Marie MD [id number] [place] [address] Phone: tel: fax: Referral ID Status Reason Start Date Expiration Date Visits Re quested Visits Authorized [id number] Closed 10/27/2024 04/28/2026 1 1 Encounter Details Date Type Department Care Team ([facility] Contact Info) Description 12/22/2024 2:30 PM EDT Office Visit Medical Office Building Urology [facility] [address] [facility] [place] [address] Aaron Marie MD [address] [facility] [address] [place] [address] Microscopic hematuria (Primary Dx); Benign [...] MD MSc Department of Urology, PGY-2 Pager: [phone] [1] Current Outpatient Medications Medication Sig Dispense [...] times a day. Vitamin D3 1.25 MG (86296 UT) capsule cefdinir (Omnicef) 300 MG capsule [...] Visit Medical Office Building Urology [address] [facility], [address] [place] [address] Aaron Marie MD [address] [place] [address] 05/27/2025 1:20 PM EDT Office Visit [facility] [address] [place] [address] Moshe Jack MD [address] [place] [address] documented as of this encounter [...] Growth Ruthy glabrata(A) 12/28/2024 9:[address] [facility] Comment: This isolate has been identified using the FDA Approved ELERTSer [place] System Edited result: Previously reported as Yeast on 12/24/2024 at 1014 EDT. Urine Urinary bladder structure / Unknown Non-blood Collection / Unknown 12/22/2024 3:21 PM EDT 12/22/2024 5:46 PM EDT us Aaron Marie MD LAB MICROBIOLOGY - GENERAL HAYLEE MCNAMARA Final Result Performing Organization Address City/[facility]/[place] [address] * Urine Culture - Clinic Collect (12/22/2024 3:21 PM EDT) Culture No growth at day 1 12/23/2024 2:32 PM EDT [facility] Urine Urine specimen obtained by clean catch procedure / Unknown Non-blood Collection / Unknown 12/22/2024 3:21 PM EDT 12/22/2024 5:46 PM EDT us Aaron Marie MD LAB MICROBIOLOGY - GENERAL HAYLEE MCNAMARA Final Result Performing Organization Address [facility] [place] [address] * TRUS VOLUME (12/22/2024 2:30 PM EDT) [...] Procedure completion: Tolerated well, no immediate complications Result Andrés Marie MD UROLOGY ORDERABLES Final Result * [...] documented as of this encounter Care Teams Eligibility Technician Relationship Specialty Start Date End Date Sylvester Bynum MD [facility] [employer] [place] [phone] PCP - General 09/01/24 documented as of this encounter
--- OUTSIDE RECORDS SUMMARY | 2025-01-14 09:40 | XMS_ITS | Encounter Summary ---
Author Organization [facility] Address [address] [id number] Care Team Providers Care Butcher All Round Name Role Phone Sylvester Bynum MD Primary Care Provider + [phone] Reason for Visit * Reason Comments Follow-up Patient is a 84 year old male that presents to the clinic on this date for a follow up. He states he is doing well, however having some pain when he pees. * Consultation (Routine) - Closed Specialty Diagnoses / Procedures Referred By Violeta thompson Referred To Contact Diagnoses GILBERT (acute kidney injury) Chronic kidney disease-mineral and bone disorder (CKD-MBD) Moshe Jack MD [address] [place] [address] Phone: tel: fax: Referral ID Status Reason Start Date Expiration Date Visits Re quested Visits Authorized [id number] Closed 10/06/2024 04/07/2026 1 1 Encounter Details Date Type Department Care Team ([facility] st Contact Info) Description 01/14/2025 9:40 AM EST Office Visit [facility] [address] [place] [address] Moshe Jack MD [address] [place] [address] GILBERT (acute kidney injury) (Primary Dx); Chronic kidney disease-mineral and bone [...] Sign Reading Time Taken Comments Blood Pressure 139/65 01/14/2025 9:59 AM EST Pulse 59 01/14/2025 9:59 AM EST Temperature - - Respiratory Rate 18 01/14/2025 9:59 AM EST Oxygen Saturation 98% 01/14/2025 9:59 AM EST Inhaled Oxygen Concentration - - Weight 81.6 kg (180 lb) 01/14/2025 9:59 AM EST Height 170.2 cm (5' 7 ) 01/14/2025 9:59 AM EST Body Mass Index 28.19 01/14/2025 9:59 AM EST documented in this encounter Miscellaneous Notes * Progress Notes - Moshe Jack MD - 01/14/2025 9:40 AM EST Nephrology Outpatient Clinic Progress Note [place] [facility] Specialty Clinic Patient: Donte Trujillo Primary Care Provider: Sylvester Bynum MD Referring Provider: Sylvester Bynum MD Reason for visit: Chronic Kidney disease HPI/Subjective Donte Trujillo is a 84 y.o. male with a PMH of T2DM, open heart surgery with valve replacement, BPH, OA, and CKD stage 4 Lives in assisted, continues to have dirty Uas with yeast + WBC clumps, on diflucan. Otherwise feels fine. No swelling. Lost weight on mounjaro. In power chair. ROS Review of Systems History: Past Medical History[1] Problem List[2] Surgical History[3] Family History[4] Social History Socioeconomic History Marital status: Spouse name: Not on file Number of children: Not on file Years of education: Not on file Highest education level: Not on file Occupational History Not on file Tobacco Use Smoking status: Former Types: Cigarettes Smokeless tobacco: Never Vaping Use Vaping status: Never Used Substance and Sexual Activity Alcohol use: Never [...] Instructions Acetaminophen Extra Strength 500 MG tablet ARTIFICIAL SALIVA MT Use in the mouth or throat. ascorbic acid (VITAMIN C) 500 mg, Daily bisacodyl (Dulcolax) 10 MG suppository bumetanide (Bumex) 1 MG tablet buPROPion XL (Wellbutrin XL) 150 MG 24 hr tablet cefdinir (Omnicef) 300 MG capsule ciprofloxacin-dexamethasone (CiproDEX) otic suspension 4 drops, 2 times daily clopidogrel (Plavix) 75 MG tablet Embecta AutoShield Duo 30G X 5 MM misc escitalopram (Lexapro) 20 MG tablet famotidine (Pepcid) 40 MG tablet Farxiga 10 MG tablet FeroSul 325 (65 Fe) MG tablet Ferretts 325 (106 Fe) MG tablet finasteride (Proscar) 5 MG tablet fluconazole (DIFLUCAN) 200 mg, Oral, Daily fluticasone (Flonase) 50 MCG/ACT nasal spray 1 spray, Daily gabapentin (Neurontin) 100 MG capsule insulin lispro (Admelog, HumaLOG) 100 UNIT/ML injection pen loperamide (IMODIUM) 2 mg, 4 times daily PRN losartan (Cozaar) 50 MG tablet methylcellulose oral powder Daily metoprolol succinate XL (Toprol-XL) 25 MG 24 hr tablet Mounjaro 5 MG/0.5ML solution auto-injector solution pen-injector Mounjaro 7.5 MG/0.5ML solution auto-injector solution pen-injector NovoFine Autocover Pen Needle 30G X 8 MM misc oxybutynin XL (DITROPAN-XL) 10 mg, Daily polyethylene glycol (MIRALAX) 17 g, Daily saccharomyces boulardii (FLORASTOR) 250 mg, 2 times daily senna (Senokot) 8.6 MG tablet 1 tablet, Nightly tamsulosin (Flomax) 0.4 MG 24 hr capsule tiZANidine (ZANAFLEX) 2 mg, 3 times daily Tresiba FlexTouch 16 Units, Nightly Vitamin D3 1.25 MG (87099 UT) capsule Objective Visit Vitals BP 139/65 (BP Location: Left arm, Patient Position: Sitting, BP Cuff Size: Large adult long) Pulse 59 Resp 18 Ht 1.702 m (5' 7 ) Wt 81.6 kg (180 lb) SpO2 98% BMI 28.19 kg/m?? Smoking Status Former BSA 1.96 m?? Heart Rate: [59] 59 Resp: [18] 18 BP: (139)/(65) 139/65 Physical Exam: Physical Exam Constitutional: General: He [...] and discuss their significance below. LAB RESULTS Labs 09/2024 Na 137, K 3.8, CL 107, CO2 22, BUN 43, CR 2.5, EGFR 25, Ca 9.5, Labs 01/10/25 CBC: WBC 7, HGB 10.9, PLT 254 RFP: Glu 31, Na 139, K 4.6, Cl 102, BUN 44, Cr 2.9,GFR 21, Ca 8.7, Alb 3.7, Phos 4.2, Urine creatinine 68 UA: 1+ blood, pH 6.0, Protein 2+, budding yeast, WBC clumps present, Imaging: Renal US: noted to have 6.4cm cyst on right kidney, some increased cortical echogenicity Impression & Plan: Donte Trujillo is a 84 y.o. male with CKD4, CAD, Valvular heart disease, DM2, BPH with obstruction here for CKD follow up. #CKD Stage 4 Etiology: Multifactorial with T2DM, [...] 50 mg daily -SGLT2 inhibitor: On farxiga 10 mg -GLP1 mounjaro #HTN in CKD - Bumetanide - Losartan 50 mg - metoprolol #Yeast infection -on diflucan #Anemia in CKD -Hgb noted to be 10.6 in July, assuming patients baseline - Ferritin at lower range of normal - Monitor for now #CKD Bone and Mineral Disease - Electrolytes in range - Obtaining labs for PTH and vit D evaluation #Hyperlipidemia in CKD - Patient not taking statin per records - LDL at 87, no need given age Recommendations and plan: -Since last visit, patient lost 10 lbs, BP better controlled, still on losartan 50 mg and dapagliflozin 10 mg, creatinine increased to 2.9 EGFR now 21. He is on diflucan for possible yeast infection.He may need to stop SGLT2 inhibitor if he keeps getting yeast/UTIs. -Appears well, no edema, BP at his goal <140/80 -No change to medications today RTC in 4 m ORDERS PLACED THIS ENCOUNTER No orders of the defined types were placed in this encounter. Problem List Items Addressed This Visit None I confirm that I have addressed the patient's longitudinal multifaceted and complex health related active and chronic conditions that will require ongoing care with myself or someone on my team. 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, [address] [place] [id number] Aaron Marie MD [address] [facility] [address] [place] [address] 05/27/2025 1:20 PM EDT Office Visit [facility] [address] [place] [address] Moshe Jack MD [address] [place] [address] documented as of this encounter Visit Diagnoses Diagnosis GILBERT (acute kidney injury)- Primary Chronic kidney disease-mineral and bone disorder [...] plan has been documented for the patient 01/14/2025 10:20 AM EST documented as of this encounter Care Teams Butcher All Round Relationship Specialty Start Date End Date Sylvester Bynum [facility] [place] [address] PCP - General 09/01/24 documented as of this encounter
[2025-01-21 21:30] VITALS: BP 185/93; PULSE 81; RESP 17; TEMP 37.1; O2SAT 99; BMI 29.0
[2025-01-21 22:00] VITALS: BP 174/81; PULSE 92; O2SAT 95
--- NOTE | 2025-01-21 22:12 | HMH.EDGENADL ---
Discharge Plan Disposition Patient Disposition: Home, Self-Care Condition: Good Prescriptions Prescriptions: No Action ferrous sulfate [FeroSul] 325 mg (65 mg iron) tablet 325 mg PO DAILY metoprolol succinate 25 mg tablet extended release 24 hr 25 mg PO HS finasteride [Proscar] 5 mg tablet 5 mg PO DAILY 90 Days Qty: 90 1RF oxybutynin chloride 10 mg tablet extended release 24hr 10 mg PO DAILY 90 Days Qty: 90 1RF tamsulosin [Flomax] 0.4 mg capsule 0.4 mg PO DAILY 90 Days Qty: 90 1RF Rx Instructions: Take 1/2-hour after same meal each day clopidogrel 75 mg tablet 75 mg PO DAILY polyethylene glycol 3350 17 gram/dose powder 17 g PO DAILY 30 Days Qty: 510 0RF senna 8.6 mg capsule 8.6 mg PO BID Qty: 60 0RF insulin degludec [Tresiba FlexTouch U-200] 200 unit/mL (3 mL) insulin pen 17 unit SQ DAILY insulin lispro 100 unit/mL solution 0 unit SQ DIRECTED Rx Instructions: INJECT PER SLIDING SCALE: IF 151-200= 2 UNITS; 201-250=4 UNITS; 251-300=6 UNITS; 301-350=8 UNITS; 351-400=10 UNITS; IF ABOVE 400, GIVE 12 UNITS AND CALL losartan 50 mg tablet 50 mg PO famotidine 40 mg tablet 40 mg PO DAILY bisacodyl 10 mg suppository 10 mg OK PRN ascorbate calcium (vitamin C) 500 mg tablet 500 mg PO DAILY ciprofloxacin-dexamethasone 0.3-0.1 % drops,suspension 4 drp otic (ear) BID (DME) AutoShield Duo Pen Needle 30 gauge x 3/16 needle See Rx Instructions .ROUTE .MEDSUPPLY Qty: 100 Rx Instructions: As directed Mounjaro 5 mg/0.5 mL pen injector SQ tramadol 50 mg tablet 50 mg PO TID acetaminophen [Tylenol 8 Hour] 650 mg Tablet Extended Release 650 mg PO Q8HP PRN (Reason: arthritis pain) (DME) pen needle, diabetic, safety 29 gauge x 5/16 Needle MISCELLANEOUS (DME) BD AutoShield Duo Pen Needle 30 gauge x 3/16 needle MISCELLANEOUS (DME) BD SafetyGlide Insulin Syringe 1 mL 31 gauge x 15/64 syringe MISCELLANEOUS ammonium lactate 12 % lotion 1 applic TOPICAL HS loratadine 10 mg tablet 10 mg PO DAILY bumetanide 1 mg tablet 1 mg PO DAILY gabapentin 100 mg capsule 200 mg PO TID insulin lispro 100 unit/mL solution 4 unit SQ DAILY escitalopram oxalate 20 mg tablet 20 mg PO DAILY dapagliflozin propanediol [Farxiga] 10 mg tablet 10 mg PO DAILY ipratropium-albuterol 0.5 mg-3 mg(2.5 mg base)/3 mL solution for nebulization 3 ml INHALATION QID Referrals Follow up/Referrals: Provider,Referral, MD [Primary Care Provider, Medical] - See instructions Activity Restrictions/Add. Instructions Additional Instructions/Restrictions: Please follow-up with your primary care provider. Please return to the emergency department if you develop any new or worsening symptoms or become concerned for your health. Clinical Impressions Clinical Impression: Acute knee pain Fall Qualifiers: Encounter type: initial encounter Qualified Code(s): W19.XXXA - Unspecified fall, initial encounter Instructions Patient Instructions: DI for Altered Mental Status Print Language Print Language: [place] Discharge ED Provider: Silvana Boothe General Adult HPI General Chief complaint: Fall Stated complaint: AMS post fall 01/20 Time Seen by Provider: 01/21/25 22:05 Mode of Arrival: EMS Source of Information: Patient and EMS Description of Symptoms (Recalled from ER Triage Doc. by RN): Patient presents to ED via [facility] from [facility]. Patient A&O x 4 upon arrival. Patient reports multiple falls over the past few days, most recent last night. Patient reports he fell backwards hitting his head, also complains of bilateral knee pain and head pain. History of Present Illness HPI narrative: Patient is an 84-year-old gentleman who presented to the emergency department after a ground-level fall yesterday. Patient states that he tripped and fell and landed on the back of his head. Patient states that he did not lose consciousness. Patient is not complaining of a headache, vision changes. Patient is complaining of right knee pain. States that he has been ambulatory since that time. Patient denies any chest pain shortness of breath or other associated symptoms prior to the fall. Related Data Home Medications ?Medication ?Instructions ?Recorded ?Confirmed clopidogrel 75 mg tablet 75 mg PO DAILY 05/12/17 12/27/24 insulin degludec 200 unit/mL (3 17 unit SQ DAILY 09/15/23 12/27/24 mL) subcutaneous pen (Tresiba FlexTouch U-200 insulin) insulin lispro 100 unit/mL 0 unit SQ DIRECTED 09/15/23 12/27/24 subcutaneous solution tramadol 50 mg tablet 50 mg PO TID 10/20/23 12/27/24 ferrous sulfate 325 mg (65 mg 325 mg PO DAILY 01/01/24 12/27/24 iron) tablet (FeroSul) acetaminophen 650 mg 650 mg PO Q8HP PRN arthritis pain 01/19/24 12/27/24 tablet,extended release (Tylenol 8 Hour) insulin syringe,safety needle 1 mL 01/19/24 12/27/24 31 gauge x 15/64 (BD SafetyGlide Insulin Syringe) pen needle, diabetic, safety 29 01/19/24 12/27/24 gauge x 5/16 pen needle,diabetic dual safty 30 01/19/24 12/27/24 gauge x 3/16 (BD AutoShield Duo Pen Needle) ammonium lactate 12 % lotion 1 applic topical HS 03/17/24 12/27/24 loratadine 10 mg tablet 10 mg PO DAILY 03/17/24 12/27/24 bumetanide 1 mg tablet 1 mg PO DAILY 03/18/24 12/27/24 dapagliflozin propanediol 10 mg 10 mg PO DAILY 03/18/24 12/27/24 tablet (Farxiga) escitalopram oxalate 20 mg tablet 20 mg PO DAILY 03/18/24 12/27/24 gabapentin 100 mg capsule 200 mg PO TID 03/18/24 12/27/24 insulin lispro 100 unit/mL 4 unit SQ DAILY 03/18/24 12/27/24 subcutaneous solution ipratropium 0.5 mg-albuterol 3 mg 3 ml inhalation QID 03/18/24 12/27/24 (2.5 mg base)/3 mL nebulization soln metoprolol succinate 25 mg 25 mg PO HS 05/19/24 12/27/24 tablet,extended release 24 hr ascorbate calcium (vitamin C) 500 500 mg PO DAILY 12/08/24 12/27/24 mg tablet bisacodyl 10 mg rectal suppository 10 mg OK PRN 12/08/24 12/27/24 ciprofloxacin 0.3 %-dexamethasone 4 drp otic (ear) BID 12/08/24 12/27/24 0.1 % ear drops,suspension famotidine 40 mg tablet 40 mg PO DAILY 12/08/24 12/27/24 losartan 50 mg tablet 50 mg PO 12/08/24 12/27/24 pen needle, diabetic, safety 30 #100 ea 12/08/24 12/27/24 gauge x 3/16 (AutoShield Duo Pen Needle) tirzepatide 5 mg/0.5 mL mg SQ 12/08/24 12/27/24 subcutaneous pen injector (Mounjaro) Previous Rx's ?Medication ?Instructions ?Recorded polyethylene glycol 3350 17 17 g PO DAILY 30 days #510 grams 03/13/23 gram/dose oral powder sennosides 8.6 mg capsule (senna) 8.6 mg PO BID #60 caps 03/13/23 finasteride 5 mg tablet (Proscar) 5 mg PO DAILY 90 days #90 tabs 12/27/24 oxybutynin chloride 10 mg 10 mg PO DAILY 90 days #90 tabs 12/27/24 tablet,extended release 24 hr tamsulosin 0.4 mg capsule (Flomax) 0.4 mg PO DAILY 90 days #90 caps 12/27/24 Allergies Allergy/AdvReac Type Severity Reaction Status Date / Time shrimp Allergy Unknown Verified 12/27/24 10:23 allergy reaction iodine AdvReac Unknown Verified 12/27/24 10:23 allergy reaction [facility] Disclaimer: The information contained in this section may have been updated after the patient was seen, as this information can be updated by other users. Medical History Zenkers diverticulum Globus sensation Chronic dysfunction of both eustachian tubes Right ear pain Difficulty swallowing Urinary incontinence Allergies Chronic sinusitis Chronic pain of both ears Impacted cerumen of both ears Tinnitus Nasal congestion Acute pain of both ears Fullness in both ears Complex laceration of scalp Encounter for medical assessment GERD (gastroesophageal reflux disease) Allergic rhinitis Ear congestion CAD (coronary artery disease) HLD (hyperlipidemia) COPD (chronic obstructive pulmonary disease) HHD (hypertensive heart disease) Carotid artery disease Shortness of Breath Surgical History H/O knee surgery Heart valve replaced History of open heart surgery History of lumbar fusion Family History Other Heart attack Heart disease Social History Smoking Status: Former smoker second hand exposure: No alcohol intake: never substance use type: denies use current occupational status: retired Travel in the last 8 weeks?: None housing: fdc caffeine: No Have you lived/traveled outside US in past 30 days?: No Contact w/someone who lives/traveled outside US past 30 days?: No Exposure to someone with infectious disease in past 14 days?: No Do you have a fever (greater than 100.4 F or 38 C)?: No Have you tested positive for COVID-19?: No Exposed to someone with COVID-19 in past 14 days?: No Do you have a sore throat?: No Do you have a cough?: No Do you have any weakness?: No Do you have any diarrhea?: No Are you experiencing any unusual bleeding?: No Do you have any muscle aches/pain?: No Do you have any abdominal pain?: No Are you experiencing loss of taste or smell?: No Other Medical History Have you received the Flu Vaccine for this season: No Have you received the Pneumonia Vaccine: Yes ROS Obtained: Yes All systems reviewed & no additional complaints except as documented and Yes Systems reviewed as appropriate & no additional complaints except as documented Physical Exam General General appearance: alert and in no apparent distress Head Head exam: normocephalic, normal inspection and other (small abrasion to the top of the head) Eye Eye exam: Present normal appearance, PERRL and EOMI; Absent scleral icterus ENT ENT exam: Present normal exam and normal external ear exam Neck Neck exam: Present normal inspection and full ROM Chest Chest inspection: Present normal inspection and symmetric chest wall rise Respiratory Respiratory exam: Present normal lung sounds bilaterally; Absent respiratory distress or wheezes Cardiovascular Cardiovascular exam: Present regular rate, normal rhythm and normal heart sounds Abdominal Exam Abdominal exam: Present soft and distention; Absent tenderness, guarding or rebound Extremities Exam Extremities exam: Present normal inspection, full ROM and other (R knee tenderness) Back Exam Back exam: Present normal inspection and full ROM Neurological Exam Neurological exam: Present alert and oriented X3 Psychiatric Psychiatric exam: Present normal affect and normal mood Skin Skin exam: Present warm and dry Medical Decision Making Medical Records Medical records reviewed: Yes I reviewed the patient's medical records. Screening: Per USPSTF and CDC recommendations, given the prevalence of disease in our region, it is our hospital?s policy to screen for HIV and viral Hepatitis for all patients aged 18 and over and those with ongoing risk factors. Herman Inquiry Pt receiving controlled substance: No Vital Signs: 01/21/25 21:30 Temperature 98.8 F Temperature Source Oral Pulse Rate [Right Radial] 81 Respiratory Rate 17 Blood Pressure [Right Arm] 185/93 H Blood Pressure Mean [Right Arm] 123 Blood Pressure Source [Right Arm] Automatic Cuff Blood Pressure Position [Right Arm] Sitting 02 Sat by Pulse Oximetry 99 Oxygen Delivery Method Room Air Lab Data Lab results reviewed: Yes I reviewed the patient's lab results. Orders (Tests/Meds): ORDERS Category Date Time Status CT cervical spine wo con Stat Cat Scan 01/21/25 22:[address] head/brain wo con Stat Cat Scan 01/21/25 22:30 Completed Ankle XR -Right minimum 3 Views [XR ankle RT min 3V] Exams 01/21/25 22:30 Completed Stat CXR --portable [XR chest portable] Stat Exams 01/21/25 22:30 Completed Knee XR right 3 views [XR knee RT 3V] Stat Exams 01/21/25 22:30 Completed Tibia/fibula XR right 2 views [XR tibia fibula RT 2V] Exams 01/21/25 22:30 Completed Stat Medical Decision Narrative: Patient is an 84-year-old gentleman who presented to the emergency department after ground-level fall. Patient states that he fell backwards hit his head yesterday. On arrival, patient was hemodynamically stable with unremarkable vital signs. Differential includes but not limited to: Intracranial pathology, cervical spine pathology, fracture, dislocation, sprain, strain. Given patient's clinical workup, CT head, CT cervical spine were obtained as well as x-rays of the right lower extremity. Patient CT head and cervical spine showed no acute pathology. Patient's x-rays of the right lower extremity showed no acute pathology. At this time, patient was ambulatory in the emergency department. Given that patient had a mechanical fall no other symptoms prior I did not feel that syncope workup or other labs or imaging were felt to be indicated. Patient was otherwise discharged home in stable condition. Critical Care Critical Care Time Critical Care Time: No
--- OUTSIDE RECORDS SUMMARY | 2025-01-21 22:23 | XMS_ITS | Encounter Summary ---
Author Organization [facility] Address [address] [place] [address] Care Team Providers Care Income Tax Consultant Name Role Phone Sylvester Bynum MD Primary Care Provider + [phone] Encounter Details Date Type Department Care Team ([facility] Contact Info) Description 01/18/2025 Orders Only [facility] [address] [place] [address] [place] GILBERT (acute kidney injury) (Primary Dx) Social History Tobacco Use Types Packs/Day Years [...] Upcoming Encounters Date Type Department Care Team ([facility] Contact Info) Description 03/22/2025 3:30 PM EST Office Visit Medical Office Building Urology [address] [facility], [address] [place] [address] Aaron Marie MD [address] [place] [address] 05/27/2025 1:20 PM EDT Office Visit [facility] [address] [place] [address] Moshe Jack MD [address] [place] [address] Scheduled Orders Name Type Priority Associated Diagnoses Orde r Schedule Renal Function Panel, Plasma Lab Routine GILBERT (acute kidney injury) Expected: 01/18/2025 (Approximate), Expires: 07/18/2026 CBC and Differential Lab Routine GILBERT (acute kidney injury) Expected: 01/18/2025 (Approximate), Expires: 07/18/2026 Urinalysis with reflex microscopic (Culture NOT Included) Lab Routine GILBERT (acute kidney injury) Expected: 01/18/2025 (Approximate), Expires: 07/18/2026 Protein, Random, Urine with Creatinine Lab Routine GILBERT (acute kidney injury) Expected: 01/18/2025 (Approximate), Expires: 07/18/2026 Creatinine, Random, Urine Lab Routine GILBERT (acute kidney injury) Expected: 01/18/2025 (Approximate), Expires: 07/18/2026 documented as of this encounter Visit Diagnoses Diagnosis GILBERT (acute kidney injury)- Primary documented in this encounter Additional Health Concerns Assessment Noted Time PHQ-9 Depression Total Score: 12 025 1:41 PM EDT A fall risk assessment has been complete d for the patient 12/22/2024 1:41 PM EDT A Body Mass Index follow-up plan has been documented for the patient 01/14/2025 10:20 AM EST documented as of this encounter Care Teams Income Tax Consultant Relationship Specialty Start Date End Date Sylvester Bynum MD [facility] [email or web address] [address] PCP - General 09/01/24 documented as of this encounter
--- OUTSIDE RECORDS SUMMARY | 2025-01-21 22:23 | XMS_ITS | Encounter Summary ---
Author Organization Healthcare Address [address] [place] [address] Care Team Providers Care Field Tax Auditor Name Role Phone Sylvester Bynum MD Primary Care Provider [phone] Encounter Details Date Type Department Care Team (Late st Contact Info) Description 01/03/2025 Results Follow-Up [facility] Urology [address] [place] [address] Aaron Marie MD [address] [place] [address] Social History Tobacco Use Types Packs/Day Years [...] as of this encounter Miscellaneous Notes * Result Encounter Note - Aaron Marie MD - 01/03/2025 10:23 AM EST Will treat with fluconazole documented in this encounter Plan of Treatment Upcoming Encounters Date Type Department Care Team (Late st Contact Info) Description 03/22/2025 3:30 PM EST Office Visit Medical Office Building Urology [address] [facility], [address] [place] [address] Aaron Marie MD [address] [place] [address] 05/27/2025 1:20 PM EDT Office Visit [facility] [address] [facility] [address] [place] [address] Moshe Jack MD [address] [place] [address] documented as of this encounter Visit Diagnoses Diagnosis Ruthy UTI- Primary Candidiasis of other urogenital sites documented in this encounter Additional Health Concerns Assessment Noted Time PHQ-9 Depression Total Score: 12 025 1:41 PM EDT A fall risk assessment has been complete d for the patient 12/22/2024 1:41 PM EDT A Body Mass Index follow-up plan has been documented for the patient 12/25/2024 9:39 AM EDT documented as of this encounter Care Teams Field Tax Auditor Relationship Specialty Start Date End Date Sylvester Bynum MD [facility] [place] [address] PCP - General 09/01/24 documented as of this encounter
--- OUTSIDE RECORDS SUMMARY | 2025-01-21 22:23 | XMS_ITS | Data Portability ---
Author Organization [facility] ANN MARIE Manley W[facility] CLOS[facility] Address [address] [facility] [facility] [address] [address] [place] [address] Care Team Providers Care Assault Amphibious Vehicle Officer Name Role Phone KEIRA YOUSIF Pain Management Assessment Encounter Date Assessment Date Assessment LastModified by Organization Details LastModified Time 08/29/2017 08/29/2017 Routine staple removal s/p SCS placement 08/15/17. His incisions healed nicely, went ahead w/ the removal. He handled the procedure well. [facility] 08/29/2017 13:42:38 Plan of Treatment Reminders Order Date Submit Date Provider Last Modified By Organization Details Last Modified Time Details Appointments None recorded. Lab None recorded. Referral pain management referral - for scs trial discussion 2017 Charlie Yousif MD, [address], [place], [address], 8 10:13:47 Procedures None recorded. Surgeries None recorded. Imaging MRI, thoracic spine, w/o contrast - Please call patient with date and time. Please fax report to Dr. Frankie Arce's office at [phone]. Needing a disk mailed to Dr. Leggett office at [address], [address], [place] [address]. Please call Courtney at [phone] with any questions. 2017 Charlie Gomez (Centralized Scheduling), [address] [place] [address] , [place], [address], 8 11:45:24 Medication Orders None recorded. Patient TargetsNo targets recorded. Patient Instructions Encounter Date Encounter Id Patient Instructions Last Modified By Organization Details Last Modified Time 08/04/2017 [id number] Spent 15 total minutes with the patient today in counseling regarding information documented in my assessment and plan above. The time represents more than 50% of the encounter. [email or web address] Not available 08/04/2017 14:24:00 Reason for Referral Pain Management Referral for Lumbar radiculopathy discuss spinal cord stimulator for scs trial discussion Referring Physician: Marcela Rodriges, Neurosurgery, Encounter Date: 03/20/2017 Results Created Date Observation Date Name Description Value Unit Range Abnormal Flag Note LastModifiedBy Organization Detail LastModifiedTime 03/20/19 18 03/20/2017 XR, lumbo sacra l spine , 2 or 3 view [id number] [place] [address] Florence thompson Name: ZULEMA thompson : [birth year] 39 Florence thompson 5 Orderi ng Provid er: VERNA ARCE EXAM DATE: 2017 EXAM: XR LUMBAR AP/LAT CLINIC AL INFORM ATION: Postop erativ e. IMAGES PROVID ED: AP, latera l, and coned- down views of the lumbar spine. COMPAR LUIS MANUEL: None. FINDIN GS AND IMPRES HARRISON: Spinal fusion is noted at L2-S1 level with pedicu lar screws and connec ting rods. Surgic al hardwa re is satisf actori ly placed . No eviden ce of loosen ing or infect ion is seen. Degene rative change s are seen at other levels . Interp reted By: Azael Ferrari MD Electr onical ly Signed By: Azael Ferrari MD on 018 1:07 PM [email or web address] [facility] Radiology [facility] [address] [place], [address], 03/20/2017 15:42:32 08/13/19 18 03/13/2017 MRI, thora cic spine , w/o contr ast No observ ation record ed. BARCODE Not Available 2017 10:53:13 08/17/19 18 08/15/2017 fluor oscop y (PROC ) No observ ation record ed. [email or web address] Not Available 08/19 11:05:29 Result Notes Documentation Provider Name and Address Organization Details Recorded Time Xr, Lumbosacral Spine, 2 Or 3 View : [address] [address] Patient Name: ZULEMA TRUJILLO Patient : 1940 Patient Ordering Provider: BISMARK ARCE EXAM DATE: 03/20/2017 EXAM: XR LUMBAR AP/LAT CLINICAL INFORMATION: Postoperative. IMAGES PROVIDED: AP, lateral, and coned-down views of the lumbar spine. COMPARISON: None. FINDINGS AND IMPRESSION: Spinal fusion is noted at L2-S1 level with pedicular screws and connecting rods. Surgical hardware is satisfactorily placed. No evidence of loosening or infection is seen. Degenerative changes are seen at other levels. Interpreted By: Tommy Ferrari MD ARK ARCE MD [address] [place] [address], [phone] 03/20/2017 15:42:32 Problems Name Problem SNOMED Code Status Onset Date Resolution Date Notes Provider Name and Address Organization Details Recorded Time Spinal stenosis of lumbar region 11466268 Active 2015 From Automated Load;Provi chai: Bismark Arce; atus: Active Not Available [facility] 6 03:22:40 Problem Notes None recorded. Procedures Surgical History Date Name Laterality Status Provider Name and Address Organization Details Recorded Time 8 Interpretation completed MARCELA RODRIGES PA-C [address] [place] [address], [phone], [facility] 03/20/2017 09:25:03 Imaging Results None recorded. Procedure Notes None recorded. Medical Equipment None Reported. Allergies Allergen ID Allergen Name Allergen Category Reaction Reaction Severity Criticality Documentation Date Start Date Code Code System Note Provider Name and Address Organization Details Recorded Time 490398 Shellfish (substanc e) food,medi cation Not available Not available Not available 01/18/20162011 26836 9006 SNOMED Comme nt: Creat ed By: Savanah Nolen;Td eated Date: 2011 1:14: 25 PM; Not Available [facility] 6 11:04:49 Medications Name Sig Start Date Stop Date Status Note LastModified by Organization Details LastModified Time fluoxetin e 40 mg capsule Daily active Not Available Not Available Not Available furosemid e 40 mg tablet active Not Available Not Available Not Available magnesium 500 mg tablet active Medicati on Descript ion: magnesiu m oxide; Route:or al; refills: 0; Quantity :1 tablet Not Available Not Available Not Available atorvasta tin 20 mg tablet Take 1 tablet every day by oral route. active Not Available Not Available No t Available doxazosin 1 mg tablet 03/20 completed Medicati on Descript ion: doxazosi n; Route:or al; refills: 0 Not Available Not Available Not Available lisinopri l 20 mg tablet Take 1 tablet every day by oral route. active Not Available Not Available No t Available DHEA 25 mg tablet 03/20 completed Medicati on Descript ion: dehydroe piandros terone; Route:or al; refills: 0 Not Available Not Available Not Available clopidogr el 75 mg tablet Daily active Not Available Not Available Not Available zinc oxide 20 % topical ointment 03/20 completed Medicati on Descript ion: zinc oxide topical; refills: 0 Not Available Not Available Not Available oxycodone -acetamin ophen 5 mg-325 mg tablet Take 1 tablet 4 times a day by oral route as needed. active Not Available Not Available No t Available Lipitor 40 mg tablet Every night at bedtime 03/20 completed Frequenc y: qhs;Medi cation Descript ion: atorvast atin; Dosage:1 ; Route:or al; refills: 0 Not Available Not Available Not Available doxazosin 4 mg tablet Take 1 tablet every day by oral route. active Not Available Not Available No t Available ergocalci ferol (vitamin D2) 1,250 mcg (50,000 unit) capsule active Not Available Not Available Not Available testoster one cypionate 200 mg/mL intramusc ular oil 03/20 completed Medicati on Descript ion: testoste jonah; Route:in tramuscu lar; refills: 0 Not Available Not Available Not Available methylpre dnisolone 4 mg tablets in a dose pack active Not Available Not Available Not Available lisinopri l 40 mg tablet Bedtime 03/20 completed Duration : 30 days;Joseph quency: hs;Medic ation Descript ion: lisinopr il; Dosage:1 ; Route:or al; refills: 5; Quantity :30 tablet Not Available Not Available Not Available cefdinir 300 mg capsule active Not Available Not Available Not Available Lipitor 10 mg tablet Every night at bedtime 03/20 completed Frequenc y: qhs;Medi cation Descript ion: atorvast atin; Dosage:1 ; Route:or al; refills: 0; Quantity :30 tablet Not Available Not Available Not Available metformin ER 500 mg tablet,ex tended release 24 hr active Not Available Not Available Not Available risperido ne 1 mg tablet Two times a day active Not Available Not Available No t Available ergotamin e tartrate active Medicati on Descript ion: ergotami ne; Route:co mpoundin g; refills: 0 Not Available Not Available Not Available Children' s Chewable Aspirin active Medicati on Descript ion: aspirin; Route:or al; refills: 0 Not Available Not Available Not Available Levemir FlexPen 03/20 completed Medicati on Descript ion: insulin detemir; Route:ramos bcutaneo us; refills: 0 Not Available Not Available Not Available Sure Comfort Pen Needle 31 gauge x 3/16 active Not Available Not Available Not Available Bystolic 10 mg tablet active Not Available Not Available Not Available Budeprion XL 150 mg 24 hr tablet, extended release Daily 03/20 completed Frequenc y: daily;Me dication Descript ion: bupropio n; Dosage:1 ; Route:or al; refills: 0 Not Available Not Available Not Available Dexilant 60 mg capsule, delayed release active Not Available Not Available Not Available Edarbyclo r 40 mg-25 mg tablet Take 1 tablet every day by oral route. active Not Available Not Available No t Available Vascepa 1 gram capsule Take 2 capsules twice a day by oral route. active Not Available Not Available No t Available Tresiba FlexTouch U-200 insulin 200 unit/mL (3 mL) subcutane ous pen active Not Available Not Available Not Available Tresiba FlexTouch U-100 active Not Available Not Available Not Available Vitals Date Recorded Systolic And Diastolic Provider Name and Address Organization Details Last Updated DateTime 03/20/2017 120/70 mm[Hg] [facility] 03/20/2017 09:00:08 Date Recorded Body height Body mass index (BMI) Body weight Systolic And Diastolic Provider Name and Address Organization Details Last Updated DateTime 08/04/2017 170.18 cm 31.3 kg/m2 43485.47 g 132/82 mm[Hg] Karissa PETERSON [facility] 08/04/2017 10:12:59 Social History None recorded. Functional Status None recorded. Mental Status None recorded. Family History Nothing Reported. Medical History No medical history recorded. Past Encounters Encounter ID Performer Location Encounter Start Date Encounter Closed Date Diagnosis/Indication Diagnosis SNOMED-CT Code Diagnosis ICD10 Code Diagnosis IMO Codes Diagnosis Note [id number] MARCELA RODRIGES PA-C [facility] [address] [place] [address] 03/20/2017 08:13:19 03/20/2017 09:44:28 Lumbar radiculopathy 794320509 M54.16 76M s/p L2-S1 PLIF, last extended by Dr. Arce to L2-3 on 05/02/15 with chronic lumbar radiculopa thy. Xrays reviewed and do not show any signs of hardware failure or pseudoarth rosis. I don't feel like it is SI joint related as he is not tender over this area and is having pain past the knee. We will refer him to Dr. Yousif to discuss a SCS trial. We will be happy to permanentl y place this if he responds well to the scs. We will also check a thoracic MRI WO to see if there is any occult stenosis in the event a scs is to be permanentl y placed. Pt was seen and examined by myself and by Dr. Arce who agrees with above. [id number] KISHOR KAYE PA-C [facility] [address] [place] [address] 08/04/2017 09:38:57 08/05/2017 10:33:51 Chronic low back pain [id number] M54.5 76 YO WM here today after a successful SCS trial. He states he had good relief of his LBP and could walk 3x further and his pain was 75% better with the [facility] SCS trial with Dr. Yousif. Conversati ve and previous surgical treatments discussed above. Dr. Arce would recommend a SCS. Risks/comp lications, including bleeding, infection, durotomy, and nerve root damage in detail. Alternativ es, including continued conservati ve treatment and observatio n were also discussed. All his questions were answered to his satisfacti on. He elected to proceed with surgery. He will meet with the surgery technician today and pick a date for surgery. He will need clearance from a cardiac standpoint regarding his plavix. The surgery technician will call Dr. Stoddard's office and discuss this. States he had a thoracic MRI completed before his last visit and has the CD at home. We explained we have no record of the thoracic MRI being completed. We will call [facility] in [place] and request the CD and the report. We will also give Mr. Trujillo a cuff slitter envelope to send his CD back to us. We will need this imaging to evaluate any spinal stenosis near in the thoracic region as the paddles will reside there. The patient was seen and examined by Dr. Arce and myself. He agrees with the plan as stated above. [id number] BISMARK ARCE MD [facility] [address] [facility] [place] [address] 08/29/2017 13:30:16 08/29/2017 13:42:54 Health Concerns Section Related Observation LastModified by Organization Detai ls LastModified Time None Recorded Concern Status LastModified by Organization Details LastModified Time None Recorded Advance Directives Directive None Recorded Payers Insurance Date Sequence Insurance Name Policy Number Policy Santacruz Covered Member ID Santacruz Member ID Guarantor Name 04/24/2017 2 FOR LIFE ( - MEDICARE SUPPLEMENT) Zulema Trujillo [id number] Zulema Trujillo 05/21/2018 2 FOR LIFE ( - MEDICARE SUPPLEMENT) Zulema Trujillo [id number] Zulema Trujillo 05/21/2018 1 MEDIC[place]MEDICARE[place] Zulema Trujillo [id number] Zulema Trujillo Notes Date Note Type Note Provider Name and Address Organization Details Recorded Time 03/20/2017 text/html 76M s/p L2-S1 PLIF, last extended by Dr. Arce to L2-3 on 05/02/15 presents to clinic for evaluation of his continued low back and bilateral leg pain. Pt states that after his last surgery, he never really got full relief of his leg pain. He is pain free if he sits or lays down. He has low back pain that radiates down the posterior legs equally into the calfs. He has no associated n/t. He has participated in PT and tried improving his walking tolerance without any success. He denies any focal weakness or cauda equina symptoms. MARCELA RODRIGES PA-C [address] [place], [address], [facility] 03/20/2017 09:28:16 08/04/2017 text/html ROS as noted in the HPI Mr. Trujillo is a 76 YO WM here today after a successful SCS trial. He states he had good relief of his LBP and could walk 3x further and his pain was 75% better with the [facility] SCS trial with Dr. Yousif in June 2017. States the majority of his pain is in the low back. When the pain does radiate, it goes down the posterior and lateral aspects of the R>L legs. Pain is worse with walking and better with sitting. He has had about 8 years of LBP is s/p L4-S1 PLIF with Dr. Crawley in 2009, L3-[address] Arce in 2011, and L2-[address] Arce in 2016. Denies b/b incontinence, saddle paresthesias, or gait disturbance. He takes plavix for an unknown reason to him and will need surgical clearance from his land classifier in [place] before surgery. He sees Dr. Stoddard. He was able to stop the plavix before the SCS trial without complication. He states he had a thoracic MRI completed and brought the disc to his last appointment with us. He states this was not reviewed during his visit last time and he has the CD at home. KISHOR KAYE PA-C [address] [place], [address], [facility] 08/04/2017 14:33:03
--- OUTSIDE RECORDS SUMMARY | 2025-01-21 22:23 | XMS_ITS | Clinical Summary ---
Author Organization [facility] Address [address] [place] [address] Care Team Providers Care Editor Farm Journal Name Role Phone Sylvester Bynum MD Primary Care Provider + [phone] Allergies Active Allergy Reactions Criticality Noted Date Comments Iodine Other - please docum ent in the comment field Low 10/06/2024 Medications bumetanide (Bumex) 1 MG tablet 5 Active buPROPion XL (Wellbutrin XL) 150 MG 24 hr tablet 5 Active clopidogrel (Plavix) 75 MG tablet 5 Active Farxiga 10 MG tablet 5 Active escitalopram (Lexapro) 20 MG tablet 5 Active FeroSul 325 (65 Fe) MG tablet 5 Active finasteride (Proscar) 5 MG tablet 5 Active tamsulosin (Flomax) 0.4 MG 24 hr capsule 5 Active losartan (Cozaar) 50 MG tablet 5 Active metoprolol succinate XL (Toprol-XL) 25 MG 24 hr tablet 5 Active cefdinir (Omnicef) 300 MG capsule 5 Active gabapentin (Neurontin) 100 MG capsule 5 Active Acetaminophen Extra Strength 500 MG tablet 5 Active methylcellulose oral powder Take by mouth daily. Active saccharomyces boulardii (Florastor) 250 MG capsule Take 1 capsule by mouth 2 times a day. Active polyethylene glycol (Miralax) 17 g packet Take 17 g by mouth daily. Active ascorbic acid (Vitamin C) 500 MG tablet Take 1 tablet by mouth daily. Active ciprofloxacin-de xamethasone (CiproDEX) otic suspension 4 drops 2 times a day. Active loperamide (Imodium) 2 MG capsule Take 1 capsule by mouth 4 times a day as needed for diarrhea. Active senna (Senokot) 8.6 MG tablet Take 1 tablet by mouth nightly. Active tiZANidine (Zanaflex) 2 MG capsule Take 1 capsule by mouth 3 times a day. Active Ferretts 325 (106 Fe) MG tablet 5 Active Mounjaro 5 MG/0.5ML solution auto-injector solution pen-injector 5 Active insulin lispro (Admelog, HumaLOG) 100 UNIT/ML injection pen 5 Active Embecta AutoShield Duo 30G X 5 MM [facility] 5 Active bisacodyl (Dulcolax) 10 MG suppository 5 Active Vitamin D3 1.25 MG (45180 UT) capsule 5 Active famotidine (Pepcid) 40 MG tablet 5 Active NovoFine Autocover Pen Needle 30G X 8 MM misc 5 Active Mounjaro 7.5 MG/0.5ML solution auto-injector solution pen-injector 5 Active fluticasone (Flonase) 50 MCG/ACT nasal spray Administer 1 spray into each nostril daily. Shake gently. Before first use, prime pump. After use, clean tip and replace cap. Active ARTIFICIAL SALIVA MT Use in the mouth or throat. Active oxybutynin XL (Ditropan-XL) 10 MG 24 hr tablet Take 1 tablet by mouth daily. Do not crush, chew, or split. Active insulin degludec (Tresiba FlexTouch) 200 UNIT/ML injection pen Inject 16 Units under the skin nightly. Active fluconazole (Diflucan) 200 MG tabletIndication s:Ruthy UTI Take 1 tablet by mouth daily for 14 days. 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 [address] [place] [address] [place] GILBERT (acute kidney injury) (Primary Dx) 01/14/2025 9:40 AM EST Office Visit [facility] [address] [place] [address] [place] [address] Moshe Jack MD GILBERT (acute kidney injury) (Primary Dx); Chronic kidney disease-mineral and bone disorder (CKD-MBD); Other hyperlipidemia; Persistent proteinuria; Recurrent and persistent hematuria with other morphologic changes; Benign prostatic hyperplasia, unspecified whether lower urinary tract symptoms present 01/14/2025 Travel 01/03/2025 Results Follow-Up [facility] Urology [address] [place] [id number] Aaron Marie MD 12/22/2024 2:30 PM EDT Office Visit Medical Office Building Urology [address], [address] [place] [address] Aaron Marie MD Microscopic hematuria (Primary Dx); Benign prostatic hyperplasia, unspecified whether lower urinary tract symptoms present 12/22/2024 11:40 AM EDT - 12/22/2024 11:59 PM EDT Hospital Encounter [facility] Ultrasound [address] [place] [address] Renal cyst Discharge Disposition: Home or Self Care 12/22/2024 Travel 10/27/2024 1:00 PM EDT Consult [facility] U[facility] [address], [address] [place] [address] Aaron Marie MD Urine retention (Primary Dx); Benign prostatic hyperplasia, unspecified whether lower urinary tract symptoms present; Renal cyst 10/27/2024 Travel from Last 3 Months Immunizations Immunization Administration Dates Next Due Pneumococcal 20-christian Conj Vaccine 04/07/2024 Pneumococcal Conjugate PCV 13 12/16/2019 Pneumococcal Polysaccharide PPV23 02/25/2020 Respiratory Syncytial Virus (Rsv), Unspecified 10/20/2024 Tdap 09/23/2024,,02/20/2023,12/17,08/01/2020 Family History Medical History Relation Name Comments Arthritis Father Heart attack Father Relation Name Status Comments Father Social History Tobacco Use Types Packs/Day Years [...] Mass Index 28.19 01/14/2025 9:59 AM EST Plan of Treatment Upcoming Encounters Date Type Department Care Team ([facility] st Contact Info) Description 03/22/2025 3:30 PM EST Office Visit Medical Office Building Urology [address], [address] [place] [address] Aaron Marie MD [address] [place] [address] 05/27/2025 1:20 PM EDT Office Visit [facility] [address] [place] [address] Moshe Jack MD [address] [place] [address] Health Maintenance Due Date Last Done Comments [facility]-Diabetes: Hemoglobin A1C 1940 [facility]-Medicare Annual Wellness (AWV) 1940 [facility]-/Child/Adol SDOH Screenings 1940 Diabetes: Dental Exam 11/01/1949 [facility]- SDOH Screenings 11/01/1957 [facility]-Adult SDOH Screenings 11/01/1957 [facility]-Zoster Vaccines (1 of 2) 11/01/1989 [facility]-Influenza Vaccine (#1) 2024 [id number] Vaccine (2024- season) 2024 09/29/2024, 01/16/2024, 12/17/2022, Additional history exists [facility]-Depression Screening 12/22/2025 12/22/2024, 11/25 [facility]-DTaP,Tdap,and Td Vaccines (6 - Td or Tdap) 09/23/2034 09/23/2024, 12/19/2023, 02/20/2023, Additional history exists [facility]-Pneumococcal Vaccine: 50+ Years Completed 04/07/2024, 02/25/2020, 12/16/2019 [facility]-RSV Vaccine: 60+ Years or Completed 10/20/2024 [facility]-Obesity Intervention Completed 025, 12/22/2024, 10/27/2024, Additional history exists HPV Vaccines Aged Out No longer eligi [...] unspecified whether lower urinary tract symptoms present US RENAL COMPLETE Routine 12/22/2024 1:0 4 PM EDT Renal cyst POC US BLADDER SCAN FOR VOLUME Routine 10/27/2024 12:55 PM EDT Urine retention POCT URINALYSIS DIPSTICK Routine 10/27/2024 12:18 PM EDT from Last 3 Months Results * (ABNORMAL) Fungal Culture, Routine (12/22/2024 3:21 PM EDT) Culture Confluent Growth Ruthy glabrata(A) 12/28/2024 9:12 AM EST [facility] Comment: This isolate has been identified using the FDA Approved MALDI SpinTheCamyper [place] System Edited result: Previously reported as Yeast on 12/24/2024 at 1014 EDT. Urine Urinary bladder structure / Unknown Non-blood Collection / Unknown 12/22/2024 3:21 PM EDT 12/22/2024 5:46 PM EDT Aaron Marie MD LAB MICROBIOLOGY - GENERAL ORDE RABLES Final Result Performing Organization Address City/[facility]/ZIP Co de Phone Number [facility] [address] [place] [address] * Urine Culture - Clinic Collect (12/22/2024 3:21 PM EDT) Culture No growth at day 1 12/23/2024 2:32 PM EDT [facility] Urine Urine specimen obtained by clean catch procedure / Unknown Non-blood Collection / Unknown 12/22/2024 3:21 PM EDT 12/22/2024 5:46 PM EDT us Aaron Marie MD LAB MICROBIOLOGY - GENERAL HAYLEE MCNAMARA Final Result Performing Organization Address [facility] Co de Phone Number [facility] [address] [place] [address] * CYSTO- UROLOGY (12/22/2024 2:30 PM EDT) Narrative Aaron Marie MD - 12/22/2024 2:30 PM EDT Aaron [...] Marie MD UROLOGY ORDERABLES Final Result * TRUS VOLUME (12/22/2024 2:30 PM EDT) Narrative Aaron Marie MD - 12/22/2024 2:30 PM EDT Aaron [...] Marie MD UROLOGY ORDERABLES Final Result * US Renal Complete (12/22/2024 1:04 PM [...] 12/22/2024 2:28 PM us Aaron Marie MD IMG US PROCEDURES Final Result * POC US Bladder Volume (10/27/2024 12:55 PM EDT) Urine, Volume 144 mL IMAGING Anatomical Region Laterality Modality Other us Aaron Marie MD IMG POINT OF CARE ULTRASOUND Fi nal Result * (ABNORMAL) POCT URINALYSIS DIPSTICK (10/27/2024 12:18 PM EDT) POCT Urine Color Yellow 10/27/2024 12:19 PM EDT [facility]OLOG[facility] POCT Urine Clarity Clear 10/27/2024 12:19 PM EDT [facility] POCT Urine Glucose >=1000(A) Negative mg/dL 10/27/2024 12:19 PM EDT [facility] POCT Urine Bilirubin Negative Negative mg/dL 10/27/2024 12:19 PM EDT [facility] POCT Urine Ketones Negative Negative mg/dL 10/27/2024 12:19 PM EDT [facility] UROLOG[facility] POCT Urine Specific [place] 1.015 1.005 - 1.030 10/27/2024 12:19 PM EDT [facility] UROLOG[facility] POCT Urine Blood Small(A) Negative 10/27/2024 [...] UNSOLICITED RESULTS Final Result Performing Organization Address City/State/[facility] Co de Phone Number [facility] [address] [place], [place] from Last 3 Months Insurance MEDICARE [facility] [place] Care Teams Editor Farm Journal Relationship Specialty Start Date End Date Sylvester Bynum MD [facility] [phone] PCP - General 09/01/24
--- OUTSIDE RECORDS SUMMARY | 2025-01-21 22:23 | XMS_ITS | Clinical Summary ---
Author Organization [facility] Address [address] [place] [address] Phone Care Team Providers Care Box Inspector Name Role Phone Manan PEREZ, [facility] Conditions or Problems Problem Name Problem Code Onset Date Status Entry Date Provider Comment Standard Description Annotate SPINAL STENOSIS, LUMBAR M48.06 (ICD-10-CM ) Active Mansi Amanda MA Spinal stenosis, lumbar region Medications Medication Instructions Start Date Stop Date Generic Name NDC Provider BABY ASPIRIN 81 MG CHEW 1 daily Non-Stuart 0 ASPIRIN [id number] Mansioseas Amanda MA DIOVAN HCT 160-12.5 MG TABS 1 daily Non-Stuart 0 VALSARTAN-HYDROC HLOROTHIAZIDE [id number] Mansioseas Amanda AR GABAPENTIN 300 MG CAPS 1 daily Non-Stuart 0 GABAPENTIN [id number] Mansioseas Amanda MA LOTREL 10-20 MG CAPS 1 daily Non-Stuart 0 AMLODIPINE BESY-BENAZEPRIL HCL [id number] Mansioseas Amanda MA DICLOFENAC SODIUM 75 MG TBEC 1 daily Non-Stuart 0 DICLOFENAC SODIUM [id number] Mansioseas Amanda AR AVANDIA 8 MG ORAL TABLET 1 daily Non-Stuart 0 ROSIGLITAZONE MALEATE [id number] Mansioseas Amanda MA FLUOXETINE HCL 40 MG CAPS 1 daily Non-Stuart 0 FLUOXETINE HCL 40888375073 Mansi Amanda AR PLAVIX 75 MG TABS 1 daily Non-Stuart 0 CLOPIDOGREL BISULFATE [id number] Mansioseas Amanda AR LIPITOR 20 MG TABS 1 daily Non-Stuart 0 ATORVASTATIN CALCIUM [id number] [facility] Medications Administered No information available. Allergies, Adverse [...]
--- OUTSIDE RECORDS SUMMARY | 2025-01-21 22:23 | XMS_ITS | Encounter Summary ---
Author Organization [facility] Address [address] [place] [address] Care Team Providers Care Equipment Technician Name Role Phone Sylvester Bynum MD Primary Care Provider + [phone] Encounter Details Date Type Department Care Team (Latest Contact Info) Description 12/22/2024 Travel Social History Tobacco Use Types Packs/Day [...] 3 12/22/2024 1:41 PM EDT Laila Whaley * Question Answer Date of Assessment [...] Melvi Bustillos documented as of this encounter Plan of Treatment Upcoming Encounters Date Type Department Care Team (Late st Contact Info) Description 03/22/2025 3:30 PM EST Office Visit Medical Office Building Urology [address], [address] [place] [address] Aaron Marie MD [address] [place] [address] 05/27/2025 1:20 PM EDT Office Visit [facility] [address] [place] [address] Moshe Jack MD [address] [place] [address] documented as of this encounter Visit [...] documented as of this encounter Care Teams Equipment Technician Relationship Specialty Start Date End Date Sylvester Bynum MD [facility] [place] [address] PCP - General 09/01/24 documented as of this encounter
--- OUTSIDE RECORDS SUMMARY | 2025-01-21 22:23 | XMS_ITS | Encounter Summary ---
Author Organization [facility] Address [address] [place] [address] Care Team Providers Care Watch Engineer Name Role Phone Sylvester Bynum MD Primary Care Provider [phone] Encounter Details Date Type Department Care Team (Latest Contact Info) Description 01/14/2025 Travel Social History Tobacco Use Types Packs/Day [...] Visit Medical Office Building Urology [address] [place] [address] Aaron Marie MD [address] [place] [address] 05/27/2025 1:20 PM EDT Office Visit [facility] [address] [place] [address] Moshe Jack MD [address] [place] [address] documented as of this encounter Visit [...] documented as of this encounter Care Teams Watch Engineer Relationship Specialty Start Date End Date Sylvester Bynum MD [facility] [place] [address] PCP - General 09/01/24 documented as of this encounter
--- OUTSIDE RECORDS SUMMARY | 2025-01-21 22:23 | XMS_ITS | Data Portability ---
Author Organization [facility] Address [address] [place] [address] Care Team Providers Care Cupola Man Name Role Phone BALDOMERO NEWTON Cardiac Surgeon DEPT OF [facility] Primary Care Pr ovider EVANS HENDRICKS Community Support Professional Assessment Encounter Date Assessment Date Assessment LastModified by Organization Details LastModified Time 01/21/2023 01/21/2023 -Medications were reviewed and any necessary updates and renewals were made, patient instructed to complete as prescribed. -The potential side effects of medications were discussed. -Counseling was done on care goals and ways to prevent future hospitalizatio ns. -Further treatment per orders listed below. [email or web address] Not available 01/21/2023 13:46:08 01/22/2023 01/22/2023 -referred to nephro as well for CKD. -followup with us in 2-3mo. Not available 01/22/2023 15:39:06 02/07/2023 02/07/2023 -Medications were reviewed and any necessary updates and renewals were made, patient instructed to complete as prescribed. -The potential side effects of medications were discussed. -Counseling was done on care goals and ways to prevent future hospitalizatio ns. -Further treatment per orders listed below. Not available 02/07/2023 11:40:24 Plan of Treatment Reminders Order Date Submit Date Provider Last Modified By Organization Details Last Modified Time Details Appointments None recorded. Lab BMP, serum or plasma 2022 023 [facility], [address], [address], [place], [address], 3 07:45:21 urinalysis, dipstick 2022 023 [facility], [address], [place], [address], 3 15:43:26 CMP, serum or plasma 2022 023 [facility], [address], [address], [place], [address], 3 03:36:36 CBC w/ auto diff 2022 023 [facility], [address], [address], [place], [address], 3 03:36:35 TSH + free T4, serum 2022 023 [facility], [address], [address], [place], [address], 3 03:36:34 Referral None recorded. Procedures intra-artic ular shoulder steroid injection (PROC) 2022 023 Not available 3 12:26:29 intra-artic ular injection, knee (PROC) 2022 023 Not available 3 15:25:01 Surgeries None recorded. Imaging None recorded. Medication Orders triamcinolo ne acetonide 40 mg/mL suspension for injection 2022 023 Not available 3 13:18:09 ketorolac 60 mg/2 mL intramuscul ar solution 2022 023 [email or web address] Not available 3 13:18:09 bupivacaine HCl 0.5 % (5 mg/mL) injection solution 2022 023 [email or web address] Not available 3 13:18:09 triamcinolo ne acetonide 40 mg/mL suspension for injection 2022 023 [email or web address] Not available 3 07:45:21 ketorolac 60 mg/2 mL intramuscul ar solution 2022 023 Not available 3 07:45:21 bupivacaine HCl 0.5 % (5 mg/mL) injection solution 2022 023 [email or web address] Not available 3 07:45:21 hydrocodone 5 mg-acetamin ophen 325 mg tablet [address], [address], 3 14:53:40 gabapentin 300 mg capsule [address], [address], 3 14:53:41 clonidine HCl 0.1 mg tablet [email or web address], [address], 3 14:21:06 Patient TargetsNo targets recorded. Patient Instructions Encounter Date Encounter Id Patient Instructions Last Modified By Organization Details Last Modified Time 01/22/2023 [id number] high cholesterol : care instructions Not available 01/22/2023 15:39:08 high blood pressure: care instructions Not available 01/22/2023 15:39:08 type 2 diabetes: care instructions Not available 01/22/2023 15:39:09 coronary artery disease: care instructions Not available 01/22/2023 15:39:09 medicines to avoid with kidney disease: care instructions Not available 01/22/2023 15:39:09 chronic kidney disease: care instructions Not available 01/22/2023 15:39:09 aortic valve stenosis: care instructions Not available 01/22/2023 15:39:08 benign prostatic hyperplasia: care instructions Not available 01/22/2023 15:39:09 Reason for Referral None Reported. Results Created Date Observation Date Name Description Value Unit Range Abnormal Flag Note LastModifiedBy Organization Detail LastModifiedTime 01/04/2001/04/2023 URINA LYSIS , COMPL ETE specific gravity 1.022 1.005- 1.030 Not Available [facility] ([facility]) [address] [place], [address], 01/05/2023 06:42:23 01/04/2001/04/2023 URINA LYSIS , COMPL ETE pH 5.5 5.0-7. 5 Not Available [facility] ([facility]) [address] [place], [address], 01/05/2023 06:42:23 01/04/2001/04/2023 URINA LYSIS , COMPL ETE urine-color Yellow yellow Not Available [facility] ([facility]) [address] [place], [address], 01/05/2023 06:42:23 01/04/20 23 01/04/2023 URINA LYSIS , COMPL ETE appearance Clear clear Not Available [facility] ([facility]) [address] [place], [address], 01/05/2023 06:42:23 01/04/2001/04/2023 URINA LYSIS , COMPL ETE WBC esterase Negati ve negati ve Not Available [facility] ([facility]) [address] [place], [address], 01/05/2023 06:42:23 01/04/20 23 01/04/2023 URINA LYSIS , COMPL ETE protein 3+ negati ve/tra ce abnormal Not Available [facility] ([facility]) [address] [place], [address], 01/05/2023 06:42:23 01/04/20 23 01/04/2023 URINA LYSIS , COMPL ETE glucose Trace negati ve abnormal Not Available [facility] ([facility]) [address] [place], [address], 01/05/2023 06:42:23 01/04/20 23 01/04/2023 URINA LYSIS , COMPL ETE ketones Negati ve negati ve Not Available [facility] ([facility]) [address] [place], [address], 01/05/2023 06:42:23 01/04/2001/04/2023 URINA LYSIS , COMPL ETE occult blood Negati ve negati ve Not Available [facility] ([facility]) [address] [place], [address], 01/05/2023 06:42:23 01/04/20 23 01/04/2023 URINA LYSIS , COMPL ETE bilirubin Negati ve negati ve Not Available [facility] ([facility]) [address] [place], [address], 01/05/2023 06:42:23 01/04/20 23 01/04/2023 URINA LYSIS , COMPL ETE urobilinogen ,semi-qn 0.2 mg/dL 0.2-1. 0 Not Available [facility] ([facility]) [address] [place], [address], 01/05/2023 06:42:23 01/04/20 23 01/04/2023 URINA LYSIS , COMPL ETE nitrite, urine Negati ve negati ve Not Available [facility] ([facility]) [address] [place], [address], 01/05/2023 06:42:23 01/04/20 23 01/04/2023 URINA LYSIS , COMPL ETE microscopic examination See below: Micro scopi c was indic ated and was perfo rmed. Not Available [facility] ([facility]) [address] [facility], [place], [address], 01/05/2023 06:42:23 01/04/20 23 01/04/2023 URINA LYSIS , COMPL ETE WBC 0-5 /hpf 0 - 5 Not Available [facility] ([facility]) [address] [facility], [place], [address], 01/05/2023 06:42:23 01/04/20 23 01/04/2023 URINA LYSIS , COMPL ETE RBC None seen /hpf 0 - 2 Not Available [facility] ([facility]) [address] [facility], [place], [address], 01/05/2023 06:42:23 01/04/20 23 01/04/2023 URINA LYSIS , COMPL ETE epithelial cells (non renal) 0-10 /hpf 0 - 10 Not Available [facility] ([facility]) [address] [facility], [place], [address], 01/05/2023 06:42:23 01/04/20 23 01/04/2023 URINA LYSIS , COMPL ETE epithelial cells (renal) BLOCK PLACER Not Available [facility] ([facility]) [address] [facility], [place], [address], 01/05/2023 06:42:23 01/04/20 23 01/04/2023 URINA LYSIS , COMPL ETE casts None seen /lpf none seen Not Available [facility] ([facility]) [address] [facility], [place], [address], 01/05/2023 06:42:23 01/04/20 23 01/04/2023 URINA LYSIS , COMPL ETE cast type BLOCK PLACER Not Available [facility] ([facility]) [address] [facility], [place], [address], 01/05/2023 06:42:23 01/04/20 23 01/04/2023 URINA LYSIS , COMPL ETE crystals BLOCK PLACER Not Available [facility] ([facility]) [address] [facility], [place], [address], 01/05/2023 06:42:23 01/04/20 23 01/04/2023 URINA LYSIS , COMPL ETE crystal type BLOCK PLACER Not Available [facility]) [address] [facility], [place], [address], 01/05/2023 06:42:23 01/04/20 23 01/04/2023 URINA LYSIS , COMPL ETE mucus threads BLOCK PLACER Not Available [facility] ([facility]) [address] [facility], [place], [address], 01/05/2023 06:42:23 01/04/20 23 01/04/2023 URINA LYSIS , COMPL ETE bacteria None seen none seen/f ew Not Available [facility] ([facility]) [address] [facility], [place], [address], 01/05/2023 06:42:23 01/04/20 23 01/04/2023 URINA LYSIS , COMPL ETE yeast BLOCK PLACER Not Available [facility] ([facility]) [address] [facility], [place], [address], 01/05/2023 06:42:23 01/04/20 23 01/04/2023 URINA LYSIS , COMPL ETE trichomonas BLOCK PLACER Not Available [facility]) [address] [facility], [place], [address], 01/05/2023 06:42:23 01/04/20 23 01/04/2023 URINA LYSIS , COMPL ETE comment BLOCK PLACER Not Available [facility] ([facility]) [address] [place], [address], 01/05/2023 06:42:23 01/04/20 23 01/04/2023 URINA LYSIS , COMPL ETE microscopic examination BLOCK PLACER Not Available [facility]) [address] [facility], [place], [address], 01/05/2023 06:42:23 01/04/20 23 01/05/2023 URINE CULTU RE, ROUTI NE urine culture, routine Final report Not Available [facility] ([facility]) [address] [facility], [place], [address], 01/05/2023 06:42:23 01/04/2001/05/2023 URINE CULTU RE, ROUTI NE result 1 No growth Not Available [facility] ([facility]) [address] [facility], [place], [address], 01/05/2023 06:42:23 01/04/20 23 01/03/2023 urina lysis , dipst ick Leukocytes Negati ve Not Available [facility] [address] [place], [address], 01/03/2023 09:47:38 01/04/20 23 01/03/2023 urina lysis , dipst ick Nitrite negati ve Not Available [facility] [address] [place], [address], 01/03/2023 09:47:38 01/04/20 23 01/03/2023 urina lysis , dipst ick Urobilinogen .2 Not Available [facility] [address] [place], [address], 01/03/2023 09:47:38 01/04/20 23 01/03/2023 urina lysis , dipst ick Protein 300 Not Available [facility] [address] [place], [address], 01/03/2023 09:47:38 01/04/20 23 01/03/2023 urina lysis , dipst ick pH 5.5 Not Available [facility] [address] [place], [address], 01/03/2023 09:47:38 01/04/2001/03/2023 urina lysis , dipst ick Blood Negati ve Not Available [facility] [address] [place], [address], 01/03/2023 09:47:38 01/04/20 23 01/03/2023 urina lysis , dipst ick Specific [place] 1.030 Not Available [facility] [address] [place], [address], 01/03/2023 09:47:38 01/04/2001/03/2023 urina lysis , dipst ick Ketone Negati ve Not Available [facility] [address] [place], [address], 01/03/2023 09:47:38 01/04/20 23 01/03/2023 urina lysis , dipst ick Bilirubin Negati ve Not Available [facility] [address] [place], [address], 01/03/2023 09:47:38 01/04/20 23 01/03/2023 urina lysis , dipst ick Glucose 100 Not Available [facility] [address] [place], [address], 01/03/2023 09:47:38 01/04/20 23 01/03/2023 urina lysis , dipst ick Appearance Clear Not Available [facility] [address] [place], [address], 01/03/2023 09:47:38 01/04/20 23 01/03/2023 urina lysis , dipst ick Color Dark Yellow Not Available [facility] [address], [place], [address], 01/03/2023 09:47:38 01/22/2001/22/2023 TSH+F REE T4 TSH 4.410 uIU/m L 0.450- 4.500 Not Available [facility] ([facility]) [address] [place], [address], 01/22/2023 03:36:34 01/22/20 23 01/22/2023 TSH+F REE T4 T4,free(dire ct) 1.15 NG/dL 0.82-1 .77 Not Available [facility] ([facility]) [address] [place], [address], 01/22/2023 03:36:34 01/22/20 23 01/22/2023 CBC WITH DIFFE RENTI AL/PL ATELE T WBC 7.2 x10e3 /uL 3.4-10 .8 Not Available [facility] ([facility]) [address] [place], [address], 01/22/2023 03:36:35 01/22/20 23 01/22/2023 CBC WITH DIFFE RENTI AL/PL ATELE T RBC 3.32 x10e6 /uL 4.14-5 .80 below low normal Not Available [facility] ([facility]) [address] [place], [address], 01/22/2023 03:36:35 01/22/20 23 01/22/2023 CBC WITH DIFFE RENTI AL/PL ATELE T hemoglobin 9.9 g/dL 13.0-1 7.7 below low normal Not Available [facility] ([facility]) [address] [place], [address], 01/22/2023 03:36:35 01/22/20 23 01/22/2023 CBC WITH DIFFE RENTI AL/PL ATELE T hematocrit 30.2 % 37.5-5 1.0 below low normal Not Available [facility] ([facility]) [address] [facility], [place], [address], 01/22/2023 03:36:35 01/22/20 23 01/22/2023 CBC WITH DIFFE RENTI AL/PL ATELE T MCV 91 fL 79-97 Not Available [facility] ([facility]) [address] [facility], [place], [address], 01/22/2023 03:36:35 01/22/2001/22/2023 CBC WITH DIFFE RENTI AL/PL ATELE T MCH 29.8 pg 26.6-3 3.0 Not Available [facility] ([facility]) [address] [facility], [place], [address], 01/22/2023 03:36:35 01/22/20 23 01/22/2023 CBC WITH DIFFE RENTI AL/PL ATELE T MCHC 32.8 g/dL 31.5-3 5.7 Not Available [facility] ([facility]) [address] [facility], [place], [address], 01/22/2023 03:36:35 01/22/20 23 01/22/2023 CBC WITH DIFFE RENTI AL/PL ATELE T RDW 13.9 % 11.6-1 5.4 Not Available [facility] ([facility]) [address] [facility], [place], [address], 01/22/2023 03:36:35 01/22/20 23 01/22/2023 CBC WITH DIFFE RENTI AL/PL ATELE T platelets 211 x10e3 /uL 150-45 0 Not Available [facility] ([facility]) [address] [place], [address], 01/22/2023 03:36:35 01/22/20 23 01/22/2023 CBC WITH DIFFE RENTI AL/PL ATELE T neutrophils 66 % not estab. Not Available [facility] ([facility]) [address] [facility], [place], [address], 01/22/2023 03:36:35 01/22/20 23 01/22/2023 CBC WITH DIFFE RENTI AL/PL ATELE T lymphs 16 % not estab. Not Available [facility] ([facility]) [address] [facility], [place], [address], 01/22/2023 03:36:35 01/22/20 23 01/22/2023 CBC WITH DIFFE RENTI AL/PL ATELE T monocytes 13 % not estab. Not Available [facility] ([facility]) [address] [facility], [place], [address], 01/22/2023 03:36:35 01/22/20 23 01/22/2023 CBC WITH DIFFE RENTI AL/PL ATELE T eos 4 % not estab. Not Available [facility] ([facility]) [address] [facility], [place], [address], 01/22/2023 03:36:35 01/22/20 23 01/22/2023 CBC WITH DIFFE RENTI AL/PL ATELE T basos 1 % not estab. Not Available [facility] ([facility]) [address] [facility], [place], [address], 01/22/2023 03:36:35 01/22/20 23 01/22/2023 CBC WITH DIFFE RENTI AL/PL ATELE T immature cells BLOCK PLACER Not Available [facility] ([facility]) [address] [facility], [place], [address], 01/22/2023 03:36:35 01/22/20 23 01/22/2023 CBC WITH DIFFE RENTI AL/PL ATELE T neutrophils (absolute) 4.8 x10e3 /uL 1.4-7. 0 Not Available [facility] ([facility]) [address] [place], [address], 01/22/2023 03:36:35 01/22/20 23 01/22/2023 CBC WITH DIFFE RENTI AL/PL ATELE T lymphs (absolute) 1.1 x10e3 /uL 0.7-3. 1 Not Available [facility] ([facility]) [address] [facility], [place], [address], 01/22/2023 03:36:35 01/22/20 23 01/22/2023 CBC WITH DIFFE RENTI AL/PL ATELE T monocytes(ab solute) 0.9 x10e3 /uL 0.1-0. 9 Not Available [facility] ([facility]) [address] [facility], [place], [address], 01/22/2023 03:36:35 01/22/20 23 01/22/2023 CBC WITH DIFFE RENTI AL/PL ATELE T eos (absolute) 0.3 x10e3 /uL 0.0-0. 4 Not Available [facility] ([facility]) [address] [facility], [place], [address], 01/22/2023 03:36:35 01/22/20 23 01/22/2023 CBC WITH DIFFE RENTI AL/PL ATELE T baso (absolute) 0.1 x10e3 /uL 0.0-0. 2 Not Available [facility] ([facility]) [address] [facility], [place], [address], 01/22/2023 03:36:35 01/22/20 23 01/22/2023 CBC WITH DIFFE RENTI AL/PL ATELE T immature granulocytes 0 % not estab. Not Available [facility] ([facility]) [address] [facility], [place], [address], 01/22/2023 03:36:35 01/22/20 23 01/22/2023 CBC WITH DIFFE RENTI AL/PL ATELE T immature grans (abs) 0.0 x10e3 /uL 0.0-0. 1 Not Available [facility] ([facility]) [address], [place], [address], 01/22/2023 03:36:35 01/22/20 23 01/22/2023 CBC WITH DIFFE RENTI AL/PL ATELE T NRBC BLOCK PLACER Not Available [facility] ([facility]) [address], [place], [address], 01/22/2023 03:36:35 01/22/20 23 01/22/2023 CBC WITH DIFFE RENTI AL/PL ATELE T hematology comments: BLOCK PLACER Not Available [facility] ([facility]) [address], [place], [address], 01/22/2023 03:36:35 01/22/20 23 01/22/2023 COMP. METAB OLIC PANEL (14) glucose 132 mg/dL 70-99 above high normal Not Available [facility] ([facility]) [address] [facility] [place], [address], 01/22/2023 03:36:36 01/22/20 23 01/22/2023 COMP. METAB OLIC PANEL (14) BUN 29 mg/dL 8-27 above high normal Not Available [facility] ([facility]) [address] [facility], [place], [address], 01/22/2023 03:36:36 01/22/20 23 01/22/2023 COMP. METAB OLIC PANEL (14) creatinine 1.60 mg/dL 0.76-1 .27 above high normal Not Available [facility] ([facility]) [address] [facility], [place], [address], 01/22/2023 03:36:36 01/22/20 23 01/22/2023 COMP. METAB OLIC PANEL (14) eGFR 42 mL/mi n/1.7 3 >59 below low normal Not Available [facility] ([facility]) [address] [facility] [place], [address], 01/22/2023 03:36:36 01/22/20 23 01/22/2023 COMP. METAB OLIC PANEL (14) BUN/creatini ne ratio 18 10-24 Not Available [facility] [address] [place], [address], 01/22/2023 03:36:36 01/22/20 23 01/22/2023 COMP. METAB OLIC PANEL (14) sodium 138 mmol/ L 134-14 4 Not Available [facility] ([facility]) [address] [place], [address], 01/22/2023 03:36:36 01/22/20 23 01/22/2023 COMP. METAB OLIC PANEL (14) potassium 4.5 mmol/ L 3.5-5. 2 Not Available [facility] ([facility] [address] [place], [address], 01/22/2023 03:36:36 01/22/20 23 01/22/2023 COMP. METAB OLIC PANEL (14) chloride 101 mmol/ L 96-106 Not Available [facility] ([facility]) [address] [place], [address], 01/22/2023 03:36:36 01/22/20 23 01/22/2023 COMP. METAB OLIC PANEL (14) carbon dioxide, total 21 mmol/ L 20-29 Not Available [facility] ([facility] [address] [place], [address], 01/22/2023 03:36:36 01/22/20 23 01/22/2023 COMP. METAB OLIC PANEL (14) calcium 8.7 mg/dL 8.6-10 .2 Not Available [facility] ([facility]) [address] [place], [address], 01/22/2023 03:36:36 01/22/20 23 01/22/2023 COMP. METAB OLIC PANEL (14) protein, total 6.1 g/dL 6.0-8. 5 Not Available [facility] ([facility]) [address] [place], [address], 01/22/2023 03:36:36 01/22/20 23 01/22/2023 COMP. METAB OLIC PANEL (14) albumin 3.6 g/dL 3.7-4. 7 below low normal Not Available [facility] ([facility]) [address] [place], [address], 01/22/2023 03:36:36 01/22/20 23 01/22/2023 COMP. METAB OLIC PANEL (14) globulin, total 2.5 g/dL 1.5-4. 5 Not Available [facility] ([facility]) [address] [place], [address], 01/22/2023 03:36:36 01/22/20 23 01/22/2023 COMP. METAB OLIC PANEL (14) A/G ratio 1.4 1.2-2. 2 Not Available [facility] [address] [facility] [place], [address], 01/22/2023 03:36:36 01/22/20 23 01/22/2023 COMP. METAB OLIC PANEL (14) bilirubin, total 0.2 mg/dL 0.0-1. 2 Not Available [facility] ([facility]) [address] [facility] [place], [address], 01/22/2023 03:36:36 01/22/20 23 01/22/2023 COMP. METAB OLIC PANEL (14) alkaline phosphatase 82 IU/L 44-121 Not Available [facility] [address] [facility] [place], [address], 01/22/2023 03:36:36 01/22/20 23 01/22/2023 COMP. METAB OLIC PANEL (14) AST (SGOT) 14 IU/L 0-40 Not Available [facility] ([facility]) [address] [facility], [place], [address], 01/22/2023 03:36:36 01/22/20 23 01/22/2023 COMP. METAB OLIC PANEL (14) ALT (SGPT) 15 IU/L 0-44 Not Available [facility] ([facility]) [address] [facility], [place], [address], 01/22/2023 03:36:36 01/23/20 23 01/22/2023 urina lysis , dipst ick Leukocytes Negati ve Not Available [facility] [address] [place], [address], 01/20/2023 09:22:51 01/23/20 23 01/22/2023 urina lysis , dipst ick Nitrite negati ve Not Available [facility] [address] [place], [address], 01/20/2023 09:22:51 01/23/20 23 01/22/2023 urina lysis , dipst ick Urobilinogen 1 Not Available [facility] [address] [place], [address], 01/20/2023 09:22:51 01/23/20 23 01/22/2023 urina lysis , dipst ick Protein 300 Not Available [facility] [address] [place], [address], 01/20/2023 09:22:51 01/23/20 23 01/22/2023 urina lysis , dipst ick pH 5.5 Not Available [facility] [address] [place], [address], 01/20/2023 09:22:51 01/23/20 23 01/22/2023 urina lysis , dipst ick Blood Negati ve Not Available [facility] [address] [place], [address], 01/20/2023 09:22:51 01/23/20 23 01/22/2023 urina lysis , dipst ick Specific [place] 1.025 Not Available [facility] [address] [place], [address], 01/20/2023 09:22:51 01/23/20 23 01/22/2023 urina lysis , dipst ick Ketone Negati ve Not Available [facility] [address] [place], [address], 01/20/2023 09:22:51 01/23/20 23 01/22/2023 urina lysis , dipst ick Bilirubin Negati ve Not Available [facility] [address] [place], [address], 01/20/2023 09:22:51 01/23/20 23 01/22/2023 urina lysis , dipst ick Glucose Negati ve Not Available [facility] [address] [place], [address], 01/20/2023 09:22:51 01/23/20 23 01/22/2023 urina lysis , dipst ick Appearance Clear Not Available [facility] [address] [place], [address], 01/20/2023 09:22:51 01/23/20 23 01/22/2023 urina lysis , dipst ick Color Yellow Not Available [facility] [address] [place], [address], 01/20/2023 09:22:51 01/31/20 23 01/31/2023 BASIC METAB OLIC PANEL (8) glucose 142 mg/dL 70-99 above high normal Not Available [facility] ([facility] [address] [place], [address], 01/31/2023 03:36:25 01/31/20 23 01/31/2023 BASIC METAB OLIC PANEL (8) BUN 30 mg/dL 8-27 above high normal Not Available [facility] ([facility] [address] [place], [address], 01/31/2023 03:36:25 01/31/20 23 01/31/2023 BASIC METAB OLIC PANEL (8) creatinine 1.90 mg/dL 0.76-1 .27 above high normal Not Available [facility] ([facility] [address] [place], [address], 01/31/2023 03:36:25 01/31/20 23 01/31/2023 BASIC METAB OLIC PANEL (8) eGFR 35 mL/mi n/1.7 3 >59 below low normal Not Available [facility] ([facility] [address] [place], [address], 01/31/2023 03:36:25 01/31/20 23 01/31/2023 BASIC METAB OLIC PANEL (8) BUN/creatini ne ratio 16 10-24 Not Available [facility] [address] [place], [address], 01/31/2023 03:36:25 01/31/20 23 01/31/2023 BASIC METAB OLIC PANEL (8) sodium 138 mmol/ L 134-14 4 Not Available [facility] ([facility] [address] [place], [address], 01/31/2023 03:36:25 01/31/20 23 01/31/2023 BASIC METAB OLIC PANEL (8) potassium 5.3 mmol/ L 3.5-5. 2 above high normal Not Available [facility] ([facility]) [address] [facility], [place], [address], 01/31/2023 03:36:25 01/31/20 23 01/31/2023 BASIC METAB OLIC PANEL (8) chloride 100 mmol/ L 96-106 Not Available [facility] ([facility]) [address] [facility], [place], [address], 01/31/2023 03:36:25 01/31/20 23 01/31/2023 BASIC METAB OLIC PANEL (8) carbon dioxide, total 21 mmol/ L 20-29 Not Available [facility] ([facility]) [address], [place], [address], 01/31/2023 03:36:25 01/31/20 23 01/31/2023 BASIC METAB OLIC PANEL (8) calcium 9.4 mg/dL 8.6-10 .2 Not Available [facility] ([facility]) [address], [place], [address], 01/31/2023 03:36:25 01/03/20 23 01/02/2023 elect rocar diogr am No observ ation record ed. [facility] [address] [place], [address], 01/02/2023 14:53:26 01/07/20 23 [place], retro perit oneum , compl ete No observ ation record ed. [address] , [place], [address], 01/22/2023 15:09:21 01/14/20 23 01/02/2023 elect rocar diogr am No observ ation record ed. [facility] [address] [place], [address], 01/13/2023 14:51:11 01/30/20 23 01/03/2023 US, echoc ardio gram No observ ation record ed. [email or web address] [facility] (Centralized Scheduling) [address] [place] [address] , [place], [address], 01/31/2023 14:51:04 02/11/20 23 02/06/2023 XR, shoul chai, 2 or more view No observ ation record ed. [email or web address] Not Available 01/25 02:53:01 03/05/19 24 02/20/2023 CT, cervi armando spine , w/o contr ast No observ ation record ed. [email or web address] Not Available 02/24 01:12:22 03/05/19 24 02/06/2023 XR, shoul chai, 2 or more view No observ ation record ed. [email or web address] Not Available 02/24 01:12:23 05/04/19 25 03/10/2024 US, echoc ardio gram No observ ation record ed. [email or web address] [facility] [address] [facility], [place], [address], 05/04/2024 07:50:38 Result Notes None recorded. Problems Name Problem SNOMED Code Status Onset Date Resolution Date Notes Provider Name and Address Organization Details Recorded Time Anemia 113080904 Active Not Available [facility] 3 18:02:10 Coronary arterios clerosis 65846593 Active Not Available [facility] 3 18:02:11 Myocardi al infarcti on 77264314 Active Margarita Marion PharmD [address], [place], [address] , [place] - [facility] 3 10:53:03 History of cardiac catheter ization 38782549994 100 Active Margarita Marion PharmD [address], [place], [address] , [place] [facility] 3 10:53:03 Arthriti s 0289916 Active 2019 Margarita Marion PharmD [address], [place], [address] , [place] [facility] 3 10:54:28 Heart disease 81135454 Active 2019 Margarita Marion PharmD [address], [place], [address] , [place] [facility] 3 10:54:29 Uncontro lled type 2 diabetes mellitus 176493581 Active 2019 Margarita Marion PharmD [address], [place], [address] , [place] [facility] 3 10:54:29 Heart valve disorder 707035 Completed 201906/13/2022 Santa Martinesall, [employer] [address], [place], [address] , [place] [facility] 3 00:13:54 Pain of joint of bilatera l lower legs 24486404491 967107 Active 2019 Margarita Marion PharmD [address], [place], [address] , [place] [facility] 3 10:54:28 Vitamin D deficien cy 51411779 Active 2019 Margarita Marion PharmD [address], [place], [address] , [place] [facility] 3 10:54:28 Mixed hyperlip idemia 174834966 Active 2019 Margarita Marion PharmD [address], [place], [address] , [place] [facility] 3 10:54:28 Hyperten sive disorder 98244074 Active 2019 Margarita Marion PharmD [address], [place], [address] , [place] [facility] 3 10:54:28 Chronic depressi on 278257839 Active 2020 Margarita Marion PharmD [address], [place], [address] , [place] [facility] 3 10:54:28 Chronic anxiety 581238863 Active 2020 Margarita Marion PharmD [address], [place], [address] , [place] [facility] 3 10:54:28 Memory impairme nt 195551916 Active 2020 Margarita Marion PharmD [address], [place], [address] , [place] [facility] 3 10:54:28 Frail elderly 882971825 Active 2021 Margarita Marion PharmD [address], [place], [address] , [place] [facility] 3 10:54:29 Allergic rhinitis 37510337 Active 2022 Margarita Marion PharmD [address], [place], [address] , [place] [facility] 3 10:54:29 Pain of bilatera l knee joints 97657484111 4104 Active 2022 Margarita Marion PharmD [address], [place], [address] , [place] [facility] 3 10:54:29 Depressi ve disorder 36069591 Active 2022 Margarita Marion PharmD [address], [place], [address] , [place] [facility] 3 10:54:28 Aortic valve stenosis 59317887 Active 2022 severe, [place] Margarita Marion PharmD [address], [place], [address] , [place] [facility] 3 10:54:29 History of aortic valve replacem ent 90122887720 00 Active 2022 bioprost hetic Margarita Marion PharmD [address], [place], [address] , [place] [facility] 3 10:54:28 Chronic kidney disease stage 3B 603760162 Active 2022 Margarita Marion PharmD [address], [place], [address] , [place] [facility] 3 10:54:29 Angina pectoris 919737459 Active 2022 Margarita Marion PharmD [address], [place], [address] , [place] [facility] 3 10:54:28 Benign prostati c hyperpla kate 336765457 Active 2022 Margarita Marion PharmD [address], [place], [address] , [place] [facility] 3 10:54:28 Chronic obstruct lee pulmonar y disease 42139663 Active 2022 Margarita Marion PharmD [address], [place], [address] , [place] [facility] 3 10:54:28 Essentia l hyperten gilda 29174990 Active 2022 Margarita Marion PharmD [address], [place], [address] , [place] [facility] 3 10:54:29 Gastroes ophageal reflux disease 185000422 Active 2022 Margarita Marion PharmD [address], [place], [address] , [place] [facility] 3 10:54:28 Heart murmur 62496334 Active 2022 Margarita Marion PharmD [address], [place], [address] , [place] [facility] 3 10:54:29 Pulmonar y hyperten gilda 54342906 Active 2022 Margarita Marion PharmD [address], [place], [address] , [place] [facility] 3 10:54:29 Malignan t neoplasm of skin 755374711 Active 2022 Margarita Marion PharmD [address], [place], [address] , [place] [facility] 3 10:54:28 Pain of right shoulder joint 16015373123 673796 Active 2022 Umberto Curry DO [address], [place], [address] , [place] [facility] 3 12:56:07 Problem Notes None recorded. Procedures Surgical History Date Name Laterality Status Provider Name and Address Organization Details Recorded Time 02/08/20 23 Joint Injection completed Melvi [place] - [facility] 02/07/2023 12:27:22 02/06/20 23 Joint Injection completed Umberto Curry DO [address], [place], [address], [place] [facility] 02/05/2023 13:02:44 01/31/20 Joint Injection completed Melvi [place] [facility] 01/30/2023 15:25:21 01/23/20 23 Bladder Scan completed Judith Del Valle APRN [address], [place], [address], [place] - [facility] 01/22/2023 15:18:37 01/22/20 23 Medication Reconcilliation completed Mansi Quiñones [place] - [facility] 01/21/2023 13:46:08 11/16/19 23 Joint Injection completed Humza Daily MD [address], [place], [address], [place] - [facility] 11/15/2022 21:09:17 08/22/19 23 Medication Reconcilliation completed Cherrie Connell [place] [facility] 08/21/2022 15:17:31 07/30/19 23 Medication Reconcilliation completed Cherrie Con[place] [facility] 07/29/2022 15:59:01 06/13/19 23 Medication Reconcilliation completed Cherrie [place] [facility] 06/12/2022 10:30:51 06/01/19 23 Medication Reconcilliation completed Santa Serrano APRN [address], [place], [address], [place] - [facility] 06/12/2022 08:22:18 01/24/20 22 Advance Care Planning completed Vicenta Del Angel [place] [facility] 01/23/2022 09:46:28 01/24/20 22 Functional Status Assessed completed Vicenta Del Angel [place] [facility] 01/23/2022 09:46:28 06/19/19 22 Medication Reconcilliation completed Paxton Leone [place] [facility] 06/18/2021 15:49:00 02/10/20 20 Diastolic B/P 80-89 mm Hg completed Crystal [place]von[place] [facility] 02/10/2020 11:35:57 02/10/20 20 Systolic B/P 130-139 mm Hg completed Crystal [place] [facility] 02/10/2020 11:35:55 12/16/19 20 Advance Care Planning completed Crystal Yvon[place] [facility] 12/16/2019 09:55:24 12/16/19 20 Diastolic B/P less than 80 mm Hg completed Crystal [place] [facility] 12/16/2019 10:02:11 12/16/19 20 Systolic B/P 130-139 mm Hg completed Crystal [place] [facility] 12/16/2019 10:02:08 12/16/19 20 Functional Status Assessed completed Crystal [place] [facility] 12/16/2019 09:55:24 09/30/19 20 Diastolic B/P 80-89 mm Hg completed Crystal [place] [facility] 09/30/2019 13:17:18 09/30/19 20 Systolic B/P 130-139 mm Hg completed [place] [facility] 09/30/2019 13:17:14 09/28/19 20 Diastolic B/P less than 80 mm Hg completed Josselin [place] [facility] 09/28/2019 13:40:29 09/28/19 20 Systolic B/P greater than or equal to 140 mm Hg completed Josselin [place] [facility] 09/28/2019 13:40:23 09/21/19 20 Diastolic B/P less than 80 mm Hg completed [place] [facility] 09/21/2019 14:17:14 09/21/19 20 Systolic B/P 130-139 mm Hg completed J[place]elin [place] [facility] 09/21/2019 14:17:06 09/07/19 20 Systolic B/P less than 130 mm Hg completed Crystal [place] [facility] 09/07/2019 14:09:57 09/07/19 20 Diastolic B/P less than 80 mm Hg completed [place] [facility] 09/07/2019 14:09:59 07/23/19 20 Systolic B/P less than 130 mm Hg completed [place] [facility] 07/23/2019 09:49:15 07/23/19 20 Diastolic B/P less than 80 mm Hg completed [place] [facility] 07/23/2019 09:49:17 Back Surgery completed [place] [facility] 07/23/2019 09:38:22 faradic nerve stimulation to back completed [place] [facility] 07/23/2019 09:38:36 procedure on heart valve completed Crystal [place] [facility] 07/23/2019 09:38:57 cardiac catheterization completed Santa Zach, [employer] [address], [place], [address], [place] [facility] 06/13/2022 00:12:54 implantation of sacral nerve stimulator completed Melvitiana [place] [facility] 08/23/2022 09:15:54 Imaging Results None recorded. Procedure Notes None recorded. Medical Equipment None Reported. Allergies Allergen ID Allergen Name Allergen Category Reaction Reaction Severity Criticality Documentation Date Start Date Code Code System Note Provider Name and Address Organization Details Recorded Time 587365 shrimp allergeni c extract food nausea Not available Not available 07/23/2019 53322 2 RxNorm Crystal Yvonne [facility], [place] - [facility] 0 09:49:02 287671 iodine medicatio n Not available Not available Not available 06/13/20222012 5933 RxNorm Yamila Stone [facility], [place] - [facility] 3 11:01:57 833052 trivalent influenza vaccine Not available nausea Not available Not available 08/23/2022 40311 9 RxNorm Not Available [facility] 3 18:02:07 Medications Name Sig Start Date Stop Date Status Note LastModified by Organization Details LastModified Time magnesium oxide 400 mg tab TAKE ONE TABLET BY MOUTH TWICE DAILY 09/29 completed Not Available Not Available Not Available losartan 50 mg tablet TAKE ONE (1) TABLET EVERY DAY BY ORAL ROUTE FOR 30 DAYS 06/06 completed Not Available Not Available Not Available fluoxetin e 40 mg capsule TAKE ONE (1) CAPSULE EVERY DAY BY ORAL ROUTE FOR 90 DAYS. active Not Available Not Available No t Available amoxicill in 500 mg capsule TAKE ONE (1) CAPSULE EVERY 8 HOURS BY ORAL ROUTE FOR 7 DAYS. 07/16 completed Not Available Not Available Not Available furosemid e 40 mg tablet TAKE ONE TABLET BY MOUTH AT 8AM DAILY active Not Available Not Available No t Available atorvasta tin 40 mg tablet Take 40 mg by oral route. 07/24 completed Not Available Not Available Not Available buspirone 5 mg tablet Take 1 tablet 3 times a day by oral route for 90 days. 06/06 completed Not Available Not Available Not Available metformin 500 mg tablet 03/26 completed Not Available Not Available Not Available cyanocoba christie (vit B-12) ER 1,000 mcg tablet,ex tended release 01/16 completed Not Available Not Available Not Available sennoside s 8.6 mg tablet active Not Available Not Available Not Available clonidine HCl 0.1 mg tablet Take 3 tablets every day by oral route. 2022 active Not Available Not Available Not Avai lable atorvasta tin 20 mg tablet TAKE ONE (1) TABLET BY MOUTH EVERY DAY active Not Available Not Available No t Available carvedilo l 12.5 mg tablet TAKE 1 TABLET BY MOUTH TWICE DAILY WITH FOOD active Not Available Not Available No t Available trazodone 50 mg tablet 07/22 completed Not Available Not Available Not Available polyethyl tawanda glycol 3350 17 gram oral powder packet active Not Available Not Available Not Available metoprolo l succinate ER 50 mg tablet,ex tended release 24 hr Take 1 tablet every day by oral route for 30 days. 01/30 completed Not Available Not Available Not Available hydrocodo ne 5 mg-acetam inophen 325 mg tablet TAKE ONE (1) TABLET BY MOUTH THREE (3) TIMES DAILY WITH MEALS active Not Available Not Available No t Available ondansetr on HCl 8 mg tablet TAKE ONE (1) TABLET TWICE A DAY BY ORAL ROUTE NEEDED FOR FIVE (5) DAYS. active Not Available Not Available No t Available lisinopri l 20 mg tablet 20 mg by oral route. 05/29 completed Not Available Not Available Not Available bupivacai ne HCl 0.5 % (5 mg/mL) injection solution Take 7 mL by injectio n route. 2022 active Not Available Not Available Not Avai lable isosorbid e mononitra te ER 30 mg tablet,ex tended release 24 hr 07/22 completed Not Available Not Available Not Available testoster one cypionate 100 mg/mL intramusc ular oil 75 mg by intramus c. route. 09/04 completed Not Available Not Available Not Available gabapenti n 400 mg capsule 400 mg by oral route. 2023 active Not Available Not Available Not Avai lable Milk of Magnesia 400 mg/5 mL oral suspensio n Take 30 mL every day by oral route as needed for 30 days. 03/06 completed Not Available Not Available Not Available hydralazi ne 25 mg tablet TAKE ONE TABLET BY MOUTH TWICE DAILY 06/06 completed Not Available Not Available Not Available clopidogr el 75 mg tablet TAKE ONE (1) TABLET EVERY DAY BY ORAL ROUTE FOR 90 DAYS. active Not Available Not Available No t Available chlorthal idone 25 mg tablet Take 1 tablet every day by oral route for 90 days. 06/06 completed Not Available Not Available Not Available amlodipin e 5 mg tablet TAKE ONE (1) TABLET BY MOUTH EVERY DAY active Not Available Not Available No t Available omeprazol e 40 mg capsule,d elayed release TAKE 1 CAPSULE BY MOUTH EVERY DAY active Not Available Not Available No t Available aspirin 81 mg tablet,de layed release TAKE 1 TABLET BY MOUTH EVERY DAY active Not Available Not Available No t Available tramadol 50 mg tablet 50 mg by oral route. 2023 active Not Available Not Available Not Avai lable acetamino phen 500 mg tablet 1000 mg by oral route. active Not Available Not Available No t Available meloxicam 7.5 mg tablet 7.5 mg by oral route. 05/29 completed Not Available Not Available Not Available doxazosin 8 mg tablet Take 1 tablet every day by oral route. 01/20 completed NEW DOSE FROM [facility] with Cardio after appt 01/20/23 Not Available Not Available Not Available magnesium oxide 400 mg (241.3 mg magnesium ) tablet TAKE ONE TABLET BY MOUTH TWICE DAILY 03/06 completed Not Available Not Available Not Available methocarb harlan 750 mg tablet 03/06 completed Not Available Not Available Not Available tamsulosi n 0.4 mg capsule 0.4 mg by oral route. active Not Available Not Available No t Available meclizine 25 mg tablet Take 1 tablet every day by oral route as needed for 30 days. 03/06 completed Not Available Not Available Not Available triamcino lone acetonide 40 mg/mL suspensio n for injection Take 1 mL by injectio n route. 2022 active Not Available Not Available Not Avai lable pantopraz ole 40 mg tablet,de layed release TAKE ONE (1) TABLET (40 MG TOTAL) BY MOUTH IN THE MORNING FOR 30 DAYS. 12/16 completed Not Available Not Available Not Available metformin 1,000 mg tablet TAKE ONE (1) TABLET EVERY DAY BY ORAL ROUTE FOR 90 DAYS. 03/26 completed Not Available Not Available Not Available esomepraz ole magnesium 40 mg capsule,d elayed release 40 mg by oral route. 01/16 completed Not Available Not Available Not Available Lincocin 300 mg/mL injection solution Take 300 mg by injectio n route. 11/05 completed Not Available Not Available Not Available buspirone 10 mg tablet Take 1 tablet 3 times a day by oral route for 90 days. 04/09 completed Wrong Rx - patient opted out of mail order Not Available Not Available Not Available lidocaine 5 % topical patch APPLY ONE (1) PATCH DAILY active Not Available Not Available No t Available losartan 25 mg tablet 50 mg by oral route. active Not Available Not Available No t Available Stool Softener 250 mg capsule Take 1 capsule every day by oral route for 30 days. 03/06 completed Not Available Not Available Not Available docusate sodium 100 mg capsule TAKE 1 CAPSULE BY MOUTH EVERY DAY active Not Available Not Available No t Available oxybutyni n chloride ER 5 mg tablet,ex tended release 24 hr TAKE 1 TABLET BY MOUTH EVERY DAY 01/09 completed Not Available Not Available Not Available gabapenti n 300 mg capsule TAKE ONE (1) CAPSULE BY MOUTH THREE (3) TIMES DAILY active Not Available Not Available No t Available omeprazol e 20 mg capsule,d elayed release TAKE 1 CAPSULE DAILY 04/09 completed Patient opted out of mail order- wrong rx Not Available Not Available Not Available doxazosin 4 mg tablet TAKE ONE (1) TABLET EVERY DAY BY ORAL ROUTE AT BEDTIME FOR 90 DAYS. active Not Available Not Available No t Available bumetanid e 1 mg tablet 1 mg by oral route. active Not Available Not Available No t Available furosemid e 20 mg tablet TAKE 1 TABLET BY MOUTH IN THE MORNING FOR 30 DAYS 08/21 completed Not Available Not Available Not Available gabapenti n 100 mg capsule 200 mg by oral route. active Not Available Not Available No t Available metoprolo l succinate ER 25 mg tablet,ex tended release 24 hr 50 mg by oral route. active Not Available Not Available No t Available ergocalci ferol (vitamin D2) 1,250 mcg (50,000 unit) capsule 06/04 completed Not Available Not Available Not Available dexametha sone sodium phosphate 4 mg/mL injection solution Inject 4 mg by intramus cular route. 11/05 completed Not Available Not Available Not Available ferrous sulfate 325 mg (65 mg iron) tablet,de layed release Take 325 mg by oral route. 06/04 completed Not Available Not Available Not Available ketorolac 60 mg/2 mL intramusc ular solution Inject 2 mL every 6 hours by intramus cular route. 2022 active Not Available Not Available Not Avai lable oxybutyni n chloride 5 mg tablet 07/24 completed Not Available Not Available Not Available cefdinir 300 mg capsule Take 1 capsule every 12 hours by oral route for 10 days. 09/29 completed Not Available Not Available Not Available losartan 100 mg tablet TAKE ONE (1) TABLET BY MOUTH EVERY DAY active Not Available Not Available No t Available fluoxetin e 20 mg capsule Take 1 capsule every day by oral route for 90 days. 04/09 completed wrong rx - patient opted out of mail order Not Available Not Available Not Available fluticaso ne propionat e 50 mcg/actua tion nasal spray,kenia pension INHALE ONE (1) SPRAY IN EACH NOSTRIL DAILY 02/20 completed Not Available Not Available Not Available metformin ER 500 mg tablet,ex tended release 24 hr TAKE TWO (2) TABLETS DAILY 06/12 completed Not Available Not Available Not Available loratadin e 10 mg tablet TAKE ONE (1) TABLET BY MOUTH EVERY DAY active Not Available Not Available No t Available Edvin Low Strength 81 mg tablet,de layed release Take 1 tablet every day by oral route. 04/09 completed Not Available Not Available Not Available Blood Glucose Test strips Take 1 strip 3 times a day by miscell. route for 30 days. 02/20 completed Not Available Not Available Not Available insulin lispro (U-100) 100 unit/mL subcutane ous pen active Not Available Not Available Not Available Mucinex 600 mg tablet, extended release TAKE ONE (1) TABLET EVERY 12 HOURS BY ORAL ROUTE FOR 7 DAYS. 01/02 completed Not Available Not Available Not Available escitalop tameka 20 mg tablet 20 mg by oral route. active Not Available Not Available No t Available Systane (propylen e glycol) 0.4 %-0.3 % eye drops 02/20 completed Not Available Not Available Not Available bupropion HCl XL 150 mg 24 hr tablet, extended release TAKE ONE (1) TABLET BY MOUTH EVERY DAY active Not Available Not Available No t Available valsartan 320 mg-hydroc hlorothia zide 25 mg tablet 01/16 completed Not Available Not Available Not Available FeroSul 325 mg (65 mg iron) tablet TAKE 1 TABLET BY MOUTH EVERY DAY active Not Available Not Available No t Available Lantus Solostar U-100 Insulin 100 unit/mL (3 mL) subcutane ous pen 72 units qam 04/09 completed note per [facility] to use 12 units only Not Available Not Available Not Available diclofena c 1 % topical gel USE TWO (2) GRAMS TO PAINFUL JOINTS FOUR (4) TIMES DAILY NEEDED active Not Available Not Available No t Available dexlansop razole 60 mg capsule,b iphase delayed release 60 mg by oral route. 05/29 completed Not Available Not Available Not Available liragluti de 0.6 mg/0.1 mL (18 mg/3 mL) subcutane ous pen injector 12 mg by sub-q route. 01/16 completed Not Available Not Available Not Available BD Ultra-Fin e Tricia Pen Needle 32 gauge x 5/32 DIRECTED WITH INSULIN EVERY DAY *100 DAY SUPPLY* active Not Available Not Available No t Available azilsarta n medoxomil 40 mg-chlort halidone 25 mg tablet 05/29 completed Not Available Not Available Not Available Easy Touch Alcohol Prep Pads active Not Available Not Available No t Available Vascepa 1 gram capsule TAKE 2 CAPSULES BY MOUTH TWICE DAILY active Not Available Not Available No t Available dapaglifl ozin propanedi ol 10 mg tablet 10 mg by oral route. active Not Available Not Available No t Available insulin degludec (U-100) 100 unit/mL (3 mL) subcutane ous pen active Not Available Not Available Not Available Tresiba FlexTouch U-200 insulin 200 unit/mL (3 mL) subcutane ous pen INJECT TWELVE (12) UNITS BY SUBCUTAN EOUSLY ROUTE EVERY DAY *90 DAY SUPPLY* active Not Available Not Available No t Available FreeStyle Luz Elena 14 Day [place] Use as directed . 03/06 completed Not Available Not Available Not Available FreeStyle Luz Elena 14 Day Sensor kit Use as directed . 03/06 completed Not Available Not Available Not Available UltiCare Pen Needle 32 gauge x 1/4 DIRECTED WITH INSULIN EVERY DAY active Not Available Not Available No t Available Vitals Date Recorded Body height Body mass index (BMI) Body weight Body temperature Heart rate Oxygen saturation Systolic And Diastolic Systolic And Diastolic Systolic And Diastolic Provider Name and Address Organization Details Last Updated DateTime 3 170.18 cm 29.8 kg/m2 10491.5 5 g 97.7 [degF] 59 /min 96 % 210/78 mm[Hg] 207/82 mm[Hg] 193/80 mm[Hg] Mansi Quiñones [place] - [facility] 3 14:06:12 Date Recorded Body height Body mass index (BMI) Body weight Heart rate Oxygen saturation Respiratory rate Pain severity - 0-10 verbal numeric rating [Score] - Reported Systolic And Diastolic Systolic And Diastolic Provider Name and Address Organization Details Last Updated DateTime 3 170.18 cm 29.8 kg/m2 96953.5 5 g 55 /min 93 % 20 /min 0 128/48 mm[Hg] 138/60 mm[Hg] Cynthia Lozada [place] - [facility] 3 15:21:09 Date Recorded Body height Body mass index (BMI) Body weight Heart rate Oxygen saturation Respiratory rate Pain severity - 0-10 verbal numeric rating [Score] - Reported Systolic And Diastolic Provider Name and Address Organization Details Last Updated DateTime 3 170.18 cm 29.8 kg/m2 52212.5 5 g 66 /min 92 % 20 /min 8 122/76 mm[Hg] Melvi Rita [place] [facility] 3 14:29:36 Date Recorded Body height Body mass index (BMI) Body weight Body temperature Heart rate Oxygen saturation Respiratory rate Pain severity - 0-10 verbal numeric rating [Score] - Reported Systolic And Diastolic Provider Name and Address Organization Details Last Updated DateTime 3 170.18 cm 28.8 kg/m2 78049 g 97.7 [degF] 64 /min 95 % 18 /min 9 128/50 mm[Hg] Anisa Collazo [place] - [facility] 3 12:41:08 Date Recorded Body height Heart rate Oxygen saturation Respiratory rate Pain severity - 0-10 verbal numeric rating [Score] - Reported Systolic And Diastolic Provider Name and Address Organization Details Last Updated DateTime 3 170.18 cm 70 /min 98 % 18 /min 0 126/80 mm[Hg] Melvi Sal[place] - [facility] 3 11:49:47 Social History Question Answer Notes LastModified by Organizat ion Details LastModified Time Tobacco Smoking Status Former Smoker Isabella link [place] - [facility] 07/23/2019 09:42:29 Do You Have An Advance Directive? No [email or web address] Information n ot available 02/12/2021 Are You Blind Or Do You Have Difficulty Seeing? No [email or web address] Information n ot available 02/12/2021 What Is Your Level Of Caffeine Consumption? Moderate [email or web address] Information not available 02/12/2021 In The 14 Days Before Symptom Onset, Have You Had Close Contact With A Laboratory-confirm ed COVID-19 While That Case Was Ill? No [email or web address] Information n ot available 02/12/2021 In The 14 Days Before Symptom Onset, Have You Had Close Contact With A Person Who Is Under Investigation For COVID-19 While That Person Was Ill? No [email or web address] Information not available 02/12/2021 Have You Been To An Area Known To Be High Risk For COVID-19? No [email or web address] Information not available 02/12/2021 Are You Deaf Or Do You Have Serious Difficulty Hearing? Yes [email or web address] Information not available 02/12/2021 What Type Of Diet Are You Following? REGULAR [email or web address] Information n ot available 02/12/2021 Have You Processed Blood Or Body Fluids From An Ebola Virus Disease Patient Without Appropriate PPE? No [email or web address] Information not available 02/12/2021 Do You Reside In Or Have You Traveled To An Area Where Ebola Virus Transmission Is Active? No [email or web address] Information not available 02/12/2021 Have There Been Any Changes To Your Family Or Social Situation? No Information no t available 02/12/2021 What Is The Fluoride Status Of Your Home? Unknown [email or web address] Information not available 02/12/2021 When Did You Quit Smoking? 11-15yearssin celastcigosia te Information not available 08/23/2022 Have You Recently Or Are You Planning To Travel To An Area With Zika Virus? No [email or web address] Information not available 02/12/2021 Do You Have A Medical Power Of Speech/Language Therapist? No Information not available 02/12/2021 What Was The Date Of Your Most Recent Tobacco Screening? 12/16/2022 Information not available 12/16/2022 What Is Your Current Pack Years? [email or web address] Information not available 01/23/2022 What Is Your Relationship Status? [email or web address] Information not available 02/05/2023 Are You Sexually Active? No Information not available 08/23/2022 Do You Have Smoke And Carbon Monoxide Detectors In Your Home? Yes [email or web address] Information not available 02/12/2021 At What Age Did You Start Smoking Tobacco? 17 [email or web address] Information not available 07/16/2021 Are You Passively Exposed To Smoke? No [email or web address] Information no t available 02/12/2021 Has Tobacco Cessation Counseling Been Provided? Yes Information not available 03/14/2022 On What Date Was Tobacco Cessation Counseling Provided? 12/16/2022 Information not available 12/16/2022 How Many Years Have You Smoked Tobacco? 50 Information not available 07/23/2019 Do You Have Difficulty Walking Or Climbing Stairs? Yes Information not available 02/12/2021 Sex: Male Functional Status Question Answer Note LastModified by Organizat ion Details LastModified Time Do you use any illicit or recreational drugs? No Information not available 06/18/2021 Do you or have you ever used any other forms of tobacco or nicotine? No Information not available 06/18/2021 What is your level of alcohol consumption? None [email or web address] Information not available 02/12/2021 Do you have transportation difficulties? No Information not available 08/23/2022 Are you able to walk independently without assistance or assistive devices? YESASSIST [email or web address] Information not available 02/12/2021 Do you have difficulty doing errands alone? No [email or web address] Information not available 02/12/2021 Are you able to care for yourself independently? No Information not available 02/12/2021 What is your occupation? retired [email or web address] Information not available 03/23/2020 Do you have difficulty dressing, bathing, grooming, or toileting? No [email or web address] Information not available 02/12/2021 Mental Status Question Answer Note LastModified by Organization D etails LastModified Time Do you have difficulty concentrating, remembering or making decisions? No [email or web address] Information no t available 02/12/2021 Family History Relationship Description Onset Age of this Age Resolved Age Notes LastModified by Organization Details LastModified Time Father Heart disease [email or web address] Not available 2019 09:48:14 Medical History Condition Response Anxiety Disorder Y Diabetes Y Allergies/Hayfever Y Heart Problems Y Coronary Artery Disease Y Osteoarthritis Y Arthritis Y Hospitalizations Y Acid Reflux (GERD) Y Hyperlipidemia Y Cancer Y Angina Y Depression Y COPD Y Cerebrovascular Disease Y Murmur Y Skin Problems Y Mitral Valve Disorders Y Anemia Y Hypertriglyceridemia Y Bladder or Kidney Problems Y Skin Cancer Y Heart Disease Y Hypertension Y Immunizations Vaccine Type Date Status Note Provider Name and Address Organization Details Recorded Time Pneumococcal conjugate PCV 13 12/16/19 20 completed Isabella Russell null, [place] - [facility] 12/16/2019 11:07:17 Influenza, high-dose, quadrivalent, PF 12/16/19 20 cancelled patient objection Rosaura Allan null, [place] - [facility] 12/16/2019 10:55:39 Tdap 04/02/19 23 cancelled patient objection Santa Serrano APRN [address], [place], [address], [place] - [facility] 04/09/2022 22:32:50 zoster recombinant 04/02/19 23 cancelled patient objection Santa Serrano APRN [address], [place], [address], [place] - [facility] 04/09/2022 22:32:50 Tdap 08/24/19 23 cancelled patient objection Paxton Leone null, [place] - [facility] 08/23/2022 14:09:36 COVID-19, mRNA, LNP-S, PF, 100 mcg/0.5mL dose or 50 mcg/0.25mL dose 04/05/19 21 completed Not Available [facility] 01/16/2023 12:32:59 COVID-19, mRNA, LNP-S, PF, 100 mcg/0.5mL dose or 50 mcg/0.25mL dose 05/04/19 21 completed Not Available [facility] 01/16/2023 12:32:59 COVID-19, mRNA, LNP-S, PF, 100 mcg/0.5mL dose or 50 mcg/0.25mL dose 12/28/19 21 completed Not Available [facility] 01/16/2023 12:33:00 COVID-19, mRNA, LNP-S, PF, 100 mcg/0.5mL dose or 50 mcg/0.25mL dose 07/19/19 22 completed Not Available [facility] 01/16/2023 12:33:00 COVID-19, mRNA, LNP-S, bivalent, PF, 50 mcg/0.5 mL or 25mcg/0.25 mL dose 11/29/19 22 completed Not Available [facility] 01/16/2023 12:33:00 Past Encounters Encounter ID Performer Location Encounter Start Date Encounter Closed Date Diagnosis/Indication Diagnosis SNOMED-CT Code Diagnosis ICD10 Code Diagnosis IMO Codes Diagnosis Note [id number] Rosaura Allan [facility] [address] 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 [address] 09/07/2019 13:49:53 09/07/2019 15:29:07 Uncontrolled type 2 diabetes mellitus 401645348 E11.65 Pain of cori int of bilateral lower legs 3467869184 2491802 M25.561 Low back pain 223894997 M54.5 Arthritis 7960817 M19.90 Neuropathy 353304721 G62 .9 Acute sinusitis 46375243 J01.90 Pain of le ft shoulder joint 1824130863 8658872 M25.732 [id number] Karyn Alvarado PharmD, CD[address] [place] [address] 09/13/2019 16:04:02 02/09/2020 14:42:03 [id number] Mildred Mcadams [address] [place] [address] 09/21/2019 13:29:03 09/21/2019 18:09:33 Hyperglycemia due to type 2 diabetes mellitus 0961131793 32309 E11.65 [id number] Mildred Mcadams [address] [place] [address] 09/28/2019 13:31:54 09/28/2019 14:04:40 Hyperglycemia due to type 2 diabetes mellitus 7137779946 35018 E11.65 [id number] Rosaura Allan [address] [place] [address] 09/30/2019 12:52:28 09/30/2019 14:15:18 Pain of joint of bilateral lower legs 8208654575 4521157 M25.561 Neuropathy 578084580 G62 .9 Vertigo 979824424 R42 [id number] Rosaura Allan [address] [place] [address] 12/16/2019 09:46:46 12/16/2019 10:58:47 Adult health examination 021152262 Z00.00 Depression screening 171 537727 Z13.89 Examinatio n of blood pressure 544779708 Z01.30 Diet education 76173007 Z71.3 Counseling 634630830 Z71 .82 Exercise counseling . Patient encouraged to exercise 30 minutes 5 days a week. At [facility] ed risk for falls 565581463 Z91.81 STEADI FAST screening score of __5___. Advance care planning 71 5503342 Z71.89 Body mass index 30+ - obesity 642086432 Z68.30 Heart valve disorder 368 009 I38 Mixed hyperlipidemia 267 579310 E78.2 Uncontroll ed type 2 diabetes mellitus 621086642 E11.65 Vitamin D deficiency 347 44613 E55.9 Immunization due 7828617 08 Z28.3 Neuropathy 618077056 G62 .9 Hypomagnesemia 161529446 E83.42 [id number] Rosaura Allan [address] [place] [address] 02/10/2020 11:26:30 02/10/2020 12:14:47 Arthritis 4880055 M19.90 Constipation 72762031 K5 9.00 Uncontroll ed type 2 diabetes mellitus 598044840 E11.65 Hypertensive disorder 38 276079 I10 [id number] Rosaura Allan [address] [place] [address] 05/25/2020 09:28:13 05/25/2020 11:05:58 Pain of joint of bilateral lower legs 8635459159 3814955 M25.561 Arthritis 0119541 M19.90 Uncontroll ed type 2 diabetes mellitus 283126646 E11.65 Urgent ekta rosibel to urinate 63481547 R39.15 Urinary incontinence 165 800634 R32 Abdominal pain 10028983 R10.9 Chronic anxiety 28648325 9 F41.9 Complicated grieving 427 059973 F43.21 [id number] Rosaura Allan [address] [place] [address] 06/29/2020 13:09:34 06/29/2020 14:46:31 Anxiety 11008686 F41.9 Depressive disorder 3548 9007 F32.9 Mixed hyperlipidemia 267 925789 E78.2 Uncontroll ed type 2 diabetes mellitus 922469698 E11.65 Gastroesop hageal reflux disease without esophagitis 078008012 K21.9 [id number] Rosaura Allan [address] [place] [address] 10/17/2020 10:25:47 10/17/2020 11:50:06 Mixed hyperlipidemia 685736000 E78.2 Hypertensive disorder 38 937275 I10 Vitamin D deficiency 347 63665 E55.9 Uncontroll ed type 2 diabetes mellitus 749920248 E11.65 Arthritis 5691134 M19.90 Body mass index 30+ - obesity 334366306 Z68.31 Chronic depression 02636 0009 F34.1 Chronic anxiety 41940513 9 F41.9 [id number] Rosaura Allan [address] [place] [address] 11/20/2020 13:49:32 11/20/2020 15:42:54 Chronic depression 546166669 F34.1 Chronic anxiety 40939002 9 F41.9 Bilateral knee pain 1187 750152 1247456 M25.561 Chronic back pain 692172 002 G89.29 [id number] Rosaura Allan [address] [place] [address] 11/23/2020 09:54:58 11/23/2020 10:25:57 Low back pain 754197138 M54.5 Pain of cori int of bilateral lower legs 1958525564 9925690 M25.561 Acute low back pain 2788 47152 M54.5 Chronic anxiety 00935632 9 F41.9 [id number] Rosaura Allan [address] [place] [address] 01/16/2021 14:39:22 01/16/2021 16:10:21 Chronic anxiety 135832348 F41.9 Hypertensive disorder 38 882104 I10 Mixed hyperlipidemia 267 150621 E78.2 Vitamin D deficiency 347 81772 E55.9 Heart valve disorder 368 009 I38 Uncontroll ed type 2 diabetes mellitus 556842069 E11.65 Heart disease 05850621 I 51.9 Arthritis 0827429 M19.90 Pain of cori int of bilateral lower legs 1194707649 4417132 M25.571 [id number] Ishmael Ceballos[address] [place] [address] 02/12/2021 12:49:47 02/12/2021 15:12:08 Gastroesophageal reflux disease without esophagitis 820108526 K21.9 Backache 369542725 M54.9 thoracic-u pper Chest pain 46889389 R07. 9 Hypertensive disorder 38 178098 I10 Anemia 443866088 D64.9 Swollen abdomen 73027543 R14.0 Uncontroll ed type 2 diabetes mellitus 711815243 E11.65 Memory impairment 679175 006 R41.3 worse last few wks per josselin-ashwin ers touch nurse [id number] Santa Serrano[address] [place] [address] 05/07/2021 10:21:38 05/07/2021 12:02:22 Severe pain 35968972 R52 Arthritis 4445534 M19.90 Chronic depression 79098 0009 F34.1 Chronic anxiety 47608377 9 F41.9 Memory impairment 143599 006 R41.3 [id number] Santa Serrano[address] [place] [address] 06/18/2021 15:24:52 06/18/2021 16:44:17 Acute bacterial sinusitis 77294654 J01.90 Bilateral osteoarthritis of knees 1237428100 42112 M17.0 Frail elderly 788120438 R54 [id number] Santa Serrano[address] [place] [address] 07/16/2021 09:32:02 07/16/2021 10:41:04 Pain of joint of bilateral lower legs 5858970926 1042685 M25.561 Pain of mu ltiple joints 86694134 M25.50 Chronic back pain 779172 002 M54.9 [id number] Santa Serrano [address] [place] [address] 2021 09:30:54 2021 10:46:38 Acute bacterial sinusitis 21685357 J01.90 [id number] Santa Serrano [address] [place] [address] 01/09/2022 09:39:32 01/09/2022 10:34:00 Frail elderly 823091847 R54 Memory impairment 014721 006 R41.3 Chronic anxiety 94691094 9 F41.9 Chronic depression 57238 0009 F34.1 Arthritis 5156201 M19.90 [id number] Santa Serrano [address] [place] [address] 01/23/2022 09:29:15 01/23/2022 10:55:41 Adult health examination 631979546 Z00.00 Depression screening 171 429100 Z13.89 Examinatio n of blood pressure 879968860 Z01.30 Diet education 46892531 Z71.3 Counseling 535553813 Z71 .82 Exercise counseling . Patient encouraged to exercise 30 minutes 5 days a week[facility] 914219407 Z91.81 STEADI FAST screening score of . Advance care planning 71 9112713 Z71.89 Finding of body mass index 564576872 Z68.29 Mixed hyperlipidemia 267 409846 E78.2 Memory impairment 588770 006 R41.3 Uncontroll ed type 2 diabetes mellitus 662431389 E11.65 Hypertensive disorder 38 223059 I10 Chronic depression 65021 0009 F34.1 Arthritis 4634678 M19.90 [id number] Santa Serrano[address] [place] [address] 02/13/2022 16:01:48 02/13/2022 17:26:27 Pain of bilateral knee joints 5710436414 65019 M25.561 M25.562 Pain of cori int of bilateral lower legs 3066450776 6057555 M25.561 M25.562 Mixed hyperlipidemia 267 498796 E78.2 Chronic depression 66717 000 F34.1 [id number] Vicetna Kay [address] [place] [address] 03/14/2022 10:51:31 03/14/2022 11:44:23 Allergic rhinitis 84695176 J30.9 [id number] Santa Serrano [address] [place] [address] 04/02/2022 09:35:39 04/02/2022 12:35:58 Pain of joint of bilateral lower legs 2890597384 0964358 M25.561 M25.562 Hypertensive disorder 38 847560 I10 Immunization advised 310 044260 Z71.9 Recurrent falls 13781953 2 R29.6 Uncontroll ed type 2 diabetes mellitus 044013822 E11.65 Frail elderly 409642398 R54 Arthritis 7082885 M19.90 Chronic depression 79181 0009 F34.1 [id number] Santa Serrano[address] [place] [address] 04/19/2022 10:08:32 04/19/2022 11:42:33 Pain of bilateral knee joints 3516668745 27179 M25.561 M25.562 Frail elderly 449026725 R54 Hypertensive disorder 38 060867 I10 [id number] Santa Serrano[address] [place] [address] 05/31/2022 09:04:45 05/31/2022 11:45:14 Anemia in chronic kidney disease 784851836 D63.1 Chronic ki dney disease stage 3 967615340 N18.30 [id number] Santa Serrano[address] [place] [address] 06/12/2022 10:08:09 06/12/2022 11:35:46 Anemia 781010051 D64.9 Allergic rhinitis 258398 04 J30.9 Constipation 03215648 K5 9.00 medication induced/or al iron Aortic valve stenosis 60 243570 I35.0 severe, cardiac cath [place] 06/04/2022 History of aortic valve replacement 8969267271 100 Z95.4 Hospital i npatient stay within past 30 days 1798706073 106 Z76.89 [id number] Silvana Fermin [address] [place] [address] 07/05/2022 13:06:19 07/05/2022 14:06:05 Anemia 608021253 D64.9 Recurrent falls 17597995 2 R29.6 Injury of head 19395825 S09.90XA [id number] Santa Serrano FORM STRIPPER [address] [place] [address] 07/29/2022 15:07:36 07/29/2022 16:46:31 Uncontrolled type 2 diabetes mellitus 326957432 E11.65 Aortic valve stenosis 60 854334 I35.0 severe, cardiac cath [place] 06/04/2022 Hospital i npatient stay within past 30 days 5123625946 106 Z76.89 Hypertensive disorder 38 116522 I10 [id number] Santa Serrano [address] [place] [address] 08/21/2022 14:50:19 08/21/2022 16:12:34 Aortic valve stenosis 75708728 I35.0 severe, cardiac cath [place] 06/04/2022 Pain of bi lateral knee joints 2042635138 55145 M25.561 M25.562 Hospital i npatient stay within past 30 days 2321833780 106 Z76.89 Frail elderly 865816811 R54 [id number] Humza Daily MD [address] [place] [address] 08/23/2022 08:51:13 08/23/2022 09:26:24 Vaccine declined by patient 8045015604 02 Z28.20 Arthritis 6068046 M19.90 [id number] Humza Daily MD [address] [place] [address] 09/06/2022 13:06:21 09/06/2022 14:09:17 Arthritis 8839408 M19.90 [id number] Humza Daily MD [address] [place] [address] 09/26/2022 09:07:46 09/26/2022 11:06:32 Arthritis 9808858 M19.90 responding well but Pt requests third dose, start same today [id number] Humza Daily MD [address] [place] [address] 10/04/2022 13:32:44 10/04/2022 14:26:59 Arthritis 9108519 M19.90 responding well but Pt requests third dose, start same today Pain of cori int of bilateral lower legs 4420722203 4887938 M79.661 M79.662 Chronic ki dney disease stage 3 275810103 N18.30 [id number] Humza Daily MD [address] [place] [address] 10/10/2022 10:07:14 10/10/2022 11:00:03 Chronic kidney disease stage 4 351140459 N18.4 will begin [id number] monitoring of kidney fx [id number] Humza Daily MD [address] [place] [address] 11/08/2022 13:40:43 11/08/2022 14:27:44 Arthritis 6360148 M19.90 Uncontroll ed type 2 diabetes mellitus 942561729 E11.65 Pain of cori int of bilateral lower legs 1521811292 2057931 M79.661 M79.559 [id number] Humza Daily MD [address] [place] [address] 11/15/2022 11:24:21 11/15/2022 11:58:18 Arthritis 1384391 M19.90 Pain of ri ght shoulder joint 5738358735 0675945 M25.511 Uncontroll ed type 2 diabetes mellitus 256103489 E11.65 will allow Pt one month to try to improve on his own and if unsuccessf ul, will start process to get CGM and will have home teaching for DM2 ed [id number] Sri Gage, MS, RDN, LDN [facility] [employer] [address] [place] [address] [place] [address] 11/21/2022 10:40:11 11/21/2022 11:59:42 Type 2 diabetes mellitus 26452489 E11.65 [id number] Silvana Fermin APRN [address] [place] [address] 12/16/2022 15:22:45 12/16/2022 16:49:19 Trace of hemolyzed blood detected in urine 139265835 R31.9 Orthostati c hypotension 86199262 I95.1 Recurrent falls 27523237 2 R29.6 Jaw pain 370010893 R68.[address] of facial bones from 12/13/22 visit to the ED were reviewed with patient. No facial fracture noted. Patient verbalized understand ing. [id number] Humza Daily MD [address] [place] [address] 01/02/2023 10:17:47 01/02/2023 11:04:25 Essential hypertension 32587007 I10 Hypertensive disorder 38 978633 I10 Arthritis 1761255 M19.90 [id number] [facility] [address] [place] [address] 01/03/2023 08:18:38 01/03/2023 10:05:12 Hypertensive disorder 92638057 I10 Mixed hyperlipidemia 267 222347 E78.2 Uncontroll ed type 2 diabetes mellitus 950031577 E11.65 Aortic valve stenosis 60 147430 I35.0 Benign pro static hyperplasia 957707410 N40.1 Chronic ki dney disease stage 3B 801089925 N18.32 Coronary arteriosclerosis 83236645 I25.10 Sensation as if urinary bladder still full 082999937 R39.14 Abnormal urine 734649992 R82.90 [id number] Humza Daily MD [address] [place] [address] 01/10/2023 14:06:16 01/10/2023 14:42:12 Arthritis 2545272 M19.90 will continue current management until Pt has seen Nephrology [id number] [facility] [address] [place] [address] 01/22/2023 14:27:00 01/22/2023 15:48:47 Benign prostatic hyperplasia 806523684 N40.1 Sensation as if urinary bladder still full 215482081 R39.14 Chronic ki dney disease stage 3B 100689123 N18.32 Hypertensive disorder 38 133571 I10 Mixed hyperlipidemia 267 435063 E78.2 Uncontroll ed type 2 diabetes mellitus 725287516 E11.65 Aortic valve stenosis 60 157130 I35.0 Coronary arteriosclerosis 78245077 I25.10 [id number] Humza Daily MD [address] [place] [address] 01/21/2023 13:40:32 01/21/2023 14:32:21 Hypertensive disorder 79879288 I[address] daily for elevated BP 210/78 - 207/82 [id number] Humza Daily MD [address] [place] [address] 01/30/2023 14:12:46 01/30/2023 15:00:49 Coronary arteriosclerosis 29380174 I25.10 Pain of le ft knee joint 1496974616 76577 M25.562 Pain of cori int of bilateral lower legs 3724310170 7588984 M79.661 M79.662 Arthritis 4722832 M19.90 will continue current management until Pt has seen Nephrology [id number] Umberto Curry DO [address] [place] [address] 02/05/2023 12:28:33 02/05/2023 13:00:28 Pain of right shoulder joint 0959732001 6396257 M25.511 Right shoulder, osteoarthr itis flare. Patient consented and received corticoste roid injection into the subacromia l space. Patient tolerated the procedure well without side effects.Rashaad duarte was counseled on cryotherap y over the next 48 hours and expected course. [id number] Humza Daily MD [address] [place] [address] 02/07/2023 11:34:24 02/07/2023 12:21:17 Pain of right shoulder joint 5346083898 0129283 M25.511 Health Concerns Section Related Observation LastModified by Organization Detai ls LastModified Time None Recorded Concern Status LastModified by Organization Details LastModified Time None Recorded Advance Directives Directive N: Payers Insurance Date Sequence Insurance Name Policy Number Policy Santacruz Covered Member ID Santacruz Member ID Guarantor Name 03/19/2022 SLIDING FEE SCHEDULE - DISCOUNT Donte Trujillo 02/24/2023 [employer] [place] [facility] (MEDICARE) Donte Trujillo [id number] Donte Trujillo 02/24/2023 1 [place] Donte Trujillo [id number] Donte Trujillo 02/24/2023 2 FOR LIFE ( - MEDICARE SUPPLEMENT) Donte Trujillo [id number] Donte Trujillo 03/19/2022 SLIDING FEE SCHEDULE - DISCOUNT Donte Trujillo Notes Date Note Type Note Provider Name and Address Organization Details Recorded Time 01/21/2023 text/html Emergency Depart ment Follow-Up RecordReported by Patient Pt presents for f/u cardiac catheterization after ER visit. Pt began having CP with SoB 4 days prior, presented to ER same day; seen by Cards who elected to cath at that time. Pt relates that no blockages or tissue was found. Pt relates Dr Monet now uncertain if he actually had a cardiac event. On presentation to clinic, Pt's BP was 210/78 which Pt states it's been that high a lot lately. Dr Monet started me on new BP meds. Clonidine 0.3mg admin'd with good effect BPs downtrended to 207/82 then 193/80. Pt remained asx during the entire encounter. Pt denies any worsening s/sx, in particular, new or worsening headaches, dizziness, visual or auditory changes, GI upset or unusual fatigue. 5 minutes in chart review, 25 minutes in face to face time with Pt. Humza Daily MD [facility] [address], [place], [address], [place] [facility] 01/21/2023 16:18:20 01/22/2023 text/html Lower Urinary Tr act Symptoms (LUTS)Reported by PatientHPIFor associated symptoms, patient reportsstraining,post void dribbling,hesitancy,em pties poorly,urgency,frequen cy (3-4x),urge incontinence, andnocturia 3 times a nightbut reportsno abdominal pain,no groin pain,no flank pain,no low back pain,no chills,no fever,no constipation,no diarrhea,no nausea,no vomiting,no temperaure,good force of stream,no dysuria,no urine odor, andno gross hematuria. For location, patient reportsprostateandblad chai. For quality, patient reportsworsening. For severity, patient reportsbothersome. For duration, patient reportssudden.-04/02/22- creat 1.73, gfr 39 -05/31/22- creat 1.96, gfr 34 -10/04/22- creat 2.22, gfr 29. -12/17/22- UA dipstick- trace blood. -01/21/23- creat 1.6, gfr 42ROS as noted in the HPI Pt comes from [facility]ad[facility] APRN for microhematuria. Per Dr Daily, kidney function low. Nocturia. pt has been on doxazosin 4mg daily at least since 2018. he also was put on oxybutinin 5mg ER daily since 2020. yesica oconnor is with him today sees dr hendricks- cardio. 01/22/23comes to fu got his US done. after we got results we stopped oxybutinin 5mg. 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 Patient also has complaints of increased knee pain.Patient reports that pain is worse in back and legs. Rates pain 10/03. Reports polyarticular pain, reports pain as grinding in nature. Reports that pain is constant, waxes and wanes in nature. Reports that pain is worsened with ambulation and movement. Patient reports that pain is causing insomnia, reports that pain will frequently wake him up during the night and he is unable to rest. Patient also reports that pain makes is worse in the mornings and makes if difficult for him to get out of bed.Request joint injection this date.Patient denies any F/C, N/V/D, chest pain, tightness, palpitations, cough, congestion, SOA, appetite changes, SI/HI. Humza Daily MD [address], [place], [address], [place] [facility] 01/30/2023 18:22:01 02/05/2023 text/html 82-year-old male reports to the office today for an acute visit for right shoulder and.Patient states that this Friday he was lifting his walker into his truck to attend [employer] where he had pain to his right shoulder. Patient states that it hurts worse with movement but it does not awaken him from sleep. Patient also feels as if he has less strength in that shoulder since the injury. Patient has a history of arthritis and states that he has had corticosteroid injections in the left shoulder before. Patient also follows with pain management for ongoing leg pain as well as arthritis. Umberto Curry DO [address], [place], [address], [facility] - [facility] 02/05/2023 13:03:03 02/07/2023 text/html Emergency Depart ment Follow-Up RecordReported by PatientEmergency Room Follow-Up RecordFor discharge information, patient reportsname of hospital/urgent care patient was seen: ([facility]),patient presented to hospital/urgent care on or around: actual date 02/06/23,patient presented to hospital for treatment of: (right shoulder pain),patient's condition has: unchanged, andhospital records available at the time of this visit: no. Patient presents today for ER follow up and ongoing right shoulder pain. Patient reports that he was evaluated in the ER on 02/06/23. X-rays were taken with no acute findings. Patient reports that pain has not improved. Current pain rating 10/10.Patient states that this Friday he was lifting his walker into his truck to attend [employer] where he had pain to his right shoulder. Patient states that it hurts worse with movement but it does not awaken him from sleep. Reports limited ROM. Patient also feels as if he has less strength in that shoulder since the injury. Patient received steroid injection per Dr. Curry on 02/05/23 with no relief.Is requesting order for MRI and an injection from Dr Daily. 5 minutes in chart review, 25 minutes in face to face time with Pt. Humza Daily MD [address], [place], [address], [place] [facility] 02/07/2023 13:49:42
--- NOTE | 2025-01-21 22:30 | XR_ITS ---
PROCEDURE INFORMATION: Exam: XR Right Knee Exam date and time: 01/21/2025 10:58 PM Age: 84 years old Clinical indication: Injury or trauma; Fall; Blunt trauma; Knee; Right; Additional info: Tenderness S/P fall TECHNIQUE: Imaging protocol: Radiologic exam of the right knee. Views: 3 views. COMPARISON: CR XR ANKLE RT MIN 3V 01/21/2025 10:58 PM FINDINGS: Bones/joints: Normal. Soft tissues: Normal. IMPRESSION: No acute findings.
--- NOTE | 2025-01-21 22:30 | XR_ITS ---
PROCEDURE INFORMATION: Exam: XR Right Tibia and Fibula Exam date and time: 01/21/2025 10:58 PM Age: 84 years old Clinical indication: Injury or trauma; Fall; Blunt trauma; Lower leg; Right; Additional info: Fall with tenderness TECHNIQUE: Imaging protocol: Radiologic exam of the right tibia and fibula. Views: 2 views. COMPARISON: CR XR ANKLE RT MIN 3V 01/21/2025 10:58 PM FINDINGS: Bones/joints: Normal. Soft tissues: Normal. IMPRESSION: No acute findings.
--- NOTE | 2025-01-21 22:30 | CT_ITS ---
PROCEDURE INFORMATION: Exam: CT Cervical Spine Without Contrast Exam date and time: 01/21/2025 10:55 PM Age: 84 years old Clinical indication: Injury or trauma; Fall; Blunt trauma; Additional info: Fall on blood thinners TECHNIQUE: Imaging protocol: Computed tomography of the cervical spine without contrast. Radiation optimization: All CT scans at this facility use at least one of these dose optimization techniques: automated exposure control; mA and/or kV adjustment per patient size (includes targeted exams where dose is matched to clinical indication); or iterative reconstruction. COMPARISON: CT HEAD/BRAIN WO CON 01/21/2025 10:48 PM FINDINGS: Bones: Spine alignment is normal. No fracture or bone destruction. Moderate to severe multilevel degenerative disc disease predominantly at C5-C6 and C6-C7 levels with disc space narrowing and small disc osteophyte complexes. Mild multilevel facet arthropathy. Lungs: Lung apices are normal. Vasculature: Carotid calcifications. Soft tissues: Unremarkable. IMPRESSION: 1. Spine alignment is normal. 2. No fracture or bone destruction. 3. Moderate to severe multilevel degenerative disc disease predominantly at C5-C6 and C6-C7 levels with disc space narrowing and small disc osteophyte complexes. 4. Mild multilevel facet arthropathy. 5. Carotid calcifications.
--- NOTE | 2025-01-21 22:30 | CT_ITS ---
PROCEDURE INFORMATION: Exam: CT Head Without Contrast Exam date and time: 01/21/2025 10:48 PM Age: 84 years old Clinical indication: Injury or trauma; Fall; Blunt trauma (contusions or hematomas); Additional info: Fall on blood thinners TECHNIQUE: Imaging protocol: Computed tomography of the head without contrast. Radiation optimization: All CT scans at this facility use at least one of these dose optimization techniques: automated exposure control; mA and/or kV adjustment per patient size (includes targeted exams where dose is matched to clinical indication); or iterative reconstruction. COMPARISON: CT HEAD/BRAIN WO CON 01/18/2024 9:34 PM FINDINGS: Brain: No evidence for intracranial hemorrhage, mass lesions or acute stroke. Intracranial vascular calcifications. Mild small vessel ischemic change in the periventricular white matter. Extensive encephalomalacia left periatrial white matter extending into the posterior parietal cortex image 3/40-49. Small old lacunar infarct left basal ganglia image 3/38. Cerebral ventricles: Moderate ventriculomegaly. Pituitary gland and sella: Negative Paranasal sinuses: Visualized sinuses are unremarkable. No fluid levels. Mastoid air cells: Visualized mastoid air cells are well aerated. Orbital cavities: Bilateral cataract extractions. Bones: Unremarkable. No acute fracture. Soft tissues: Unremarkable. Vasculature: Negative. Other findings: Mild generalized atrophy. IMPRESSION: 1. No evidence for intracranial hemorrhage, mass lesions or acute stroke. 2. Intracranial vascular calcifications. 3. Mild generalized atrophy. 4. Mild small vessel ischemic change in the periventricular white matter. 5. Extensive encephalomalacia left periatrial white matter extending into the posterior parietal cortex image 3/40-49. 6. Small old lacunar infarct left basal ganglia image 3/38. 7. Moderate ventriculomegaly.
--- NOTE | 2025-01-21 22:30 | XR_ITS ---
PROCEDURE INFORMATION: Exam: XR Right Ankle Exam date and time: 01/21/2025 10:58 PM Age: 84 years old Clinical indication: Injury or trauma; Fall; Blunt trauma; Lower leg; Right; Additional info: Tenderness TECHNIQUE: Imaging protocol: Radiologic exam of the right ankle. Views: 3 or more views. COMPARISON: CR XR TIBIA FIBULA RT 2V 01/21/2025 10:58 PM FINDINGS: Bones/joints: Normal. Soft tissues: Normal. IMPRESSION: No acute findings.
--- NOTE | 2025-01-21 22:30 | XR_ITS ---
PROCEDURE INFORMATION: Exam: XR Chest Exam date and time: 01/21/2025 10:58 PM Age: 84 years old Clinical indication: Injury or trauma; Fall; Blunt trauma (contusions or hematomas); Additional info: Fall on blood thinners TECHNIQUE: Imaging protocol: Radiologic exam of the chest. Views: 1 view. COMPARISON: CT CERVICAL SPINE WO CON 01/21/2025 10:55 PM FINDINGS: Lungs: Unremarkable. No consolidation. Pleural spaces: Small left pleural effusion is likely Heart/Mediastinum: Unremarkable. No cardiomegaly. Bones/joints: Previous median sternotomy Soft tissues: Hypoventilated chest. Hypoventilated chest IMPRESSION: 1. Severe hypoventilation 2. Small left effusion is likely.
[2025-01-22 00:01] VITALS: BP 186/88; PULSE 96; O2SAT 96
[2025-01-22 01:00] VITALS: BP 154/75; PULSE 95; O2SAT 95
[2025-01-22 02:00] VITALS: BP 156/82; PULSE 92; O2SAT 94
[2025-01-22 03:01] VITALS: BP 131/110
--- NOTE | 2025-01-22 03:12 | PC.NURSE ---
attempted to call EMS to make aware of transfer back to skilled nursing. going to try to call again at this time
--- NOTE | 2025-01-22 03:16 | PC.NURSE ---
made EMS aware of transfer at this time
[2025-01-22 03:48] VITALS: BP 152/88; PULSE 94; RESP 17; TEMP 37.1; O2SAT 94
--- NOTE | 2025-01-22 03:48 | PC.NURSE ---
Ambulance arrived for patient transport. Report called to ASHUTOSH Driscoll at [facility].
== END 2025-01-22 04:00 | disposition home or self-care (01) ==
PROVIDERS: Emergency Provider Student in an Organized Health Care Education/Training Program
DX: S00.01XA Abrasion of scalp, initial encounter (principal); M25.561 Pain in right knee; R41.82 Altered mental status, unspecified; W18.30XA Fall on same level, unspecified, initial encounter
CPT/HCPCS: 70450; 71045; 72125; 73562; 73590; 73610; 99285

== ENCOUNTER 2025-02-15 11:37 | Outpatient (CLI) | payer MEDICARE, OTHER, MEDICAID, SELFPAY ==
--- OUTSIDE RECORDS SUMMARY | 2024-12-22 10:40 | XMS_ITS | Encounter Summary ---
Author Organization [facility] Address [address] [place] [address] Care Team Providers Care Adult Basic Education Teacher Name Role Phone Sylvester Bynum MD Primary Care Provider [phone] Reason for Referral * Imaging (Routine) - Closed Specialty Diagnoses / Procedures Referred By Violeta thompson Referred To Contact Radiology Diagnoses Renal cyst Procedures US Renal Complete Aaron Marie MD [address] [address] Phone: tel: fax: Referral ID Status Reason Start Date Expiration Date Visits Re quested Visits Authorized [id number] Closed 10/27/2024 04/28/2026 1 1 Reason for Visit * Imaging (Routine) - Closed Specialty Diagnoses / Procedures Referred By Violeta thompson Referred To Contact Radiology Diagnoses Renal cyst Procedures US Renal Complete Aaron Marie MD [address] [address] Phone: tel: fax: Referral ID Status Reason Start Date Expiration Date Visits Re quested Visits Authorized [id number] Closed 10/27/2024 04/28/2026 1 1 Encounter Details Date Type Department Care Team (Latest Contact Info) Description 12/22/2024 11:40 AM EDT - 12/22/2024 11:59 PM EDT Hospital Encounter [facility] Ultrasound [address] [place] [address] Renal cyst Discharge Disposition: Home or Self Care Social History Tobacco Use Types Packs/Day Years Used Date Smoking Tobacco: Former Cigarettes Smokeless Tobacco: Never Alcohol Use Standard Drinks/Week Comments Never 0 (1 standard drink = 0.6 oz pur e alcohol) PHQ-2 Answer Date Recorded Patient Health Questionnaire-2 Score 3 12/22/2024 PHQ-9 Answer Date Recorded Patient Health Questionnaire-9 Score 12 12/22/2024 AUDIT-C Answer Date Recorded Q1: How often [...] as of this encounter Functional Status * Over the past 2 weeks, how often have you been bothered by any of the following problems? Question Answer Date of Assessment Author Little interest or pleasure in doing things Not at all 12/22/2024 1:41 PM EDT Melvi Whaley Feeling down, depressed, or hopeless Nearly every day 12/22/2024 1:41 PM EDT Melvi Whaley Patient Health Questionnaire-2 Score 3 12/22/2024 1:41 PM EDT Laila Whaley a * Question Answer Date of Assessment Author Trouble falling or staying asleep, or sleeping too much Not at all 12/22/2024 1:41 PM EDT Melvi Whaley Feeling tired or having little energy Nearly every day 12/22/2024 1:41 PM EDT Melvi Whaley Poor appetite or overeating Nearly every day 12/22/2024 1:41 PM EDT Melvi Whaley Feeling bad about yourself - or that you are a failure or have let yourself or your family down Several days 12/22/2024 1:41 PM EDT Melvi Whaley Trouble concentrating on things, such as reading the newspaper or watching television More than half the days 12/22/2024 1:41 PM EDT Melvi Whaley Moving or speaking so slowly that other people could have noticed. Or the opposite - being so fidgety or restless that you have been moving around a lot more than usual Not at all 12/22/2024 1:41 PM EDT Melvi Whaley Thoughts that you would be better off or hurting yourself in some way Not at all 12/22/2024 1:41 PM EDT Melvi Whaley Patient Health Questionnaire-9 Score 12 12/22/2024 1:41 PM EDT Laila Whaley a * How difficult have these problems made it for you to do your work, take care of things at home, or get along with other people? Answer Date of Assessment Author Not difficult at all 12/22/2024 1:41 PM EDT Melvi Bustillos documented as of this encounter Medications at Time of Discharge Acetaminophen Extra Strength 500 MG tablet 10/05/2024 ascorbic acid (Vitamin C) 500 MG tablet Take 1 tablet by mouth daily. bisacodyl (Dulcolax) 10 MG suppository 11/13/2024 bumetanide (Bumex) 1 MG tablet 09/16/2024 buPROPion XL (Wellbutrin XL) 150 MG 24 hr tablet 10/03/2024 cefdinir (Omnicef) 300 MG capsule 09/27/2024 ciprofloxacin-dexa methasone (CiproDEX) otic suspension 4 drops 2 times a day. clopidogrel (Plavix) 75 MG tablet 09/14/2024 Embecta AutoShield Duo 30G X 5 MM misc 10/15/2024 escitalopram (Lexapro) 20 MG tablet 09/27/2024 famotidine (Pepcid) 40 MG tablet 12/19/2024 Farxiga 10 MG tablet 10/01/2024 FeroSul 325 (65 Fe) MG tablet 09/14/2024 Ferretts 325 (106 Fe) MG tablet 10/18/2024 finasteride (Proscar) 5 MG tablet 09/25/2024 gabapentin (Neurontin) 100 MG capsule 10/03/2024 insulin lispro (Admelog, HumaLOG) 100 UNIT/ML injection pen 10/06/2024 loperamide (Imodium) 2 MG capsule Take 1 capsule by mouth 4 times a day as needed for diarrhea. losartan (Cozaar) 50 MG tablet 09/24/2024 methylcellulose oral powder Take by mouth daily. metoprolol succinate XL (Toprol-XL) 25 MG 24 hr tablet 09/08/2024 Mounjaro 5 MG/0.5ML solution auto-injector solution pen-injector 10/23/2024 Mounjaro 7.5 MG/0.5ML solution auto-injector solution pen-injector 11/24/2024 NovoFine Autocover Pen Needle 30G X 8 MM misc 2024 polyethylene glycol (Miralax) 17 g packet Take 17 g by mouth daily. saccharomyces boulardii (Florastor) 250 MG capsule Take 1 capsule by mouth 2 times a day. senna (Senokot) 8.6 MG tablet Take 1 tablet by mouth nightly. tamsulosin (Flomax) 0.4 MG 24 hr capsule 09/20/2024 tiZANidine (Zanaflex) 2 MG capsule Take 1 capsule by mouth 3 times a day. Vitamin D3 1.25 MG (60447 UT) capsule 12/08/2024 documented as of this encounter Plan of Treatment Upcoming Encounters Date Type Department Care Team (Late st Contact Info) Description 03/22/2025 3:30 PM EST Office Visit Medical Office Building Urology [address], [address] [place] [address] Aaron Marie MD [address] [place] [address] 05/27/2025 1:20 PM EDT Office Visit [facility] [address] [place] [address] Moshe Jack MD [address] [place] [address] documented as of this encounter Procedures Procedure Name Priority Date/Time Associated Diagnosis Comments US RENAL COMPLETE Routine 12/22/2024 1:0 4 PM EDT Renal cyst documented in this encounter Results * US Renal Complete (12/22/2024 1:04 PM EDT) Anatomical Region Laterality Modality Kidney Ultrasound Impressions 12/22/2024 2:28 PM EDT No hydronephrosis. CRITICAL RESULT: No. COMMUNICATION: Per this written report. By electronically signing this report, I, the attending physician, attest that I have personally reviewed the images/data for the above examination(s) and agree with the final edited report. Drafted by Darren Olmstead MD on 12/22/2024 1:31 PM Final report signed by Vignesh Patel MD on 12/22/2024 2:28 PM Narrative 12/22/2024 2:28 PM EDT CLINICAL INDICATION: eval left renal cyst TECHNIQUE: Multiplanar static and cine carrillo scale ultrasound images of the kidneys and urinary bladder were obtained, accompanied by selective color Doppler ultrasound images. COMPARISON: None. FINDINGS: Right Kidney: Normal in size and echogenicity. Length 9.8 cm. No hydronephrosis, obvious calculi or discernible mass. Simple cyst in the interpolar region measuring 5.9 x 4.6 x 6.6 cm. Left Kidney: Normal in size and echogenicity. Length 10.8 cm. No hydronephrosis, obvious calculi or discernible mass. 1 cm simple cyst. Urinary bladder: Somewhat decompressed but grossly unremarkable. Procedure Note Vignesh Patel MD - 12/22/2024 CLINICAL INDICATION: eval left renal cyst TECHNIQUE: Multiplanar static and cine carrillo scale ultrasound images of the kidneysand urinary bladder were obtained, accompanied by selective color Dopplerultrasound images. COMPARISON: None. FINDINGS: Right Kidney: Normal in size and echogenicity. Length 9.8 cm. Nohydronephrosis, obvious calculi or discernible mass. Simple cyst in theinterpolar region measuring 5.9 x 4.6 x 6.6 cm. Left Kidney: Normal in size and echogenicity. Length 10.8 cm. Nohydronephrosis, obvious calculi or discernible mass. 1 cm simple cyst. Urinary bladder: Somewhat decompressed but grossly unremarkable. IMPRESSION: No hydronephrosis. CRITICAL RESULT: No. COMMUNICATION: Per this written report. By electronically signing this report, I, the attending physician, attminhat I have personally reviewed the images/data for the aboveexamination(s) and agree with the final edited report. Drafted by Darren Olmstead MD on 12/22/2024 1:31 PM Final report signed by Vignesh Patel MD on 12/22/2024 2:28 PM us Aaron Marie MD IM US PROCEDURES Final Result documented in this encounter Visit Diagnoses Diagnosis Renal cyst Unspecified congenital cystic kidney disease documented in this encounter Additional Health Concerns Assessment Noted Time PHQ-9 Depression Total Score: 12 025 1:41 PM EDT A fall risk assessment has been complete d for the patient 12/22/2024 1:41 PM EDT A Body Mass Index follow-up plan has been documented for the patient 12/25/2024 9:39 AM EDT documented as of this encounter Care Teams Adult Basic Education Teacher Relationship Specialty Start Date End Date Sylvester Bynum MD [facility] [email or web address] [place] [id number] PCP - General 09/01/24 documented as of this encounter
--- OUTSIDE RECORDS SUMMARY | 2024-12-22 13:30 | XMS_ITS | Encounter Summary ---
Author Organization [facility] Address [address] [place] [address] Care Team Providers Care Research Engineer Name Role Phone Sylvester Bynum MD Primary Care Provider [phone] Reason for Visit * Reason Comments Follow-up TRUS Cystoscope * Other Medical (Routine) - Closed Specialty Diagnoses / Procedures Referred By Contac t Referred To Contact Urology Diagnoses Benign prostatic hyperplasia, unspecified whether lower urinary tract symptoms present Procedures Cysto- Urology Aaron Marie MD [id number] [place] [address] Phone: tel: fax: Referral ID Status Reason Start Date Expiration Date Visits Re quested Visits Authorized [id number] Closed 10/27/2024 04/28/2026 1 1 Encounter Details Date Type Department Care Team ([facility] Contact Info) Description 12/22/2024 2:30 PM EDT Office Visit Medical Office Building Urology [facility] [address] [facility], [address] [place] [address] Aaron Marie MD [address] [facility] [address] [place] [address] Microscopic hematuria (Primary Dx); Benign prostatic hyperplasia, unspecified whether [...] Sign Reading Time Taken Comments Blood Pressure 112/68 12/22/2024 1:21 PM EDT Pulse 69 12/22/2024 1:21 PM EDT Temperature - - Respiratory Rate - - Oxygen Saturation 93% 12/22/2024 1:21 PM EDT Inhaled Oxygen Concentration - - Weight 86.2 kg (190 lb) 12/22/2024 1:21 PM EDT Height 170.2 cm (5' 7 ) 12/22/2024 1:21 PM EDT Body Mass Index 29.76 12/22/2024 1:21 PM EDT documented in this encounter Functional Status * Over the [...] way Not at all 12/22/2024 1:41 PM PRAFULT Melvi Whaley Patient Health Questionnaire-9 Score 12 12/22/2024 1:41 PM EDT Laila Whaley * How difficult have these problems made it for you to do your work, take care of things at home, or get along with other people? Answer Date of Assessment Author Not difficult at all 12/22/2024 1:41 PM EDT Melvi Bustillos documented as of this encounter Miscellaneous Notes * Progress Notes - Rehana Diaz MD - 12/22/2024 2:30 PM EDTAssociated Order(s): Cysto- Urology; TRUS Volume Pre-Procedure Diagnose(s): Benign prostatic hyperplasia, unspecified whether lower urinary tract symptoms present Post-Procedure Diagnose(s): Benign prostatic hyperplasia, unspecified whether lower urinary tract symptoms present Chief complaint: 83M who presents with bothersome [...] a 6.5cm left renal cyst.PVR 135 ml. 12/22/2024- In office cystoscopy with significant debris within the bladder which was aspirated andsent for culture. No significant prostatic hypertrophy. TRUS volume was 40 g. Renal ultrasound: He has 1 large simple cyst on his right kidney. No other significant mass, stones, or hydronephrosis. History History of present illness: Donte Trujillo is a 84 y.o. who returns today for a completion of his microscopic hematuria evaluation as well as a TRUS volume for a possible bladder outlet procedure. He denies seeing any blood in his urine at this time. He is still having a difficulty with voiding with his most bothersome symptom being urinary hesitancy. He feels like his constipation has improved since we last on and recommended MiraLax. From an overall health perspective, he is primarily wheelchair bound. He does get up and walk some using a walker, but this is fairly minimal. He does take Plavix given his history [...] PMH: has a past medical history of Allergic rhinitis, Arthritis, BPH (benign prostatic hyperplasia), Chronic pain syndrome, Depression, Diabetes, HLD (hyperlipidemia), HTN (hypertension), Iron deficiency, and Presence of xenogenic heart valve. PSH: has a past surgical history that includes Knee surgery; Cardiac surgery; and Cardiac valuve replacement. FH: family history includes Arthritis in his father; Heart attack in his father. SH: reports that he has quit smoking. His smoking use included cigarettes. He has never used smokeless tobacco. He reports that he does not drink alcohol and does not use drugs. Current Medications[1] Physical Exam Physical Exam Constitutional: General: Not in acute distress. Sitting comfortably in motorized wheelchair. Patient is somewhat disheveled and does have stool in his underwear. Appearance: Normal appearance. Not ill-appearing or toxic-appearing. [...] masses or lesions. Urethra patent without discharge. Musculoskeletal: General: Normal range of motion. Cervical back: Normal range of motion. Skin: General: Skin is warm and dry. Neurological: General: No focal deficit present. Mental Status: Alert and oriented to person, place, and time. Psychiatric: Mood and Affect: Mood normal. Behavior: Behavior normal. Judgment: Judgment normal. Lab & Imaging Laboratory results review: Cr baseline 2.2-2.3 Radiograph review: I personally reviewed his renal ultrasound from today with findings documented above Post void residual volume(s) Lab Results Component Value Date URVOL 144 10/27/2024 PROCEDURE Cysto- Urology Performed by: Rehana Diaz MD Authorized by: Aaron Marie MD Procedure discussed: discussed risks, benefits and alternatives Prep: patient was prepped and draped in usual sterile fashion Prep type: Betadine Procedure Details Cystoscope type: flexible Urethra Urethra: normal Prostate Prostate comment: Approximately 3 cm in length. No significant intravesical protrusion or lateral coapted lobes. Bladder Bladder comment: There was a significant amount of debris in the bladder that was aspirated. This made visualization challenging, but no obvious masses or stones were visualized within the bladder. Post-Procedure Details Outcome: patient tolerated procedure well with no complications Post-procedure interventions: post-procedure instructions given Disposition: discharged home in satisfactory condition TRUS Volume Performed by: Rehana Diaz MD Authorized by: Aaron Marie MD Consent: Consent obtained: Written Consent given by: Patient Risks, benefits, and alternatives were discussed: yes Risks discussed: Bleeding, infection and pain Indications: Indications: Prostate volume measurement Procedure specific details: The ultrasound probe was inserted into the patient's rectum. Visualization of the prostate was initially incredibly difficult due to stool burden. However, we were eventually able to obtain an image of the prostate. Width: 48 mm Length: 45 mm Height: 36 mm Calculated prostate volume: 40.97 cc Post-procedure details: Procedure completion: Tolerated well, no immediate complications Assessment and Plan Assessment: Donte Trujillo is a 84 y.o. male with bothersome LUTS likely due to an enlarged prostate, microscopichematuria, and a left renal cyst. For his urinary symptoms, he is most bothered by his urinary hesitancy. He is currently on Flomax and finasteride. His TRUS volume today was approximately 41 g. However, given his poor performance status, we do not believe he is a good surgical candidate for an outlet procedure. He can continue on his Flomax and finasteride to help him void and empty his bladder for now. From a microscopic hematuria standpoint, his renal ultrasound did not show any concerning masses, stones, or hydronephrosis. His cystoscopy was difficult due to poor visualization from the amount of debris in his bladder. We aspirated this and sent it for culture. However, we has been a significant amount of time looking in his bladder and did not see any obvious tumors. Plan: RTC in 3 months for a symptom check Continue Flomax and Finasteride Continue to work on constipation management with MiraLax Urine sent for culture today Time Spent: Rehana Diaz MD MSc Department of Urology, PGY-2 Pager: [phone] [1] Current Outpatient Medications Medication Sig Dispense Refill Acetaminophen Extra Strength 500 MG tablet ascorbic acid (Vitamin C) 500 MG tablet Take 1 tablet by mouth daily. bisacodyl (Dulcolax) 10 MG suppository bumetanide (Bumex) 1 MG tablet buPROPion XL (Wellbutrin XL) 150 MG 24 hr tablet ciprofloxacin-dexamethasone (CiproDEX) otic suspension 4 drops 2 times a day. clopidogrel (Plavix) 75 MG tablet Embecta AutoShield Duo 30G X 5 MM misc escitalopram (Lexapro) 20 MG tablet famotidine (Pepcid) 40 MG tablet Farxiga 10 MG tablet FeroSul 325 (65 Fe) MG tablet Ferretts 325 (106 Fe) MG tablet finasteride (Proscar) 5 MG tablet gabapentin (Neurontin) 100 MG capsule insulin lispro (Admelog, HumaLOG) 100 UNIT/ML injection pen loperamide (Imodium) 2 MG capsule Take 1 capsule by mouth 4 times a day as needed for diarrhea. losartan (Cozaar) 50 MG tablet methylcellulose oral powder Take by mouth daily. metoprolol succinate XL (Toprol-XL) 25 MG 24 hr tablet Mounjaro 5 MG/0.5ML solution auto-injector solution pen-injector Mounjaro 7.5 MG/0.5ML solution auto-injector solution pen-injector NovoFine Autocover Pen Needle 30G X 8 MM misc polyethylene glycol (Miralax) 17 g packet Take 17 g by mouth daily. saccharomyces boulardii (Florastor) 250 MG capsule Take 1 capsule by mouth 2 times a day. senna (Senokot) 8.6 MG tablet Take 1 tablet by mouth nightly. tamsulosin (Flomax) 0.4 MG 24 hr capsule tiZANidine (Zanaflex) 2 MG capsule Take 1 capsule by mouth 3 times a day. Vitamin D3 1.25 MG (27524 UT) capsule cefdinir (Omnicef) 300 MG capsule (Patient not taking: Reported on 12/22/2024) Current Facility-Administered Medications Medication Dose Route Frequency Provider Last Rate Last Admin lidocaine (Uro-Jet) 2 % gel - Pyxis Override Pull Cosigned by Aaron Marie MD at 12/25/2024 9:39 AM EDT Associated attestation - Aaron Marie MD - 12/25/2024 9:39 AM EDT I saw and evaluated the patient with the resident/fellow. I discussed the case with the resident/fellow and agree with the findings and plan as documented. and I was present for the entirety of the procedure(s). documented in this encounter Plan of Treatment Upcoming Encounters Date Type Department Care Team (Late st Contact Info) Description 03/22/2025 3:30 PM EST Office Visit Medical Office Building Urology [address] [facility], [address] [place] [address] Aaron Marie MD [address] [place] [address] 05/27/2025 1:20 PM EDT Office Visit [facility] [address] [place] [address] Moshe Jack MD [address] [place] [address] documented as of this encounter Procedures Procedure Name Priority Date/Time Associated Diagnosis Comments FUNGAL CULTURE, ROUTINE Routine 12/22/2024 3:21 PM EDT Benign prostatic hyperplasia, unspecified whether lower urinary tract symptoms present URINE CULTURE Routine 12/22/2024 3:21 PM EDT Benign prostatic hyperplasia, unspecified whether lower urinary tract symptoms present CYSTO- UROLOGY Routine 12/22/2024 2:30 PM EDT Benign prostatic hyperplasia, unspecified whether lower urinary tract symptoms present TRUS VOLUME Routine 12/22/2024 2:30 PM EDT Benign prostatic hyperplasia, unspecified whether lower urinary tract symptoms present documented in this encounter Results * (ABNORMAL) Fungal Culture, Routine (12/22/2024 3:21 PM EDT) Culture Confluent Growth Ruthy glabrata(A) 12/28/2024 9:12 AM EST [facility] Comment: This isolate has been identified using the FDA Approved [employer] Health Accesser [place] System Edited result: Previously reported as Yeast on 12/24/2024 at 1014 EDT. Urine Urinary bladder structure / Unknown Non-blood Collection / Unknown 12/22/2024 3:21 PM EDT 12/22/2024 5:46 PM EDT us Aaron Marie MD LAB MICROBIOLOGY - GENERAL HAYLEE MCNAMARA Final Result Performing Organization Address City/[facility]/[place] [address] * Urine Culture - Clinic Collect (12/22/2024 3:21 PM EDT) Culture No growth at day 1 12/23/2024 2:32 PM EDT [facility] Urine Urine specimen obtained by clean catch procedure / Unknown Non-blood Collection / Unknown 12/22/2024 3:21 PM EDT 12/22/2024 5:46 PM EDT us Aaron Marie MD LAB MICROBIOLOGY - GENERAL HAYLEE MCNAMARA Final Result Performing Organization Address [facility] [place] [address] * TRUS VOLUME (12/22/2024 2:30 PM EDT) Aaron Magana MD - 12/22/2024 2:30 PM EDT Aaron Marie MD 12/25/2024 9:39 AM TRUS Volume Performed by: Rehana Diaz MD Authorized by: Aaron Marie MD Consent: Consent obtained: Written Consent given by: Patient Risks, benefits, and alternatives were discussed: yes Risks discussed: Bleeding, infection and pain Indications: Indications: Prostate volume measurement Procedure specific details: The ultrasound probe was inserted into the patient's rectum. Visualization of the prostate was initially incredibly difficult due to stool burden. However, we were eventually able to obtain an image of the prostate. Width: 48 mm Length: 45 mm Height: 36 mm Calculated prostate volume: 40.97 cc Post-procedure details: Procedure completion: Tolerated well, no immediate complications us Aaron Marie MD UROLOGY ORDERABLES Final Result * CYSTO- UROLOGY (12/22/2024 2:30 PM EDT) Aaron Magana MD - 12/22/2024 2:30 PM EDT Aaron Marie MD 12/25/2024 9:39 AM Cysto- Urology Performed by: Rehana Diaz MD Authorized by: Aaron Marie MD Procedure discussed: discussed risks, benefits and alternatives Prep: patient was prepped and draped in usual sterile fashion Prep type: Betadine Procedure Details Cystoscope type: flexible Urethra Urethra: normal Prostate Prostate comment: Approximately 3 cm in length. No significant intravesical protrusion or lateral coapted lobes. Bladder Bladder comment: There was a significant amount of debris in the bladder that was aspirated. This made visualization challenging, but no obvious masses or stones were visualized within the bladder. Post-Procedure Details Outcome: patient tolerated procedure well with no complications Post-procedure interventions: post-procedure instructions given Disposition: discharged home in satisfactory condition us Aaron Marie MD UROLOGY ORDERABLES Final Result documented in this encounter Visit Diagnoses Diagnosis Microscopic hematuria- Primary Benign prostatic hyperplasia, unspecified whether lower urinary [...] documented as of this encounter Care Teams Research Engineer Relationship Specialty Start Date End Date Sylvester Bynum MD [facility] [address] [place] [phone] PCP - General 09/01/24 documented as of this encounter
--- OUTSIDE RECORDS SUMMARY | 2025-01-14 09:40 | XMS_ITS | Encounter Summary ---
Author Organization [facility] Address [address] [id number] Care Team Providers Care Malt House Supervisor Name Role Phone Sylvester Bynum MD Primary Care Provider + [phone] Reason for Visit * Reason Comments Follow-up [...] bone disorder (CKD-MBD) Moshe Jack MD [address] [place] [address] Phone: tel: fax: Referral ID Status Reason Start Date Expiration Date Visits Re quested Visits Authorized [id number] Closed 10/06/2024 04/07/2026 1 1 Encounter Details Date Type Department Care Team ([facility] st Contact Info) Description 01/14/2025 9:40 AM EST Office Visit [facility] [address] [place] [address] Moshe Jack MD [address] [place] [address] GILBERT (acute kidney injury) (Primary [...] AM EST Nephrology Outpatient Clinic Progress Note [place] [facility] Specialty Clinic Patient: Donte Trujillo Primary Care Provider: Sylvester Bynum MD Referring Provider: Sylvester Bynum MD Reason for visit: Chronic Kidney disease HPI/Subjective Donte Trujillo is a 84 y.o. male with a PMH of T2DM, open heart surgery with valve replacement, BPH, OA, and CKD stage 4 Lives in care home, continues to have dirty Uas with yeast [...] 16 Units, Nightly Vitamin D3 1.25 MG (26475 UT) capsule Objective Visit Vitals BP 139/65 [...] Visit Medical Office Building Urology [address], [address] [place] [address] Aaron Marie MD [address] [facility] [address] [place] [address] 05/27/2025 1:20 PM EDT Office Visit [facility] [address] [place] [address] Moshe Jack MD [address] [place] [address] documented as of this encounter [...] documented as of this encounter Care Teams Malt House Supervisor Relationship Specialty Start Date End Date Sylvester Bynum MD [facility] [place] [address] PCP - General 09/01/24 documented as of this encounter
--- NOTE | 2025-02-15 | CA_ITS ---
APPROVED REPORT Exam: Pharmacologic Technologist: Pham Teague Stress Nurse: Malou PETTIT, RN Ht: 5 ft 7 in Wt: 181 lbs BSA: 1.94 m2 HR: 74 bpm BP: 197/89 mmHg Indications: Rule out ischemia, shortness of breath, coronary artery disease, pre-op testing Stress Test Details Test: Lexiscan HR Resting HR: 74 bpm Max Heart Rate (APMHR): 135.614257 bpm Max HR Achieved: 90 bpm Target HR (85% APMHR): 114.144441 bpm % of APMHR: 66.67 Recovery HR: 78 bpm BP Resting BP: 197.0/89.0 mmHg Max BP: 168.0/69.0 mmHg Recovery BP: 168.0/69.0 mmHg ECG Resting ECG: Sinus rhythm Stress ECG Conclusion Lungs clear to auscultation prior to test start. Symptoms: None Arrhythmias/Ectopy: None ST-T Changes: Less than 0.[address] segment changes. Conclusion: Nondiagnostic ECG/Lexiscan Electronically signed by : Becky Juares MD 02/16/2025 21:10:57
--- NOTE | 2025-02-15 11:30 | NM_ITS ---
APPROVED REPORT Exam: Nuclear Stress Test Indication: fatigue Patient Location: Outpatient Stress Tech: Pham Teague NH Tech:Berenice Chaudhry ARELIEssence, RT (R)(N) Ht: 5 ft 7 in Wt: 181 lbs HR: 71 bpm BP: 200/88 mmHg BSA: 1.94 m2 TID: 1.17 BMI: 28.3 History: fatigue Procedure: Patient received 0.4 mg of intravenous Lexiscan, resting heart rate 71 bpm, resting blood pressure 200/88 mmHg, with Lexiscan maximum heart rate achieved was 86 bpm which is 85 % of the maximum predicted heart rate and blood pressure was 152/75 mmHg. With Lexiscan, patient denied any complaint of chest pain. The patient was not able to lay on his abdomen for prone images. Cardiac Stress and Resting SPECT Images: Cardiac Stress and Resting SPECT images were obtained using technetium 99m Myoview 29.3 mCi stress and 10.33 mCi at rest. The patient could not lie on his abdomen. Therefore, prone stress imaging could not be performed. This may affect diagnostic interpretation of the study findings. Resting stress images in supine positions demonstrate a medium sized, moderate, partially reversible perfusion defect in the basal to mid inferior LV johnson. Gated imaging demonstrates low normal global LV systolic function. LVEF is calculated at 50%. Conclusion: Medium sized, moderate, partially reversible perfusion defect in the basal to mid inferior LV johnson. Findings are suggestive of partial reversible ischemia. Gated imaging demonstrates low normal global LV systolic function. LVEF is calculated at 50%. Electronically signed by : Becky Juares MD 02/16/2025 21:05:20
--- OUTSIDE RECORDS SUMMARY | 2025-02-15 11:39 | XMS_ITS | Encounter Summary ---
Author Organization Healthcare Address [address] [place] [address] Care Team Providers Care Mems Device Scientist Name Role Phone Sylvester Bynum MD Primary Care Provider [phone] Encounter Details Date Type Department Care Team (Late st Contact Info) Description 01/03/2025 Results Follow-Up [facility] Urology [address], [address] [place] [address] Aaron Marie MD [address] [place] [address] Social History Tobacco Use Types [...] Visit Medical Office Building Urology [address] [facility], [address] [place] [address] Aaron Marie MD [address] [place] [address] 05/27/2025 1:20 PM EDT Office Visit [facility] [address] [facility] [address] [place] [address] Moshe Jack MD [address] [place] [address] documented as of this encounter [...] documented as of this encounter Care Teams Mems Device Scientist Relationship Specialty Start Date End Date Sylvester Bynum MD [facility] [place] [address] PCP - General 09/01/24 documented as of this encounter
--- OUTSIDE RECORDS SUMMARY | 2025-02-15 11:39 | XMS_ITS | Encounter Summary ---
Author Organization [facility] Address [address] [place] [address] Care Team Providers Care Forestry Farm Laborer Name Role Phone Sylvester Bynum MD Primary Care Provider + [phone] Encounter Details Date Type Department Care Team ([facility] Contact Info) Description 01/18/2025 Orders Only [facility] [address] [place] [address] [place] GILBERT (acute kidney injury) [...] Upcoming Encounters Date Type Department Care Team ([facility] Contact Info) Description 03/22/2025 3:30 PM EST Office Visit Medical Office Building Urology [address] [facility], [address] [place] [address] Aaron Marie MD [address] [place] [address] 05/27/2025 1:20 PM EDT Office Visit [facility] [address] [place] [address] Moshe Jack MD [address] [place] [address] Scheduled Orders Name Type Priority [...] documented as of this encounter Care Teams Forestry Farm Laborer Relationship Specialty Start Date End Date Sylvester Bynum MD [facility] [address] [place] [address] PCP - General 09/01/24 documented as of this encounter
--- OUTSIDE RECORDS SUMMARY | 2025-02-15 11:39 | XMS_ITS | Encounter Summary ---
Author Organization [facility] Address [address] [place] [address] Care Team Providers Care Fusing Machine Feeder Name Role Phone Sylvester Bynum MD Primary Care Provider + [phone] Encounter Details Date Type Department Care Team [...] Visit Medical Office Building Urology [address] [facility], [address] [place] [address] Aaron Marie MD [address] [facility] [address] [place] [address] 05/27/2025 1:20 PM EDT Office Visit [facility] [address] [place] [address] Moshe Jack MD [address] [place] [address] documented as of this encounter Visit [...] documented as of this encounter Care Teams Fusing Machine Feeder Relationship Specialty Start Date End Date Sylvester Bynum MD [facility] [employer] [place] [address] PCP - General 09/01/24 documented as of this encounter
--- OUTSIDE RECORDS SUMMARY | 2025-02-15 11:39 | XMS_ITS | Clinical Summary ---
Author Organization [facility] Address [address] [place] [address] Care Team Providers Care Drafter Commercial Name Role Phone Sylvester Bynum MD Primary Care Provider + [phone] Allergies Active Allergy Reactions Criticality Noted Date [...] Embecta AutoShield Duo 30G X 5 [facility] 5 Active bisacodyl (Dulcolax) 10 MG suppository 5 Active Vitamin D3 1.25 MG (03909 UT) capsule 5 Active famotidine (Pepcid) 40 [...] Department Care Team Description 01/18/2025 Orders Only [facility] [address] [place] [address] [place] GILBERT (acute kidney injury) (Primary Dx) 01/14/2025 9:40 AM EST Office Visit [facility] [address] [place] [address] Moshe Jack MD GILBERT (acute kidney injury) (Primary Dx); Chronic kidney disease-mineral and bone disorder (CKD-MBD); Other hyperlipidemia; Persistent proteinuria; Recurrent and persistent hematuria with other morphologic changes; Benign prostatic hyperplasia, unspecified whether lower urinary tract symptoms present 01/14/2025 Travel 01/03/2025 Results Follow-Up [facility] Urology [address], [address] [place] [address] Aaron Marie MD 12/22/2024 2:30 PM EDT Office Visit Medical Office Building Urology [address] [facility], [address] [place] [address] Aaron Marie MD Microscopic hematuria (Primary Dx); Benign prostatic hyperplasia, unspecified whether lower urinary tract symptoms present 12/22/2024 11:40 AM EDT - 12/22/2024 11:59 PM EDT Hospital Encounter [facility] Ultrasound [address] [place] [address] Renal cyst Discharge Disposition: Home or Self Care 12/22/2024 Travel from Last 3 Months Immunizations Immunization [...] Visit Medical Office Building Urology [address] [facility], [address] [place] [address] Aaron Marie MD [address] [facility] [address] [place] [address] 05/27/2025 1:20 PM EDT Office Visit [facility] [address] [place] [address] Moshe Jack MD [address] [place] [address] Health Maintenance Due Date Last Done Comments [facility]-Diabetes: Hemoglobin A1C 1940 [facility]-Medicare Annual Wellness (AWV) 1940 [facility]-/Child/Adol SDOH Screenings 1940 Diabetes: Dental Exam 11/01/1949 [facility]- SDOH Screenings 11/01/1957 [facility]-Adult SDOH Screenings 11/01/1957 [facility]-Zoster Vaccines (1 of 2) 11/01/1989 [facility]-Influenza Vaccine (#1) 2024 [id number] Vaccine (2024- season) 2024 09/29/2024, 01/16/2024, 12/17/2022, Additional history exists [facility]-Depression Screening 12/22/2025 12/22/2024, 11/25 [facility]-DTaP,Tdap,and Td Vaccines (6 - Td or Tdap) 09/23/2034 09/23/2024, 12/19/2023, 02/20/2023, Additional history exists [facility]-Pneumococcal Vaccine: 50+ Years Completed 04/07/2024, 02/25/2020, 12/16/2019 [facility]-RSV Vaccine: 60+ Years or Completed 10/20/2024 [facility]-Obesity Intervention Completed 025, 12/22/2024, 10/27/2024, Additional history exists HPV Vaccines (No Doses Required) Completed [facility]-HIB Vaccines Aged Out No longer e [...] 12/22/2024 1:0 4 PM EDT Renal cyst from Last 3 Months Results * (ABNORMAL) Fungal Culture, Routine (12/22/2024 3:21 PM EDT) Culture Confluent Growth Ruthy glabrata(A) 12/28/2024 9:12 AM EST [facility] Comment: This isolate has been identified using the FDA Approved Entegrionyper CA System Edited result: Previously reported as Yeast on 12/24/2024 at 1014 EDT. Urine Urinary bladder structure / Unknown Non-blood Collection / Unknown 12/22/2024 3:21 PM EDT 12/22/2024 5:46 PM EDT Aaron Marie MD LAB MICROBIOLOGY - GENERAL HAYLEE MCNAMARA Final Result [facility] [address] [place] [address] * Urine Culture - Clinic Collect (12/22/2024 3:21 PM EDT) Culture No growth at day 1 12/23/2024 2:32 PM EDT [facility] Urine Urine specimen obtained by clean catch procedure / Unknown Non-blood Collection / Unknown 12/22/2024 3:21 PM EDT 12/22/2024 5:46 PM EDT us Aaron Marie MD LAB MICROBIOLOGY - GENERAL HAYLEE GONZALEZADRI Final Result [facility] [address] [place] [address] * CYSTO- UROLOGY (12/22/2024 2:30 PM EDT) [...] on 12/22/2024 2:28 PM Aaron Marie MD IMG US PROCEDURES Final Result from Last 3 Months Insurance [place]ICARE [place] Care Teams Drafter Commercial Relationship Specialty Start Date End Date Sylvester Bynum MD [facility] [place] [address] PCP - General 7/9/25
--- OUTSIDE RECORDS SUMMARY | 2025-02-15 11:40 | XMS_ITS | Encounter Summary ---
Author Organization [facility] Address [address] [place] [address] Care Team Providers Care Bar Host Name Role Phone Sylvester Bynum MD Primary Care Provider [phone] Encounter Details Date Type Department Care Team [...] Visit Medical Office Building Urology [address] [facility], [address] [place] [address] Aaron Marie MD [address] [place] [address] 05/27/2025 1:20 PM EDT Office Visit [facility] [address] [place] [address] Moshe Jack MD [address] [place] [address] documented as of this encounter Visit [...] documented as of this encounter Care Teams Bar Host Relationship Specialty Start Date End Date Sylvester Bynum MD [facility] [place] [address] PCP - General 09/01/24 documented as of this encounter
[2025-02-15 13:00] VITALS: BP 197/98; PULSE 74; RESP 16
[2025-02-15] MEDS: SODIUM CHLORIDE 0.9% 10ML SYR (RAD ONLY) 10 ML IV ×2 (13:30→13:31)
--- NOTE | 2025-02-15 13:30 | CA_ITS ---
APPROVED REPORT EXAM: Comprehensive 2D, Doppler, and color-flow Echocardiogram Gold Buyer: Isabella BhattmanKATHY Ht: 5 ft 7 in Wt: 188lbs BSA: 1.97 BP: 115/73 mmHg Indications: PRE-OP,HISTORY OF BIOPROSTHETIC AORTIC VALVE REPLACEMENT 2D Dimensions IVSd 1.90 cm M: 0.6-1.2 LVEF (Visual) 87.90 % PWd 0.95 cm M: 0.6 - 1.2 LA Volume 64.90 mL LVDd 4.06 cm M: 4.2 - 5.9 LA Volume Index 32.94 mL/m2 (M/F) 16-34 LVDs 1.73 cm M: 2.5 - 4.0 M-Mode Dimensions LA Diam 5.57 cm (1.9-4.0) LV Diastology E Decel Time 310 (160-240 msec) E/A Ratio 0.9 Aortic Valve AoV Peak Jose J. 174.0 (50-130 cm/s) AO Peak GR. 12.20 mmHg AO Mean GR. 6.60 (<5 mmHg) AO VTI 35.7 (18-25 cm) GLADYS (VTI) 1.77 (2.5-4.5 cm2) Mitral Valve MV E Max Jose J. 155.0 (40-130 cm/s) MV A Velocity 174.0 (40-130 cm/s) E/A Ratio 0.89 MV Mean Gr. 9.10 (<2mmHg) MV PHT 91.0 ms Pulmonary Valve PV Peak Velocity 114.0 (50-150 cm/s) Left Ventricle The left ventricle is normal size. Left ventricular systolic function is normal. The left ventricular ejection fraction is within the normal range. There is marked increase in left ventricular wall thickness (IVSd 1.4 cm). There is normal LV segmental wall motion. The left ventricular diastolic function is indeterminate. LVEF is 65% Right Ventricle The right ventricle is mildly dilated. The right ventricular systolic function is normal. Atria Left atrium is moderately dilated. Right atrium is moderately dilated. There is no color Doppler evidence of interatrial shunt. Aortic Valve s/p bioprosthetic AVR. The prosthesis is well-seated. Mean AV gradient 6 mmHg. Max AV gradient 11 mmHg. Peak velocity 1.7 m/s. Trace aortic regurgitation is present. Mitral Valve Severe mitral annular calcification. The mitral valve leaflets are mildly thickened. Mild MS is present. Mean MV gradient is 8 mmHg (HR 79 bpm). Mild mitral regurgitation is present. Tricuspid Valve The tricuspid valve leaflets are thin and pliable. Trace tricuspid regurgitation. There is insufficient TR jet to estimate RVSP. Pulmonic Valve The pulmonary valve is grossly normal in structure. Trace pulmonic valve regurgitation is present. Great Vessels The aortic root is normal in size. IVC is normal in size and collapses >50% with inspiration. Pericardium There is no pericardial effusion. Other Information Study Quality: Fair Conclusion Normal biventricular systolic function. Marked increase in LV wall thickness (IVSd 1.4 cm). Mild RV dilation. Biatrial dilation. s/p bioprosthetic AVR. No significant AI. Acceptable AV gradients. Severe MAC. Mild MS. Mild MR. In the setting of marked increase in LV wall thickness, further evaluation for amyloidosis is suggested with cardiac MRI (amyloidosis protocol) + PYP nuclear scan + amyloid lab testing. Electronically signed by : Becky Juares MD 02/16/2025 19:51:34
[2025-02-15] MEDS: ISOTOPE MYOVIEW (PER STUDY) 1 DOSE IV (13:31)
--- NOTE | 2025-02-15 14:15 | CA_ITS ---
FINAL REPORT CLINICAL HISTORY: PRIOR CVA,CAD,HTN,HLD FINDINGS: RIGHT CAROTID: CCA PSV -45 cm/sec ICA PSV -103 cm/sec ICA/CCA PSV ratio -2.4. Comments: Moderate plaque disease is noted. LEFTCAROTID: CCA PSV -107. cm/sec ICA PSV -106. cm/sec ICA/CCA PSV ratio -1.0. Comments: Moderate plaque disease is noted. Antegrade flow is seen within the vertebral arteries. IMPRESSION: Carotid stenosis classified less than 50% Reviewed, Interpreted and Dictated by Gilda Bauer MD Transcribed by Anisa Guevara Authenticated and [facility]
== END 2025-02-15 23:59 | disposition home or self-care (01) ==
LOC: RAD 11:37
PROVIDERS: PCP Pediatrics; Visit Provider Nurse Practitioner Family
DX: Z01.810 Encounter for preprocedural cardiovascular examination (principal); I65.23 Occlusion and stenosis of bilateral carotid arteries; I34.81 Nonrheumatic mitral (valve) annulus calcification; I34.0 Nonrheumatic mitral (valve) insufficiency; I34.2 Nonrheumatic mitral (valve) stenosis; I13.0 Hypertensive heart and chronic kidney disease with heart failure and stage 1 through stage 4 chronic kidney disease, or unspecified chronic kidney disease; N18.4 Chronic kidney disease, stage 4 (severe); I50.32 Chronic diastolic (congestive) heart failure; I25.10 Atherosclerotic heart disease of native coronary artery without angina pectoris; R94.31 Abnormal electrocardiogram [ECG] [EKG]; E11.9 Type 2 diabetes mellitus without complications; Z79.4 Long term (current) use of insulin; K21.00 Gastro-esophageal reflux disease with esophagitis, without bleeding; J43.8 Other emphysema; Z86.73 Personal history of transient ischemic attack (TIA), and cerebral infarction without residual deficits; E78.49 Other hyperlipidemia; Z95.3 Presence of xenogenic heart valve; R94.39 Abnormal result of other cardiovascular function study
CPT/HCPCS: 78452; 93017; 93018; 93306; 93880; A9502; J2785